=== PATIENT | male | born 2000 | race Caucasian/White ===

== ENCOUNTER 2019-08-30 08:24 | Emergency (ER) | payer MEDICAID ==
[~2019-08-30] VITALS: Ht 185.4 cm; Wt 83.9 kg
[2019-08-30] MEDS ORDERED: PERCOCET 5-3251 EACH PO (14:35)
== END 2019-08-30 14:44 | disposition home or self-care (01) ==
LOC: ED 08:24
DX: N13.4 Hydroureter (principal); F17.200 Nicotine dependence, unspecified, uncomplicated
CPT/HCPCS: 74177; 76705; 80053; 81001; 83690; 85025; 96361; 99284-25; J1170; J2405; J7030; Q9967

== ENCOUNTER 2019-09-01 09:55 | Emergency (ER) | payer MEDICAID ==
[~2019-09-01] VITALS: Ht 185.4 cm; Wt 83.9 kg
--- OUTSIDE RECORDS SUMMARY | ~2019-09-01 | XMS | Encounter Summary ---
Demographics + + + | Address | [address] | | | [place] [address] | + + + | Home Phone | | + + + | Preferred Language | Unknown | + + + | Marital Status | Legally | + + + | Gnosticism Affiliation | Unknown | + + + | Race | Unknown | + + + | Ethnic Group | Unknown | + + + Author + + + | Author | [facility] | | | and Anibal | + + + | Organization | [facility] | | | and Alexandruana | + + + | Address | Unknown | + + + | Phone | Unavailable | + + + Support + + + + + | Name | Relationship | Address | Phone | + + + + + | Neno Winters | ECON | [address] | | | | | [place] [address] | | + + + + + | Joelle Sharp | SHARYN | [place] | | | | | [place] | | + + + + + Care Team Providers + +------+ + | Care Clipper And Turner Name | Role | Phone | + +------+ + | Corey Yuan MD | PCP | | + +------+ + Encounter Details +--------+ + + + + | Date | Type | Department | Care Team | Description | +--------+ + + + + | 12/15/ | Abstract | [place] [facility] | Corey Yuan, | | | 2012 | | Conversion Location | [address] | | | | | [phone] | | | | | | [place] [address] | | | | | | [phone] | | | | | | | | +--------+ + + + + Social History + +-------+ +--------+------+ | Tobacco Use | Types | Packs/Day | Years | Date | | | | | Used | | + +-------+ +--------+------+ | Never Assessed | | | | | + +-------+ +--------+------+ + + + | Sex Assigned at | Date Recorded | | | | + + + | Not on file | | + + + + + + + | Job Start Date | Occupation | Industry | + + + + | Not on file | Not on file | Not on file | + + + + + + + + | Travel History | Travel Start | Travel End | + + + + + + | No recent travel history available. | + + documented as of this encounter Plan of Treatment Not on filedocumented as of this encounter Visit Diagnoses Not on filedocumented in this encounter"
--- OUTSIDE RECORDS SUMMARY | ~2019-09-01 | XMS | Encounter Summary ---
Demographics + + + | Address | [address] | | | [place] [address] | + + + | Home Phone | | + + + | Preferred Language | Unknown | + + + | Marital Status | Legally | + + + | Alevism Affiliation | Unknown | + + + | Race | Unknown | + + + | Ethnic Group | Unknown | + + + Author + + + | Author | [facility] | | | and Anibal | + + + | Organization | [facility] | | | and Alexandruana | + + + | Address | Unknown | + + + | Phone | Unavailable | + + + Support + + + + + | Name | Relationship | Address | Phone | + + + + + | Neno Winters | ECON | [address] | | | | | [place] [address] | | + + + + + | Joelle Sharp | SHARYN | [place] | | | | | [place] | | + + + + + Care Team Providers + +------+ + | Care Paper Coater Name | Role | Phone | + +------+ + | Corey Yuan MD | PCP | | + +------+ + Encounter Details +--------+ + + + + | Date | Type | Department | Care Team | Description | +--------+ + + + + | 01/20/ | Preadmit | [facility] | Anthony Ortega MD | | | 2017 | Visit | [facility] | [address] | | | | | [address] | | | | | [address] | [address] | | | | | [place] | | | | | | [address] | | | | | | [phone] | | | +--------+ + + + + Social History + + + +--------+------+ | Tobacco Use | Types | Packs/Day | Years | Date | | | | | Used | | + + + +--------+------+ | Current Some Day | E-Cigarettes | 0.1 | 4 | | | Smoker | | | | | + + + +--------+------+ + +---+---+---+ | Smokeless Tobacco: | | | | | Never Used | | | | + +---+---+---+ + + +---------+ + | Alcohol Use | Drinks/Week | oz/Week | Comments | + + +---------+ + | No | | | | + + +---------+ + + + + | Sex Assigned at [...] Not on filedocumented as of this encounter Procedures + +--------+ + + + | Procedure Name | Priori | Date/Time | Associated Diagnosis | Comments | | | ty | | | | + +--------+ + + + | PROTIME INR | Routin | 01/20/2018 | | Results for this | | | e | 10:11 AM | | procedure are in the | | | | PDT | | results section. | + +--------+ + + + | CBC NO DIFFERENTIAL | Routin | 01/20/2018 | | Results for this | | | e | 10:11 AM | | procedure are in the | | | | PDT | | results section. | + +--------+ + + + | BASIC METABOLIC | Routin | 01/20/2018 | | Results for this | | PANEL | e | 10:11 AM | | procedure are in the | | | | PDT | | results section. | + +--------+ + + + documented in this encounter Results Tonny INR (01/20/2018 10:11 AM PDT) + + + + + + | Component | Value | Ref Range | Performed | Pathologist | | | | | At | Signature | + + + + + + | Prothrombin | 14.0 | 12.0 - 14.2 sec | [facility] | | | Time | | | [facility] | | | | | | [facility] | | | | | | [facility] | | + + + + + + | INR | 1.1Comment: Usual oral | 0.9 - 1.2 | [facility] | | | | anticoagulant range: 2.0 | | [facility] | | | | to 3.0 High level | | LABORATORY | | | | oral anticoagulant | | [facility] | | | | range: 2.5 to | | | | | | 3.5Performed by [facility] [address] | | | | [address] | | | | | | [place] [address] | | | | + + + + + + + + | Specimen | + + | Blood specimen | | (specimen) | + + + + + + + | Performing | Address | City/State/Zipcode | Phone Number | | Organization | | | | + + + + + | [facility] | [address] | [place] [address] | | | [facility] | | | | | [facility] | | | | + + + + + Basic Metabolic Panel (01/20/2018 10:11 AM PDT) + + + + + + | Component | Value | Ref Range | Performed | Pathologist | | | | | At | Signature | + + + + + + | Na | 141 | 135 - 146 | [facility] | | | | | mmol/L | [facility] | | | | | | [facility] | | | | | | [facility] | | + + + + + + | K | 3.8 | 3.6 - 5.2 | [facility] | | | | | mmol/L | [facility] | | | | | | [facility] | | | | | | [facility] | | + + + + + + | Cl | 103 | 98 - 109 mmol/L | [facility] | | | | | | [facility] | | | | | | [facility] | | | | | | [facility] | | + + + + + + | CO2 | 29 | 21 - 32 mmol/L | [facility] | | | | | | [facility] | | | | | | [facility] | | | | | | [facility] | | + + + + + + | Anion Gap | 9 | 5 - 16 mmol/L | [facility] | | | | | | [facility] | | | | | | [facility] | | | | | | [facility] | | + + + + + + | Calcium | 9.4 | 8.7 - 10.3 | [facility] | | | | | mg/dL | [facility] | | | | | | [facility] | | | | | | [facility] | | + + + + + + | BUN | 14 | 7 - 23 mg/dL | [facility] | | | | | | [facility] | | | | | | [facility] | | | | | | [facility] | | + + + + + + | Creatinine | 0.92 | 0.50 - 1.30 | [facility] | | | | | mg/dL | [facility] | | | | | | [facility] | | | | | | [facility] | | + + + + + + | Glucose | 109 (H) | 65 - 99 mg/dL | [facility] | | | | | | [facility] | | | | | | LAB[facility] | | | | | | [facility] | | + + + + + + | Estimated | 121Comment: eGFR<60 | >=90 | [facility] | | | GFR | consistent with impaired | mL/min/1.73m2 | [facility] | | | | kidney | | LABORATORY | | | | function.Performed by | | [facility] | | | | [facility] [address] | | | | | | [place] [address] | | | | + + + + + + + + | Specimen | + + | Blood specimen | | (specimen) | + + + + + + + | Performing | Address | City/State/Zipcode | Phone Number | | Organization | | | | + + + + + | [facility] | [address] | [place] [address] | | | [facility] | | | | | [facility] | | | | + + + + + CBC no Differential (01/20/2018 10:11 AM PDT) + + + + + + | Component | Value | Ref Range | Performed | Pathologist | | | | | At | Signature | + + + + + + | WBC | 5.0 | 3.8 - 11.0 K/uL | [facility] | | | | | | [facility] | | | | | | [facility]AT[facility] | | | | | | [facility] | | + + + + + + | RBC | 5.22 | 4.20 - 5.70 | [facility] | | | | | M/uL | [facility] | | | | | | LAB[facility] | | | | | | [facility] | | + + + + + + | Hemoglobin | 16.4 | 13.2 - 17.0 | [facility] | | | | | g/dL | [facility] | | | | | | LAB[facility]ATORY | | | | | | [facility] | | + + + + + + | Hct | 46.2 | 39.0 - 50.0 % | [facility] | | | | | | [facility] | | | | | | LAB[facility]ORY | | | | | | [facility] | | + + + + + + | MCV | 88.6 | 80.0 - 100.0 fL | [facility] | | | | | | [facility] | | | | | | LAB[facility] | | | | | | [facility] | | + + + + + + | MCH | 31.4 | 27.0 - 34.0 pg | [facility] | | | | | | [facility] | | | | | | LAB[facility] | | | | | | [facility] | | + + + + + + | MCHC | 35.5 | 32.0 - 35.5 | [facility] | | | | | g/dL | [facility] | | | | | | LAB[facility]ORY | | | | | | [facility] | | + + + + + + | RDW-CV | 13.6 | 11.0 - 15.5 % | [facility] | | | | | | [facility] | | | | | | LAB[facility] | | | | | | [facility] | | + + + + + + | Platelet | 272 | 150 - 400 K/uL | [facility] | | | Count | | | [facility] | | | | | | LAB[facility] | | | | | | [facility] | | + + + + + + | MPV | 8.3Comment: Performed | 7.5 - 11.2 fL | [facility] | | | | by [facility] [address] | | [facility] | | | | [place] [facility] | LAB[facility]ATORY | | | | [place] [address] | | [facility] | | | | | | | | + + + + + + + + | Specimen | + + | Blood specimen | | (specimen) | + + + + + + + | Performing | Address | City/State/Zipcode | Phone Number | | Organization | | | | + + + + + | [facility] | [address] | [place] [address] | | | [facility] | | | | | [facility] | | | | + + + + + documented in this encounter Visit Diagnoses Not on filedocumented in this encounter"
--- OUTSIDE RECORDS SUMMARY | ~2019-09-01 | XMS | Encounter Summary ---
Demographics + + + | Address | [address] | | | [place] [address] | + + + | Home Phone | | + + + | Preferred Language | Unknown | + + + | Marital Status | Legally | + + + | Faith Affiliation | Unknown | + + + | Race | Unknown | + + + | Ethnic Group | Unknown | + + + Author + + + | Author | [facility] | | | and Anibal | + + + | Organization | [facility] | | | and [place] | + + + | Address | Unknown | + + + | Phone | Unavailable | + + + Support + + + + + | Name | Relationship | Address | Phone | + + + + + | Neno Winters | ECON | [address] | | | | | [place] [address] | | + + + + + | Joelle Sharp | ECON | [place] | | | | | [place] | | + + + + + Care Team Providers + +------+ + | Care Turning Machine 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 Name | Role | Phone | + +------+ + | Corey Yuan MD | PCP | | + +------+ + Reason for Visit Auth/Cert +--------+--------+ + + + + | Status | Reason | Specialty | Diagnoses / | Referred By | Referred To | | | | | Procedures | Contact | Contact | +--------+--------+ + + + + | | | | Diagnoses | | | | | | | 17 year old | | | | | | | male with | | | | | | | 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 | | | | | | | Procedures | | | | | | | Ir | | | | | | | Gastro/Bilia | | | | | | | ry/Genito | | | | | | | Urinary | | | | | | | Nephro | | | | | | | Tubes/Drains | | | +--------+--------+ + + + + Encounter Details +--------+---------+ + + + | Date | Type | Department | Care Team | Description | +--------+---------+ + + + | 12/17/ | Surgery | [facility] | Ray Marquez MD | right neph tube | | 2017 | | [facility] | | removed | | | | [address] | | | | | | [place], [place] | | | | | | [address] | | | | | | [phone] | | | +--------+---------+ + + + Social History + + [...] + + documented as of this encounter Last Filed Vital Signs + + + + + | Vital Sign | Reading | Time Taken | Comments | + + + + + | Blood Pressure | 114/68 | 12/17/2017 1:45 PM | | | | | PDT | | + + + + + | Pulse | 68 | 12/17/2017 1:45 PM | | | | | PDT | | + + + + + | Temperature | 36.5 C (97.7 F) | 12/17/2017 1:13 PM | | | | | PDT | | + + + + + | Respiratory Rate | 16 | 12/17/2017 1:45 PM | | | | | PDT | | + + + + + | Oxygen Saturation | 97% | 12/17/2017 1:45 PM | | | | | PDT | | + + + + + | Inhaled Oxygen | - | - | | | Concentration | | | | + + + + + | Weight | 82.6 kg (182 lb) | 12/17/2017 12:01 PM | | | | | PDT | | + + + + + | Height | 185.4 cm (6' 1") | 12/17/2017 12:01 PM | | | | | PDT | | + + + + + | Body Mass Index | 24.01 | 12/17/2017 12:01 PM | | | | | PDT | | + + + + + documented in this encounter Discharge Instructions Instructions Kathleen Hays RN - 12/17/2017Formatting of this note might be different f rom the original. Discharge Instructions for Percutaneous Nephrostomy You had a procedure called percutaneous nephrostomy.This means that urine was drained fro m your kidney to prevent pain, infection, and kidney damage.You had the procedure because your kidney or the tube leading from the kidney to the bladder (ureter) was blocked by a kid chetan stone or tumor, or perhaps due to another problem. The blockage caused a backup of urine in your kidney. A thin, flexible tube called a catheter will stay in place until the problem that caused th e buildup of urine has been treated. This may be as soon as a day or as long as weeks to mon ths. The catheter bag is taped to your leg so that you can walk around. Activity Don t lift anything heavier than10 pounds until your healthcare provider says it s OK. Avoid strenuous activities, such as mowing the lawn, vacuuming, playing sports, or engag ing in anything that will cause your tubing to be pulled or moved. Slowly increase your activity level with short, frequent walks3 to [address] times a day[address] Don t drive while you are still taking pain medicine. Wait until your healthcare tory marlon says it s OK to drive. Home care Eat your normal diet. Drink6 to 8 glasses of water a day, unless directed otherwise. Wear loose, comfortable clothes that won t pull or kink the catheter tube. Check your dressing often to make sure the tubing is secure. Don t let the drainage bag hang freely,or it will pull on the catheter. Keep it tape d to your leg or hold it temporarily. Empty the drainage bag often to keep the weight of the bag from pulling on the catheter. Empty the bag when it is one-half to two-thirds full. Always empty the bag before you go to bed. Wash your hands before and after emptying the bag. Measure and record the amount and color of the urine in the bag. Gently clean the skin around the catheter with mild soap and warm water. Pat dry with a clean towel. Change your dressing if it becomes loose or dirty. Throw away the dressing in a plastic bag. If you were asked to stop any medicines before the surgery, be sure to ask the healthcar e provider when you may restart taking them. This is especially important in the case of blo od thinners (anticoagulants or antiplatelet medicines). Follow-up care Make a follow-up appointment as directed by our staff. When to call your healthcare provider Call your healthcare provider right away if you have any of these: A catheter that is not draining The catheter comes out. Do not try to put it back in. Pain, redness, or discharge around catheter Fever of100.4F (38C) or higher, or as directed by your healthcare provider A noticeable increase or decrease in the amount of urine that drains Cloudy or smelly urine Urine that changes to a pink or red color Increased pain Severe pain in your side Nausea and vomiting Date Last Reviewed: 09/25/201619992640-5426 [employer]. [address] [place] [address], [place] [address]. All righ ts reserved. This information is not intended as a substitute for professional medical care. Always follow your healthcare professional's instructions. Discharge Instructions: After Your Surgery You ve just had surgery. During surgery, you were given medicine called anesthesia to memo p you relaxed and free of pain. After surgery, you may have some pain or nausea. This is com mon. Here are some tips for feeling better and getting well after surgery. Stay on schedule with your medicine. Going home Your healthcare provider will show you how to take care of yourself when you go home. He or she will also answer your questions. Have an adult family member or friend drive you home. For the first 24 hours after your surgery: Do not drive or use heavy equipment. Do not make important decisions or sign legal papers. Do not drink alcohol. Have someone stay with you, if needed. He or she can watch for problems and help keep yo u safe. Be sure to go to all follow-up visits with your healthcare provider. And rest after your nathan rgery for as long as your healthcare provider tells you to. Coping with pain If you have pain after surgery, pain medicine will help you feel better. Take it as shwetha cano efore pain becomes severe. Also, ask your healthcare provider or pharmacist about other ways to control pain. This might be with heat, ice, or relaxation. And follow any other instruct ions your surgeon or nurse gives you. Tips for taking pain medicine To get the best relief possible, remember these points: Pain medicines can upset your stomach. Taking them with a little food may help. Most pain relievers taken by mouth need at least 20 to 30 minutes to start to work. Taking medicine on a schedule can help you remember to take it. Try to time your medicin e so that you can take it before starting an activity. This might be before you get dressed, go for a walk, or sit down for dinner. Constipation is a common side effect of pain medicines. Call your healthcare provider be fore taking any medicines such as laxatives or stool softeners to help ease constipation. Al so ask if you should skip any foods. Drinkinglots of fluids andeating foodssuch as fru its and vegetables that are high in fiber can also help. Remember, do not take laxatives unl ess your surgeon has prescribed them. Drinking alcohol and taking pain medicine can cause dizziness and slow your breathing. I t can even be deadly. Do not drink alcohol while taking pain medicine. Pain medicine can make you react more slowly to things. Do not drive or run machinery wh ile taking pain medicine. Your healthcare providermay tell you to take acetaminophen to help ease your pain. Ask hi m or her how much you are supposed to take each day. Acetaminophen or other pain relievers m ay interact with your prescription medicines or other mity-ohc-mxjyluo (OTC) medicines. Some prescription medicines have acetaminophen and other ingredients.Using both prescription a nd OTC acetaminophenfor paincan cause you to overdose. Readthe labels on your OTC medi cineswith care. This will help youto clearly know the list of ingredients, how much to t clementine, and anywarnings. It may also help you not take too muchacetaminophen.If you have questions or do not understand the information, ask your pharmacist or healthcare provider t o explain it to you before you take the OTC medicine. Managing nausea Some people have an upset stomach after surgery. This is often because of anesthesia, pain, or pain medicine, or the stress of surgery. These tips will help you handle nausea and eat healthy foods as you get better. If you were on a special food plan before surgery, ask your healthcare provider if you should follow it while you get better. These tips may help: Do not push yourself to eat. Your body will tell you when to eat and how much. Start off with clear liquids and soup. They are easier to digest. Next try semi-solid foods, such as mashed potatoes, applesauce, and gelatin, as you feel ready. Slowly move to solid foods. Don t eat fatty, rich, or spicy foods at first. Do not force yourself to have 3 large meals a day. Instead eat smaller amounts more ofte n. Take pain medicines with a small amount of solid food, such as crackers or toast, to carl id nausea. Call your surgeon if You still have pain an hour after taking medicine. The medicine may not be strong enough . You feel too sleepy, dizzy, or groggy. The medicine may be too strong. You have side effects like nausea, vomiting, or skin changes, such as rash, itching, or hives. If you have obstructive sleep apnea You were given anesthesia medicine during surgery to keep you comfortable and free of pain. After surgery, you may have more apnea spells because of this medicine and other medicines you were given. The spells may last longer than usual. At home: Keep using the continuous positive airway pressure (CPAP) device when you sleep. Unless your healthcare provider tells you not to, use it when you sleep, day or night. CPAP is a co mmon device used to treat obstructive sleep apnea. Talk with your provider before taking any pain medicine, muscle relaxants, or sedatives. Your provider will tell you about the possible dangers of taking these medicines. Date Last Reviewed: 07/25/201619995261-0235 [employer]. [address] [place] [id number]. All righ ts reserved. This information is not intended as a substitute for professional medical care. Always follow your healthcare professional's instructions. 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 documented in this encounter Medications at Time of Discharge + + + +---------+ + + | Medication | Sig | Dispensed | Refills | Start | End Date | | | | | | Date | | + + + +---------+ + + | ascorbic acid | Take 500 mg by mouth | | 0 | | | | (VITAMIN C) 500 mg | Daily. | | | | | | tablet | | | | | | + + + +---------+ + + | citalopram | Take 1 tablet by | 30 | 3 | 11/19/19 | | | (CELEXA) 20 mg | mouth Daily. | tablet | | 18 | 8 | | tabletIndications: | | | | | | | Moderate episode of | | | | | | | recurrent major | | | | | | | depressive disorder | | | | | | | (HCC) | | | | | | + + + +---------+ + + | docusate sodium | Take 1-2 capsules by | 30 | 0 | 01/29/20 | | | (COLACE) 100 mg | mouth Daily. | capsule | | 18 | 9 | | capsule | | | | | | + + + +---------+ + + | | Take 1 tablet by | 20 | 0 | 11/16/19 | | | HYDROcodone-acetamin | mouth every 6 hours | tablet | | 18 | 8 | | ophen (NORCO) 5-325 | as needed for Pain. | | | | | | mg per tablet | | | | | | + + + +---------+ + + | | Take 1-2 tablets by | 30 | 0 | 01/29/20 | | | oxyCODONE-acetaminop | mouth every 6 hours | tablet | | 18 | 9 | | hen (PERCOCET) 5-325 | as needed for Pain. | | | | | | mg per tablet | | | | | | + + + +---------+ + + documented as of this encounter Plan of Treatment Not on filedocumented as of this encounter Procedures + +--------+ + + + | Procedure Name | Priori | Date/Time | Associated Diagnosis | Comments | | | ty | | | | + +--------+ + + + | IR PROCEDURE | Routin | 12/17/2017 | Acquired atrophy | Results for this | | | e | 1:24 PM | of kidney Accessory | procedure are in the | | | | PDT | kidney Stricture | results section. | | | | | or kinking of ureter | | + +--------+ + + + documented in this encounter Results IR Procedure (12/17/2017 1:24 PM PDT) + + | Specimen | + + | | + + + + + | Narrative | Performed At | + + + | IR PROCEDURE | [facility] | | RIGHT NEPHROSTOGRAM WITH REMOVAL OF RIGHT NEPHROSTOMY TUBE. CLINICAL | | | INFORMATION:Right. Prone. 8.5 Fr, nephrostomy tube removal. | | | COMPARISON:IR PROCEDURE dated 11/14/2017; US PELVIS LIMITED dated | | | 11/13/2017;ULTRASOUND APPENDIX dated 11/13/2017 PROCEDURE:The risks, | | | benefits and alternatives were discussed with the patient;consent was | | | obtained and placed in the patient's chart. The risksincluded but were | | | not limited to puncture site bleeding, stroke, kidneyfailure, | | | allergic reaction and . The right flank was prepped and draped in | | | standard fashion. Localanesthetic accomplished 1 present xylocaine. | | | Next using a sterile technique the nephrostomy tube was | | | injected.Sequential imaging from the right kidney to bladder was | | | utilized. Thepatient was also placed upright. Good prompt drainage | | | into the bladderis noted. At this point the retention suture was | | | removed. The nephrostomy tubewas removed over a guidewire under | | | fluoroscopic guidance. Patienttolerated the procedure well. Maximum | | | sterile barrier techniques taken. All staff present in the | | | roomperformed hand hygiene prior to the procedure. There were no | | | immediate complications following the procedure.Estimated blood loss: | | | Minimal Fluoro Time: 2 minutes The total number of images: 2 | | | Contrast: 10 ml Omnipaque 300 Medications:25mcg Fentanyl, and 0.5 mg | | | Versed were utilized for conscioussedation. The conscious sedation | | | nurse who monitored the bloodpressure, heart rate, and pulse oximeter | | | during the examinationadministered the medications. The patient was | | | monitored forapproximately 30.0 minutes. A permanent sonographic | | | recording wascreated for the patient's record. FINDINGS:The | | | nephrostogram demonstrates the duplicated right renal collectingsystem | | | with the ureteral stent in position. Persistent narrowing ofthe | | | distal right ureter is noted however there is patency of the | | | rightureteral stent with contrast in the bladder. Successful removal | | | of right nephrostomy tube.. IMPRESSION:Right nephrostogram | | | demonstrates patency of the right ureteral stentwith passage of | | | contrast into the bladder. Right nephrostomy tuberemoved. See above | | | comments Signed by: MD Marquez David | | |Estimated blood loss: Minimal | | | | | |Fluoro Time: 2 minutes The total number of images: 2 | | | | | |Contrast: 10 ml Omnipaque 300 | | | | | |Medications: | | |25mcg Fentanyl, and 0.5 mg Versed were utilized for conscious | | |sedation. The conscious sedation nurse who monitored the blood | | |pressure, heart rate, and pulse oximeter during the examination | | |administered the medications. The patient was monitored for | | |approximately 30.0 minutes. A permanent sonographic recording was | | |created for the patient's record. | | | | | |FINDINGS: | | |The nephrostogram demonstrates the duplicated right renal collecting | | |system with the ureteral stent in position. Persistent narrowing of | | |the distal right ureter is noted however there is patency of the right | | |ureteral stent with contrast in the bladder. | | | | | |Successful removal of right nephrostomy tube.. | | | | | |IMPRESSION: | | |Right nephrostogram demonstrates patency of the right ureteral stent | | |with passage of contrast into the bladder. Right nephrostomy tube | | |removed. | | | | | |See above comments | | | | | | | | | | | | | | |Signed by: MD Marquez David | | | | | | | | + + + + + | Procedure Note | + + | Lance, Rad Results In - 12/17/2017 1:34 PM PDT | | IR PROCEDURE | | | | RIGHT NEPHROSTOGRAM WITH REMOVAL OF RIGHT NEPHROSTOMY TUBE. | | | | CLINICAL INFORMATION: | | Right. Prone. 8.5 Fr, nephrostomy tube removal. | | | | COMPARISON: | | IR PROCEDURE dated 11/14/2017; US PELVIS LIMITED dated 11/13/2017; | | ULTRASOUND APPENDIX dated 11/13/2017 | | | | PROCEDURE: | | The risks, benefits and alternatives were discussed with the patient; | | consent was obtained and placed in the patient's chart. The risks | | included but were not limited to puncture site bleeding, stroke, kidney | | failure, allergic reaction and . | | | | The right flank was prepped and draped in standard fashion. Local | | anesthetic accomplished 1 present xylocaine. | | | | Next using a sterile technique the nephrostomy tube was injected. | | Sequential imaging from the right kidney to bladder was utilized. The | | patient was also placed upright. Good prompt drainage into the bladder | | is noted. | | | | At this point the retention suture was removed. The nephrostomy tube | | was removed over a guidewire under fluoroscopic guidance. Patient | | tolerated the procedure well. | | | | Maximum sterile barrier techniques taken. All staff present in the room | | performed hand hygiene prior to the procedure. | | | | There were no immediate complications following the procedure. | | Estimated blood loss: Minimal | | | | Fluoro Time: 2 minutes The total number of images: 2 | | | | Contrast: 10 ml Omnipaque 300 | | | | Medications: | | 25mcg Fentanyl, and 0.5 mg Versed were utilized for conscious | | sedation. The conscious sedation nurse who monitored the blood | | pressure, heart rate, and pulse oximeter during the examination | | administered the medications. The patient was monitored for | | approximately 30.0 minutes. A permanent sonographic recording was | | created for the patient's record. | | | | FINDINGS: | | The nephrostogram demonstrates the duplicated right renal collecting | | system with the ureteral stent in position. Persistent narrowing of | | the distal right ureter is noted however there is patency of the right | | ureteral stent with contrast in the bladder. | | | | Successful removal of right nephrostomy tube.. | | | | IMPRESSION: | | Right nephrostogram demonstrates patency of the right ureteral stent | | with passage of contrast into the bladder. Right nephrostomy tube | | removed. | | | | See above comments | | | | | | | | | | Signed by: MD Marquez David | + + + +---------+ + + | Performing | Address | City/State/Zipcode | Phone Number | | Organization | | | | + +---------+ + + | [facility] | | | | + +---------+ + + documented in this encounter Visit Diagnoses Not on filedocumented in this encounter Administered Medications + +--------+ +--------+------+------+ | Medication Order | MAR | Action | Dose | Rate | Site | | | Action | Date | | | | + +--------+ +--------+------+------+ | fentaNYL (PF) injection | Given | 12/18/19 | 25 mcg | | | | Intravenous, PRN, Starting Wed | | 18 12:54 | | | | | 12/17/17 at 1254, Intra-op | | PM PDT | | | | + +--------+ +--------+------+------+ +---+---+ | | | +---+---+ + +-------+ +--------+---+---+ | iohexol (OMNIPAQUE 300) 300 | Given | 12/18/19 | 10 mLs | | | | mg/mL injection PRN, Starting | | 18 12:56 | | | | | 12/17/17 at 1256 | | PM PDT | | | | + +-------+ +--------+---+---+ +---+---+ | | | +---+---+ + +-------+ +--------+---+---+ | midazolam (VERSED) 1 mg/mL | Given | 12/18/19 | 0.5 mg | | | | injection Intravenous, PRN, | | 18 12:54 | | | | | Starting 12/17/17 at 1254 | | PM PDT | | | | + +-------+ +--------+---+---+ +---+---+ | | | +---+---+ + +---------+ +---+ +---+ | sodium chloride 0.9% (NS) | New Bag | 12/18/19 | | 50 mL/hr | | | infusion at 50 mL/hr, | | 18 12:23 | | | | | Intravenous, CONTINUOUS, Starting | | PM PDT | | | | | 12/17/17 at 1230, OK to use | | | | | | | implantable port., Pre-op | | | | | | + +---------+ +---+ +---+ +---+---+ | | | +---+---+ documented in this encounter
--- OUTSIDE RECORDS SUMMARY | ~2019-09-01 | XMS | Encounter Summary ---
Demographics + + + | Address | [address] | | | [place] [address] | + + + | Home Phone | | + + + | Preferred Language | Unknown | + + + | Marital Status | Legally | + + + | Adventist Affiliation | Unknown | + + + | Race | Unknown | + + + | Ethnic Group | Unknown | + + + Author + + + | Author | [facility] | | | and Anibal | + + + | Organization | [facility] | | | and [place] | + + + | Address | Unknown | + + + | Phone | Unavailable | + + + Support + + + + + | Name | Relationship | Address | Phone | + + + + + | Neno Winters | ECON | [address] | | | | | [place] [address] | | + + + + + | Joelle Sharp | SHARYN | [place] | | | | | [place] | | + + + + + Care Team Providers + +------+ + | Care [employer] Dispatcher Name | Role | Phone | + +------+ + | Callie Powell MD | PCP | | + +------+ + Reason for Visit + + + | Reason | Comments | + + + | Psychiatric | | | Evaluation | | + + + Encounter Details +--------+ + + + + | Date | Type | Department | Care Team | Description | +--------+ + + + + | 09/22/ | Emergency | [facility] | Chaya Katz MD | Suicidal thoughts | | 2015 - | | [facility] | [address] | (Primary Dx) | | | | PEDIATRIC EMERGENCY | [place] [address] | | | 09/23/ | | [address] | [phone] | | | 2014 | | [place], [place] | | | | | | [address] | | | | | | [phone] | | | +--------+ + + + + Social History + +-------+ +--------+------+ | Tobacco Use | Types | Packs/Day | Years | Date | | | | | Used | | + +-------+ +--------+------+ | Current Every Day | | | | | | Smoker | | | | | + +-------+ +--------+------+ + + +---------+ + | Alcohol Use | Drinks/Week | oz/Week | Comments | + + +---------+ + | Yes | | | | + + +---------+ [...] + + + | Blood Pressure | 136/71 | 09/22/2014 9:37 PM | | | | | PST | | + + + + + | Pulse | 75 | 09/22/2014 9:37 PM | | | | | PST | | + + + + + | Temperature | 36.4 C (97.6 F) | 09/22/2014 9:37 PM | | | | | PST | | + + + + + | Respiratory Rate | 18 | 09/22/2014 9:37 PM | | | | | PST | | + + + + + | Oxygen Saturation | 96% | 09/22/2014 9:37 PM | | | | | PST | | + + + + + | Inhaled Oxygen | - | - | | | Concentration | | | | + + + + + | Weight | 77.6 kg (171 lb) | 09/22/2014 9:37 PM | | | | | PST | | + + + + + | Height | 182.9 cm (6') | 09/22/2014 9:37 PM | | | | | PST | | + + + + + | Body Mass Index | 23.19 | 09/22/2014 9:37 PM | | | | | PST | | + + + + + documented in this encounter Discharge Instructions Instructions Chaya Katz MD - 09/23/2014Brayson has been evaluated in the emergency depa rtment today for suicidal thoughts. Bratimon needs ongoing followup with Callie Powell and with outpatient mental health resources. Please seek medical attention for increased a gitation or anxiety, change behavior, concern for harm to self or others, or other concerns. AttachmentsThe following attachments cannot be sent through Care Everywhere.SUICIDE, RECOGN IZING WARNING SIGNS IN YOURSELF (BAHAMIAN)documented in this encounter Medications at Time of Discharge + + + +---------+ + + | Medication | Sig | Dispensed | Refills | Start | End Date | | | | | | Date | | + + + +---------+ + + | | apply to rash twice | | 0 | 09/08/19 | | | clotrimazole-betamet | daily | | | 13 | 5 | | hasone (LOTRISONE) | | | | | | | cream | | | | | | + + + +---------+ + + documented as of this encounter Plan of Treatment Not on filedocumented as of this encounter Procedures + +--------+ + + + | Procedure Name | Priori | Date/Time | Associated Diagnosis | Comments | | | ty | | | | + +--------+ + + + | POCT URINALYSIS | STAT | 09/22/2014 | | Results for this | | DIPSTICK | | 11:06 PM | | procedure are in the | | | | PST | | results section. | + +--------+ + + + | DRUGS OF ABUSE, | STAT | 09/22/2014 | | Results for this | | SCREEN, URINE | | 10:49 PM | | procedure are in the | | | | PST | | results section. | + +--------+ + + + documented in this encounter Results POCT Urinalysis Dipstick Non-Automated (09/22/2014 11:06 PM PST) + + + + + + | Component | Value | Ref Range | Performed | Pathologist | | | | | At | Signature | + + + + + + | Color, UA, | | Yellow, Light | | | | POC | | Yellow | | | + + + + + + | Clarity, | | | | | | UA, POC | | | | | + + + + + + | Glucose, | Negative | Negative | | | | UA, POC | | | | | + + + + + + | Bilirubin, | Negative | Negative | | | | UA, POC | | | | | + + + + + + | Ketones, | Negative | Negative, 100 | | | | UA, POC | | mg/dL | | | + + + + + + | Specific | 1.025 | 1.001 - 1.030 | | | | [place], | | | | | | UA, POC | | | | | + + + + + + | Blood, UA, | Negative | Negative | | | | POC | | | | | + + + + + + | pH, UA, POC | 7.0 | 5.0, 6.0, 7.0, | | | | | | 8.0, 5.5, 6.5, | | | | | | 7.5 | | | + + + + + + | Protein, | Negative | Negative | | | | UA, POC | | | | | + + + + + + | Urobilinoge | 0.2 | 0.2, Negative, | | | | n, UA, POC | | Normal, < 0.2 | | | | | | mg/dL, 1 mg/dL, | | | | | | < 0.2 E.U./dl, | | | | | | 1.0 E.U./dL, | | | | | | 0.2 mg/dL | | | + + + + + + | Nitrite, | Negative | | | | | UA, POC | | | | | + + + + + + | Leukocyte | Negative | Negative | | | | Esterase, | | | | | | UA, POC | | | | | + + + + + + + + | Specimen | + + | Urine specimen | | (specimen) | + + Drugs of Abuse, Screen, Urine (09/22/2014 10:49 PM PST) + + + + + + | Component | Value | Ref Range | Performed | Pathologist | | | | | At | Signature | + + + + + + | Amphetamine | Negative | Negative | [facility] | | | Screen, | | | [facility] | | | Urine | | | HEART | | | | | | MEDICAL | | | | | | CENTER | | | | | | LABORATORY | | + + + + + + | Methampheta | Negative | Negative | [facility] | | | mine | | | [facility] | | | Screen, | | | HEART | | | Urine | | | MEDICAL | | | | | | CENTER | | | | | | LABORATORY | | + + + + + + | Barbiturate | Negative | Negative | [facility] | | | s Screen, | | | [facility] | | | Urine | | | HEART | | | | | | MEDICAL | | | | | | CENTER | | | | | | LABORATORY | | + + + + + + | Benzodiazep | Negative | Negative | [facility] | | | abigail | | | [facility] | | | Screen, | | | HEART | | | Urine | | | MEDICAL | | | | | | CENTER | | | | | | LABORATORY | | + + + + + + | Cocaine | Negative | Negative | [facility] | | | Metabolites | | | [facility] | | | , Ur | | | HEART | | | | | | MEDICAL | | | | | | CENTER | | | | | | LABORATORY | | + + + + + + | Methadone | Negative | Negative | [facility] | | | Screen, | | | [facility] | | | Urine | | | HEART | | | | | | MEDICAL | | | | | | CENTER | | | | | | LABORATORY | | + + + + + + | Opiate | Negative | Negative | [facility] | | | Screen, | | | [facility] | | | Urine | | | HEART | | | | | | MEDICAL | | | | | | CENTER | | | | | | LABORATORY | | + + + + + + | Phencyclidi | Negative | Negative | [facility] | | | ne Screen, | | | [facility] | | | Urine | | | HEART | | | | | | MEDICAL | | | | | | CENTER | | | | | | LABORATORY | | + + + + + + | Tricyclics, | NegativeComment: This | Negative | [facility] | | | UR | entire battery is for | | [facility] | | | | screening purposes only. | | HEART | | | | Results are not | | MEDICAL | | | | confirmed.Please note: | | CENTER | | | | Some medications cause | | LABORATORY | | | | positive results with | | | | | | any or all tested drugs | | | | | | in this battery.Results | | | | | | from any unconfirmed | | | | | | drug in this screening | | | | | | battery should not be | | | | | | used for legal purposes. | | | | + + + + + + | Cannabinoid | Negative | Negative | [facility] | | | s Screen, | | | [facility] | | | Urine | | | HEART | | | | | | MEDICAL | | | | | | CENTER | | | | | | LABORATORY | | + + + + + + + + | Specimen | + + | Urine specimen | | (specimen) - Urine, | | Unspecified Source | + + + + + + + | Performing | Address | City/State/Zipcode | Phone Number | | Organization | | | | + + + + + | [facility] | [address] | [place] [address] | | | [facility] | | | | | LABORATORY | | | | + + + + + documented in this encounter Visit Diagnoses + + | Diagnosis | + + | Suicidal thoughts - Primary Suicidal ideation | + + documented in this encounter"
--- OUTSIDE RECORDS SUMMARY | ~2019-09-01 | XMS | Encounter Summary ---
Demographics + + + | Address | [address] | | | [place] [address] | + + + | Home Phone | | + + + | Preferred Language | Unknown | + + + | Marital Status | Legally | + + + | Methodist Affiliation | Unknown | + + + | Race | Unknown | + + + | Ethnic Group | Unknown | + + + Author + + + | Author | [facility] | | | and Anibal | + + + | Organization | [facility] | | | and [place] | + + + | Address | Unknown | + + + | Phone | Unavailable | + + + Support + + + + + | Name | Relationship | Address | Phone | + + + + + | Neno Winters | ECON | [address] | | | | | [place] [address] | | + + + + + | Joelle Sharp | SHARYN | [place] | | | | | [place] | | + + + + + Care Team Providers + +------+ + | Care Jammer Operator Name | Role | Phone | [...] | | | | PEDIATRIC EMERGENCY | [place] [address] | | | 09/23/ | | [address] | [phone] | | | 2014 | | [place], [place] | | | | | | [address] | | | | | | [phone] | | | +--------+ + + + [...] Everywhere.SUICIDE, RECOGN IZING WARNING SIGNS IN YOURSELF (CHINESE)documented in this encounter Medications at Time of [...] 1.001 - 1.030 | | | | [place], | | | | | | UA, [...] + + | [facility] | [address] | [place] [address] | | | [facility] | | | | | LABORATORY | | | | + + + + + documented in this encounter Visit Diagnoses + + | Diagnosis | + + | Suicidal thoughts - Primary Suicidal ideation | + + documented in this encounter"
--- OUTSIDE RECORDS SUMMARY | ~2019-09-01 | XMS | Encounter Summary ---
Demographics + + + | Address | [address] | | | [place] [address] | + + + | Home Phone | | + + + | Preferred Language | Unknown | + + + | Marital Status | Legally | + + + | Amish Affiliation | Unknown | + + + | Race | Unknown | + + + | Ethnic Group | Unknown | + + + Author + + + | Author | [facility] | | | and Anibal | + + + | Organization | [facility] | | | and [place] | + + + | Address | Unknown | + + + | Phone | Unavailable | + + + Support + + + + + | Name | Relationship | Address | Phone | + + + + + | Neno Winters | ECON | [address] | | | | | [place] [address] | | + + + + + | Joelle Sharp | SHARYN | [place] | | | | | [place] | | + + + + + Care Team Providers + +------+ + | Care Big Data Hadoop Developer Name | Role | Phone | + [...] | +--------+ + + + + | 12/29/ | Emergency | [facility] | Axel Cruz, | Suicidal ideations | | 2015 | | [facility] | [place] [address] | (Primary Dx) | | | | PEDIATRIC EMERGENCY | [place] [address] | | | | | [address] | [phone] | | | | | [place], [place] | | | | | | [address] | | | | | | [phone] | | | +--------+ + + + [...] + + + | Blood Pressure | 138/79 | 12/29/2014 2:19 PM | | | | | PDT | | + + + + + | Pulse | 80 | 12/29/2014 7:12 PM | | | | | PDT | | + + + + + | Temperature | 37 C (98.6 F) | 12/29/2014 7:12 PM | | | | | PDT | | + + + + + | Respiratory Rate | 16 | 12/29/2014 7:12 PM | | | | | PDT | | + + + + + | Oxygen Saturation | 98% | 12/29/2014 7:12 PM | | | | | PDT | | + + + + + | Inhaled Oxygen | - | - | | | Concentration | | | | + + + + + | Weight | - | - | | + + + + + | Height | - | - | | + + + + + | Body Mass Index | - | - | | + + + + + documented in this encounter Discharge Instructions AttachmentsThe following attachments cannot be sent through Care Everywhere.SUICIDE, RECOGN IZING WARNING SIGNS IN YOURSELF (ARABIC)documented in this encounter Plan of Treatment Not on filedocumented as of this encounter Visit Diagnoses + + | Diagnosis | + + | Suicidal ideations - Primary Suicidal ideation | + + documented in this encounter"
--- OUTSIDE RECORDS SUMMARY | ~2019-09-01 | XMS | Encounter Summary ---
Demographics + + + | Address | [address] | | | [place] [address] | + + + | Home Phone | | + + + | Preferred Language | Unknown | + + + | Marital Status | Legally | + + + | Samaritan Affiliation | Unknown | + + + | Race | Unknown | + + + | Ethnic Group | Unknown | + + + Author + + + | Author | [facility] | | | and Anibal | + + + | Organization | [facility] | | | and [...] | | | | | [place] [address] | | + + + + + | Joelle Sharp | SHARYN | Sigrid | | | | | [place] | | + + + + + Care Team Providers + +------+ + | Care Regulatory Analyst Name | Role | Phone | + +------+ + | Corey Yuan MD | PCP | | + +------+ + Reason for Visit + + + | Reason | Comments | + + + | New Patient | | + + + | Back Pain | R sided; where kidney pain has been | + + + Encounter Details +--------+---------+ + + + | Date | Type | Department | Care Team | Description | +--------+---------+ + + + | 11/18/ | Office | [place] | Corey Yuan, | Duplicated right | | 2018 | Visit | [facility] | [address] | renal collecting | | | | Medicine [address] | system (Primary Dx); | | | | [address] | [place] [address] | Renal failure, | | | | [place] | [phone] | unspecified | | | | [address] | | chronicity; Moderate | | | | [phone] | | episode of | | | | | | recurrent major | | | | | | depressive disorder | | | | | | ([facility]); Other | | | | | | hydronephrosis; | | | | | | Cigarette nicotine | | | | | | dependence without | | | | | | complication | +--------+---------+ + + + Social History + +-------+ +--------+------+ | Tobacco Use | Types | Packs/Day | Years | Date | | | | | Used | | + +-------+ +--------+------+ | Current Some Day | | 0.25 | 4 | | | Smoker | | | | | + +-------+ +--------+------+ + +---+---+---+ | Smokeless Tobacco: | | | | | Never Used | | | | + +---+---+---+ + + | Tobacco Cessation: Ready to Quit: Yes; Counseling Given: Yes | + + + + +---------+ + | Alcohol Use [...] + + + | Blood Pressure | 103/78 | 11/18/2017 1:03 PM | L arm | | | | PDT | | + + + + + | Pulse | 132 | 11/18/2017 1:03 PM | | | | | PDT | | + + + + + | Temperature | - | - | | + + + + + | Respiratory Rate | - | - | | + + + + + | Oxygen Saturation | 97% | 11/18/2017 1:03 PM | RA | | | | PDT | | + + + + + | Inhaled Oxygen | - | - | | | Concentration | | | | + + + + + | Weight | 80.3 kg (177 lb) | 11/18/2017 1:03 PM | | | | | PDT | | + + + + + | Height | 180.3 cm (5' 11") | 11/18/2017 1:03 PM | | | | | PDT | | + + + + + | Body Mass Index | 24.69 | 11/18/2017 1:03 PM | | | | | PDT | | + + + + + documented in this encounter Progress Notes Corey Yuan MD - 11/18/2017 1:00 PM PDTFormatting of this note might be different fr om the original. Subjective: August Winters is a 17 y.o. 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 He has graduated HS and is working @ [employer]. He is single and unattached. He has 2 sons, age 2, twins (lives with mother and hasn't seen them since they were 4 months ol d). Mom is alive. Dad is alive. He enjoys writing music and singing. 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 His father plays otoniel tar. He currently has a drain tube in place.--nephrostomy-- He kept leaving the ER prior to gett ing treatment for sepsis and severe hydronephrosis on right He has an appt w/ urology in ab out 2 weeks and they are wanting to remove part of his kidney. --duplicated collecting syste m..suggested he proceed as directed. He would like to start depression medication. We will prescribe Celexa 20 mg daily. We will draw routine labs today. F/U 1 month. I, Lidia Trevino CMA am scribing for and in the presence of Dr. Corey Yuan. I, Dr. Corey Yuan personally performed the services described in this documentation as scri bed by Lidia Trevino CMA. Visit Diagnoses: 1. Duplicated right renal collecting system 2. Renal failure, unspecified chronicity 3. Moderate episode of recurrent major depressive disorder (HCC) 4. Other hydronephrosis 5. Cigarette nicotine dependence without complication No Known Allergies Medications: He has a current medication list which includes the following prescription(s): cephalexin, citalopram, hydrocodone-acetaminophen, ibuprofen, nitrofurantoin, and ondansetron, and the f [facility] Facility-Administered Medications: famotidine and ondansetron. Past Medical History He has a past medical history of ADHD (attention deficit hyperactivity disorder); Anxiety; Chronic kidney disease; Depression; H/O toe surgery; MDRO (multiple drug resistant organisms ) resistance; ODD (oppositional defiant disorder); and Substance abuse. Past Surgical History He has a past surgical history that includes other surgical history (Right, 11/14/2017) and Small intestine surgery. Family History: His family history includes Diabetes in his maternal grandfather; Stroke in his paternal gr andfather. Social History: He reports that he has been smoking. He has a 1.00 pack-year smoking history. He has never used smokeless tobacco. He reports that he uses drugs, including Marijuana. He reports that he does not drink alcohol. Review of Systems Constitutional: DENIES Fever, chills, sweats, fatigue/weakness, malaise, sleep disorder, a nd unexpected weight change. Sleep: DENIES Trouble sleeping, excessive snoring, and daytime sleepiness. Eyes: DENIES Blurring, diplopia, halos, light sensitivity, eye irritation, eye discharge, eye pain, and vision loss. ENT: DENIES Earache, tinnitus, ear discharge, decreased hearing, nasal congestion, noseble eds, sore throat, difficulty swallowing, and hoarseness. Resp: DENIES Cough, dyspnea at rest, dyspnea on exertion, sleep problems related to breat stephanie, coughing up blood, snoring, and wheezing. CV: DENIES Neck/chest/jaw pain with exertion, palpitations, lightheadedness, syncope, dysp digna on exertion, orthopnea, PND, peripheral edema, and claudication. GI: DENIES Indigestion, loss of appetite, trouble swallowing, heartburn, nausea, vomiting, abdominal pain, bloating, gas, diarrhea, constipation,melena, and hematochezia. DENIES Dysuria, hematuria, urinary frequency, difficulty emptying bladder, nocturia, dec reased libido, and erectile dysfunction. Musculoskeletal: DENIES Joint pain/stiffness, joint swelling, back pain, neck pain, muscle cramps, muscle stiffness/ weakness, and gout. Derm: DENIES Rash, itching, dryness, excessive sweating, night sweats, change in nail beds, unusual hair distribution, skin cancer, changes in skin color, flushing, and suspicious les ions. Neurologic: DENIES Frequent headaches, transient focal weakness, transient vision loss in o ne eye, seizures, tremors, numbness or tingling in hands or feet, vertigo, balance problems, and fall or difficulty walking in past 6 months. Psych DENIES Depression, anxiety, trouble concentrating, nightmares, thoughts of suicide, t houghts of violence, and memory loss. Endo DENIES Polydipsia, polyuria, polyphagia, cold intolerance, heat intolerance, and unusu al weight change. Heme DENIES Abnormal bruising, bleeding, and enlarged lymph nodes. Allergy DENIES Urticaria, allergic rash, hay fever, seasonal allergies. ID DENIES Recurrent infections, HIV risks or exposure, and risk for other STDs. Objective BP 103/78 Comment: L arm | Pulse 132 | Ht 1.803 m (5' 11") | Wt 80.3 kg (177 lb) | SpO2 97% Comment: RA | BMI 24.69 kg/m General Appearance: Alert, cooperative, no distress, appears stated age Head: Normocephalic, without obvious abnormality, atraumatic Eyes: PERRL, conjunctiva/corneas clear, EOM's intact Ears: Normal TM's, external auditory canals, and acuity Nose: Nares normal, septum midline, mucosa normal, no drainage or sinus tenderness Throat: Lips, mucosa, and tongue normal; teeth and gums normal Neck: Supple, symmetrical, no adenopathy, thyroid: not enlarged, symmetric, no tenderness/m ass/nodules, no carotid bruit or JVD Back: Symmetric, ROM normal, non tender posterior iliac crests, SI Neg, SLR negative no CVA tenderness Lungs: Clear to auscultation bilaterally, respirations unlabored Chest Wall: No tenderness or deformity Heart: Regular rate and rhythm. Abdomen: Soft, non-tender, bowel sounds active all four quadrants, no masses, no organom egaly No guarding Rt nephrostomy tube Extremities: Extremities normal, atraumatic, no cyanosis, clubbing, or edema Pulses: 2+ and symmetric Skin: Skin color, texture, turgor normal, no rashes or lesions Lymph nodes: Cervical, supraclavicular, and axillary nodes normal Neurologic: . Motor exam 5/5 throughout. Gait normal. DTR's 2+ and symmetrical Assessment And Plans August was seen today for new patient and back pain. Diagnoses and all orders for this visit: Duplicated right renal collecting system Just out of hospital tube draing well --prceed as recommended by urology They know Best. Renal failure, unspecified chronicity - TSH; Future - Lipid Panel; Future - Renal Function Panel; Future Moderate episode of recurrent major depressive disorder (HCC) Long discussion of theories and treatments for depression PARB Conf. - citalopram (CELEXA) 20 mg tablet; Take 1 tablet by mouth Daily. Other hydronephrosis Rt needs fixed Cigarette nicotine dependence without complication 800-quit now Care instructions and warning signs were discussed. Medications per orders. Side effects discussed. Return in about 4 weeks (around 12/16/2017), or if symptoms worsen or fail to improve. Electronically Signed by: Corey Yuan MDElectronically signed by Corey Yuan MD at 10/24 10:48 AM PDTdocumented in this encounter Plan of Treatment Not on filedocumented as of this encounter Results Renal Function Panel (11/18/2017 1:40 PM PDT) + + + + + + | Component | Value | Ref Range | Performed | Pathologist | | | | | At | Signature | + + + + + + | Glucose | 106 (H) | 70 - 100 mg/dL | [facility] | | | | | | [facility] | | + + + + + + | Creatinine | 0.7 | 0.7 - 1.3 mg/dL | [facility] | | | | | | [facility] | | + + + + + + | BUN | 7 (L) | 8 - 20 mg/dl | [facility] | | | | | | [facility] | | + + + + + + | BUN/Creatin | 10.0 | 0.0 - 100.0 | [facility] | | | ine Ratio | | RATIO | [facility] | | + + + + + + | Phosphorus | 4.9 (H) | 2.4 - 4.7 mg/dL | [facility] | | | | | | [facility] | | + + + + + + | Calcium | 9.4 | 8.4 - 10.3 | [facility] | | | | | mg/dl | [facility] | | + + + + + + | Albumin | 3.8 | 3.5 - 4.8 g/dL | [facility] | | | | | | [facility] | | + + + + + + | Na | 138 | 136 - 144 mEq/l | [facility] | | | | | | [facility] | | + + + + + + | K | 4.8 | 3.5 - 5.3 mEq/l | [facility] | | | | | | [facility] | | + + + + + + | Cl | 100 (L) | 101 - 111 mEq/l | [facility] | | | | | | [facility] | | + + + + + + | CO2 | 28.0 | 22.0 - 31.0 | [facility] | | | | | mEq/L | [facility] | | + + + + + + | Estimated | 156.12Comment: For | >=60.00 mL/min | [facility] | | | GFR | -Americans | | [facility] | | | | multiply eGFR value by | | | | | | 1.21eGFR value is not | | | | | | valid if patient is less | | | | | | than 18 years | | | | | | old.Fasting?->YesFasting | | | | | | ?->Yes | | | | + + + + + + + + | Specimen | + + | Blood | + + + + + + + | Performing | Address | City/State/Zipcode | Phone Number | | Organization | | | | + + + + + | [facility] | [address], | [place] [address] | | | | #LL10 | | | + + + + + Lipid Panel (11/18/2017 1:40 PM PDT) + +---------+ + + + | Component | Value | Ref Range | Performed | Pathologist | | | | | At | Signature | + +---------+ + + + | Cholesterol | 102 (L) | 110 - 239 mg/dL | [facility] | | | | | | [facility] | | + +---------+ + + + | HDL | 28 (L) | 40 - 59 mg/dL | [facility] | | | | | | [facility] | | + +---------+ + + + | Triglycerid | 46 | 0 - 150 mg/dL | [facility] | | | es | | | [facility] | | + +---------+ + + + | Fasting? | UNKNOWN | HRS | [facility] | | | | | | [facility] | | + +---------+ + + + | LDL, | 65 | 0 - 130 mg/dL | [facility] | | | Calculated | | | [facility] | | + +---------+ + + + + + | Specimen | + + | Blood | + + + + + + + | Performing | Address | City/State/Zipcode | Phone Number | | Organization | | | | + + + + + | [facility] | [address], | [place] [address] | | | | #[place]10 | | | + + + + + TSH (11/18/2017 1:40 PM PDT) + +-------+ + + + | Component | Value | Ref Range | Performed | Pathologist | | | | | At | Signature | + +-------+ + + + | TSH | 1.267 | 0.370 - 6.000 | [facility] | | | | | MIU/L | [facility] | | + +-------+ + + + + + | Specimen | + + | Blood | + + + + + + + | Performing | Address | City/State/Zipcode | Phone Number | | Organization | | | | + + + + + | [facility] | [address], | [place] [address] | | | | #LL10 | | | + + + + + documented in this encounter Visit Diagnoses + + | Diagnosis | + + | Duplicated right renal collecting system - Primary 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
--- OUTSIDE RECORDS SUMMARY | ~2019-09-01 | XMS | Encounter Summary ---
Demographics + + + | Address | [address] | | | [place] [address] | + + + | Home Phone | | + + + | Preferred Language | Unknown | + + + | Marital Status | Legally | + + + | Anabaptist Affiliation | Unknown | + + + | Race | Unknown | + + + | Ethnic Group | Unknown | + + + Author + + + | Author | [facility] | | | and Anibal | + + + | Organization | [facility] | | | and [place] | + + + | Address | Unknown | + + + | Phone | Unavailable | + + + Support + + + + + | Name | Relationship | Address | Phone | + + + + + | Neno Winters | ECON | [address] | | | | | [place] [address] | | + + + + + | Joelle Sharp | ECON | [place] | | | | | [place] | | + + + + + Care Team Providers + +------+ + | Care Hand Slitter Name | Role | Phone | + +------+ + | Corey Yuan MD | PCP | | + +------+ + Reason for Visit +--------+ + | Reason | Comments | +--------+ + | Other | | +--------+ + Encounter Details +--------+ + + + + | Date | Type | Department | Care Team | Description | +--------+ + + + + | 01/21/ | Telephone | [facility] | Corey Yuan, | Other | | 2019 | | [facility] | [address] | | | | | [address] | [address] | | | | | [address] | [place] [address] | | | | | [place], [place] | [phone] | | | | | [address] | | | | | | [phone] | | | +--------+ + + + [...] + + documented as of this encounter Functional Status + + + + | Functional Status | Response | Date of Assessment | + + + + | Are you deaf or do you have serious | No | 01/28/2018 | | difficulty hearing? | | | + + + + | Are you blind or do you have serious | No | 01/28/2018 | | difficulty seeing, even when wearing | | | | glasses? | | | + + + + + + + + | Cognitive Status | Response | Date of Assessment | + + + + | Because of a physical, mental, or emotional | No | 01/28/2018 | | condition, do you have serious difficulty | | | | concentrating, remembering, or making | | | | decisions? (5 years old or older) | | | + + + + documented as of this encounter Plan of Treatment Not on filedocumented as of this encounter Visit Diagnoses Not on filedocumented in this encounter"
--- OUTSIDE RECORDS SUMMARY | ~2019-09-01 | XMS | Encounter Summary ---
Demographics + + + | Address | [address] | | | [place] [address] | + + + | Home Phone | | + + + | Preferred Language | Unknown | + + + | Marital Status | Legally | + + + | Scientologist Affiliation | Unknown | + + + | Race | Unknown | + + + | Ethnic Group | Unknown | + + + Author + + + | Author | [facility] | | | and Anibal | + + + | Organization | [facility] | | | and [place] | + + + | Address | Unknown | + + + | Phone | Unavailable | + + + Support + + + + + | Name | Relationship | Address | Phone | + + + + + | Neno Winters | ECON | [address] | | | | | [place] [address] | | + + + + + | Joelle Sharp | ECON | [place] | | | | | [place] | | + + + + + Care Team Providers + +------+ + | Care Blackjack Dealer Name | Role | Phone | + +------+ + | Corey Yuan MD | PCP | | + +------+ + Encounter Details +--------+ + + + + | Date | Type | Department | Care Team | Description | +--------+ + + + + | 12/11/ | Anesthesia | [facility] | Rodrigo Gonzales, | | | 2017 | Event | [facility] | [facility] Nurse | | | | | [address] | Picking Machine Operator Helper Office | | | | | Shivam MD | [place] [address] | | | | | [address] | [phone] | | | | | [phone] | | | +--------+ + + + + Anesthesia Record + + + + + | Procedure Name | Responsible | Anesthesia Start | Anesthesia Stop Time | | | Anesthesiologist | Time | | + + + + + | Ureteral stent | | | | | placement (Right ) | | | | + + + + + +----+---+ +---------+ | Da | T | Event | Comment | | te | i | | | | | m | | | | | e | | | +----+---+ +---------+ | 04 | 1 | First | | | /1 | 0 | Inc/Proc St | | | 9/ | 2 | | | | 20 | 2 | | | | 18 | | | | +----+---+ +---------+ +------+ | Meds | +------+ + + + No medications | on file. | + + + + + | No agents on file. | + + + + | No blood administrations on file. | + + +--------+ + + + | Type | Details | Placement | Removal | +--------+ + + + | Periph | 06/01/19; 0034; Left; | 06/01/19 0034 by | | | eral | Antecubital; pressure injectable; | Roberto Pearl RN | | | IV | 20 gauge | | | +--------+ + + + | Nephro | 11/14/17; 1351; right flank; | 11/14/17 1351 by | 12/11/17 1025 by | | stomy | drainage bag to dependent | Lucrecia Russell, | Roxane Lazaro, | | Tube | drainage; Rachid Drainage | RN | RN | | | Catheter 10.2 Fr, 25 cm, Ref # | | | | | [id number] Lot # [id number] | | | | | 2020-07-02; tip intact; 12/11/17; | | | | | 1025 | | | +--------+ + + + | Periph | 12/11/17; 0913; Left; Distal; | 12/11/17 0913 by | 12/11/17 1134 by | | eral | Wrist; murk-lsc-rxrrzc catheter | Livia Aguilar RN | Livia Aguilar RN | | IV | system; 20 gauge, 1 1/4 in | | | | | length; intradermal injection; | | | | | 12/11/17; 1134 | | | +--------+ + + + | Nephro | 12/11/17; 1112; right flank; | 12/11/17 1112 by | 12/11/17 1157 by | | saji | other (see comments) ( | Roxane Lazaro, | Mayra Freeman RN | | Tube | ended); dc'd home w/ neph tube | RN | | | | (Cooper Hunt 8.5F); 12/11/17; | | | | | 1157 | | | +--------+ + + + | Periph | 12/17/17; 1213; Left; Anterior | 12/17/17 1213 by | 12/17/17 1404 by | | eral | (palmar); Forearm; butterfly | Mayra Freeman RN | Mayra Freeman RN | | IV | needle; 22 gauge, 1 in length; 1; | | | | | lt wrist; intradermal injection, | | | | | tolerated well; no longer | | | | | indicated, catheter/device | | | | | intact; short term use; 12/17/17; | | | | | 1404 | | | +--------+ + + + | Periph | 01/15/18; 0323; Left; Forearm; | 01/15/18 0323 by | 01/15/18 0650 by | | eral | wbcf-nax-wlofni catheter system; | Mayra Rasmussen RN | Mayra Rasmussen RN | | IV | 20 gauge; Hematology, Chemistry; | | | | | 0; 01/15/18; 0650 | | | +--------+ + + + | Drain/ | 01/28/18; #1; Right; abdomen; | 01/28/18 0000 by | 01/29/18 1459 by | | Device | collapsible closed device; 19F | Sanjuanita Jackson, | Pankaj Clements, | | Site | WITH bulb; 01/29/18; 1459 | RN | RN | +--------+ + + + | Periph | 01/28/18; 0652; Left; Forearm; | 01/28/18 0652 by | 01/30/18 0014 by | | eral | nfbf-qkw-mqzsah catheter system; | Blanca Tucker, | Ree Martini RN | | IV | 18 gauge, 1 1/4 in length; | RN | | | | distraction; removed | | | | | inadvertently, removed per | | | | | patient; 01/30/18; 0014 | | | +--------+ + + + | Periph | 01/28/18; 0653; Right; Forearm; | 01/28/18 0653 by | 01/30/18 2130 by | | eral | rhqx-zfm-ofmarg catheter system; | Blanca Tucker, | Roxane Childers RN | | IV | 18 gauge, 1 1/4 in length; Blood | RN | | | | Bank; distraction, intradermal | | | | | injection; (leaking at insertion | | | | | site); 01/30/18; 2130 | | | +--------+ + + + | Urethr | 01/28/18; 0800; indicated due to | 01/28/18 0800 by | 01/29/18 0845 by | | al | specific surgical procedure; All | Sanjuanita Jackson, | Zohaib Dunham, | | Cathet | elements; All elements; | RN | Director Of Kids | | er | indwelling double lumen catheter; | | | | | latex; 16; None; 1; 10; 5; none; | | | | | drainage bag to dependent | | | | | drainage; urethral catheter | | | | | removed; urine output 275 mL; | | | | | 01/29/18; 0845 | | | +--------+ + + + | Airway | Placement Date: 01/28/18; | 01/28/18 08 by | 01/28/18 1005 by | | | Placement Time: 820 (created via | Chapis Jackson CRNA | Chapis Jackson CRNA | | | procedure documentation); Mask | | | | | Ventilation: EZ; Airway Grade: 1; | | | | | Successful Technique: video | | | | | scope; Laryngoscope Blade Size: | | | | | 3; Attempts: 1; Airway Type: | | | | | endotracheal; Size: 8; Airway | | | | | Tube Secured At: 21; Trauma: | | | | | none; Other Equipment: stylette; | | | | | Placement Check: exhaled CO2 | | | | | detection device, video | | | | | laryngoscope, bilateral chest | | | | | rise, breath sounds equal | | | | | bilaterally; Removal Date: | | | | | 01/28/18; Removal Time: 1005 | | | +--------+ + + + | Read | 01/28/18; 1016; abdomen; | 01/28/18 1016 by | 01/31/18 1154 by | | only - | 01/31/18; 1154 | Sanjuanita Jackson, | Wilber Celestin RN | | | | RN | | | Incisi | | | | | on | | | | +--------+ + + + | Periph | 01/30/18; 2230; Left; Forearm; | 01/30/18 2230 by | 01/31/18 1154 by | | eral | tlax-fov-rxeqop catheter system; | Harshal Farris RN | Wilber Celestin RN | | IV | 20 gauge, 1 1/4 in length; 0; | | | | | distraction, topical anesthetic | | | | | spray applied, tolerated well, | | | | | appears comfortable; 01/31/18; | | | | | 1154 | | | +--------+ + + + | Periph | 09/18/18; 0307; Left; Forearm; | 09/18/18 0307 by | 09/18/18 0512 by | | eral | olxq-jln-efpfkh catheter system; | Nicki Rubin RN | Nicki Rubin RN | | IV | 20 gauge; Hematology, Chemistry, | | | | | Coagulation; no longer indicated, | | | | | catheter/device intact; | | | | | 09/18/18; 0512 | | | +--------+ + + + | Periph | 01/04/19; 1526; Left; Proximal; | 01/04/19 1526 by | 01/04/19 183 by | | kaiden | Forearm; dyhq-ult-fopcmx catheter | Jenifer Recio | Jenifer Recio | | IV | system, butterfly needle; 18 | JEFF Cantu | JEFF Cantu | | | gauge; Hematology, Chemistry, | | | | | Coagulation; 0; tolerated well; | | | | | short term use; 01/04/19; 1831 | | | +--------+ + + + documented in this encounter Social History + +-------+ +--------+------+ | Tobacco [...] +---------+ + | Yes | | | 1 x month | + + +---------+ + + + [...]
--- OUTSIDE RECORDS SUMMARY | ~2019-09-01 | XMS | Encounter Summary ---
Demographics + + + | Address | [address] | | | [place] [address] | + + + | Home Phone | | + + + | Preferred Language | Unknown | + + + | Marital Status | Legally | + + + | Yarsani Affiliation | Unknown | + + + | Race | Unknown | + + + | Ethnic Group | Unknown | + + + Author + + + | Author | [facility] | | | and Anibal | + + + | Organization | [facility] | | | and [...] | | | | | [place] [address] | | + + + + + | Joelle Sharp | SHARYN | [place] | | | | | [place] | | + + + + + Care Team Providers + +------+ + | Care Trick Rodeo Rider Name | Role | Phone | + +------+ + | Corey Yuan MD | PCP | | + +------+ + Encounter Details +--------+ + + + + | Date | Type | Department | Care Team | Description | +--------+ + + + + | 12/04/ | Orders Only | [facility] | Conversion | | | 2018 | | [address] | Transaction, | | | | | [address] [place] | Provider Unknown | | | | | [address] | [phone] | | | | | [phone] | | | +--------+ + + + [...] | + +--------+ + + + | URINALYSIS | Routin | 12/04/2017 | | Results for this | | | e | 12:00 AM | | procedure are in the | | | | PDT | | results section. | + +--------+ + + + documented in this encounter Results Urinalysis (12/04/2017 12:00 AM PDT) + +-------+ + + + | Component | Value | Ref Range | Performed | Pathologist | | | | | At | Signature | + +-------+ + + + | Blood, | neg | | EXTERNAL | | | Urine | | | LAB | | + +-------+ + + + | Glucose, | neg | | EXTERNAL | | | Urine | | | LAB | | + +-------+ + + + | Leukocyte | neg | | EXTERNAL | | | Esterase, | | | LAB | | | Urine | | | | | + +-------+ + + + | Nitrite, | neg | | EXTERNAL | | | Urine | | | LAB | | + +-------+ + + + | pH, Urine | 5.0 | | EXTERNAL | | | | | | LAB | | + +-------+ + + + | Protein, | neg | | EXTERNAL | | | Urine | | | LAB | | + +-------+ + + + + + | Specimen | + + | | + + + +---------+ + + | Performing | Address | City/State/Zipcode | Phone Number | | Organization | | | | + +---------+ + + | EXTERNAL LAB | | | | + +---------+ + + documented in this encounter Visit Diagnoses Not on filedocumented in this encounter"
--- OUTSIDE RECORDS SUMMARY | ~2019-09-01 | XMS | Encounter Summary ---
Demographics + + + | Address | [address] | | | [place] [address] | + + + | Home Phone | | + + + | Preferred Language | Unknown | + + + | Marital Status | Legally | + + + | Religion Affiliation | Unknown | + + + | Race | Unknown | + + + | Ethnic Group | Unknown | + + + Author + + + | Author | [facility] | | | and Anibal | + + + | Organization | [facility] | | | and [...] | | | | | [place] [address] | | + + + + + | Joelle Sharp | ECON | [place] | | | | | [place] | | + + + + + Care Team Providers + +------+ + | Care Desktop Support Technician Name | Role | Phone | + +------+ + | Corey Yuan MD | PCP | | + +------+ + Reason for Visit + + + | Reason | Comments | + + + | Hospital Follow-up | | + + + Encounter Details +--------+ + + + + | Date | Type | Department | Care Team | Description | +--------+ + + + + | 02/03/ | Telephone | [place] [facility] | Yvonne Daniel, | Hospital Follow-up | | 2018 | | [facility] | RN | | | | | Medicine [address] | | | | | | [address] [facility] [address] | | | | | | [place] | | | | | | [address] | | | | | | [phone] | | | +--------+ + + + [...]
--- OUTSIDE RECORDS SUMMARY | ~2019-09-01 | XMS | Encounter Summary ---
Demographics + + + | Address | [address] | | | [place] [address] | + + + | Home Phone | | + + + | Preferred Language | Unknown | + + + | Marital Status | Legally | + + + | Advent Affiliation | Unknown | + + + | Race | Unknown | + + + | Ethnic Group | Unknown | + + + Author + + + | Author | [facility] | | | and Anibal | + + + | Organization | [facility] | | | and [place] | + + + | Address | Unknown | + + + | Phone | Unavailable | + + + Support + + + + + | Name | Relationship | Address | Phone | + + + + + | Neno Winters | ECON | [address] | | | | | [place] [address] | | + + + + + | Joelle Sharp | ECON | [place] | | | | | [place] | | + + + + + Care Team Providers + +------+ + | Care Inspector Plating Name | Role | Phone | + +------+ + | Corey Yuan MD | PCP | | + +------+ + Reason for Visit + + + | Reason | Comments | + + + | ED Follow-up | | + + + Encounter Details +--------+ + + + + | Date | Type | Department | Care Team | Description | +--------+ + + + + | 06/01/ | Telephone | [place] | Yvonne Daniel, | ED Follow-up | | 2019 | | [facility] | [facility] | | | | | Medicine [address] | | | [address] | | | | | | [place] | | | | | | [address] | | | | | | [phone] | | | +--------+ + + + [...]
--- OUTSIDE RECORDS SUMMARY | ~2019-09-01 | XMS | Encounter Summary ---
Demographics + + + | Address | [address] | | | [place] [address] | + + + | Home Phone | | + + + | Preferred Language | Unknown | + + + | Marital Status | Legally | + + + | Restoration Affiliation | Unknown | + + + | Race | Unknown | + + + | Ethnic Group | Unknown | + + + Author + + + | Author | [facility] | | | and Anibal | + + + | Organization | [facility] | | | and [...] | | | | | [place] [address] | | + + + + + | Joelle Sharp | SHARYN | [place] | | | | | [place] | | + + + + + Care Team Providers + +------+ + | Care Plate Setter Name | Role | Phone | + +------+ + | Corey Yuan MD | PCP | | + +------+ + Encounter Details +--------+ + + + + | Date | Type | Department | Care Team | Description | +--------+ + + + + | 11/18/ | Orders Only | [facility] | Conversion | | | 2018 | | [address] | Transaction, | | | | | [address] [place] [address] | Provider Unknown | | | | | [address] | [phone] | | | | | [phone] | | | +--------+ + + + [...] | + +--------+ + + + | CREATININE | Routin | 11/18/2017 | | Results for this | | | e | 12:00 AM | | procedure are in the | | | | PDT | | results section. | + +--------+ + + + documented in this encounter Results Creatinine (11/18/2017 12:00 AM PDT) + +-------+ + + + | Component | Value | Ref Range | Performed | Pathologist | | | | | At | Signature | + +-------+ + + + | Creatinine | 0.7 | mg/dL | EXTERNAL | | | | | [...]
--- OUTSIDE RECORDS SUMMARY | ~2019-09-01 | XMS | Encounter Summary ---
Demographics + + + | Address | [address] | | | [place] [address] | + + + | Home Phone | | + + + | Preferred Language | Unknown | + + + | Marital Status | Legally | + + + | Presybeterian Affiliation | Unknown | + + + | Race | Unknown | + + + | Ethnic Group | Unknown | + + + Author + + + | Author | [facility] | | | and Anibal | + + + | Organization | [facility] | | | and [...] | | | | | [place] [address] | | + + + + + | Joelle Sharp | SHARYN | [place] | | | | | [place] | | + + + + + Care Team Providers + +------+ + | Care Aircraft Line Assembler Name | Role | Phone | + +------+ + | Corey Yuan MD | PCP | | + +------+ + Encounter Details +--------+ + + + + | Date | Type | Department | Care Team | Description | +--------+ + + + + | 09/25/ | Abstract | [facility] | [facility] | | | 2012 | | Conversion Location | SR | | | | | [phone] | | | +--------+ + + + [...] + + + | Blood Pressure | 112/80 | 09/23/2012 12:00 AM | | | | | PST | | + + + + + | Pulse | - | - | | + + + + + | Temperature | - | - | | + + + + + | Respiratory Rate | - | - | | + + + + + | Oxygen Saturation | - | - | | + + + + + | Inhaled Oxygen | - | - | | | Concentration | | | | + + + + + | Weight | 74.1 kg (163 lb 6.1 | 09/23/2012 12:00 AM | | | | oz) | PST | | + + + + + | Height | 167.6 cm (5' 6") | 09/23/2012 12:00 AM | | | | | PST | | + + + + + | Body Mass Index | 26.37 | 09/23/2012 12:00 AM | | | | | PST | | + + + + + documented in this encounter Plan of Treatment Not on filedocumented as of this encounter Visit Diagnoses Not on filedocumented in this encounter
--- OUTSIDE RECORDS SUMMARY | ~2019-09-01 | XMS | Encounter Summary ---
Demographics + + + | Address | [address] | | | [place] [address] | + + + | Home Phone | | + + + | Preferred Language | Unknown | + + + | Marital Status | Legally | + + + | Sabianist Affiliation | Unknown | + + + | Race | Unknown | + + + | Ethnic Group | Unknown | + + + Author + + + | Author | [facility] | | | and Anibal | + + + | Organization | [facility] | | | and [place] | + + + | Address | Unknown | + + + | Phone | Unavailable | + + + Support + + + + + | Name | Relationship | Address | Phone | + + + + + | Neno Winters | ECON | [address] | | | | | [place] [address] | | + + + + + | Joelle Sharp | ECON | [place] | | | | | [place] | | + + + + + Care Team Providers + +------+ + | Care Toll Gate Tender Name | Role | Phone | + +------+ + PCP | Unavailable | + +------+ + Encounter Details +--------+ + + + + | Date | Type | Department | Care Team | Description | +--------+ + + + + | 09/29/ | Hospital | [facility] | Magaly Carmona MD | | | 2008 | Encounter | [facility] | | | | | [facility] | | | | | | [address] | | | | | | [place] | | | | | | [address] | | | | | | [phone] | | | +--------+ + + + [...]
--- OUTSIDE RECORDS SUMMARY | ~2019-09-01 | XMS | Encounter Summary ---
Demographics + + + | Address | [address] | | | [place] [address] | + + + | Home Phone | | + + + | Preferred Language | Unknown | + + + | Marital Status | Legally | + + + | Anabaptism Affiliation | Unknown | + + + | Race | Unknown | + + + | Ethnic Group | Unknown | + + + Author + + + | Author | [facility] | | | and Anibal | + + + | Organization | [facility] | | | and [place] | + + + | Address | Unknown | + + + | Phone | Unavailable | + + + Support + + + + + | Name | Relationship | Address | Phone | + + + + + | Neno Winters | ECON | [address] | | | | | [place] [address] | | + + + + + | Joelle Sharp | ECON | [place] | | | | | [place] | | + + + + + Care Team Providers + +------+ + | Care Drop Shipment Clerk Name | Role | Phone | + +------+ + | Corey Yuan MD | PCP | | + +------+ + Reason for Visit + + + | Reason | Comments | + + + | Medication | | | Management | | + + + Encounter Details +--------+---------+ + + + | Date | Type | Department | Care Team | Description | +--------+---------+ + + + | 01/19/ | Office | [facility] | Corey Yuan, | ADD OF CHILDHOOD | | 2012 | Visit | [facility] | MD [address] | WITH HYPERACTIVITY | | | | Medicine [address] | (Primary Dx) | | | | [address] | [place] [address] | | | | | [place], [place] | [phone] | | | | | [address] | | | | | | [phone] | | | +--------+---------+ + + + Social History + +-------+ +--------+------+ | Tobacco Use | Types | Packs/Day | Years | Date | | | | | Used | | + +-------+ +--------+------+ | Never Smoker | | | | | + [...] + + + | Blood Pressure | 118/82 | 01/19/2013 5:49 PM | | | | | PDT | | + + + + + | Pulse | 85 | 01/19/2013 5:49 PM | | | | | PDT | | + + + + + | Temperature | - | - | | + + + + + | Respiratory Rate | - | - | | + + + + + | Oxygen Saturation | 98% | 01/19/2013 5:49 PM | | | | | PDT | | + + + + + | Inhaled Oxygen | - | - | | | Concentration | | | | + + + + + | Weight | 80.7 kg (178 lb) | 01/19/2013 5:49 PM | | | | | PDT | | + + + + + | Height | 170.2 cm (5' 7") | 01/19/2013 5:49 PM | | | | | PDT | | + + + + + | Body Mass Index | 27.88 | 01/19/2013 5:49 PM | | | | | PDT | | + + + + + documented in this encounter Progress Notes Corey Yuan MD - 01/19/2013 5:51 PM PDTFormatting of this note might be different from herberth lewis. Subjective: August Winters is a 12 y.o. male patient of Corey Yuan. Chief Complaint: Medication Management Pt is here today to discuss ADHD medications. Actually August is totally against taking any medications is currently in [employer] seventh -grade hopefully will be in the next year. Dad is totally against medication and he still l arlet with his dad always with his mom on weekends and his mom brought him here today mom is in favor of medications--lengthy explanation to mom about doesn't matter what mom and dad th malou they can get together and figure out a plan in the child's the one that will suffer. And unfortunately he is now a teenager and knows all the answers. On order for us to prescribe any medication for him he has to be willing to take it. Vist Diagnoses: 1. ADD OF CHILDHOOD WITH HYPERACTIVITY No Known Allergies Medications: He has a current medication list which includes the following prescription(s): clotrimazole -betamethasone. Past Medical History He has a past medical history of ADHD (attention deficit hyperactivity disorder) and ODD (o ppositional defiant disorder). Past Surgical History He has no past surgical history on file. Family History: His family history includes Diabetes in his maternal grandfather and Stroke in his paternal grandfather. Social History: He reports that he has never smoked. He does not have any smokeless tobacco history on file . He reports that he uses illicit drugs (Marijuana). He reports that he does not drink alcoh ol. Review of Systems Pertinent items are noted in HPI. Objective: BP 118/82 | Pulse 85 | Ht 1.702 m (5' 7") | Wt 80.74 kg (178 lb) | BMI 27.88 kg/m2 | SpO2 9 8% General Appearance: Alert, cooperative, no distress, appears older than stated age Head: Normocephalic, without obvious abnormality, atraumatic Eyes: PERRL, conjunctiva/corneas clear, EOM's intact, Ears: Normal TM's and external ear canals, and acuity Nose: Nares normal, septum midline, mucosa normal, no drainage or sinus tenderness Throat: Lips, mucosa, and tongue. Neck: Supple, symmetrical, no adenopathy, thyroid: not enlarged, symmetric, no tenderness/m ass/nodules, no carotid bruit or JVD Lungs: Clear to auscultation bilaterally, respirations unlabored Heart: Regular rate and rhythm Abdomen: Soft, non-tender, normal bowel sounds, no masses, no organomegaly Extremities: Extremities normal, atraumatic, or edema Pulses: 2+ and symmetric Skin: Skin color, texture, turgor normal, no rashes or lesions Neurologic: Nonfocal. Alert and oriented. Motor 5/5 throughout. DTR's 2+ / symmetrical Assessment and Plans: August was seen today for medication management. Diagnoses and associated orders for this visit: Lengthy discussion greater than 30 minutes a spelled spent counseling mom and the patient r egarding the marvelous ADHD brain. They are referred to Dr. Dontrell Pantoja's book healing ADHD. Suggested that they both treated along with dad. Region appropriate treatment plan involving August that he will buy into and comply with, otherwise all the pills in the world won't fix him because he won't swallow them. Add of childhood with hyperactivity Extensive counseling Recheck once the plan is agreed upon Care instructions and warning signs were discussed. Medications per orders. Side effects discussed. Return if symptoms worsen or fail to improve. documented in this encoun ter Plan of Treatment Not on filedocumented as of this encounter Visit Diagnoses + + | Diagnosis | + + | ADD OF CHILDHOOD WITH HYPERACTIVITY - Primary Attention deficit disorder with | | hyperactivity | + + documented in this encounter
--- OUTSIDE RECORDS SUMMARY | ~2019-09-01 | XMS | Encounter Summary ---
Demographics + + + | Address | [address] | | | [place] [address] | + + + | Home Phone | | + + + | Preferred Language | Unknown | + + + | Marital Status | Legally | + + + | Sikh Affiliation | Unknown | + + + | Race | Unknown | + + + | Ethnic Group | Unknown | + + + Author + + + | Author | [facility] | | | and Anibal | + + + | Organization | [facility] | | | and [place] | + + + | Address | Unknown | + + + | Phone | Unavailable | + + + Support + + + + + | Name | Relationship | Address | Phone | + + + + + | Neno Winters | ECON | [address] | | | | | [place] [address] | | + + + + + | Joelle Sharp | ECON | [place] | | | | | [place] | | + + + + + Care Team Providers + +------+ + | Care Line Tender Flakeboard Name | Role | Phone | + +------+ + | Corey Yuan MD | PCP | | + +------+ + Reason for Visit + + + | Reason | Comments | + + + | Flank Pain | | + + + | Hematuria | | + + + Encounter Details +--------+ + + + + | Date | Type | Department | Care Team | Description | +--------+ + + + + | 01/15/ | Emergency | [facility] | Lucia Shepard MD | Gross hematuria | | 2018 | | [facility] | [address] | (Primary Dx); | | | | CENTER [address] [place], [place] | Inflammatory | | | | [address] | [address] | reaction due to | | | | [place], [place] | | indwelling ureteral | | | | [id number] | | stent, initial | | | | [phone] | | encounter (HCC) | +--------+ + + + + Social [...] + + + | Blood Pressure | 135/48 | 01/15/2018 6:46 AM | | | | | PDT | | + + + + + | Pulse | 58 | 01/15/2018 6:46 AM | | | | | PDT | | + + + + + | Temperature | 36.9 C (98.5 F) | 01/15/2018 3:04 AM | | | | | PDT | | + + + + + | Respiratory Rate | 16 | 01/15/2018 6:46 AM | | | | | PDT | | + + + + + | Oxygen Saturation | 96% | 01/15/2018 6:46 AM | | | | | PDT | | + + + + + | Inhaled Oxygen | - | - | | | Concentration | | | | + + + + + | Weight | 81.6 kg (180 lb) | 01/15/2018 3:04 AM | | | | | PDT | | + + + + + | Height | 185.4 cm (6' 1") | 01/15/2018 3:04 AM | | | | | PDT | | + + + + + | Body Mass Index | 23.75 | 01/15/2018 3:04 AM | | | | | PDT | | + + + + + documented in this encounter Discharge Instructions Instructions Lucia Shepard MD - 01/15/2018Follow up with urology today for further care. No obvious infection is seen. Your stent is in place and working. AttachmentsThe following attachments cannot be sent through Care Everywhere.Hematuria (Engl olga)documented in this encounter Medications at Time of [...] | | | | | | | ([facility]) | | | | | | + [...] | + +--------+ + + + | XR ABDOMEN AP | STAT | 01/15/2018 | | Results for this | | | | 5:51 AM | | procedure are in the | | | | PDT | | results section. | + +--------+ + + + | US RENAL COMPLETE | STAT | 01/15/2018 | | Results for this | | | | 5:33 AM | | procedure are in the | | | | PDT | | results section. | + +--------+ + + + | CBC WITH | STAT | 01/15/2018 | | Results for this | | DIFFERENTIAL | | 3:45 AM | | procedure are in the | | | | PDT | | results section. | + +--------+ + + + | BASIC METABOLIC | STAT | 01/15/2018 | | Results for this | | PANEL | | 3:45 AM | | procedure are in the | | | | PDT | | results section. | + +--------+ + + + | URINALYSIS WITH | STAT | 01/15/2018 | | Results for this | | MICROSCOPIC | | 3:25 AM | | procedure are in the | | | | PDT | | results section. | + +--------+ + + + | CULTURE, URINE | STAT | 01/15/2018 | | Results for this | | | | 3:24 AM | | procedure are in the | | | | PDT | | results section. | + +--------+ + + + | POCT URINALYSIS, | STAT | 01/15/2018 | | Results for this | | AUTO WITH CONF | | 3:23 AM | | procedure are in the | | | | PDT | | results section. | + +--------+ + + + documented in this encounter Results XR Abdomen AP (01/15/2018 5:51 AM PDT) + + | Specimen | + + | | + + + + + | Narrative | Performed At | + + + | ABDOMEN ONE VIEW (KUB) CLINICAL INFORMATION: Right side | [facility] | | abdomen and flank pain. Hematuria. Patient is three weeks post op | | | renal stent placement. COMPARISON: IR PROCEDURE dated 12/17/2017; | | | IR PROCEDURE dated 11/14/2017; US PELVIS LIMITED dated 11/13/2017 | | | FINDINGS: A right ureteral stent is in place. No abnormal | | | calcifications noted. Bowel gas pattern is normal. No acute osseous | | | finding. IMPRESSION: Negative abdomen. Right ureteral stent is | | | in place. Signed by: MD Willams Sadaf | | + + + + + | Procedure Note | + + | Lance, Rad Results In - 01/15/2018 6:12 AM PDT | | ABDOMEN ONE VIEW (KUB) | | | | CLINICAL INFORMATION: | | Right side abdomen and flank pain. Hematuria. Patient is three weeks | | post op renal stent placement. | | | | COMPARISON: | | IR PROCEDURE dated 12/17/2017; IR PROCEDURE dated 11/14/2017; US PELVIS | | LIMITED dated 11/13/2017 | | | | FINDINGS: | | A right ureteral stent is in place. No abnormal calcifications noted. | | Bowel gas pattern is normal. No acute osseous finding. | | | | IMPRESSION: | | Negative abdomen. Right ureteral stent is in place. | | | | | | | | Signed by: MD Willams Sadaf | + + + +---------+ + + | Performing | Address | City/State/Zipcode | Phone Number | | Organization | | | | + +---------+ + + | [facility] | | | | + +---------+ + + US Renal Complete (01/15/2018 5:33 AM PDT) + + | Specimen | + + | | + + + + + | Narrative | Performed At | + + + | ULTRASOUND KIDNEYS AND BLADDER CLINICAL INFORMATION: Right | [facility] | | flank pain with nausea. COMPARISON: IR GASTRO/BILIARY/GENITO | | | URINARY NEPHRO TUBES/DRAINS dated 12/11/2017; CT ABDOMEN PELVIS W | | | CONTRAST dated 11/13/2017 PROCEDURE: Evaluation of the kidneys and | | | urinary bladder. FINDINGS: Right kidney: There appears to be | | | somewhat decreased hydronephrosis and hydroureter involving the right | | | kidney. There is a right ureteral stent, distal aspect of which is | | | visualized within the urinary bladder. No solid renal mass. Stable | | | multi cystic appearance of the atrophic upper moiety. Left | | | kidney: 12.9 cm. No solid renal mass, hydronephrosis or definitive | | | calculi. Bladder: Bladder is partially distended. Bilateral | | | ureteral jets are visualized. IMPRESSION: 1. Somewhat decreased | | | right hydronephrosis and hydroureter compared to the CT from | | | 11/13/2017 with distal aspect of a right ureteral stent seen within | | | the urinary bladder. Bilateral ureteral jets are visualized. No | | | left hydronephrosis. Signed by: MD Imer, Tova | | + + + + + | Procedure Note | + + | Marshall Lucas Results In - 01/15/2018 5:53 AM PDT | | ULTRASOUND KIDNEYS AND BLADDER | | | | CLINICAL INFORMATION: | | Right flank pain with nausea. | | | | COMPARISON: | | IR GASTRO/BILIARY/GENITO URINARY NEPHRO TUBES/DRAINS dated 12/11/2017; | | CT ABDOMEN PELVIS W CONTRAST dated 11/13/2017 | | | | PROCEDURE: | | Evaluation of the kidneys and urinary bladder. | | | | FINDINGS: | | Right kidney: There appears to be somewhat decreased hydronephrosis and | | hydroureter involving the right kidney. There is a right ureteral | | stent, distal aspect of which is visualized within the urinary bladder. | | No solid renal mass. Stable multi cystic appearance of the atrophic | | upper moiety. | | | | Left kidney: 12.9 cm. No solid renal mass, hydronephrosis or | | definitive calculi. | | | | Bladder: Bladder is partially distended. Bilateral ureteral jets are | | visualized. | | | | IMPRESSION: | | 1. Somewhat decreased right hydronephrosis and hydroureter compared to | | the CT from 11/13/2017 with distal aspect of a right ureteral stent seen | | within the urinary bladder. Bilateral ureteral jets are visualized. | | No left hydronephrosis. | | | | | | | | Signed by: MD Imer, Tova | + + + +---------+ + + | Performing | Address | City/State/Zipcode | Phone Number | | Organization | | | | + +---------+ + + | [facility] | | | | + +---------+ + + Basic Metabolic Panel (01/15/2018 3:45 AM PDT) + + + + + + | Component | Value | Ref Range | Performed | Pathologist | | | | | At | Signature | + + + + + + | Na | 139 | 135 - 146 | [facility] | | | | | mmol/L | [facility] | | | | | | [facility] | | | | | | [facility] | | + + + + + + | K | 3.9 | 3.6 - 5.2 | [facility] | | | | | mmol/L | [facility] | | | | | [facility] | | | | | | [facility] | | + + + + + + | Cl | 105 | 98 - 109 mmol/L | [facility] | | | | | | [facility] | | | | | [facility] | | | | | | [facility] | | + + + + + + | CO2 | 26 | 21 - 32 mmol/L | [facility] | | | | | | [facility] | | | | | [facility] | | | | | | [facility] | | + + + + + + | Anion Gap | 8 | 5 - 16 mmol/L | [facility] | | | | | | [facility] | | | [facility] | | [facility] | | | | | | [facility] | | + + + + + + | Calcium | 8.7 | 8.7 - 10.3 | [facility] | | | | | mg/dL | [facility] | | | | | | [facility] | | | | | | [facility] | | + + + + + + | BUN | 12 | 7 - 23 mg/dL | [facility] | | | | | | [facility] | | | | | | [facility] | | | | | | [facility] | | + + + + + + | Creatinine | 0.81 | 0.50 - 1.30 | [facility] | | | | | mg/dL | [facility] | | | | | | [facility] | | | | | | [facility] | | + + + + + + | Glucose | 115 (H) | 65 - 99 mg/dL | [facility] | | | | | | [facility] | | | | | | [facility] | | | | | | [facility] | | + + + + + + | Estimated | 130Comment: eGFR<60 | >=90 | [facility] | | | GFR | consistent with impaired | mL/min/1.73m2 | [facility] | | | | kidney | | LABORATORY | | | | function.Performed by | | [facility] | | | | [facility] [address] | | | | | | [place] [address] | | | | + + + + + + + + | Specimen | + + | Blood specimen | | (specimen) | + + + + + + + | Performing | Address | City/State/Zipcode | Phone Number | | Organization | | | | + + + + + | [facility] | [address] [facility] [facility] | [place] [address] | | | [facility] | | | | | [facility] | | | | + + + + + CBC with Differential (01/15/2018 3:45 AM PDT) + + + + + + | Component | Value | Ref Range | Performed | Pathologist | | | | | At | Signature | + + + + + + | WBC | 6.8 | 3.8 - 11.0 K/uL | [facility] | | | | | | [facility] | | | | | | [facility] | | | | | | [facility] | | + + + + + + | RBC | 4.93 | 4.20 - 5.70 | [facility] | | | | | M/uL | [facility] | | | | | | [facility] | | | | | | [facility] | | + + + + + + | Hemoglobin | 15.5 | 13.2 - 17.0 | [facility] | | | | | g/dL | [facility] | | | | | | [facility] | | | | | | [facility] | | + + + + + + | Hct | 43.1 | 39.0 - 50.0 % | [facility] | | | | | | [facility] | | | | | | [facility] | | | | | | [facility] | | + + + + + + | MCV | 87.5 | 80.0 - 100.0 fL | [facility] [...] + + + + | MCHC | 35.9 (H) | 32.0 - 35.5 | [facility] | | | | | g/dL | [facility] | | | | [...] + + + + | Platelet | 266 | 150 - 400 K/uL | [facility] | | | Count | | | [facility] | | | | | | LAB[facility] | | | | | | [facility] | | + + + + + + | MPV | 8.3 | 7.5 - 11.2 fL | [facility] | | | | | | [facility] | | | | | | [facility] | | | | | | [facility] | | + + + + + + | % | 37.7 (L) | 40.0 - 74.0 % | [facility] | | | Neutrophils | | | [facility] | | | | | | LAB[facility] | | | | | | [facility] | | + + + + + + | % | 49.0 | 20.0 - 50.0 % | [facility] | | | Lymphocytes | | | [facility] | | | | | | LAB[facility] | | | | | | [facility] | | + + + + + + | % Monocytes | 6.7 | 1.0 - 9.0 % | [facility] | | | | | | [facility] | | | | | | [facility] | | | | | | [facility] | | + + + + + + | % | 5.3 | 0.0 - 7.0 % | [facility] | | | Eosinophils | | | [facility] | | | | | | LABORATORY | | | | | | [facility] | | + + + + + + | % Basophils | 1.3 | 0.0 - 2.0 % | [facility] | | | | | | [facility] | | | | | | [facility] | | | | | | [facility] | | + + + + + + | Absolute | 2.60 | 1.80 - 8.00 | [facility] | | | Neutrophils | | K/uL | [facility] | | | | | | LABORATORY | | | | | | [facility] | | + + + + + + | Absolute | 3.33 | 1.20 - 5.20 | [facility] | | | Lymphocytes | | K/uL | [facility] | | | | | | [facility] | | | | | | [facility] | | + + + + + + | Absolute | 0.46 | 0.20 - 0.60 | [facility] | | | Monocytes | | K/uL | [facility] | | | | | | [facility] | | | | | | [facility] | | + + + + + + | Absolute | 0.36 | 0.00 - 0.50 | [facility] | | | Eosinophils | | K/uL | [facility] | | | | | | LAB[facility] | | | | | | [facility] | | + + + + + + | Absolute | 0.09 | 0.00 - 0.10 | [facility] | | | Basophils | | K/uL | [facility] | | | | | | [facility] | | | | | | [facility] | | + + + + + + | % nRBC | 0Comment: Performed by | /100 WBC | [facility] | | | | [address] | | [facility] | | | | [place] [address] | | LABORATORY | | | |Performed by [place] [address] [place] [address] | | [facility] | | | | [...] + | [facility] | [address] [facility] [facility] | [place] [address] | | | [facility] | | | | | [facility] | | | | + + + + + Urinalysis With Microscopic (01/15/2018 3:25 AM PDT) + + + + + + | Component | Value | Ref Range | Performed | Pathologist | | | | | At | Signature | + + + + + + | Color, | Yellow | | [facility] | | | Urine | | | [facility] | | | | | | [facility] | | | | | | [facility] | | + + + + + + | Clarity | Cloudy (A) | | [facility] | | | | | | [facility] | | | | | | [facility] | | | | | | [facility] | | + + + + + + | Glucose, | Negative | Negative | [facility] | | | Urine | | | [facility] | | | | | | [facility] | | | | | | [facility] | | + + + + + + | Bilirubin, | Negative | Negative | [facility] | | | Urine | | | [facility] | | | | | | [facility] | | | | | | [facility] | | + + + + + + | Urobilinoge | <2.0 | <2.0 | [facility] | | | n, Urine | | | [facility] | | | | | | [facility] | | | | | | [facility] | | + + + + + + | Ketones, | Negative | Negative | [facility] | | | Urine | | | [facility] | | | | | | [facility] | | | | | | [facility] | | + + + + + + | Specific | 1.020 | 1.001 - 1.030 | [facility] | | | [place] | | | [facility] | | | | | | [facility] | | | | | | [facility] | | + + + + + + | pH, Urine | 6.0 | 5.0 - 7.5 | [facility] | | | | | | [facility] | | | | | | [facility] | | | | | | [facility] | | + + + + + + | Protein, | 100 (A) | Negative mg/dL | [facility] | | | Urine | | | [facility] | | | | | | [facility] | | | | | | [facility] | | + + + + + + | Nitrite, | Negative | Negative | [facility] | | | Urine | | | [facility] | | | | | | [facility] | | | | | | [facility] | | + + + + + + | Blood, | Large (A) | Negative | [facility] | | | Urine | | | [facility] | | | | | | [facility] | | | | | | [facility] | | + + + + + + | Leukocyte | Small (A) | Negative | [facility] | | | Esterase, | | | [facility] | | | Urine | | | LABORATORY | | | | | | [facility] | | + + + + + + | SQUAMOUS | Not Clinically | | [facility] | | | EPITHELIAL | Significant | | [facility] | | | UA | | | LABORATORY | | | | | | [facility] | | + + + + + + | WBC UA | 16 (H) | 0 - 5 /hpf | [facility] | | | | | | [facility] | | | | | | [facility] | | | | | | [facility] | | + + + + + + | RBC UA | >182 (H) | 0 - 5 /hpf | [facility] | | | | | | [facility] | | | | | | [facility] | | | | | | [facility] | | + + + + + + | BACTERIA UA | None Seen | | [facility] | | | | | | [facility] | | | | | | LAB[facility] | | | | | | [facility] | | + + + + + + | AMORPHOUS | None Present | | [facility] | | | [facility] | | | [facility] | | | | | | LABORATORY | | | | | | [facility] | | + + + + + + | MUCUS UA | Present (A) | | [facility] | | | | | | [facility] | | | | | | LAB[facility] | | | | | | [place] | | + + + + + + | URINE | Clean catchComment: | | [facility] | | | SOURCE | Performed by [facility] [address] | | [facility] | | | | [address], | | LABORATORY | | | | [place] [address] | | [facility] | | | | | | | | + + + + + + + + | Specimen | + + | Urine specimen | | (specimen) - Urine | | specimen obtained by | | clean catch | | procedure (specimen) | + + + + + + + | Performing | Address | City/State/Zipcode | Phone Number | | Organization | | | | + + + + + | [facility] | [address] | [place] [address] | | | [facility] | | | | | [place] | | | | + + + + + Culture, Urine (01/15/2018 3:24 AM PDT) + + + + + + | Component | Value | Ref Range | Performed | Pathologist | | | | | At | Signature | + + + + + + | FINAL | No growth or <1,000 | | [facility] | | | REPORT | CFU/mLComment: | | [facility] | | | | Performed by [facility] [address] | | HEART | | | | [address] | | MEDICAL | | | | [address] | | CENTER | | | | | | LABORATORY | | | | | | [facility] | | + + + + + + + + | Specimen | + + | Urine specimen | | (specimen) - Urine, | | Clean Catch | + + + + + + + | Performing | Address | City/State/Zipcode | Phone Number | | Organization | | | | + + + + + | [facility] | [address] | [place] [address] | | | [facility] | | | | | LABORATORY [facility] | | | | + + + + + POCT Urinalysis Dipstick Automated (01/15/2018 3:23 AM PDT) + + + + + + | Component | Value | Ref Range | Performed | Pathologist | | | | | At | Signature | + + + + + + | Color, UA, | [place] (A) | Yellow, Light | | | | POC | | Yellow | | | + + + + + + | Clarity, | Cloudy | | | | | UA, POC [...] + + + + | Specific | 1.030 | 1.001 - 1.030 | | | | [place], | | | | | | UA, POC | | | | | + + + + + + | Blood, UA, | Large (A) | Negative | | | | POC | | | | | + + + + + + | pH, UA, POC | 6.0 | 5.0, 6.0, 7.0, | | | | | | 8.0, 5.5, 6.5, | | | | | | 7.5 | | | + + + + + + | Protein, | >=300 mg/dL (A) | Negative | | | | UA, POC | | | | | + + + + + + | Urobilinoge | 1.0 E.U./dL | 0.2, Negative, | | | | n, UA, POC | | Normal, < 0.2 | | | | | | mg/dL, 1 mg/dL, | | | | | | < 0.2 E.U./dl, | | | | | | 1.0 E.U./dL, | | | | | | 0.2 mg/dL | | | + + + + + + | Nitrite, | Negative | Negative | | | | UA, POC | | | | | + + + + + + | Leukocyte | Trace (A) | Negative | | | | Esterase, | | | | | | UA, POC | | | | | + + + + + + | Reducing | | | | | | Substances, | | | | | | Urine | | | | | + + + + + + | Ictotest | | Negative | | | + + + + + + | Remark | | | | | + + + + + + + + | Specimen | + + | Urine | + + documented in this encounter Visit Diagnoses + + | Diagnosis | + + | Gross hematuria - Primary | + + | 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, initial encounter (HCC) | + + documented in this encounter Administered Medications + +--------+ +--------+------+------+ | Medication Order | MAR | Action | Dose | Rate | Site | | | Action | Date | | | | + +--------+ +--------+------+------+ | HYDROmorphone (DILAUDID) | Given | 01/16/20 | 0.5 mg | | | | injection 0.5 mg 0.5 mg, | | 18 4:20 | | | | | Intravenous, EVERY 15 MIN PRN, | | AM PDT | | | | | Pain, Starting [facility] 01/15/18 at | | | | | | | 0329, For 3 doses | | | | | | + +--------+ +--------+------+------+ +-------+ +--------+---+---+ | Given | 01/16/20 | 0.5 mg | | | | | 18 3:33 | | | | | | AM PDT | | | | +-------+ +--------+---+---+ +---+---+ | | | +---+---+ + +-------+ +------+---+---+ | ondansetron (ZOFRAN) injection | Given | 01/16/20 | 8 mg | | | | 8 mg 8 mg, Intravenous, ONCE, | | 18 3:33 | | | | | Inna 01/15/18 at 0335, For 1 dose | | AM PDT | | | | + +-------+ +------+---+---+ +---+---+ | | | +---+---+ + +-------+ +---------+---+---+ | promethazine (PHENERGAN) (IV | Given | 01/16/20 | 12.5 mg | | | | ONLY) injection 12.5 mg 12.5 mg, | | 18 6:32 | | | | | Intravenous, ONCE, Inna 01/15/18 | | AM PDT | | | | | at 0635, For 1 dose, Vesicant. | | | | | | | When ordered IV push: Dilute to | | | | | | | 10-20mL with NS. Give over 2-3 | | | | | | | minutes into large vein. Do not | | | | | | | give in hand/wrist or foot/ankle | | | | | | | vein. Max dose 12.5mg if giving | | | | | | | peripherally., | | | | | | + +-------+ +---------+---+---+ +---+---+ | | | +---+---+ documented in this encounter
--- OUTSIDE RECORDS SUMMARY | ~2019-09-01 | XMS | Encounter Summary ---
Demographics + + + | Address | [address] | | | [place] [address] | + + + | Home Phone | | + + + | Preferred Language | Unknown | + + + | Marital Status | Legally | + + + | Hindu Affiliation | Unknown | + + + | Race | Unknown | + + + | Ethnic Group | Unknown | + + + Author + + + | Author | [facility] | | | and [facility] | + + + | Organization | [facility] | | | and [facility] | + + + | Address | Unknown | + + + | Phone | Unavailable | + + + Support + + + + + | Name | Relationship | Address | Phone | + + + + + | Neno Winters | ECON | [address] | | | | | [place] [address] | | + + + + + | Joelle Sharp | SHARYN | [place] | | | | | [place] | | + + + + + Care Team Providers + +------+ + | Care Mechanical Test Technician Name | Role | Phone | [...] Provider Unknown | | | | | [address] | [phone] | | | | | [phone] | | | +--------+ + + + [...]
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
--- OUTSIDE RECORDS SUMMARY | ~2019-09-01 | XMS | Encounter Summary ---
Demographics + + + | Address | [address] | | | [place] [address] | + + + | Home Phone | | + + + | Preferred Language | Unknown | + + + | Marital Status | Legally | + + + | Hinduism Affiliation | Unknown | + + + | Race | Unknown | + + + | Ethnic Group | Unknown | + + + Author + + + | Author | [facility] | | | and Anibal | + + + | Organization | [facility] | | | and [...] | | | | | [place] [address] | | + + + + + | Joelle Sharp | SHARYN | Sigrid | | | | | [place] | | + + + + + Care Team Providers + +------+ + | Care Brewery Representative Name | Role | Phone | + [...] 2015 | | [facility] | [place] [address] | (Primary Dx) | | | | PEDIATRIC EMERGENCY | [place] [address] | | | | | [address] | [phone] | | | | | [place], [place] | | | | | | [address] | | | | | | [phone] | | | +--------+ + + + [...] Everywhere.SUICIDE, RECOGN IZING WARNING SIGNS IN YOURSELF (TURKMEN)documented in this encounter Plan of Treatment Not on filedocumented as of this encounter Visit Diagnoses + + | Diagnosis | + + | Suicidal ideations - Primary Suicidal ideation | + + documented in this encounter"
--- OUTSIDE RECORDS SUMMARY | ~2019-09-01 | XMS | Encounter Summary ---
Demographics + + + | Address | [address] | | | [place] [address] | + + + | Home Phone | | + + + | Preferred Language | Unknown | + + + | Marital Status | Legally | + + + | Latter-Day Affiliation | Unknown | + + + | Race | Unknown | + + + | Ethnic Group | Unknown | + + + Author + + + | Author | [facility] | | | and Anibal | + + + | Organization | [facility] | | | and Alexandruana | + + + | Address | Unknown | + + + | Phone | Unavailable | + + + Support + + + + + | Name | Relationship | Address | Phone | + + + + + | Neno Winters | ECON | [address] | | | | | [place] [address] | | + + + + + | Joelle Sharp | ECON | [place] | | | | | [place] | | + + + + + Care Team Providers + +------+ + | Care Conversion Developer Name | Role | Phone | [...] | +--------+ + + + + | // | Telephone | [place] [facility] | Corey Yuan, | Other | | 2012 | | [facility] | [address] | | | | | Medicine [address] | | | | | [address] | [place] [address] | | | | | [place], [place] | [phone] | | | | | [address] | | | | | | [phone] | | | +--------+ + + + [...]
--- OUTSIDE RECORDS SUMMARY | ~2019-09-01 | XMS | Encounter Summary ---
Demographics + + + | Address | [address] | | | [place] [address] | + + + | Home Phone | | + + + | Preferred Language | Unknown | + + + | Marital Status | Legally | + + + | Pentecostalism Affiliation | Unknown | + + + | Race | Unknown | + + + | Ethnic Group | Unknown | + + + Author + + + | Author | [facility] | | | and Anibal | + + + | Organization | [facility] | | | and [...] | | | | | [place] [address] | | + + + + + | Joelle Sharp | ECON | Sigrid | | | | | [place] | | + + + + + Care Team Providers + +------+ + | Care Superintendent Commissary Name | Role | Phone | + [...] removed | | | | [address] | | | | | | [place], [place] | | | | | | [address] | | | | | | [phone] | | | +--------+---------+ + + + [...] side Nausea and vomiting Date Last Reviewed: 09/25/[id number] [employer]. [address] [place] [address], [place] [address]. All righ ts reserved. This information is [...] interact with your prescription medicines or other cxrt-zcq-xvlwsue (OTC) medicines. Some prescription medicines have acetaminophen [...] of taking these medicines. Date Last Reviewed: 07/25/[id number] [employer]. [address] [place] [id number]. All righ ts reserved. This information is not intended as a substitute for professional medical care. Always follow your healthcare professional's instructions. 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 documented in this encounter Medications at [...] | | | comments Signed by: MD Maruqez David | | |Estimated blood loss: Minimal [...]
--- OUTSIDE RECORDS SUMMARY | ~2019-09-01 | XMS | Encounter Summary ---
Demographics + + + | Address | [address] | | | [place] [address] | + + + | Home Phone | | + + + | Preferred Language | Unknown | + + + | Marital Status | Legally | + + + | Anglican Affiliation | Unknown | + + + | Race | Unknown | + + + | Ethnic Group | Unknown | + + + Author + + + | Author | [facility] | | | and Anibal | + + + | Organization | [facility] | [...] | | | | | [place] [address] | | + + + + + | Joelle Sharp | ECON | Sigrid | | | | | [place] | | + + + + + Care Team Providers + +------+ + | Care Chest Painting Leader Name | Role | Phone | + +------+ + | No, Physician | PCP | Unavailable | + +------+ + Reason for Visit + + + | Reason | Comments | + + + | Flank Pain | | + + + Auth/Cert +--------+--------+ + + + + | Status | Reason | Specialty | Diagnoses / | Referred By | Referred To | | | | | Procedures | Contact | Contact | +--------+--------+ + + + + | | | | Diagnoses | | | | | | | Pyoureter | | | | | | | Pyelonephrit | | | | | | | is Acute | | | | | | | unilateral | | | | | | | obstructive | | | | | | | uropathy | | | | | | | Acute | | | | | | | pyonephrosis | | | | | | | Sepsis, | | | | | | | due to | | | | | | | unspecified | | | | | | | organism | | | | | | | | | | | | | | hydronephros | | | | | | | is | | | | | | | Procedures | | | | | | | CYSTOSCOPY | | | | | | | WITH RIGHT | | | | | | | URETERAL | | | | | | | STENT | | | | | | | PLACEMENT | | | +--------+--------+ + + + + Encounter Details +--------+---------+ + + + | Date | Type | Department | Care Team | Description | +--------+---------+ + + + | 11/14/ | Surgery | [facility] | Uriel Yan, | Right Percutaneous | | 2018 | | [facility] | MD [address] | Nephrostomy Tube | | | | [address] | [address] [facility] | Placement | | | | [place], [place] | [place] [address] | | | | | [address] | [phone] | | | | | [phone] | | | +--------+---------+ + + + [...] + + + | Blood Pressure | 112/61 | 11/15/2017 9:33 AM | | | | | PDT | | + + + + + | Pulse | 68 | 11/15/2017 9:33 AM | | | | | PDT | | + + + + + | Temperature | 36.7 C (98 F) | 11/15/2017 7:00 AM | | | | | PDT | | + + + + + | Respiratory Rate | 16 | 11/15/2017 7:00 AM | | | | | PDT | | + + + + + | Oxygen Saturation | 99% | 11/15/2017 7:00 AM | | | | | PDT | | + + + + + | Inhaled Oxygen | - | - | | | Concentration | | | | + + + + + | Weight | 84.3 kg (185 lb 12.8 | 11/14/2017 2:03 AM | | | | oz) | PDT | | + + + + + | Height | 185.4 cm (6' 1") | 11/13/2017 7:29 PM | | | | | PDT | | + + + + + | Body Mass Index | 24.51 | 11/13/2017 7:29 PM | | | | | PDT | | + + + + + documented in this encounter Discharge Summaries Marcell Graves MD - 11/15/2017 8:17 AM PDTFormatting of this note might be different fro m the original. [facility] DISCHARGE SUMMARY Patient Name: August Winters Patient : [id number] PCP: No Physician on file Date of Admission: 11/13/2017 Date of Discharge: 11/15/2017 Primary Discharge Dx: Right duplicated system, Pylonephritis Hospital Course: Patient did well S/P Rt nephrostomy tube placement, recovered uneventfully, is ambulating w ell, tolerating diet, on PO pain meds. NT draining well, clear. Phisical exam: abdomen soft, non tender, non distended Condition on Discharge: Stable Discharge Medications: Discharge Medications New Medications Details cephalexin 500 mg capsule Take 1 capsule by mouth 3 times daily for 7 days. aka: KEFLEX HYDROcodone-acetaminophen 5-325 mg per tablet Take 1 tablet by mouth every 6 hours as needed for Pain. aka: NORCO Unchanged Medications Details ibuprofen 400 mg tablet Take 400 mg by mouth every 6 hours as needed for Pain. aka: ADVIL, MOTRIN nitrofurantoin 100 mg capsule Take 100 mg by mouth 2 times daily. Indications: Simple Infection of the Urinary Tract aka: MACROBID ondansetron 4 mg disintegrating tablet Take 1 tablet by mouth every 8 hours as needed for up to 10 doses. aka: JOSEPH WILSON Follow-Up: 1. [facility] in 2 weeks. Please call [phone] during business hours to set up your urology follow up appointm ent. Electronically Signed by: Marcell Graves MD, 11/15/2017 8:17 [facility] docume nted in this encounter Discharge Instructions Instructions Georgette Romero RN - 11/15/2017Nephrostomy tube AttachmentsThe following attachments cannot be sent through Care Everywhere.Pyelonephritis, Discharge Instructions for (Wallisian)Nephrostomy, Percutaneous (Wallisian)Nephrostomy, Percuta neous, Discharge Instructions (Wallisian)documented in this encounter Medications at Time of Discharge + + + +---------+ + + | Medication | Sig | Dispensed | Refills | Start | End Date | | | | | | Date | | + + + +---------+ + + | cephalexin | Take 1 capsule by | 21 | 0 | 11/16/19 | | | (KEFLEX) 500 mg | mouth 3 times daily | capsule | | 18 | 8 | | capsule | for 7 days. | | | | | + + [...] + + + +---------+ + + | ibuprofen (ADVIL, | Take 400 mg by mouth | | 0 | | | | MOTRIN) 400 mg | every 6 hours as | | | | 8 | | tablet | needed for Pain. | | | | | + + + +---------+ + + | nitrofurantoin | Take 100 mg by mouth | | 0 | | | | (MACROBID) 100 mg | 2 times daily. | | | | 8 | | capsuleIndications: | Indications: Simple | | | | | | Uncomplicated | Infection of the | | | | | | Urinary Tract | Urinary Tract | | | | | | Infection | | | | | | + + + +---------+ + + | ondansetron | Take 1 tablet by | 10 | 0 | 11/12/19 | | | (ZOFRAN ODT) 4 mg | mouth every 8 hours | tablet | | 17 | 8 | | disintegrating | as needed for up to | | | | | | tablet | 10 doses. | | | | | + + + +---------+ + + documented as of this encounter Plan of Treatment Not on filedocumented as of this encounter Procedures + +--------+ + + + | Procedure Name | Priori | Date/Time | Associated Diagnosis | Comments | | | ty | | | | + +--------+ + + + | CULTURE, URINE | Routin | 11/14/2017 | | Results for this | | | e | 2:28 PM | | procedure are in the | | | | PDT | | results section. | + +--------+ + + + | IR PROCEDURE | Routin | 11/14/2017 | | Results for this | | | e | 2:03 PM | | procedure are in the | | | | PDT | | results section. | + +--------+ + + + | CBC NO DIFFERENTIAL | Routin | 11/14/2017 | | Results for this | | | e | 4:05 AM | | procedure are in the | | | | PDT | | results section. | + +--------+ + + + | BASIC METABOLIC | Routin | 11/14/2017 | | Results for this | | PANEL | e | 4:05 AM | | procedure are in the | | | | PDT | | results section. | + +--------+ + + + | US PELVIS LIMITED | STAT | 11/13/2017 | | Results for this | | | | 11:22 PM | | procedure are in the | | | | PDT | | results section. | + +--------+ + + + | URINALYSIS WITH | STAT | 11/13/2017 | | Results for this | | MICROSCOPIC | | 9:47 PM | | procedure are in the | | | | PDT | | results section. | + +--------+ + + + | CULTURE, URINE | STAT | 11/13/2017 | | Results for this | | | | 9:47 PM | | procedure are in the | | | | PDT | | results section. | + +--------+ + + + | CULTURE, BLOOD | STAT | 11/13/2017 | | Results for this | | | | 9:25 PM | | procedure are in the | | | | PDT | | results section. | + +--------+ + + + | CT ABDOMEN PELVIS W | STAT | 11/13/2017 | | Results for this | | CONTRAST | | 9:23 PM | | procedure are in the | | | | PDT | | results section. | + +--------+ + + + | CULTURE, BLOOD | STAT | 11/13/2017 | | Results for this | | | | 8:39 PM | | procedure are in the | | | | PDT | | results section. | + +--------+ + + + | LACTIC ACID | STAT | 11/13/2017 | | Results for this | | | | 8:35 PM | | procedure are in the | | | | PDT | | results section. | + +--------+ + + + | EXTRA HOLD TUBE(S) | STAT | 11/13/2017 | | Results for this | | | | 8:12 PM | | procedure are in the | | | | PDT | | results section. | + +--------+ + + + | CBC WITH | STAT | 11/13/2017 | | Results for this | | DIFFERENTIAL | | 8:12 PM | | procedure are in the | | | | PDT | | results section. | + +--------+ + + + | COMPREHENSIVE | STAT | 11/13/2017 | | Results for this | | METABOLIC PANEL | | 8:12 PM | | procedure are in the | | | | PDT | | results section. | + +--------+ + + + documented in this encounter Results Culture, Urine (11/14/2017 2:28 PM PDT) + + + + + + | Component | Value | Ref Range | Performed | Pathologist | | | | | At | Signature | + + + + + + | Specimen | Urine, Nephrostomy | | [facility] | | | Source | | | [facility] | | | | | | [facility] | | + + + + + + | RESULT | No growth or <1,000 | | [facility] | | | | CFU/mL | | [facility] | | | | | | [facility]ORY | | + + + + + + | RESULT | Performed at [facility] | | [facility] | | | | [facility], | | [facility] | | | | [address] [place], [place] | | HOSPITAL | | | | [address] | | LABORATORY | | + + + + + + | Status | 11/16/2017 Final | | [facility] | | | | | | [facility] | | | | | | [facility] | | + + + + + + + + | Specimen | + + | Urine - Urine | | specimen from | | nephrostomy tube | | (specimen) | + + + + + + + | Performing | Address | City/State/Zipcode | Phone Number | | Organization | | | | + + + + + | [facility] | [address] | [place] [address] | | | [facility] | | | | | LABORATORY | | | | + + + + + IR Procedure (11/14/2017 2:03 PM PDT) + + | Specimen | + + | | + + + + + | Narrative | Performed At | + + + | RIGHT | [facility] | | NEPHROSTOMY TUBE PLACEMENT CLINICAL INFORMATION: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 The upper pole moietyis (chronically) | | | obstructed with probable superimposed infection. COMPARISON:CT of the | | | abdomen and pelvis from 11/13/2017 PROCEDURE:After explaining the | | | procedure, including the benefits and risks, bothverbal and written | | | consent were obtained. The patient was placed proneon the | | | angiography table. Ultrasound of the kidney was performed. | | | Themassively dilated upper collecting system/renal pelvis was | | | localized.Due to the probable chronic nature of the upper pole | | | moietyobstruction, it was decided to directly access the dilated renal | | | pelvisas discussed with Dr. Graves. A site was marked. The area | | | wasprepped and draped in a sterile fashion. The subcutaneous soft | | | tissueswere anesthetized with 1% lidocaine. A small skin marianne was | | | made.Under ultrasound guidance, an 18 gauge needle was advanced into | | | thecollection. With aspiration, cloudy reddish yellow fluid was | | | obtained.A sample was sent for culture and sensitivity. An Amplatz | | | wire wasadvanced into the collection. The tract was dilated. A | | | 10.2 Frenchnephrostomy catheter was advanced into the dilated renal | | | pelvis. Thecatheter was secured externally with a silk suture and | | | externalfixation device. A small amount of contrast was injected and | | | a spotfilm was obtained confirm good position of the catheter within | | | themassively dilated renal pelvis. The catheter was placed to | | | gravitydrainage. No immediate complications. Maximum sterile barrier | | | techniques taken. All staff present in the roomperformed hand hygiene | | | prior to the procedure. There were no immediate complications | | | following the procedure.Estimated blood loss: Minimal. Fluoro Time: .1 | | | minute The total number of images: 2 Contrast: 5 ml omnipaque 300 | | | Medications:100 mcg fentanyl, and 2 mg versed were utilized for | | | conscioussedation. The conscious sedation nurse who monitored the | | | bloodpressure, heart rate, and pulse oximeter during the | | | examinationadministered the medications. The patient was monitored | | | forapproximately 20 minutes. A permanent sonographic recording | | | wascreated for the patient's record. FINDINGS:Ultrasound of the kidney | | | demonstrates a massively dilated uppercollecting system/renal pelvis. | | | Following catheter placement, the catheter is in good position | | | withinthe massively dilated upper collecting system/renal pelvis. | | | IMPRESSION:Successful placement of 10.2 Japanese nephrostomy catheter | | | into massivelydilated upper collecting system/renal pelvis of the | | | upper pole moiety.Cloudy, reddish fluid was obtained. A sample of | | | the fluid was sent forculture and sensitivity. The catheter was left | | | to gravity drainage. Signed by: MD Yan Cameron | | |100 mcg fentanyl, and 2 mg versed were utilized for conscious | | |sedation. The conscious sedation nurse who monitored the blood | | |pressure, heart rate, and pulse oximeter during the examination | | |administered the medications. The patient was monitored for | | |approximately 20 minutes. A permanent sonographic recording was | | |created for the patient's record. | | | | | |FINDINGS: | | |Ultrasound of the kidney demonstrates a massively dilated upper | | |collecting system/renal pelvis. | | | | | |Following catheter placement, the catheter is in good position within | | |the massively dilated upper collecting system/renal pelvis. | | | | | |IMPRESSION: | | |Successful placement of 10.2 Japanese nephrostomy catheter into massively | | |dilated upper collecting system/renal pelvis of the upper pole moiety. | | |Cloudy, reddish fluid was obtained. A sample of the fluid was sent for | | |culture and sensitivity. The catheter was left to gravity drainage. | | | | | | | | | | | |Signed by: MD Yan Cameron | | | | | | | | + + + + + | Procedure Note | + + | Lance, Rad Results In - 11/14/2017 2:28 PM PDT | | RIGHT NEPHROSTOMY TUBE PLACEMENT | | | | CLINICAL INFORMATION: | | The patient has a duplicated collecting system. The upper pole moiety | | is (chronically) obstructed with probable superimposed infection. | | | | COMPARISON: | | CT of the abdomen and pelvis from 11/13/2017 | | | | PROCEDURE: | | After explaining the procedure, including the benefits and risks, both | | verbal and written consent were obtained. The patient was placed prone | | on the angiography table. Ultrasound of the kidney was performed. The | | massively dilated upper collecting system/renal pelvis was localized. | | Due to the probable chronic nature of the upper pole moiety | | obstruction, it was decided to directly access the dilated renal pelvis | | as discussed with Dr. Graves. A site was marked. The area was | | prepped and draped in a sterile fashion. The subcutaneous soft tissues | | were anesthetized with 1% lidocaine. A small skin marianne was made. | | Under ultrasound guidance, an 18 gauge needle was advanced into the | | collection. With aspiration, cloudy reddish yellow fluid was obtained. | | A sample was sent for culture and sensitivity. An Amplatz wire was | | advanced into the collection. The tract was dilated. A 10.2 Japanese | | nephrostomy catheter was advanced into the dilated renal pelvis. The | | catheter was secured externally with a silk suture and external | | fixation device. A small amount of contrast was injected and a spot | | film was obtained confirm good position of the catheter within the | | massively dilated renal pelvis. The catheter was placed to gravity | | drainage. No immediate complications. | | | | Maximum sterile barrier techniques taken. All staff present in the room | | performed hand hygiene prior to the procedure. | | | | There were no immediate complications following the procedure. | | Estimated blood loss: Minimal. | | | | Fluoro Time: .1 minute The total number of images: 2 | | | | Contrast: 5 ml omnipaque 300 | | | | Medications: | | 100 mcg fentanyl, and 2 mg versed were utilized for conscious | | sedation. The conscious sedation nurse who monitored the blood | | pressure, heart rate, and pulse oximeter during the examination | | administered the medications. The patient was monitored for | | approximately 20 minutes. A permanent sonographic recording was | | created for the patient's record. | | | | FINDINGS: | | Ultrasound of the kidney demonstrates a massively dilated upper | | collecting system/renal pelvis. | | | | Following catheter placement, the catheter is in good position within | | the massively dilated upper collecting system/renal pelvis. | | | | IMPRESSION: | | Successful placement of 10.2 Japanese nephrostomy catheter into massively | | dilated upper collecting system/renal pelvis of the upper pole moiety. | | Cloudy, reddish fluid was obtained. A sample of the fluid was sent for | | culture and sensitivity. The catheter was left to gravity drainage. | | | | | | | | Signed by: MD Yan Cameron | + + + +---------+ + + | Performing | Address | City/State/Zipcode | Phone Number | | Organization | | | | + +---------+ + + | [facility] | | | | + +---------+ + + CBC no Differential (11/14/2017 4:05 AM PDT) + + + + + + | Component | Value | Ref Range | Performed | Pathologist | | | | | At | Signature | + + + + + + | WBC | 10.7 | 4.5 - 13.5 K/uL | [facility] | | | | | | [facility] | | | | | | [facility] | | + + + + + + | RBC | 4.37 (L) | 4.50 - 5.40 | [facility] | | | | | M/uL | [facility] | | | | | | [facility]ORY | | + + + + + + | Hemoglobin | 13.2 | 13.0 - 15.5 | [facility] | | | | | g/dL | [facility] | | | | | | [facility] | | + + + + + + | Hematocrit | 38.6 | 37.0 - 49.0 % | [facility] | | | | | | [facility] | | | | | | [facility]ORY | | + + + + + + | MCV | 88.3 | 78.0 - 98.0 fL | [facility] | | | | | | [facility] | | | | | | [facility] | | + + + + + + | MCH | 30.2 | 25.0 - 35.0 pg | [facility] | | | | | | [facility] | | | | | | [facility]ORY | | + + + + + + | MCHC | 34.2 | 31.0 - 36.0 | [facility] | | | | | g/dL | [facility] | | | | | | [facility] | | + + + + + + | RDW-CV | 13.4 | 11.0 - 15.0 % | [facility] | | | | | | [facility] | | | [facility] | | | | | | [facility] | | + + + + + + | Platelet | 284 | 150 - 400 K/uL | [facility] | | | Count | | | [facility] | | | [facility] | | | | | | LAB[facility] | | + + + + + + + + | Specimen | + + | Blood | + + + + + + + | Performing | Address | City/State/Zipcode | Phone Number | | Organization | | | | + + + + + | [facility] | [address] | [place] [address] | | | [facility] | | | | | [facility] | | | | + + + + + Basic Metabolic Panel (11/14/2017 4:05 AM PDT) + + + + + + | Component | Value | Ref Range | Performed | Pathologist | | | | | At | Signature | + + + + + + | Na | 136 | 135 - 146 | [facility] | | | | | mmol/L | [facility] | | | | | | [facility] | | + + + + + + | K | 4.3 | 3.6 - 5.2 | [facility] | | | | | mmol/L | [facility] | | | | | | [facility] | | + + + + + + | Cl | 102 | 98 - 109 mmol/L | [facility] | | | | | | [facility] | | | | | | [facility] | | + + + + + + | CO2 | 27 | 21 - 32 mmol/L | [facility] | | | | | | [facility] | | | | | | [facility] | | + + + + + + | Glucose | 119 (H)Comment: Impaired | 65 - 99 mg/dL | [facility] | | | | fasting glucose: 100 to | | [facility] | | | | 125 mg/dL. | | [facility] | | | | | | LAB[facility]ORY | | + + + + + + | BUN | 8 | 7 - 23 mg/dL | [facility] | | | | | | [facility] | [facility] | | | | | | [facility] | | + + + + + + | Creatinine | 0.88 | 0.50 - 1.30 | [facility] | | | | | mg/dL | [facility] | [facility] | | | | | | [facility] | | + + + + + + | Calcium | 8.3 (L) | 8.7 - 10.3 | [facility] | | | | | mg/dL | [facility] | | | | | [facility] | | | | | | LAB[facility]ORY | | + + + + + + | Anion Gap | 7 | 5 - 16 mmol/L | [facility] | | | | | | [facility] | | | | | | [facility] | | + + + + + + | Estimated | Cannot calculate. | >60 | [facility] | | | GFR | | ml/min/1.73m2 | [facility] | | | | | | [facility] | | | | | | LAB[facility]ATORY | | + + + + + + + + | Specimen | + + | Blood | + + + + + + + | Performing | Address | City/State/Zipcode | Phone Number | | Organization | | | | + + + + + | [facility] | [address] | [place] [address] | | | [facility] | | | | | LABORATORY | | | | + + + + + US Pelvis Limited (11/13/2017 11:22 PM PDT) + + | Specimen | + + | | + + + + + | Narrative | Performed At | + + + | ULTRASOUND PELVIS-LIMITED CLINICAL INFORMATION: Right | [facility] | | hydronephrosis. COMPARISON: ULTRASOUND APPENDIX dated 11/13/2017; | | | CT ABDOMEN PELVIS W CONTRAST dated 11/13/2017 PROCEDURE: | | | Transabdominal and transvaginal ultrasound evaluation of the uterus, | | | endometrium, adnexa and ovaries. FINDINGS: Images of the urinary | | | bladder show bilateral ureteral jets. Mobile particulate echoes are | | | noted within the urinary bladder. Review of the earlier CT scan | | | shows a duplicated right collecting system, with obstructed upper | | | pole moiety. The obstructed upper pole moiety ureter appears to | | | insert low, into the region of the prostatic urethra. The right | | | kidney lower pole moiety and appears to insert into the urinary | | | bladder. IMPRESSION: 1. Duplicated right renal collecting system | | | and ureters. The obstructed right kidney upper pole moiety appears | | | to insert ectopically into the region of the prostatic urethra (based | | | on CT findings). Recommend Urology consultation for | | | obstructed/infected right kidney upper pole moiety. 2. The right | | | kidney lower pole moiety appears to insert normally into the urinary | | | bladder. Bilateral ureteral jets are seen at ultrasound, | | | representing the right kidney lower pole moiety ureter and left kidney | | | ureter. Signed by: MD Gabino, Dr. Jenkins | | + + + + + | Procedure Note | + + | Lance, Rad Results In - 11/14/2017 12:16 AM PDT | | ULTRASOUND PELVIS-LIMITED | | | | CLINICAL INFORMATION: | | Right hydronephrosis. | | | | COMPARISON: | | ULTRASOUND APPENDIX dated 11/13/2017; CT ABDOMEN PELVIS W CONTRAST dated | | 11/13/2017 | | | | PROCEDURE: | | Transabdominal and transvaginal ultrasound evaluation of the uterus, | | endometrium, adnexa and ovaries. | | | | FINDINGS: | | Images of the urinary bladder show bilateral ureteral jets. Mobile | | particulate echoes are noted within the urinary bladder. | | | | Review of the earlier CT scan shows a duplicated right collecting | | system, with obstructed upper pole moiety. The obstructed upper pole | | moiety ureter appears to insert low, into the region of the prostatic | | urethra. The right kidney lower pole moiety and appears to insert into | | the urinary bladder. | | | | IMPRESSION: | | 1. Duplicated right renal collecting system and ureters. The | | obstructed right kidney upper pole moiety appears to insert ectopically | | into the region of the prostatic urethra (based on CT findings). | | Recommend Urology consultation for obstructed/infected right kidney | | upper pole moiety. | | 2. The right kidney lower pole moiety appears to insert normally into | | the urinary bladder. Bilateral ureteral jets are seen at ultrasound, | | representing the right kidney lower pole moiety ureter and left kidney | | ureter. | | | | | | | | Signed by: MD Gabino, Dr. Jenkins | + + + +---------+ + + | Performing | Address | City/State/Zipcode | Phone Number | | Organization | | | | + +---------+ + + | [facility] | | | | + +---------+ + + Culture, Urine (11/13/2017 9:47 PM PDT) + + + + + + | Component | Value | Ref Range | Performed | Pathologist | | | | | At | Signature | + + + + + + | Specimen | Urine, Clean Catch | | [facility] | | | Source | | | [facility] | | | | | | [facility] | | + + + + + + | RESULT | Mixed gayle | | [facility] | | | | | | [facility] | | | | | | [facility] | | + + + + + + | RESULT | Performed at [facility] | | [facility] | | | | [facility], | | [facility] | | | | [address] | | HOSPITAL | | | | [address] | | LABORATORY | | + + + + + + | Status | 11/15/2017 Final | | [facility] | | | | | | [facility] | | + + + + + + + + | Specimen | + + | Urine - Urine | | specimen obtained by | | clean catch | | procedure (specimen) | + + + + + + + | Performing | Address | City/State/Zipcode | Phone Number | | Organization | | | | + + + + + | [facility] | [address] | [place] [address] | | | [facility] | | | | | LABORATORY | | | | + + + + + Urinalysis With Microscopic (11/13/2017 9:47 PM PDT) + + + + + + | Component | Value | Ref Range | Performed | Pathologist | | | | | At | Signature | + + + + + + | Color, | Yellow | | [facility] | | | Urine | | [facility] | | | | | | LAB[facility]ATORY | | + + + + + + | Clarity | Turbid | | [facility] | | | | [facility] | | | | | | LAB[facility]ATORY | | + + + + + + | Glucose, | Negative | Negative mg/dL | [facility] | | | Urine | | | [facility] | | | | | | LAB[facility]ATORY | | + + + + + + | Bilirubin, | Negative | Negative | [facility] | | | Urine | | | [facility] | | | | | | LAB[facility]ATORY | | + + + + + + | Ketones, | 20 (A) | Negative mg/dL | [facility] | | | Urine | | | [facility] | | | | | | LAB[facility]ATORY | | + + + + + + | Specific | 1.032 (H) | 1.001 - 1.030 | [facility] | | | [place] | | | [facility] | | | | | | [facility]ORY | | + + + + + + | pH, Urine | 7.0 | 5.0 - 7.5 | [facility] | | | | | [facility] | | | | | | LABORATORY | | + + + + + + | Protein, | 100 (A) | Negative mg/dL | [facility] | | | Urine | | | [facility] | | | | | | LAB[facility]ATORY | | + + + + + + | Urobilinoge | 2.0 (H) | <2.0 mg/dL | [facility] | | | n, Urine | | | [facility] | | | | | | LAB[facility]ORY | | + + + + + + | Nitrite, | Negative | Negative | [facility] | | | Urine | | | [facility] | | | | | | LAB[facility]ATORY | | + + + + + + | Blood, | Small (A) | Negative | [facility] | | | Urine | | | [facility] | | | | | | LAB[facility]ATORY | | + + + + + + | Leukocyte | Moderate (A) | Negative | [facility] | | | Esterase, | | | [facility] | | | | | | LABORATORY | | + + + + + + | WBC UA | >182 (H) | <6 /hpf | [facility] | | | | | [facility] | | | | | | LAB[facility]ATORY | | + + + + + + | RBC UA | 72 (H) | <6 /hpf | [facility] | | | | | [facility] | [facility] | | | | | | LAB[facility]ATORY | | + + + + + + | WBC CLUMPS | Many (A) | None seen /hpf | [facility] | | | UA | | | [facility] | | | | | | LAB[facility]ATORY | | + + + + + + | BACTERIA UA | Present (A) | None seen /hpf | [facility] | | | | | | [facility] | | | | | | [facility]ORY | | + + + + + + + + | Specimen | + + | Urine - Urine | | specimen obtained by | | clean catch | | procedure (specimen) | + + + + + + + | Performing | Address | City/State/Zipcode | Phone Number | | Organization | | | | + + + + + | [facility] | [address] | [place] [address] | | | [facility] | | | | | LABORATORY | | | | + + + + + Culture, Blood (11/13/2017 9:25 PM PDT) + + + + + + | Component | Value | Ref Range | Performed | Pathologist | | | | | At | Signature | + + + + + + | Specimen | Blood | | [facility] | | | Source | | | [facility] | | | | | | LAB[facility]ATORY | | + + + + + + | RESULT | No Growth | | [facility] | | | | | | [facility] | | | | | | [facility]ATORY | | + + + + + + | RESULT | Performed at [facility] | | [facility] | | | | [facility], | | [facility] | | | | [address] [place], [place] | | HOSPITAL | | | | [address] | | LABORATORY | | + + + + + + | Status | 11/19/2017 Final | | [facility] | | | | [facility] | | | | | | [facility]ORY | | + + + + + + + + | Specimen | + + | Blood - Peripheral | | blood specimen | | (specimen) | + + + + + + + | Performing | Address | City/State/Zipcode | Phone Number | | Organization | | | | + + + + + | [facility] | [address] | [place] [address] | | | [facility] | | | | | LABORATORY | | | | + + + + + CT Abdomen Pelvis w Contrast (11/13/2017 9:23 PM PDT) + + | Specimen | + + | | + + + + + | Narrative | Performed At | + + + | CT ABDOMEN AND PELVIS WITH CONTRAST CLINICAL INFORMATION: | [facility] | | 17-year-old male with fever and marked right flank pain. | | | COMPARISON: ULTRASOUND APPENDIX dated 11/13/2017 PROCEDURE: Axial | | | images through the abdomen and pelvis after the administration of | | | 100 mL Isovue 370 intravenous contrast. Multiplanar reconstructions. | | | At least one of the following CT dose optimization techniques were | | | used: Automated exposure control; Adjustment of mA and/or kV | | | according to patient size; Use of iterative reconstruction technique. | | | FINDINGS: LUNG BASES: No significant pulmonary abnormality. No | | | pleural effusion or pneumothorax. ABDOMEN Liver and Biliary: No | | | gallbladder or biliary abnormality. No significant liver abnormality. | | | Pancreas, Spleen and Adrenals: No pancreatitis or pancreatic mass. | | | No splenomegaly, splenic mass or splenic hemorrhage. No significant | | | adrenal abnormality. Kidneys: Right kidney: Suspect a duplicated | | | right renal collecting system with atrophy and numerous cysts in the | | | upper pole moiety. There diminished and heterogeneous enhancement | | | of the upper pole moiety. This could be due to diminished | | | enhancement or pyelonephritis. There is severe right hydronephrosis | | | including the renal pelvis with severe hydroureter extending down to | | | the ureteral vesicular junction with marked urothelial enhancement | | | and thickening with surrounding moderate inflammatory changes | | | extending throughout the entire right collecting system. Multiple | | | small cystic lesions in the superior pole right kidney. The right | | | renal pelvis and proximal ureter measures 9.6 x 10.1 x 13.5 cm. Left | | | kidney: No hydronephrosis, calculus or mass. ABDOMEN AND PELVIS | | | Bowel: No small bowel or colonic dilation or adjacent inflammation. No | | | appendiceal dilation or inflammation. Vessels: No significant | | | abnormality in the aorta, its proximal branches or the iliac | | | arteries. No significant abnormality in the portal veins, mesenteric | | | veins or systemic veins. Lymph Nodes: Mildly prominent nodes along | | | the course of the medial or anteriorly are likely reactive. | | | Peritoneum and Retroperitoneum: Moderate right perinephric and right | | | periureteral inflammatory changes extending down into the pelvis. | | | PELVIS Genitourinary: Inferior and medial insertion of the dilated | | | distal right ureter, which arose from the upper pole moiety, and | | | appears to insert in the inferior aspect of the bladder or possibly | | | into the urethra. There appears to be a distal ureteral seal. | | | Slightly dense layering debris within the dependent portion of the | | | urinary bladder, concerning for puss or hemorrhage. BODY WALL | | | Soft Tissues: No bowel or inflamed fat containing hernia, mass or | | | hemorrhage. Bones: No acute fracture or vertebral end plate | | | destruction. No lytic or blastic lesion. IMPRESSION: 1. | | | Duplicated right renal collecting system. Right upper pole moiety | | | severe right hydronephrosis and hydroureter with marked urothelial | | | enhancement and thickening. Moderate perinephric and periureteral | | | inflammatory changes. Ectopic insertion of the distal ureter with a | | | ureterocele. Correlation with ultrasound reveals debris within the | | | dilated collecting system and ureter raising concern for | | | pyonephrosis. 2. Clustered small cystic lesions in the atrophic upper | | | pole moiety right kidney and heterogeneous enhancement either due to | | | poor perfusion or pyelonephritis. The atrophy of the kidney is | | | likely due to chronic obstruction. 3. Layering debris in the urinary | | | bladder, also seen on the same day ultrasound. Findings are highly | | | concerning for an acute obstructive process with pyonephrosis and | | | pyoureter. 4. No renal, ureteral or bladder calculi. 5. Normal left | | | kidney and ureter. 6. Normal appendix. Findings were discussed | | | with Dr. Guillory upon the conclusion of the exam on 11/13/2017 at | | | approximately 10:06 p.m. Dictated by: Gregory Cloud Signed by: | | | MD Kwon Julie The radiologist has reviewed the images and | | | edited/approved the report. For interventional procedures, the | | | signing radiologist was present for the crawford portions of the exam. | | | | | + + + + + | Procedure Note | + + | Lance, Rad Results In - 11/13/2017 10:31 PM PDT | | CT ABDOMEN AND PELVIS WITH CONTRAST | | | | CLINICAL INFORMATION: | | 17-year-old male with fever and marked right flank pain. | | | | COMPARISON: | | ULTRASOUND APPENDIX dated 11/13/2017 | | | | PROCEDURE: | | Axial images through the abdomen and pelvis after the administration of | | 100 mL Isovue 370 intravenous contrast. Multiplanar reconstructions. | | | | At least one of the following CT dose optimization techniques were | | used: Automated exposure control; Adjustment of mA and/or kV according | | to patient size; Use of iterative reconstruction technique. | | | | FINDINGS: | | LUNG BASES: No significant pulmonary abnormality. No pleural effusion | | or pneumothorax. | | | | ABDOMEN | | Liver and Biliary: No gallbladder or biliary abnormality. No | | significant liver abnormality. | | Pancreas, Spleen and Adrenals: No pancreatitis or pancreatic mass. No | | splenomegaly, splenic mass or splenic hemorrhage. No significant | | adrenal abnormality. | | Kidneys: | | Right kidney: Suspect a duplicated right renal collecting system with | | atrophy and numerous cysts in the upper pole moiety. There diminished | | and heterogeneous enhancement of the upper pole moiety. This could be | | due to diminished enhancement or pyelonephritis. There is severe right | | hydronephrosis including the renal pelvis with severe hydroureter | | extending down to the ureteral vesicular junction with marked | | urothelial enhancement and thickening with surrounding moderate | | inflammatory changes extending throughout the entire right collecting | | system. Multiple small cystic lesions in the superior pole right | | kidney. The right renal pelvis and proximal ureter measures 9.6 x 10.1 | | x 13.5 cm. | | Left kidney: No hydronephrosis, calculus or mass. | | | | ABDOMEN AND PELVIS | | Bowel: No small bowel or colonic dilation or adjacent inflammation. No | | appendiceal dilation or inflammation. | | Vessels: No significant abnormality in the aorta, its proximal branches | | or the iliac arteries. No significant abnormality in the portal veins, | | mesenteric veins or systemic veins. | | Lymph Nodes: Mildly prominent nodes along the course of the medial or | | anteriorly are likely reactive. | | Peritoneum and Retroperitoneum: Moderate right perinephric and right | | periureteral inflammatory changes extending down into the pelvis. | | | | PELVIS | | Genitourinary: Inferior and medial insertion of the dilated distal | | right ureter, which arose from the upper pole moiety, and appears to | | insert in the inferior aspect of the bladder or possibly into the | | urethra. There appears to be a distal ureteral seal. Slightly dense | | layering debris within the dependent portion of the urinary bladder, | | concerning for puss or hemorrhage. | | | | BODY WALL | | Soft Tissues: No bowel or inflamed fat containing hernia, mass or | | hemorrhage. | | Bones: No acute fracture or vertebral end plate destruction. No lytic | | or blastic lesion. | | | | IMPRESSION: | | 1. Duplicated right renal collecting system. Right upper pole moiety | | severe right hydronephrosis and hydroureter with marked urothelial | | enhancement and thickening. Moderate perinephric and periureteral | | inflammatory changes. Ectopic insertion of the distal ureter with a | | ureterocele. Correlation with ultrasound reveals debris within the | | dilated collecting system and ureter raising concern for pyonephrosis. | | 2. Clustered small cystic lesions in the atrophic upper pole moiety | | right kidney and heterogeneous enhancement either due to poor perfusion | | or pyelonephritis. The atrophy of the kidney is likely due to chronic | | obstruction. | | 3. Layering debris in the urinary bladder, also seen on the same day | | ultrasound. Findings are highly concerning for an acute obstructive | | process with pyonephrosis and pyoureter. | | 4. No renal, ureteral or bladder calculi. | | 5. Normal left kidney and ureter. | | 6. Normal appendix. | | | | Findings were discussed with Dr. Guillory upon the conclusion of the exam | | on 11/13/2017 at approximately 10:06 p.m. | | | | Dictated by: Gregory Cloud | | | | Signed by: MD Kwon Julie | | | | | | The radiologist has reviewed the images and edited/approved | | the report. For interventional procedures, the signing | | radiologist was present for the crawford portions of the exam. | + + + +---------+ + + | Performing | Address | City/State/Zipcode | Phone Number | | Organization | | | | + +---------+ + + | [facility] | | | | + +---------+ + + Culture, Blood (11/13/2017 8:39 PM PDT) + + + + + + | Component | Value | Ref Range | Performed | Pathologist | | | | | At | Signature | + + + + + + | Specimen | Blood | | [facility] | | | Source | | | [facility] | | | | | | LAB[facility]ATORY | | + + + + + + | RESULT | No Growth | | [facility] | | | | | [facility] | | | | | | [facility]ATORY | | + + + + + + | RESULT | Performed at [facility] | | [facility] | | | | [facility], | | [facility] | | | | [address], [place], [place] | | HOSPITAL | | | | [address] | | LABORATORY | | + + + + + + | Status | 11/19/2017 Final | | [facility] | | | | | [facility] | | | | | | [facility]ORY | | + + + + + + + + | Specimen | + + | Blood - Peripheral | | blood specimen | | (specimen) | + + + + + + + | Performing | Address | City/State/Zipcode | Phone Number | | Organization | | | | + + + + + | [facility] | [address] | [place] [address] | | | [facility] | | | | | LABORATORY | | | | + + + + + Lactic Acid (11/13/2017 8:35 PM PDT) + +-------+ + + + | Component | Value | Ref Range | Performed | Pathologist | | | | | At | Signature | + +-------+ + + + | Lactate, | 1.2 | 0.4 - 2.0 | [facility] | | | Venous | | mmol/L | [facility] | | | | [facility] | | | | | | LABORATORY | | + +-------+ + + + + + | Specimen | + + | Blood | + + + + + + + | Performing | Address | City/State/Zipcode | Phone Number | | Organization | | | | + + + + + | [facility] | [address] | [place] [address] | | | [facility] | | | | | LAB[facility]ATORY | | | | + + + + + Extra Hold Tube(s) (11/13/2017 8:12 PM PDT) + +-------+ + + + | Component | Value | Ref Range | Performed | Pathologist | | | | | At | Signature | + +-------+ + + + | Extra Tube | B Y | | [facility] | | | | | | [facility] | | [facility] | [facility] | | | | | | LABORATORY | | + +-------+ + + + + + | Specimen | + + | | + + + + + + + | Performing | Address | City/State/Zipcode | Phone Number | | Organization | | | | + + + + + | [facility] | [address] | [place] [address] | | | [facility] | | | | | LAB[facility]ATORY | | | | + + + + + Comprehensive Metabolic Panel (11/13/2017 8:12 PM PDT) + + + + + + | Component | Value | Ref Range | Performed | Pathologist | | | | | At | Signature | + + + + + + | Na | 131 (L) | 135 - 146 | [facility] | | | | | mmol/L | [facility] | | | | | | LAB[facility]ATORY | | + + + + + + | K | 3.7 | 3.6 - 5.2 | [facility] | | | | | mmol/L | [facility] | | | | | | LABORATORY | | + + + + + + | Cl | 95 (L) | 98 - 109 mmol/L | [facility] | | | | | | [facility] | | | | | | LAB[facility]ATORY | | + + + + + + | CO2 | 24 | 21 - 32 mmol/L | [facility] | | | | | | [facility] | [facility] | | | | | | LAB[facility]ATORY | | + + + + + + | Glucose | 129 (H)Comment: Impaired | 65 - 99 mg/dL | [facility] | | | | fasting glucose: 100 to | | [facility] | | | | 125 mg/dL. | | [facility] | | | | | | LABORATORY | | + + + + + + | BUN | 9 | 7 - 23 mg/dL | [facility] | | | | | | [facility] | | [facility] | | | | | | LAB[facility]ATORY | | + + + + + + | Creatinine | 0.92 | 0.50 - 1.30 | [facility] | | | | | mg/dL | [facility] | | | | | | LAB[facility]ATORY | | + + + + + + | Calcium | 8.9 | 8.7 - 10.3 | [facility] | | | | | mg/dL | [facility] | | | | | | LAB[facility]ATORY | | + + + + + + | Total | 8.1 (H) | 6.3 - 8.0 g/dL | [facility] | | | Protein | | | [facility] | | | | | | LAB[facility]ATORY | | + + + + + + | Albumin | 3.4 (L) | 3.5 - 5.0 g/dL | [facility] | | | | | | [facility] | | | | | | LAB[facility]ATORY | | + + + + + + | Bilirubin | 0.8 | 0.1 - 1.5 mg/dL | [facility] | | | Total | | | [facility] | | | | | | LAB[facility]ATORY | | + + + + + + | Alkaline | 63 | 35 - 115 U/L | [facility] | | | Phosphatase | | | [facility] | | | | | | LAB[facility]ATORY | | + + + + + + | AST | 14 | 5 - 40 U/L | [facility] | | | | | | [facility] | | | | | | LAB[facility]ATORY | | + + + + + + | ALT | 22 | 10 - 65 U/L | [facility] | | | | | | [facility] | | | | | | [facility] | | + + + + + + | Anion Gap | 12 | 5 - 16 mmol/L | [facility] | | | | | | [facility] | | | | [facility] | | | | | | LAB[facility]ATORY | | + + + + + + | Estimated | Cannot calculate. | >60 | [facility] | | | GFR | | ml/min/1.73m2 | [facility] | | | | [facility] | | | | | | LAB[facility]ATORY | | + + + + + + + + | Specimen | + + | Blood | + + + + + + + | Performing | Address | City/State/Zipcode | Phone Number | | Organization | | | | + + + + + | [facility] | [address] | [place] [address] | | | [facility] | | | | | LAB[facility]ATORY | | | | + + + + + CBC with Differential (11/13/2017 8:12 PM PDT) + + + + + + | Component | Value | Ref Range | Performed | Pathologist | | | | | At | Signature | + + + + + + | WBC | 14.6 (H) | 4.5 - 13.5 K/uL | [facility] | | | | | | [facility] | | | | | | LAB[facility]ATORY | | + + + + + + | RBC | 4.85 | 4.50 - 5.40 | [facility] | | | | | M/uL | [facility] | | | | | | [facility]ORY | | + + + + + + | Hemoglobin | 14.9 | 13.0 - 15.5 | [facility] | | | | | g/dL | [facility] | | | | | | LAB[facility]ORY | | + + + + + + | Hematocrit | 41.5 | 37.0 - 49.0 % | [facility] | | | | | | [facility] | | | | | | [facility] | | + + + + + + | MCV | 85.6 | 78.0 - 98.0 fL | [facility] | | | | | | [facility] | | | | | | [facility] | | + + + + + + | MCH | 30.6 | 25.0 - 35.0 pg | [facility] | | | | | | [facility] | | | | | | [facility] | | + + + + + + | MCHC | 35.8 | 31.0 - 36.0 | [facility] | | | | | g/dL | [facility] | | | | | | [facility] | | + + + + + + | RDW-CV | 13.6 | 11.0 - 15.0 % | [facility] | | | | | | [facility] | | | | | | [facility]ORY | | + + + + + + | Platelet | 347 | 150 - 400 K/uL | [facility] | | | Count | | | [facility] | | | | | | LAB[facility] | | + + + + + + | % Segmented | 67.0 | 38 - 70 % | [facility] | | | | | | [facility] | | | Neutrophils | | | [facility] | | | | | | LABORATORY | | + + + + + + | % Bands | 10.0 (H) | 0 - 8 % | [facility] | | | | | | [facility] | [facility] | | | | | | LAB[facility]ATORY | | + + + + + + | % | 1.0 (H) | <1 % | [facility] | | | Metamyelocy | | | [facility] | | | gallo | | | [facility] | | | | | | LABORATORY | | + + + + + + | % | 9.0 (L) | 20.0 - 50.0 % | [facility] | | | Lymphocytes | | | [facility] | | | | [facility] | | | | | | LAB[facility]ATORY | | + + + + + + | % Monocytes | 13.0 (H) | 1.0 - 9.0 % | [facility] | | | | | | [facility] | [facility] | | | | | | LAB[facility]ATORY | | + + + + + + | Absolute | 9.78 (H) | 1.8 - 8.0 K/uL | [facility] | | | Segmented | | | [facility] | | | Neutrophils | | | [facility] | | | | | | LABORATORY | | + + + + + + | Absolute | 1.46 (H) | 0.00 - 0.24 | [facility] | | | Bands | | K/uL | [facility] | | | | | | LAB[facility]ORY | | + + + + + + | Absolute | 1.31 | 1.0 - 5.0 K/uL | [facility] | | | Lymphocytes | | | [facility] | | | | [facility] | | | | | | LAB[facility]ORY | | + + + + + + | Absolute | 1.90 (H) | 0.0 - 0.8 K/uL | [facility] | | | Monocytes | | | [facility] | | | | | | LAB[facility]ATORY | | + + + + + + | Differentia | Manual | | [facility] | | | l Type | | | [facility] | | | [facility] | | | | | | LAB[facility] | | + + + + + + | Total | 100 | | [facility] | | | Counted | | | [facility] | | | | | | [facility] | | + + + + + + | Platelet | Estimate normalMany | | [facility] | | | Morphology | platelet clumps present | | [facility] | | | | | | [facility] | | + + + + + + | RBC | Normal | | [facility] | | | Morphology | | | [facility] | | | | | | [facility] | | + + + + + + + + | Specimen | + + | Blood | + + + + + + + | Performing | Address | City/State/Zipcode | Phone Number | | Organization | | | | + + + + + | [facility] | [address] | [place] [address] | | | [facility] | | | | | LABORATORY | | | | + + + + + documented in this encounter Visit Diagnoses Not on filedocumented in this encounter Administered Medications + +---------+ +--------+-------+------+ | Medication Order | MAR | Action | Dose | Rate | Site | | | Action | Date | | | | + +---------+ +--------+-------+------+ | ciprofloxacin in dextrose | New Bag | 11/16/19 | 400 mg | 200 | | | (CIPRO) IVPB 400 mg 400 mg, | | 18 9:04 | | mL/hr | | | Intravenous, Administer over 1 | | AM PDT | | | | | Hours, EVERY 12 HOURS (2 times | | | | | | | per day), First dose on Fri | | | | | | | 11/13/17 at 2235, Indications: UTI | | | | | | | - LOWER | | | | | | + +---------+ +--------+-------+------+ +---------+ +--------+-------+---+ | New Bag | 11/15/19 | 400 mg | 200 | | | | 18 8:14 | | mL/hr | | | | PM PDT | | | | +---------+ +--------+-------+---+ | New Bag | 11/15/19 | 400 mg | 200 | | | | 18 9:19 | | mL/hr | | | | AM PDT | | | | +---------+ +--------+-------+---+ +---+---+ | | | +---+---+ + +-------+ +--------+---+---+ | docusate sodium (COLACE) | Given | 11/16/19 | 100 mg | | | | capsule 100 mg 100 mg, Oral, 2 | | 18 1:00 | | | | | TIMES DAILY PRN, Constipation, | | AM PDT | | | | | Starting [facility] 11/13/17 at 2228, 1st | | | | | | | line agent for constipation | | | | | | | relief., | | | | | | + +-------+ +--------+---+---+ +---+---+ | | | +---+---+ + +---------+ +---+ +---+ | lactated ringers (LR) infusion | New Bag | 11/15/19 | | 20 mL/hr | | | at 10-100 mL/hr, Intravenous, | | 18 2:22 | | | | | CONTINUOUS, Starting 11/14/17 | | PM PDT | | | | | at 1145, TKO., Pre-op | | | | | | + +---------+ +---+ +---+ +---+---+ | | | +---+---+ + +-------+ +-------+---+---+ | metoclopramide (REGLAN) 5 mg/mL | Given | 11/16/19 | 10 mg | | | | injection 10 mg 10 mg, | | 18 9:51 | | | | | Intravenous, EVERY 4 HOURS PRN, | | AM PDT | | | | | Nausea, Vomiting, Starting Inna | | | | | | | 11/13/17 at 2228, Use if | | | | | | | ondansetron and prochlorperazine | | | | | | | ineffective after 30 minutes or | | | | | | | not ordered Protect from light., | | | | | | + +-------+ +-------+---+---+ +-------+ +-------+---+---+ | Given | 11/15/19 | 10 mg | | | | | 18 10:00 | | | | | | PM PDT | | | | +-------+ +-------+---+---+ +---+---+ | | | +---+---+ + +-------+ +------+---+---+ | morphine injection 2-6 mg 2-6 | Given | 11/16/19 | 4 mg | | | | mg, Intravenous, EVERY 2 HOURS | | 18 12:49 | | | | | PRN, Pain, Starting Inna 11/13/17 | | AM PDT | | | | | at 2228, Slow IV push, not faster | | | | | | | than 2 mg/minute. If ineffective | | | | | | | or not tolerated, use | | | | | | | hydromorphone IV if ordered., | | | | | | + +-------+ +------+---+---+ +-------+ +------+---+---+ | Given | 11/15/19 | 2 mg | | | | | 18 3:34 | | | | | | PM PDT | | | | +-------+ +------+---+---+ | Given | 11/15/19 | 4 mg | | | | | 18 2:22 | | | | | | PM PDT | | | | +-------+ +------+---+---+ +---+---+ | | | +---+---+ + +-------+ +------+---+---+ | ondansetron (ZOFRAN ODT) | Given | 11/16/19 | 4 mg | | | | disintegrating tablet 4 mg 4 mg, | | 18 12:48 | | | | | Oral, EVERY 6 HOURS PRN, Nausea, | | AM PDT | | | | | Vomiting, Starting Inna 11/13/17 | | | | | | | at 2228, First line agent, | | | | | | + +-------+ +------+---+---+ +---+---+ | | | +---+---+ + +-------+ +------+---+---+ | ondansetron (ZOFRAN) injection | Given | 11/16/19 | 4 mg | | | | 4 mg 4 mg, Intravenous, EVERY 6 | | 18 9:30 | | | | | HOURS PRN, Nausea, Vomiting, | | AM PDT | | | | | Starting [facility] 11/13/17 at 2228, | | | | | | | First line agent, | | | | | | + +-------+ +------+---+---+ +-------+ +------+---+---+ | Given | 11/15/19 | 4 mg | | | | | 18 8:13 | | | | | | PM PDT | | | | +-------+ +------+---+---+ | Given | 11/15/19 | 4 mg | | | | | 18 10:32 | | | | | | AM PDT | | | | +-------+ +------+---+---+ +---+---+ | | | +---+---+ + +-------+ + +---+---+ | oxyCODONE-acetaminophen | Given | 11/16/19 | 1 tablet | | | | (PERCOCET) 5-325 mg per tablet | | 18 7:59 | | | | | 1-2 tablet 1-2 tablet, Oral, | | AM PDT | | | | | EVERY 4 HOURS PRN, Pain, Starting | | | | | | | [facility] 3/22/18 at 2228, If | | | | | | | ineffective use Oxycodone if | | | | | | | ordered. If not tolerated use | | | | | | | [place] 10/ if ordered., | | | | | | + +-------+ + +---+---+ +-------+ + +---+---+ | Given | 11/16/19 | 1 tablet | | | | | 18 3:04 | | | | | | AM PDT | | | | +-------+ + +---+---+ | Given | 11/15/19 | 1 tablet | | | | | 18 6:03 | | | | | | PM PDT | | | | +-------+ + +---+---+ +---+---+ | | | +---+---+ + +-------+ +---------+---+---+ | probiotic formula capsule 1 | Given | 11/16/19 | 1 | | | | capsule 1 capsule, Oral, 2 TIMES | | 18 9:04 | capsule | | | | DAILY WITH BREAKFAST & DINNER, | | AM PDT | | | | | First dose on Fri11/14/17 at | | | | | | | 0800, VSL#3 capsule. DO NOT OPEN | | | | | | | OR CRUSH. Opening capsules | | | | | | | increases the risk of | | | | | | | aerosolization of the probiotics | | | | | | | bacteria and contamination of the | | | | | | | surrounding environment. | | | | | | | Probiotics added by pharmacy per | | | | | | | P&T protocol. Do not open or | | | | | | | crush., | | | | | | + +-------+ +---------+---+---+ +-------+ +---------+---+---+ | Given | 11/15/19 | 1 | | | | | 18 6:03 | capsule | | | | | PM PDT | | | | +-------+ +---------+---+---+ +---+---+ | | | +---+---+ + +-------+ +--------+---+---+ | senna (SENOKOT) tablet 8.6 mg | Given | 11/15/19 | 8.6 mg | | | | 8.6 mg, Oral, 2 TIMES DAILY PRN, | | 18 6:03 | | | | | Constipation, Starting Inna | | PM PDT | | | | | 11/13/17 at 2228, If docusate | | | | | | | ineffective or not ordered., | | | | | | + +-------+ +--------+---+---+ +---+---+ | | | +---+---+ + +---------+ +---------+-------+---+ | sodium chloride 0.9% (NS) | New Bag | 11/14/19 | 999 mLs | 100 | | | infusion at 100 mL/hr, | | 18 11:18 | | mL/hr | | | Intravenous, CONTINUOUS, Starting | | PM PDT | | | | | Inna 11/13/17 at 2235 | | | | | | + +---------+ +---------+-------+---+ +---+---+ | | | +---+---+ documented in this encounter
--- OUTSIDE RECORDS SUMMARY | ~2019-09-01 | XMS | Encounter Summary ---
Demographics + + + | Address | [address] | | | [place] [address] | + + + | Home Phone | | + + + | Preferred Language | Unknown | + + + | Marital Status | Legally | + + + | Voodoo Affiliation | Unknown | + + + | Race | Unknown | + + + | Ethnic Group | Unknown | + + + Author + + + | Author | [facility] | | | and Anibal | + + + | Organization | [facility] | | | and Alexandruana | + + + | Address | Unknown | + + + | Phone | Unavailable | + + + Support + + + + + | Name | Relationship | Address | Phone | + + + + + | Neno Booth | ECON | [address] | | | | | [place] [address] | | + + + + + | Joelle Sharp | ECON | [address] | | | | | [place] | | + + + + + Care Team Providers + +------+ + | Care Police Officer Crime Prevention Name | Role | Phone | + [...] | | | | Diagnoses | | Shannon, | | | | | Atrophy of | | MD Anthony | | | | | kidney | | [address] | | | | | (terminal) | | [address] | | | | | Accessory | | [place] | | | | | kidney | | [address] Phone: | | | | | Crossing | | [phone] | | | | | vessel and | | Fax: | | | | | stricture of | | [phone] | | | | | ureter | | | | | | | without | | | | | | | hydronephros | | | | | | | is Atrophy | | | | | | | of kidney | | | | | | | (terminal) | | | | | | | [N26.1] | | | | | | | Accessory | | | | | | | kidney | | | | | | | [Q63.0] | | | | | | | Crossing | | | | | | | vessel and | | | | | | | stricture of | | | | | | | ureter | | | | | | | without | | | | | | | hydronephros | | | | | | | is [N13.5] | | | | | | | Procedures | | | | | | | SD PARTIAL | | | | | | | REMOVAL OF | | | | | | | KIDNEY SD | | | | | | | LAP,PARTIAL | | | | | | | NEPHRECTOMY | | | | | | | SD | | | | | | | CYSTOURETHRO | | | | | | | SCOPY SD | | | | | | | CYSTOSCOPY,I | | | | | | | NSERT | | | | | | | URETERAL | | | | | | | STENT | | | +--------+--------+ + + + + Encounter Details +--------+---------+ + + + | Date | Type | Department | Care Team | Description | +--------+---------+ + + + | 01/28/ | Surgery | [facility] | Anthony Ortega MD | ROBOTIC ASSISTED | | 2018 | | FAMILY INTRA OP | [address] | PARTIAL NEPHRECTOMY | | | | [address] [facility] | [address] [place], [place] | REMOVAL URTERAL | | | | [place], [place] | [phone] | STENT REMOVAL | | | | [phone] | | INTRAOPERATIVE | | | | [phone] | | ULSTRASOUND WITH | | | | | | IMMUNOSSAY IMAGING | +--------+---------+ + + + Social History [...] + + + | Blood Pressure | 139/62 | 01/31/2018 7:48 AM | | | | | PDT | | + + + + + | Pulse | 97 | 01/31/2018 7:48 AM | | | | | PDT | | + + + + + | Temperature | 36.4 C (97.5 F) | 01/31/2018 7:48 AM | | | | | PDT | | + + + + + | Respiratory Rate | 18 | 01/31/2018 7:48 AM | | | | | PDT | | + + + + + | Oxygen Saturation | 97% | 01/31/2018 7:48 AM | | | | | PDT | | + + + + + | Inhaled Oxygen | - | - | | | Concentration | | | | + + + + + | Weight | 81.6 kg (180 lb) | 01/28/2018 1:57 PM | | | | | PDT | | + + + + + | Height | 182.9 cm (6') | 01/28/2018 1:52 PM | | | | | PDT | | + + + + + | Body Mass Index | 24.41 | 01/28/2018 1:52 PM | | | | | PDT | | + + + + + documented in this encounter Functional Status + + + [...] + + documented as of this encounter Discharge Summaries Anthony Ortega MD - 01/31/2018 1:03 PM PDTFormatting of this note might be different from t he original. 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 Procedures Right robotic partial nephrectomy with removal of ureteral stent and intraoperative ultraso und Hospital Course: Manuel was admitted to the hospital [facility] following his procedure. Unfortunately his posto perative course was complicated by anxiety and panic attacks also he is having intractable n ausea and vomiting. Throughout this course he then developed gross hematuria and increased drain output from his BHARATH likely representing some degree of bleed that may have started afte r these events. Intraoperatively hemostasis was verified. His hemoglobin did drift down, a nd we did transfuse him 2 units of packed red blood cells. He was otherwise hemodynamically stable. His renal function was intact. He did require some Ativan to help with the anxiet y management. He was then discharged home after removing his catheter and his BHARATH drain. Condition on Discharge: Stable Discharge Medications: Discharge Medications New Medications Details docusate sodium 100 mg capsule Take 1-2 capsules by mouth Daily. aka: COLACE oxyCODONE-acetaminophen 5-325 mg per tablet Take 1-2 tablets by mouth every 6 hours as needed for Pain. aka: PERCOCET Unchanged Medications Details ascorbic acid 500 mg tablet Take 500 mg by mouth Daily. aka: VITAMIN C Discontinued Medications citalopram 20 mg tablet aka: celeXA HYDROcodone-acetaminophen 5-325 mg per tablet aka: NORCO Follow-Up: 1. [facility] in 1 week. Please call [phone] during business hours to set up your urology follow up appointm ent. Electronically Signed by: Anthony Ortega MD, 02/02/2018 13:03 [facility] Wilber Munoz RN - 0 01/31/2018 12:22 PM PDTBrayson cleared for discharge. Discharge instructions and prescriptio ns reviewed with pt and father. Pt voiding well. Myesha clear myesha in color. Pt rates veronica n low on discharge. Abdomen lap sites intact with no drainage. Pt stable on discharge.Elec tronically signed by Wilber Celestin RN at 01/31/2018 12:26 PM PDTdocumented in this encoun ter Discharge Instructions Instructions Anthony Ortega MD - 01/28/2018 [facility] DISCHARGE INSTRUCTIONS AFTER YOUR PROCEDURE: - You may shower, no soaking in the tub - Pat your wound dry after showering, you do not need to cover your incision - You may notice some spotting from where your drain was removed, simply replace gauze over this site as needed and it will resolve over the coming days. - No heavy lifting X 6 weeks - The pain medications will make your constipated, take the stool softeners Provided - It is important to remain active and walk once you get home CALL YOUR DOCTOR IF: - you have a fever greater than 101.5F - you notice increased abdominal distension/bloating, and stop passing gas or bowel movements. - if you develop nausea, vomiting, and fear you are getting dehydrated - if your pain is not controlled with the prescribed pain medications - if you have increasing redness from your incision or purulent drainage PAIN CONTROL INSTRUCTIONS: - you may take the narcotic pain med prescribed for you as instructed - you can take this medication with scheduled ibuprofen, as per the instructions on the ibuprofen bottle, provided you do not have any issues with gastric ulcers CONTACT INFORMATION: - [facility] Office Number: [facility] Office [phone] [place] Office FOLLOWUP INFORMATION: - will see you back postoperatively in 1-2 weeks to discuss your pathology documented in this encounter Medications at Time [...] + + documented as of this encounter Progress Notes Gm Mejias MD - 01/31/2018 11:04 AM PDTFormatting of this note might be different fr om the original. Manuel Booth is a 17 y.o. male patient. No diagnosis found. Past Medical History: Diagnosis Date ADHD (attention deficit hyperactivity disorder) Anxiety Depression Failed moderate sedation during procedure "I COULD FEEL EVERYTHING" H/O toe surgery TOENAIL INGROWN MDRO (multiple drug resistant organisms) resistance negative Migraines ODD (oppositional defiant disorder) Renal insufficiency nephrostomy tube Substance abuse Current Facility-Administered Medications Medication Dose Route Frequency Provider Last Rate Last Dose acetaminophen (TYLENOL) tablet 1,000 mg 1,000 mg Oral 3 times per day Anthony Ortega MD 1,000 mg at 01/31/18 06 citalopram (celeXA) tablet 20 mg 20 mg Oral Daily Anthony Ortega MD 20 mg at 01/31/18 0842 diphenhydrAMINE (BENADRYL) injection 12.5 mg 12.5 mg Intravenous Q4H PRN Anthony Ortega MD Or diphenhydrAMINE (BENADRYL) tablet 25 mg 25 mg Oral Q4H PRN Anthony Ortega MD Or diphenhydrAMINE (BENADRYL) 12.5 mg/5 mL liquid 25 mg 25 mg Oral Q4H PRN Neftaly Benavidez docusate sodium (COLACE) capsule 100 mg 100 mg Oral BID ROSANNA Ortega MD 100 mg a t 01/31/18 0842 gabapentin (NEURONTIN) capsule 200 mg 200 mg Oral TID Anthony Ortega MD 200 mg at 05/12 0842 LORazepam (ATIVAN) injection 0.5-1 mg 0.5-1 mg Intravenous Q1H PRN Anthony Ortega MD 1 mg at 01/30/18 0640 menthol (HALLS) lozenge 1 lozenge 1 lozenge Buccal Q2H PRN Anthony Ortega MD methocarbamol (ROBAXIN) tablet 1,500 mg 1,500 mg Oral Q6H PRN Anthony Ortega MD 1,500 mg at 01/30/18 0514 metoclopramide (REGLAN) 5 mg/mL injection 10 mg 10 mg Intravenous Q4H PRN Anthony Ortega MD 10 mg at 01/29/18 0931 morphine 5 mg/mL MORTARMAN syringe Intravenous Continuous Anthony Ortega MD 150 mg at 01/28 1855 naloxone (NARCAN) 0.4 mg/mL injection 0.04 mg 0.04 mg Intravenous PRN Anthony Ortega MD ondansetron (ZOFRAN) injection 4 mg 4 mg Intravenous Q6H PRJuany Ortega MD 4 mg at 01/30/18 2232 oxyCODONE (ROXICODONE) tablet 2.5-10 mg 2.5-10 mg Oral Q3H PRN Anthony Ortega MD 10 mg at 01/31/18 0634 senna (SENOKOT) tablet 8.6 mg 8.6 mg Oral BID PRJuany Ortega MD 8.6 mg at 01/30/18 1607 traMADol (ULTRAM) tablet 50 mg 50 mg Oral Q8H PRN Anthony Ortega MD Facility-Administered Medications Ordered in Other Encounters Medication Dose Route Frequency Provider Last Rate Last Dose famotidine (PEPCID) injection Intravenous PRN Roxie Damon CRNA 20 mg at 03/23/ 18 1209 ondansetron (ZOFRAN) injection Intravenous PRN Roxie Abrahamyuriytulio, ACIDIZER HELPER 4 mg at 0936 No Known Allergies Active Problems: * No active hospital problems. * Blood pressure 139/62, pulse 97, temperature 36.4 C (97.5 F), temperature source Tempor al, resp. rate 18, height 1.829 m (6'), weight 81.6 kg (180 lb), SpO2 97 %. Subjective Pt doing much better. No nausea or vomiting. Tolerating PO. Flatus. Pain under g ood control. HCT up and stable. Urinating well Objective AFVSS, good UOP Abdomen soft, NT Incision c/d/i Assessment & Plan DC home Gm Mejias 01/31/2018 Anthony Edmond MD - 0 01/30/2018 8:53 AM PDT [facility] UROLOGY DAILY PROGRESS NOTE ID: Manuel Booth is a 17 y.o. male currently admitted POD#2 s/p laparoscopic robotic as sisted partial nephrectomy of defunctionalized right upper pole moeity and removal of stent, intraoperative ultrasound. INTERIM EVENTS: + Hb drifting, BHARATH had high output in the PACU after N/V likely related to intraop/postop bl ood loss + tolerating regular diet + OOB + improved pain control + less panic attacks with ativan PHYSICAL EXAM Temp: 36.4 C (97.5 F) BP: 114/50 Pulse: 120 Resp: 16 SpO2: 94 % on Constitutional : NAD, nontoxic, well appearing, well nourished Respiratory : no increased WOB, no crackles, cough, or audible wheeze Cardiovascular : RRR Abdomen: Abdomen with minimal distension, incision are CDI, BHARATH out : blood tinged urine in urinal Diagnostic Studies: Laboratory studies and imaging were personally reviewed by me. Chemistry: Lab Results Component Value Date NA 136 01/30/2018 K 3.8 01/30/2018 CO2 29 01/30/2018 BUN 8 01/30/2018 CREA 0.86 01/30/2018 GLU 123 01/30/2018 Hematology: Lab Results Component Value Date HGB 6.7 01/30/2018 HCT 18.6 01/30/2018 WBC 7.9 01/30/2018 IMPRESSION: recovering well s/p laparoscopic robotic assisted partial nephrectomy Pain control, anxiety issues Intraop/post op blood loss, Hb 6, otherwise stable Present on Admission: None PLAN: 1. Regular diet 2. 2 U PRBC, recheck Hb in the am, related to blood loss in PACU with N/V and intense valsa va is my suspicion, no continued blood loss as his BHARATH had minimal output and abdomen is soft 3. OOB 4. Oral pain meds 5. Ativan PRN 6. Dc planning for tomorrow I expect this patient will be hospitalized for post-operative care of an IP-only procedure and expect the post-hospital plan to be discharge to home or to an adult foster home. 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 He mentioned that he was on admission because of problems he is having to that effect. Mdm Sr supported him and patient shared no need. Zohaib Bond, Nursing Studen t - 01/29/2018 10:35 AM PDTWalked patient with stand by assist [address]. With no w alker or cane Zohaib Bond, Semi Conductor Assembler - 01/29/2018 8:50 AM PDTAmbulated patient with stand by assist, no walkers or canes needed. Had IV pole to walk with. Walked 100 feet. Anthony Edmond MD - 01/29/2018 7:50 AM PD T [facility] UROLOGY DAILY PROGRESS NOTE ID: Manuel Booth is a 17 y.o. male currently admitted POD#1 s/p laparoscopic robotic as sisted partial nephrectomy of defunctionalized right upper pole moeity and removal of stent, intraoperative ultrasound. INTERIM EVENTS: + panic attack last PM, anxiety + N/V + pain control issues -fevers +catheter draining well + BHARATH serosang PHYSICAL EXAM Temp: 37.4 C (99.4 F) BP: 113/62 Pulse: 117 Resp: 18 SpO2: 95 % on Constitutional : NAD, nontoxic, well appearing, well nourished Respiratory : no increased WOB, no crackles, cough, or audible wheeze Cardiovascular : RRR Abdomen: Abdomen with minimal distension, incision are CDI, BHARATH with serosanguinous drainag e : ceballos is draining clear urine Diagnostic Studies: Laboratory studies and imaging were personally reviewed by me. Chemistry: Lab Results Component Value Date NA 135 01/29/2018 K 4.3 01/29/2018 CO2 25 01/29/2018 BUN 12 01/29/2018 CREA 0.93 01/29/2018 GLU 142 01/29/2018 Hematology: Lab Results Component Value Date HGB 9.2 01/29/2018 HCT 25.5 01/29/2018 WBC 15.8 01/29/2018 IMPRESSION: recovering well s/p laparoscopic robotic assisted partial nephrectomy Pain control, anxiety issues Present on Admission: None PLAN: 1. Advance diet 2. Dc ceballos 3. Hep lock IVF 4. OOB 5. Oral pain meds 6. Ativan PRN 7. Dc planning for tomorrow I expect this patient will be hospitalized for post-operative care of an IP-only procedure and expect the post-hospital plan to be discharge to home or to an adult foster home. Electronically Signed by: Anthony Ortega MD, 01/29/2018 7:50 [facility] documented in this encou nter Plan of Treatment + + +--------+ + + | Name | Type | Priori | Associated Diagnoses | Date/Time | | | | ty | | | + + +--------+ + + | Extra Blood Bank | Blood Bank | Routin | | 01/28/2018 6:20 AM | | Tube | | e | | PDT | + + +--------+ + + documented as of this encounter Procedures + +--------+ + + + | Procedure Name | Priori | Date/Time | Associated Diagnosis | Comments | | | ty | | | | + +--------+ + + + | CBC NO DIFFERENTIAL | Routin | 01/31/2018 | | Results for this | | | e | 4:00 AM | | procedure are in the | | | | PDT | | results section. | + +--------+ + + + | HEMOGLOBIN AND | Routin | 01/30/2018 | | Results for this | | HEMATOCRIT | e | 3:03 PM | | procedure are in the | | | | PDT | | results section. | + +--------+ + + + | TRANSFUSE 2 UNITS | Routin | 01/30/2018 | | | | RED BLOOD CELLS | e | 1:27 PM | | | | | | PDT | | | + +--------+ + + + | TRANSFUSE 2 UNITS | Routin | 01/30/2018 | | | | RED BLOOD CELLS | e | 10:16 AM | | | | | | PDT | | | + +--------+ + + + | PRODUCT: RBC | Routin | 01/30/2018 | | Results for this | | | e | 10:08 AM | | procedure are in the | | | | PDT | | results section. | + +--------+ + + + | CBC NO DIFFERENTIAL | Routin | 01/30/2018 | | Results for this | | | e | 5:14 AM | | procedure are in the | | | | PDT | | results section. | + +--------+ + + + | BASIC METABOLIC | Routin | 01/30/2018 | | Results for this | | PANEL | e | 5:14 AM | | procedure are in the | | | | PDT | | results section. | + +--------+ + + + | CREATININE, BODY | Routin | 01/29/2018 | | Results for this | | FLUID | e | 5:29 AM | | procedure are in the | | | | PDT | | results section. | + +--------+ + + + | XR CHEST AP PORTABLE | STAT | 01/29/2018 | | Results for this | | | | 4:50 AM | | procedure are in the | | | | PDT | | results section. | + +--------+ + + + | CBC NO DIFFERENTIAL | Routin | 01/29/2018 | | Results for this | | | e | 4:45 AM | | procedure are in the | | | | PDT | | results section. | + +--------+ + + + | BASIC METABOLIC | Routin | 01/29/2018 | | Results for this | | PANEL | e | 4:45 AM | | procedure are in the | | | | PDT | | results section. | + +--------+ + + + | ECG 12 LEAD | STAT | 01/29/2018 | | Results for this | | | | 4:39 AM | | procedure are in the | | | | PDT | | results section. | + +--------+ + + + | CBC NO DIFFERENTIAL | Timed | 01/28/2018 | | Results for this | | | | 8:12 PM | | procedure are in the | | | | PDT | | results section. | + +--------+ + + + | HEMOGLOBIN AND | Routin | 01/28/2018 | | Results for this | | HEMATOCRIT | e | 5:18 PM | | procedure are in the | | | | PDT | | results section. | + +--------+ + + + | CBC NO DIFFERENTIAL | STAT | 01/28/2018 | | Results for this | | | | 12:41 PM | | procedure are in the | | | | PDT | | results section. | + +--------+ + + + | BASIC METABOLIC | STAT | 01/28/2018 | | Results for this | | PANEL | | 12:41 PM | | procedure are in the | | | | PDT | | results section. | + +--------+ + + + | TISSUE REQUEST FOR | Routin | 01/28/2018 | | Results for this | | PATHOLOGY (NON-ORD) | e | 9:11 AM | | procedure are in the | | | | PDT | | results section. 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 | + +--------+ +---+ + | ABO RH | STAT | 01/28/2018 | | Results for this | | | | 6:15 AM | | procedure are in the | | | | PDT | | results section. | + +--------+ +---+ + | TYPE AND SCREEN | STAT | 01/28/2018 | | Results for this | | | | 6:15 AM | | procedure are in the | | | | PDT | | results section. | + +--------+ +---+ + documented in this encounter Results CBC no Differential (01/31/2018 4:00 AM PDT) + + + + + + | Component | Value | Ref Range | Performed | Pathologist | | | | | At | Signature | + + + + + + | WBC | 7.9 | 3.8 - 11.0 K/uL | [facility] | | | | | | [facility] | | | | | | [facility] | | | | | | [facility] | | + + + + + + | RBC | 2.95 (L) | 4.20 - 5.70 | [facility] | | | | | M/uL | [facility] | | | | | | LAB[facility] | | | | | | [place] | | + + + + + + | Hemoglobin | 9.0 (L) | 13.2 - 17.0 | [facility] | | | | | g/dL | [facility] | | | | | | LAB[facility] | | | | | | [place] | | + + + + + + | Hct | 25.8 (L) | 39.0 - 50.0 % | [facility] [...] + + | MCH | 30.6 | 27.0 - 34.0 pg | [facility] | | | | | | [facility] | | | | | | [facility] | | | | | | [place] | | + + + + + + | MCHC | 35.0 | 32.0 - 35.5 | [facility] | | | | | g/dL | [facility] | | | | | | [facility] | | | | | | [facility] | | + + + + + + | RDW-CV | 13.9 | 11.0 - 15.5 % | [facility] | | | | | | [facility] | | | | | | LABORATORY | | | | | | [facility] | | + + + + + + | Platelet | 206 | 150 - 400 K/uL | [facility] | | | Count | | | [facility] | | | | | | LABORATORY | | | | | | [facility] | | + + + + + + | MPV | 8.2Comment: Performed | 7.5 - 11.2 fL | [facility] | | | | by [facility] [address] | | [facility] | | | | [facility], | | LABORATORY | | | | [place] [address] | | [place] | | | | | | | | + + + + + + + + | Specimen | + + | Blood specimen | | (specimen) | + + + + + + + | Performing | Address | City/State/Zipcode | Phone Number | | Organization | | | | + + + + + | [facility] | [address] [facility] | [place] [address] | | | [facility] | | | | | [place] | | | | + + + + + Hemoglobin and Hematocrit (01/30/2018 3:03 PM PDT) + + + + + + | Component | Value | Ref Range | Performed | Pathologist | | | | | At | Signature | + + + + + + | Hemoglobin | 8.9 (L) | 13.2 - 17.0 | [facility] | | | | | g/dL | [facility] | | | | | | LABORATORY | | | | | | [place] | | + + + + + + | Hct | 24.9 (L)Comment: | 39.0 - 50.0 % | [facility] | | | | Performed by [facility] [address] | | [place] [address] | | | | [facility], | | LABORATORY | | | | [place] [address] | | [facility] | | | | [...] + | [facility] | [address] | [place] [address] | | | FAMILY LAB[facility]ATORY | | | | | [facility] | | | | + + + + + Red Blood Cells (PRBC) - Crossmatch (01/30/2018 10:08 AM PDT) + + + + + + | Component | Value | Ref Range | Performed | Pathologist | | | | | At | Signature | + + + + + + | Product | [id number] | | REFERENCE | | | Code | | | [facility] | | | | | | [facility] | | | | | | [facility] | | | | | | [facility] | | | | | | [facility] | | + + + + + + | UNIT # | [id number] | | REFERENCE | | | | | | [facility] | | | | | | [facility] | | | | | | [facility] | | | | | | [facility] | | | | | | [facility] | | + + + + + + | UNIT ABO | A | | REFERENCE | | | | | | [facility] | | | | | | [facility] | | | | | | [facility] | | | | | | [facility] | | | | | | CENTER | | + + + + + + | UNIT RH | POS | | REFERENCE | | | | | | [facility] | | | | | | [facility] | | | | | | [facility] | | | | | | [facility] | | | | | | C[facility] | | + + + + + + | Unit Status | IS | | REFERENCE | | | | | | [facility] | | | | | | [facility] | | | | | | [facility] | | | | | | [facility] | | | | | | [facility] | | + + + + + + | Blood | [id number] | | REFERENCE | | | Product | | | [facility] | | | Expiration | | | [facility] | | | Date and | | | [facility] | | | Time | | | B[facility] | | | | | | CENTER | | + + + + + + | Product | [id number] | | REFERENCE | | | Blood Type | | | [facility] | | | Barcode | | | [facility] | | | | | | [facility] | | | | | | BLO[facility] | | | | | | CENTER | | + + + + + + | Product | [id number] | | REFERENCE | | | Code | | | LAB [facility] | | | | | | [facility] | | | | | | [facility] | | | | | | [facility] | | | | | | CENTER | | + + + + + + | UNIT # | [id number] | | REFERENCE | | | | | | [facility] | | | | | | [facility] | | | | | | [facility] | | | | | | [facility] | | | | | | CENTER | | + + + + + + | UNIT ABO | A | | REFERENCE | | | | | | [facility] | | | | | | [facility] | | | | | | [facility] | | | | | | [facility] | | | | | | CENTER | | + + + + + + | UNIT RH | POS | | REFERENCE | | | | | | [facility] | | | | | | [facility] | | | | | | [facility] | | | | | | [facility] | | | | | | CENTER | | + + + + + + | Unit Status | IS | | REFERENCE | | | | | | [facility] | | | | | | [facility] | | | | | | [facility] | | | | | | [facility] | | | | | | [facility] | | + + + + + + | Blood | [id number] | | REFERENCE | | | Product | | | [facility] | | | Expiration | | | [facility] | | | Date and | | | [facility] | | | Time | | | BLOOD | | | | | | CENTER | | + + + + + + | Product | [id number] | | REFERENCE | | | Blood Type | | | [facility] | | | Barcode | | | [facility] | | | | | | [facility] | | | | | | [facility] | | | | | | CENTER | | + + + + + + + + | Specimen | + + | | + + + + + | Narrative | Performed At | + + + | Specimen Expiration Date: [id number] | REFERENCE LAB | | | [facility] | | | [facility] | | | [facility] | + + + + + + + + | Performing | Address | City/State/Zipcode | Phone Number | | Organization | | | | + + + + + | RE[facility] | [address] | [place] [address] | [phone] | | [facility] | | | | | [facility] | | | | [facility] | | | | + + + + + CBC no Differential (01/30/2018 5:14 AM PDT) + + + + + + | Component | Value | Ref Range | Performed | Pathologist | | | | | At | Signature | + + + + + + | WBC | 7.9 | 3.8 - 11.0 K/uL | [facility] | | | | | | [facility] | | | | | | [facility] | | | | | | [facility] | | + + + + + + | RBC | 2.12 (L) | 4.20 - 5.70 | [facility] | | | | | M/uL | [facility] | | | | | | LAB[facility]AT[facility] | | | | | | [facility] | | + + + + + + | Hemoglobin | 6.7 (L) | 13.2 - 17.0 | [facility] | | | | Comment: | g/dL | [facility] | | | | | | LAB[facility]ATORY | | | | Reviewed. | | [facility] | | | | | | | | + + + + + + | Hct | 18.6 (L) | 39.0 - 50.0 % | [facility] | | | | | | [facility] | | | | | | [facility] | | | | | | [facility] | | + + + + + + | MCV | 87.6 | 80.0 - 100.0 fL | [facility] | | | | | | [facility] | | | | | | LABORATORY | | | | | | [facility] | | + + + + + + | MCH | 31.5 | 27.0 - 34.0 pg | [facility] | | | | | | [facility] | | | | | | LAB[facility]ATORY | | | | | | [facility] | | + + + + + + | MCHC | 36.0 (H) | 32.0 - 35.5 | [facility] | | | | | g/dL | [facility] | | | | | | LAB[facility]ATORY | | | | | | [facility] | | + + + + + + | RDW-CV | 13.3 | 11.0 - 15.5 % | [facility] | | | | | | [facility] | | | | | | LABORATORY | | | | | | [facility] | | + + + + + + | Platelet | 195 | 150 - 400 K/uL | [facility] | | | Count | | | [facility] | | | | | | LAB[facility]ATORY | | | | | | [facility] | | + + + + + + | MPV | 7.8Comment: Performed | 7.5 - 11.2 fL | [facility] | | | | by [facility] [address] | | [facility] | | | | [facility], | | LABORATORY | | | | [place] [address] | | [facility] | | | | [...] + | [facility] | [address] [facility] | [place] [address] | | | FAMILY LAB[facility]ATORY | | | | | [facility] | | | | + + + + + Basic Metabolic Panel (01/30/2018 5:14 AM PDT) + + + + + [...] + + + | Anion Gap | 5 | 5 - 16 mmol/L | [facility] | | | | | | [facility] | | | | | [facility] | | | | | | [facility] | | + + + + + + | Calcium | 7.8 (L) | 8.7 - 10.3 | [facility] [...] + + + + | Creatinine | 0.86 | 0.50 - 1.30 | [facility] | | | | | mg/dL | [facility] | | | | | | LAB[facility] | | | | | | [facility] | | + + + + + + | Glucose | 123 (H) | 65 - 99 mg/dL | [facility] | | | | | | [facility] | | | | | | LABORATORY | | | | | | [place] | | + + + + + + | Estimated | 127Comment: eGFR<60 | >=90 | [facility] | | | GFR | consistent with impaired | mL/min/1.73m2 | [facility] | | | | kidney | | LABORATORY | | | | function.Performed by | | [facility] | | | | [facility] [address] | | | | | | [place] [address] | | | | + + + + + + + + | Specimen | + + | Blood specimen | | (specimen) | + + + + + + + | Performing | Address | City/State/Zipcode | Phone Number | | Organization | | | | + + + + + | [facility] | [address] [facility] | [place] [address] | | | FAMILY LAB[facility]ATORY | | | | | [place] | | | | + + + + + Creatinine, Body Fluid (01/29/2018 5:29 AM PDT) + + + + + + | Component | Value | Ref Range | Performed | Pathologist | | | | | At | Signature | + + + + + + | CREATININE, | 0.8Comment: This test | mg/dL | [facility] | | | BODY FLUID | has not been evaluated | | [facility] | | | | for fluids other than | | LABORATORY | | | | plasma or serum. Test | | [facility] | | | | results on body fluids | | | | | | should be interpreted | | | | | | with caution and in | | | | | | light of the clinical | | | | | | situation.Performed by | | | | | | [facility] [address] | | | | | | [place] [address] | | | | + + + + + + + + | Specimen | + + | Body fluid sample | | (specimen) | + + + + + + + | Performing | Address | City/State/Zipcode | Phone Number | | Organization | | | | + + + + + | [facility] | [address] [facility] | [place] [address] | | | FAMILY LABORATORY | | | | | [place] | | | | + + + + + XR Chest AP Portable (01/29/2018 4:50 AM PDT) + + | Specimen | + + | | + + + + + | Narrative | Performed At | + + + | CHEST PORTABLE ONE VIEW CLINICAL INFORMATION: Shortness of | [facility] | | breath and tachycardia. COMPARISON: IR PROCEDURE dated 12/17/2017; | | | IR PROCEDURE dated 11/14/2017; CT ABDOMEN PELVIS W CONTRAST dated | | | 11/13/2017; XR ABDOMEN 1 VW dated 01/15/2018 FINDINGS/IMPRESSION: | | | 1. No indwelling lines and tubes. 2. Visualized lungs are clear. No | | | large pleural effusions. 3. Cardiomediastinal contours are normal. | | | 4. No pneumothorax. Minimal air noted under the right hemidiaphragm | | | from recent surgery. Right upper quadrant drainage catheter is | | | noted. Signed by: MD Willams Sadaf | | + + + + + | Procedure Note | + + | Lance, Rad Results In - 01/29/2018 5:05 AM PDT | | CHEST PORTABLE ONE VIEW | | | | CLINICAL INFORMATION: | | Shortness of breath and tachycardia. | | | | COMPARISON: | | IR PROCEDURE dated 12/17/2017; IR PROCEDURE dated 11/14/2017; CT ABDOMEN | | PELVIS W CONTRAST dated 11/13/2017; XR ABDOMEN 1 VW dated 01/15/2018 | | | | FINDINGS/IMPRESSION: | | 1. No indwelling lines and tubes. | | 2. Visualized lungs are clear. No large pleural effusions. | | 3. Cardiomediastinal contours are normal. | | 4. No pneumothorax. Minimal air noted under the right hemidiaphragm | | from recent surgery. Right upper quadrant drainage catheter is noted. | | | | | | | | Signed by: MD Willams Sadaf | + + + +---------+ + + | Performing | Address | City/State/Zipcode | Phone Number | | Organization | | | | + +---------+ + + | [facility] | | | | + +---------+ + + CBC no Differential (01/29/2018 4:45 AM PDT) + + + + + + | Component | Value | Ref Range | Performed | Pathologist | | | | | At | Signature | + + + + + + | WBC | 15.8 (H) | 3.8 - 11.0 K/uL | [facility] | | | | | | [facility] | | | | | | LAB[facility] | | | | | | [facility] | | + + + + + + | RBC | 2.94 (L) | 4.20 - 5.70 | [facility] | | | | | M/uL | [facility] | | | | | | LABORATORY | | | | | | [place] | | + + + + + + | Hemoglobin | 9.2 (L) | 13.2 - 17.0 | [facility] | | | | | g/dL | [facility] | | | | | | LABORATORY | | | | | | [place] | | + + + + + + | Hct | 25.5 (L) | 39.0 - 50.0 % | [facility] | | | | | | [facility] | | | | | | LABORATORY | | | | | | [place] | | + + + + + + | MCV | 86.8 | 80.0 - 100.0 fL | [facility] [...] + + + + | MCHC | 36.2 (H) | 32.0 - 35.5 | [facility] | | | | | g/dL | [facility] | | | | | | LABORATORY | | | | | | [place] | | + + + + + + | RDW-CV | 13.3 | 11.0 - 15.5 % | [facility] | | | | | | [facility] | | | | | | LABORATORY | | | | | | [place] | | + + + + + + | Platelet | 312 | 150 - 400 K/uL | [facility] | | | Count | | | [facility] | | | | | | LABORATORY | | | | | | [place] | | + + + + + + | MPV | 8.1Comment: Performed | 7.5 - 11.2 fL | [facility] | | | | by [facility] [address] | | [facility] | | | | [facility], | | LABORATORY | | | | [place] [address] | | [facility] | | | | [...] + | [facility] | [address] | [place] [address] | | | FAMILY LABORATORY | | | | | [facility] | | | | + + + + + Basic Metabolic Panel (01/29/2018 4:45 AM PDT) + + + + + + | Component | Value | Ref Range | Performed | Pathologist | | | | | At | Signature | + + + + + + | Na | 135 | 135 - 146 | [facility] | | | | | mmol/L | [facility] | | | | | | [...] + + + + | Cl | 101 | 98 - 109 mmol/L | [facility] | | | | | | [facility] | | | | | | LAB[facility]ATORY | | | | | | [facility] | | + + + + + + | CO2 | 25 | 21 - 32 mmol/L | [facility] [...] + + + + | Calcium | 8.2 (L) | 8.7 - 10.3 | [facility] [...] + + + + | Creatinine | 0.93 | 0.50 - 1.30 | [facility] | | | | | mg/dL | [facility] | | | | | | LABORATORY | | | | | | [place] | | + + + + + + | Glucose | 142 (H) | 65 - 99 mg/dL | [facility] | | | | | | [facility] | | | | | | LAB[facility]ATORY | | | | | | [place] | | + + + + + + | Estimated | 119Comment: eGFR<60 | >=90 | [facility] | | | GFR | consistent with impaired | mL/min/1.73m2 | [facility] | | | | kidney | | LABORATORY | | | | function.Performed by | | [facility] | | | | [facility] [address] | | | | | | [place] [address] | | | | + + + + + + + + | Specimen | + + | Blood specimen | | (specimen) | + + + + + + + | Performing | Address | City/State/Zipcode | Phone Number | | Organization | | | | + + + + + | [facility] | [address] [facility] | [place] [address] | | | [facility] | | | | | [place] | | | | + + + + + ECG 12 lead (01/29/2018 4:39 AM PDT) + + | Specimen | + + | | + + + + + | Narrative | Performed At | + + + | HEART RATE:145 | [facility] | | bpmRR Interval:414 msAtrial Rate:150 msP-R Interval:144 msP | [facility] | | Duration:500 msP Horizontal Monroe: degP Front Monroe:51 degQ Onset:504 | | | msQRSD Interval:100 msQT Interval:280 msQTcB:435 msQTcF:376 msQRS | | | Horizontal Monroe: degQRS Monroe:-1 degI-40 Horizontal Monroe:68 degI-40 | | | Front Monroe:29 degT-40 Horizontal Monroe: degT-40 Front Monroe:-56 degT | | | Horizontal Monroe:22 degT Wave Monroe:45 degS-T Horizontal Monroe:139 degS-T | | | Front [place]:150 degSeverity:- ABNORMAL ECG -INTERP:SINUS | | | TACHYCARDIAINTERP:MULTIFORM VENTRICULAR PREMATURE | | | COMPLEXESINTERP:PROBABLE LEFT VENTRICULAR HYPERTROPHYElectronically | | | signed by: Renny GARCIA 01-29-2018 05:45:39 | | |QTcF:376 ms | | |QRS Horizontal Monroe: deg | | |QRS Monroe:-1 deg | | |I-40 Horizontal Monroe:68 deg | | |I-40 Front Monroe:29 deg | | |T-40 Horizontal Monroe: deg | | |T-40 Front Monroe:-56 deg | | |T Horizontal Monroe:22 deg | | |T Wave Monroe:45 deg | | |S-T Horizontal Monroe:139 deg | | |S-T Front Monroe:150 deg | | |Severity:- ABNORMAL ECG - | | |INTERP:SINUS TACHYCARDIA | | |INTERP:MULTIFORM VENTRICULAR PREMATURE COMPLEXES | | |INTERP:PROBABLE LEFT VENTRICULAR HYPERTROPHY | | |Electronically signed by: Renny GARCIA 01-29-2018 05:45:39 | | + + + + + + + + | Performing | Address | City/State/[facility] | Phone Number | | Organization | | | | + + + + + | [facility] | [address] | [place] [address] | [phone] | + + + + + CBC no Differential (01/28/2018 8:12 PM PDT) + + + + + + | Component | Value | Ref Range | Performed | Pathologist | | | | | At | Signature | + + + + + + | WBC | 22.0 (H) | 3.8 - 11.0 K/uL | [facility] | | | | | | [facility] | | | | | | LABORATORY | | | | | | [place] | | + + + + + + | RBC | 3.52 (L) | 4.20 - 5.70 | [facility] | | | | | M/uL | [facility] | | | | | | LABORATORY | | | | | | [place] | | + + + + + + | Hemoglobin | 10.9 (L) | 13.2 - 17.0 | [facility] | | | | | g/dL | [facility] | | | | | | LABORATORY | | | | | | [place] | | + + + + + + | Hct | 31.4 (L) | 39.0 - 50.0 % | [facility] | | | | | | [facility] | | | | | | LABORATORY | | | | | | [place] | | + + + + + + | MCV | 89.2 | 80.0 - 100.0 fL | [facility] | | | | | | [facility] | | | | | | LABORATORY | | | | | | [place] | | + + + + + + | MCH | 30.8 | 27.0 - 34.0 pg | [facility] | | | | | | [facility] | | | | | | LABORATORY | | | | | | [place] | | + + + + + + | MCHC | 34.6 | 32.0 - 35.5 | [facility] | | | | | g/dL | [facility] | | | | | | LABORATORY | | | | | | [place] | | + + + + + + | RDW-CV | 13.4 | 11.0 - 15.5 % | [facility] | | | | | | [facility] | | | | | | LABORATORY | | | | | | [place] | | + + + + + + | Platelet | 338 | 150 - 400 K/uL | [facility] | | | Count | | | [facility] | | | | | | LABORATORY | | | | | | [place] | | + + + + + + | MPV | 8.3Comment: Performed | 7.5 - 11.2 fL | [facility] | | | | by [facility] [address] | | [facility] | | | | [facility] | | LAB[facility]ATORY | | | | [place] [address] | | [facility] | | | | [...] + + | [facility] | [address] | [place] [address] | | | FAMILY LAB[facility]ATORY | | | | | [facility] | | | | + + + + + Hemoglobin and Hematocrit (01/28/2018 5:18 PM PDT) + + + + + + | Component | Value | Ref Range | Performed | Pathologist | | | | | At | Signature | + + + + + + | Hemoglobin | 11.5 (L)Comment: | 13.2 - 17.0 | [facility] | | | | Patient's previous | g/dL | [facility] | | | | results reviewed prior | | LABORATORY | | | | to release. | | [facility] | | | | | | | | + + + + + + | Hct | 33.4 (L)Comment: | 39.0 - 50.0 % | [facility] | | | | Performed by [facility] [address] | | [facility] | | | | [facility], | | LABORATORY | | | | [place] [address] | | [facility] | | | | [...] + + | [facility] | [address] [facility] | [place] [address] | | | FAMILY LABORATORY | | | | | [place] | | | | + + + + + CBC no Differential (01/28/2018 12:41 PM PDT) + + + + + + | Component | Value | Ref Range | Performed | Pathologist | | | | | At | Signature | + + + + + + | WBC | 29.4 (H) | 3.8 - 11.0 K/uL | [facility] | | | | | | [facility] | | | | | | LABORATORY | | | | | | [place] | | + + + + + + | RBC | 4.43 | 4.20 - 5.70 | [facility] | | | | | M/uL | [facility] | | | | | | LABORATORY | | | | | | [place] | | + + + + + + | Hemoglobin | 13.4 | 13.2 - 17.0 | [facility] | | | | | g/dL | [facility] | | | | | | LABORATORY | | | | | | [place] | | + + + + + + | Hct | 39.3 | 39.0 - 50.0 % | [facility] | | | | | | [facility] | | | | | | LABORATORY | | | | | | [place] | | + + + + + + | MCV | 88.5 | 80.0 - 100.0 fL | [facility] | | | | | | [facility] | | | | | | LABORATORY | | | | | | [place] | | + + + + + + | MCH | 30.2 | 27.0 - 34.0 pg | [facility] | | | | | | [facility] | | | | | | LABORATORY | | | | | | [place] | | + + + + + + | MCHC | 34.1 | 32.0 - 35.5 | [facility] | | | | | g/dL | [facility] | | | | | | LABORATORY | | | | | | [place] | | + + + + + + | RDW-CV | 13.7 | 11.0 - 15.5 % | [facility] | | | | | | [facility] | | | | | | LABORATORY | | | | | | [place] | | + + + + + + | Platelet | 391 | 150 - 400 K/uL | [facility] | | | Count | | | [facility] | | | | | | LABORATORY | | | | | | [place] | | + + + + + + | MPV | 8.3Comment: Performed | 7.5 - 11.2 fL | [facility] | | | | by [facility] [address] | | [facility] | | | | [facility] [place], | | LABORATORY | | | | [place] [address] | | [facility] | | | | [...] + + | [facility] | [address] [facility]. | [place] [address] | | | FAMILY LABORATORY | | | | | [place] | | | | + + + + + Basic Metabolic Panel (01/28/2018 12:41 PM PDT) + + + + + + | Component | Value | Ref Range | Performed | Pathologist | | | | | At | Signature | + + + + + + | Na | 138 | 135 - 146 | [facility] | | | | | mmol/L | [facility] | | | | | | LABORATORY | | | | | | [place] | | + + + + + + | K | 4.1 | 3.6 - 5.2 | [facility] | | | | | mmol/L | [facility] | | | | | | [...] + + + + | Creatinine | 0.79 | 0.50 - 1.30 | [facility] | | | | | mg/dL | [facility] | | | | | | LABORATORY | | | | | | [place] | | + + + + + + | Glucose | 190 (H) | 65 - 99 mg/dL | [facility] | | | | | | [facility] | | | | | | LABORATORY | | | | | | [place] | | + + + + + + | Estimated | 131Comment: eGFR<60 | >=90 | [facility] | | | GFR | consistent with impaired | mL/min/1.73m2 | [facility] | | | | kidney | | LABORATORY | | | | function.Performed by | | [facility] | | | | [facility] [address] | | | | | | [place] [address] | | | | + + + + + + + + | Specimen | + + | Blood specimen | | (specimen) | + + + + + + + | Performing | Address | City/State/Zipcode | Phone Number | | Organization | | | | + + + + + | [facility] | [address] | [place] [address] | | | FAMILY LAB[facility]ATORY | | | | | [place] | | | | + + + + + Tissue Request For Pathology (01/28/2018 9:11 AM PDT) + + | Specimen | + + | | + + + + + | Narrative | Performed At | + + + | | [facility] | | MANUEL BOOTH HAN | [facility] | | : 2000 AGE: 17 years SEX: Male | LABORATORY | | | [place] | | Acct: [id number] Location: | | | [facility]; 408; [id number] Case #: | | | [id number] Ordering: ANTHONY ORTEGA MD | | | Client: [facility] | | | Copy To: Printed: 01/30/2018 17:57 | | | PDT SURGICAL | | | PATHOLOGY FINAL REPORTCollected: | | | Received: Responsible | | | Pathologist:01/28/2018 09:11 PDT 01/28/2018 13:22 | | | SUHAIL RUDOLPH MD, ALLISONFINAL DIAGNOSIS: Kidney, | | | right pole,partial nephrectomy: | | | Benign kidney with calyceal dilation, tubulointerstitial | | | inflammation, global glomerulosclerosis and atrophy, | | | consistent with obstruction.Verified By: HARESH Cai Date: | | | 01/30/18 17:57 PDTPerforming Location: [facility] | | | [place] [place], [place] [address]GCQXS DESCRIPTION:The specimen | | | labeled and designated "Booth - right kidney pole " is received | | | in formalin and consists of a 36 gram, 6.0 x 5.6 x 2.8 cm portion of | | | kidney. On the cut surface, approximately 80% of the specimen is | | | replaced by a multiloculated cyst filled with clear thin fluid. The | | | cyst hunt range in thickness from less than 0.1 to 0.2 cm and have a | | | pink, smooth and glistening lining. No distinct mass is grossly | | | identified. The uninvolved parenchyma is brown, soft, with ill defined | | | cortical medullary junctions. Heel Cementer sections are submitted | | | in ([id number]).[id number] DESCRIPTION:Histologic sections | | | of all submitted blocks are examined by light microscopy. | | | Themicroscopic findings, together with the gross findings, support the | | | pathologic diagnosis. | | |microscopic findings, together with the gross findings, support the pathologic diagnosis. | | + + + + + + + + | Performing | Address | City/State/Zipcode | Phone Number | | Organization | | | | + + + + + | [facility] | [address] [facility] | [place] [address] | | | FAMILY LAB[facility]ATORY | | | | | [place] | | | | + + + + + POC Glucose (01/28/2018 6:46 AM PDT) + + + + + + | Component | Value | Ref Range | Performed | Pathologist | | | | | At | Signature | + + + + + + | Glucose, | 107 (H)Comment: | 65 - 99 mg/dL | [facility] | | | POC | Performed by [facility] [address] | | [facility] | | | | [address] | | LABORATORY | | | | [place] [address] | | [facility] | | | | [...] + | [facility] | [address] [facility] [facility] | [place] [address] | | | FAMILY LAB[facility]ATORY | | | | | [facility] | | | | + + + + + ABO Rh (01/28/2018 6:15 AM PDT) + + + + + + | Component | Value | Ref Range | Performed | Pathologist | | | | | At | Signature | + + + + + + | ABO | A | | REFERENCE | | | | | | LAB [place] | | | | | | [facility] | | | | | | [facility] | | | | | | [facility] | | | | | | [facility] | | + + + + + + | Rh Type | Positive | | REFERENCE | | | | | | LAB [place] | | | | | | [facility] | | | | | | [facility] | | | | | | [facility] | | | | | | [facility] | | + + + + + + + + | Specimen | + + | | + + + + + | Narrative | Performed At | + + + | Specimen Expiration Date: [id number] | REFERENCE LAB | | | [place] [facility] | | | [facility] | | [facility] | + + + + + + + + | Performing | Address | City/State/Zipcode | Phone Number | | Organization | | | | + + + + + | REFERENCE LAB | [address] | [place] [address] | [phone] | | [place] [facility] | | | | | [facility] | | | | | [facility] | | | | + + + + + Type and Screen (01/28/2018 6:15 AM PDT) + + + + + + | Component | Value | Ref Range | Performed | Pathologist | | | | | At | Signature | + + + + + + | ABO | A | | REFERENCE | | | | | | LAB [place] | | | | | | [facility] | | | | | | [facility] | | | | | | [facility] | | | | | | [facility] | | + + + + + + | Rh Type | Positive | | REFERENCE | | | | | | LAB [place] | | | | | | [facility] | | | | | | [facility] | | | | | | [facility] | | | | | | [facility] | | + + + + + + | Antibody | NegativeComment: Patient | | REFERENCE | | | Screen | is remote crossmatch | | LAB [place] | | | | eligible | | [facility] | | | | | | [facility] | | | | | | [facility] | | | | | | [facility] | | + + + + + + + + | Specimen | + + | Blood specimen | | (specimen) | + + + + + | Narrative | Performed At | + + + | Specimen Expiration Date: [id number] | REFERENCE LAB | | | [place] [facility] | | | [facility] | [facility] | + + + + + + + + | Performing | Address | City/State/Zipcode | Phone Number | | Organization | | | | + + + + + | REFERENCE LAB | [address] 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 | + + documented in this encounter Administered Medications + +--------+ +--------+------+ + | Medication Order | MAR | Action | Dose | Rate | Site | | | Action | Date | | | | + +--------+ +--------+------+ + | bupivacaine 0.5%-EPINEPHrine | Given | 01/29/20 | 30 mLs | | Surgical | | 1:200,000 (PF) injection PRN, | | 18 9:28 | | | Site | | Starting 01/28/18 at 0928, | | AM PDT | | | | | Intra-op | | | | | | + +--------+ +--------+------+ + +---+---+ | | | +---+---+ + +-------+ +-------+---+---+ | citalopram (celeXA) tablet 20 | Given | 02/01/20 | 20 mg | | | | mg 20 mg, Oral, DAILY, First | | 18 8:42 | | | | | dose on Fri01/28/18 at 1230, | | AM PDT | | | | | Post-op/Phase II | | | | | | + +-------+ +-------+---+---+ +-------+ +-------+---+---+ | Given | 01/31/20 | 20 mg | | | | | 18 8:37 | | | | | | AM PDT | | | | +-------+ +-------+---+---+ | Given | 01/30/20 | 20 mg | | | | | 18 9:44 | | | | | | AM PDT | | | | +-------+ +-------+---+---+ + +---+ | | | + +---+ | diphenhydrAMINE (BENADRYL) 12.5 | | | mg/5 mL liquid 25 mg 25 mg, | | | Oral, EVERY 4 HOURS PRN, Itching, | | | Starting Fri01/28/18 at 1209, | | | Oral route is preferred., | | | Post-op/Phase II | | + +---+ | | | + +---+ | diphenhydrAMINE (BENADRYL) | | | injection 12.5 mg 12.5 mg, | | | Intravenous, EVERY 4 HOURS PRN, | | | Itching, Starting Fri01/28/18 at | | | 1209, Oral route is preferred., | | | Post-op/Phase II | | + +---+ | | | + +---+ | diphenhydrAMINE (BENADRYL) | | | tablet 25 mg 25 mg, Oral, EVERY | | | 4 HOURS PRN, Itching, Starting | | | Fri01/28/18 at 1209, Oral route is | | | preferred., Post-op/Phase II | | + +---+ | | | + +---+ + +-------+ +--------+---+---+ | docusate sodium (COLACE) | Given | 02/01/20 | 100 mg | | | | capsule 100 mg 100 mg, Oral, 2 | | 18 8:42 | | | | | TIMES DAILY PRN, Constipation, | | AM PDT | | | | | Starting 01/28/18 at 1209, | | | | | | | First line agent for | | | | | | | constipation, Post-op/Phase II | | | | | | + +-------+ +--------+---+---+ +-------+ +--------+---+---+ | Given | 01/31/20 | 100 mg | | | | | 18 4:07 | | | | | | PM PDT | | | | +-------+ +--------+---+---+ +---+---+ | | | +---+---+ + +-------+ +------+---+---+ | LORazepam (ATIVAN) injection | Given | 01/31/20 | 1 mg | | | | 0.5-1 mg 0.5-1 mg, Intravenous, | | 18 6:40 | | | | | EVERY 1 HOUR PRN, Anxiety, | | AM PDT | | | | | Starting [facility] 01/29/18 at 0602, | | | | | | | Dilute 1:1 with Sterile Water or | | | | | | | Saline for Injection, | | | | | | + +-------+ +------+---+---+ +-------+ +--------+---+---+ | Given | 01/30/20 | 0.5 mg | | | | | 18 11:33 | | | | | | PM PDT | | | | +-------+ +--------+---+---+ | Given | 01/30/20 | 0.5 mg | | | | | 18 10:25 | | | | | | AM PDT | | | | +-------+ +--------+---+---+ +---+---+ | | | +---+---+ + +-------+ + +---+---+ | methocarbamol (ROBAXIN) tablet | Given | 01/31/20 | 1,500 mg | | | | 1,500 mg 1,500 mg, Oral, EVERY 6 | | 18 5:14 | | | | | HOURS PRN, Muscle spasms, | | AM PDT | | | | | Starting [facility] 01/28/18 at 1058, | | | | | | | Post-op/Phase II | | | | | | + +-------+ + +---+---+ +-------+ + +---+---+ | Given | 01/30/20 | 1,500 mg | | | | | 18 10:17 | | | | | | PM PDT | | | | +-------+ + +---+---+ | Given | 01/30/20 | 1,500 mg | | | | | 18 2:36 | | | | | | PM PDT | | | | +-------+ + +---+---+ +---+---+ | | | +---+---+ + +-------+ +-------+---+---+ | metoclopramide (REGLAN) 5 mg/mL | Given | 01/30/20 | 10 mg | | | | injection 10 mg 10 mg, | | 18 9:31 | | | | | Intravenous, EVERY 4 HOURS PRN, | | AM PDT | | | | | Nausea, Vomiting, Starting Wed | | | | | | | 01/28/18 at 1209, Use if | | | | | | | ondansetron and prochlorperazine | | | | | | | ineffective after 30 minutes or | | | | | | | not ordered Use PO option unless | | | | | | | NPO status or unable to tolerate | | | | | | | Protect from light., | | | | | | | Post-op/Phase II | | | | | | + +-------+ +-------+---+---+ +-------+ +-------+---+---+ | Given | 01/29/20 | 10 mg | | | | | 18 11:47 | | | | | | PM PDT | | | | +-------+ +-------+---+---+ | Given | 01/29/20 | 10 mg | | | | | 18 5:30 | | | | | | PM PDT | | | | +-------+ +-------+---+---+ +---+---+ | | | +---+---+ + +---------+ +--------+---+---+ | morphine 5 mg/mL MORTARMAN syringe | New Bag | 01/29/20 | 150 mg | | | | Intravenous, CONTINUOUS, Starting | | 18 6:55 | | | | | 01/28/18 at 1800, for adult | | PM PDT | | | | | patients LESS than 65 years old | | | | | | | and NO risk of sleep apnea, | | | | | | | Loading Dose(mg): 0, Starting MORTARMAN | | | | | | | Dose(mg): 1, Incremental | | | | | | | Increase MORTARMAN Dose(mg): 0.5, | | | | | | | Maximum MORTARMAN Dose(mg): 2, Lockout | | | | | | | Interval(min): 10, One Hour | | | | | | | Limit(mg): 15 | | | | | | + +---------+ +--------+---+---+ + +---+ | | | + +---+ | naloxone (NARCAN) 0.4 mg/mL | | | injection 0.04 mg 0.04 mg, | | | Intravenous, PRN, Apnea, | | | Decreased Responsiveness, | | | Starting 01/28/18 at 1739, mix | | | 0.4mg naloxone with 9 ml normal | | | saline in syringe and give 0.04 | | | mg = 1 ml initial dose. Give | | | every 2 minutes as needed | | | Initiate emergency response per | | | facility policy and contact | | | provider personal lines advisor, | | + +---+ | | | + +---+ + +-------+ +------+---+---+ | ondansetron (ZOFRAN) injection | Given | 01/31/20 | 4 mg | | | | 4 mg 4 mg, Intravenous, EVERY 6 | | 18 10:32 | | | | | HOURS PRN, Nausea, Vomiting, | | PM PDT | | | | | Starting 01/28/18 at 1209, | | | | | | | First line agent Use PO option | | | | | | | unless NPO status or unable to | | | | | | | tolerate., Post-op/Phase II | | | | | | + +-------+ +------+---+---+ +-------+ +------+---+---+ | Given | 01/31/20 | 4 mg | | | | | 18 1:34 | | | | | | PM PDT | | | | +-------+ +------+---+---+ | Given | 01/31/20 | 4 mg | | | | | 18 5:19 | | | | | | AM PDT | | | | +-------+ +------+---+---+ +---+---+ | | | +---+---+ + +-------+ +-------+---+---+ | oxyCODONE (ROXICODONE) tablet | Given | 02/01/20 | 10 mg | | | | 2.5-10 mg 2.5-10 mg, Oral, EVERY | | 18 6:34 | | | | | 3 HOURS PRN, Pain, Starting Wed | | AM PDT | | | | | 01/28/18 at 1209, First dose must | | | | | | | be the lowest dose, can titrate | | | | | | | to effective dose by repeat of | | | | | | | lowest dose every 60 minutes prn | | | | | | | pain, may not exceed maximum dose | | | | | | | ordered per interval. Use Pasero | | | | | | | Sedation Scale., Post-op/Phase | | | | | | | II | | | | | | + +-------+ +-------+---+---+ +-------+ +-------+---+---+ | Given | 02/01/20 | 10 mg | | | | | 18 1:03 | | | | | | AM PDT | | | | +-------+ +-------+---+---+ | Given | 01/31/20 | 10 mg | | | | | 18 9:27 | | | | | | PM PDT | | | | +-------+ +-------+---+---+ +---+---+ | | | +---+---+ + +-------+ +--------+---+---+ | senna (SENOKOT) tablet 8.6 mg | Given | 01/31/20 | 8.6 mg | | | | 8.6 mg, Oral, 2 TIMES DAILY PRN, | | 18 4:07 | | | | | Constipation, Starting Fri01/28/18 | | PM PDT | | | | | at 1209, If docusate ineffective | | | | | | | or not ordered, Post-op/Phase II | | | | | | + +-------+ +--------+---+---+ +---+---+ | | | +---+---+ documented in this encounter
--- OUTSIDE RECORDS SUMMARY | ~2019-09-01 | XMS | Encounter Summary ---
Demographics + + + | Address | [address] | | | [place] [address] | + + + | Home Phone | | + + + | Preferred Language | Unknown | + + + | Marital Status | Legally | + + + | Hoahaoism Affiliation | Unknown | + + + | Race | Unknown | + + + | Ethnic Group | Unknown | + + + Author + + + | Author | [facility] | | | and Anibal | + + + | Organization | [facility] | | | and Alexandruana | + + + | Address | Unknown | + + + | Phone | Unavailable | + + + Support + + + + + | Name | Relationship | Address | Phone | + + + + + | Neno Winters | ECON | [address] | | | | | [place] [address] | | + + + + + | Joelle Sharp | ECON | [place] | | | | | [place] | | + + + + + Care Team Providers + +------+ + | Care Patient Access Coordinator Name | Role | Phone | + [...] | | | | Accessory | | [place] | | | | | kidney | | [address] Phone: | | | | | Crossing | | [phone] | | | | | vessel and | | Fax: | | | | | stricture of | | [phone] | | | | | ureter | [...] | | | | | | | IN PARTIAL | | | | | | | REMOVAL OF | | | | | | | KIDNEY IN | | | | | | | LAP,PARTIAL | | | | | | | NEPHRECTOMY | | | | | | | IN | | | | | | | CYSTOURETHRO | | | | | | | SCOPY IN | | | | | | | CYSTOSCOPY,I | | | | | | | NSERT | | | | | | | URETERAL | | | | | | | STENT | | | +--------+--------+ + + + + Encounter Details +--------+ + + + + | Date | Type | Department | Care Team | Description | +--------+ + + + + | 01/28/ | Anesthesia | [facility] | Luís Carver MD | | | 2018 | Event | [facility] | [address] | | | | | [address] | [place] [address] | | | | | [place], [place] | [phone] | | | | | [address] | | | | | | [phone] | Chapis Jackson, | | | | | | AWS CONSULTANT [address] | | | | | | [address]. | | | | | | [place] [address] | | | | | | [phone] | | | | | | | | +--------+ + + + + Anesthesia Record + + + + + | Procedure Name | Responsible | Anesthesia Start | Anesthesia Stop Time | | | Anesthesiologist | Time | | + + + + + | ROBOTIC ASSISTED | Luís Carver MD | 01/28/18 0747 | 01/28/18 1014 | | PARTIAL NEPHRECTOMY | | | | | REMOVAL URTERAL | | | | | STENT REMOVAL | | | | | INTRAOPERATIVE | | | | | ULSTRASOUND WITH | | | | | IMMUNOSSAY IMAGING | | | | | (Right Chest Wall) | | | | + + + + + +----+---+ + + | Da | T | Event | Comment | | te | i | | | | | m | | | | | e | | | +----+---+ + + | 06 | 0 | | | | /0 | 7 | | | | 6/ | 0 | | | | 20 | 1 | | | | 18 | | | | +----+---+ + + | | 0 | An Checkout | Pre-use anesthesia machine/equipment checkout. | | | 7 | | | | | 1 | | | | | 7 | | | +----+---+ + + | | 0 | An Start | Reassessment prior to anesthesia induction/procedure. | | | 7 | | | | | 4 | | | | | 7 | | | +----+---+ + + | | 0 | Preoxygenat | | | | 7 | ed | | | | 5 | | | | | 2 | | | +----+---+ + + | | 0 | An | | | | 7 | Induction | | | | 5 | | | | | 5 | | | +----+---+ + + | | 0 | An | | | | 7 | Intubation | | | | 5 | | | | | 5 | | | +----+---+ + + | | 0 | Pre-Procedu | | | | 8 | ral Timeout | | | | 1 | Completed | | | | 0 | | | +----+---+ + + | | 0 | First | | | | 8 | Inc/Proc St | | | | 1 | | | | | 5 | | | +----+---+ + + | | 0 | [place] | | | | 8 | 43-degrees | | | | 1 | | | | | 7 | | | +----+---+ + + | | 0 | [place] off | | | | 9 | | | | | 4 | | | | | 6 | | | +----+---+ + + | | 1 | Oropharynx | | | | 0 | Suctioned | | | | 0 | | | | | 5 | | | +----+---+ + + | | 1 | Extubated | | | | 0 | Awake | | | | 0 | | | | | 5 | | | +----+---+ + + | | 1 | An Stop | Patient handed off to recovery nurse. | | | 1 | | | | | 4 | | | +----+---+ + + +------+ | Meds | +------+ + + + | Name | Total | + + + | midazolam | 2 mg | + + + | fentaNYL | 250 mcg | + + + | HYDROmorphone | 2 mg | + + + | lidocaine 2% | 100 mg | + + + | propofol | 200 mg | + + + | rocuronium | 90 mg | + + + | ePHEDrine | 10 mg | + + + | phenylephrine | 100 mcg | + + + | sugammadex | 200 mg | + + + | indocyanine green (IC-GREEN) | 1 mg | | injection 25 mg | | + + + | mannitol 25% injection 12.5 g | 12.5 g | + + + | furosemide (LASIX) injection | 20 mg | + + + | ondansetron (ZOFRAN) injection (2 | 4 mg | | mL vial) | | + + + | LR (Infusion) | 2,200 mL | + + + + + | Name | + + | O2 Flow Rate (L/Min) | + + | Insp O2 | + + | Exp N2O | + + | Exp SEV | + + | Air Flow Rate (L/Min) | + + + + | No blood administrations on file. | + + +--------+ + + + | Type | Details | Placement | Removal | +--------+ + + + | Drain/ [...] 01/30/18 0014 by | | eral | [id number]-[id number] catheter system; | Blanca Tucker, | Ree [...] 01/30/18 2130 by | | eral | yium-[id number]-vzkiiz catheter system; | Blanca Tucker, | Roxane Childers RN | | IV | 18 gauge, 1 1/4 in length; Blood | RN | | | | Bank; distraction, intradermal | | | | | injection; (leaking at insertion | | | | | site); 01/30/18; 0 | | | +--------+ + + + | Urethr | 01/28/18; 0800; indicated due to | 01/28/18 0800 by | 01/29/18 0845 by | | al | specific surgical procedure; All | Sanjuanita Jackson, | Zohaib Dunham, | | Cathet | elements; All elements; | RN | Compliance Investigator | | er | indwelling double lumen [...] | Airway | Placement Date: 01/28/18; | 01/28/18820 by | 01/28/18 1005 by | | [...] documented in this encounter Social History + + + +--------+------+ | [...] | + +--------+ + + + | ANE AIRWAY NOTE | Routin | 01/28/2018 | | Results for this | | | e | 8:21 AM | | procedure are in the | | | | PDT | | results section. | + +--------+ + + + documented in this encounter Results Anesthesia Airway Note (01/28/2018 8:21 AM PDT) + + + | Narrative | Performed At | + + + | Chapis Jackson CRNA 01/28/2018 8:21 Anesthesia Airway | | | Placement 01/28/2018 8:21 Preprocedure check: patient identified, | | | suction, oxygen, airway equipment checked, airway assessed and | | | patient reassessment prior to induction Mask ventilation: easy | | | Successful technique: videoscope Laryngoscope blade size: 3 | | | Airway grade: 1 (Full view of glottis) Other equipment: stylette | | | Attempts: 1 Airway type: endotracheal Size: 8 Cuffed: cuffed Tube | | | depth: 21 cm Tube secured with: adhesive tape Trauma: none Tube | | | placement verification: bilateral chest rise, equal bilateral breath | | | sounds, carbon dioxide detection and video laryngoscope Performing | | | provider: CHAPIS JACKSON Electronically Signed by: Chapis Rdaer | | CRHISTINA Jackson ESig date/time: | | | 01/28/2018 8:21 | | + + + + + | Procedure Note | + + | Chapis Jackson CRNA - 01/28/2018 8:21 AM PDT Anesthesia Airway Placement01/28/2018 | | 8:21Preprocedure check: patient identified, suction, oxygen, airway equipment checked, | | airway assessed and patient reassessment prior to inductionMask ventilation: | | easySuccessful technique: videoscopeLaryngoscope blade size: 3 Airway grade: 1 (Full | | view of glottis)Other equipment: styletteAttempts: 1Airway type: endotrachealSize: | | 8Cuffed: cuffedTube depth: 21 cmTube secured with: adhesive tapeTrauma: noneTube | | placement verification: bilateral chest rise, equal bilateral breath sounds, carbon | | dioxide detection and video laryngoscopePerforming provider: KIYA | | CHAPISElectronically Signed by: CHRISTINA Montoyag | | date/time: 01/28/2018 8:21 | |Airway type: endotracheal | |Size: 8 | |Cuffed: cuffed | |Tube depth: 21 cm | |Tube secured with: adhesive tape | |Trauma: none | |Tube placement verification: bilateral chest rise, equal bilateral breath sounds, carbon di oxide detection and video laryngoscope | |Performing provider: CHAPIS JACKSON | | | | | |Electronically Signed by: CHRISTINA Montoyag date/time: 8:21 | | | + + documented in this encounter Visit Diagnoses Not on filedocumented in this encounter Administered Medications + +--------+ +------+------+------+ | Medication Order | MAR | Action | Dose | Rate | Site | | | Action | Date | | | | + +--------+ +------+------+------+ | ondansetron (ZOFRAN) injection | Given | 01/29/20 | 4 mg | | | | Intravenous, PRN, Nausea, | | 18 9:36 | | | | | Vomiting, Starting 11/14/17 at | | AM PDT | | | | | 1218, Anesthesia Intra-op | | | | | | + +--------+ +------+------+------+ +-------+ +------+---+---+ | Given | 11/15/19 | 4 mg | | | | | 18 12:18 | | | | | | PM PDT | | | | +-------+ +------+---+---+ +---+---+ | | | +---+---+ +---+ | | +---+ + +--------+ +------+------+------+ | Medication Order | MAR | Action | Dose | Rate | Site | | | Action | Date | | | | + +--------+ +------+------+------+ | ePHEDrine 50 mg/mL injection | Given | 01/29/20 | 5 mg | | | | Intravenous, PRN, Starting Wed | | 18 8:11 | | | | | 01/28/18 at 0802, Anesthesia | | AM PDT | | | | | Intra-op | | | | | | + +--------+ +------+------+------+ +-------+ +------+---+---+ | Given | 01/29/20 | 5 mg | | | | | 18 8:02 | | | | | | AM PDT | | | | +-------+ +------+---+---+ +---+---+ | | | +---+---+ + +-------+ +--------+---+---+ | fentaNYL (PF) injection | Given | 01/29/20 | 25 mcg | | | | Intravenous, PRN, Pain, Starting | | 18 10:13 | | | | | 01/28/18 at 0755, Anesthesia | | AM PDT | | | | | Intra-op | | | | | | + +-------+ +--------+---+---+ +-------+ +--------+---+---+ | Given | 01/29/20 | 25 mcg | | | | | 18 10:12 | | | | | | AM PDT | | | | +-------+ +--------+---+---+ | Given | 01/29/20 | 50 mcg | | | | | 18 8:15 | | | | | | AM PDT | | | | +-------+ +--------+---+---+ +---+---+ | | | +---+---+ + +-------+ +-------+---+---+ | furosemide (LASIX) injection | Given | 01/29/20 | 20 mg | | | | PRN, Edema, Starting 01/28/18 | | 18 8:53 | | | | | at 0853, Anesthesia Intra-op | | AM PDT | | | | + +-------+ +-------+---+---+ +---+---+ | | | +---+---+ + +-------+ +--------+---+---+ | HYDROmorphone (DILAUDID) 2 | Given | 01/29/20 | 0.5 mg | | | | mg/mL injection Intravenous, | | 18 9:27 | | | | | PRN, Pain, Starting 01/28/18 at | | AM PDT | | | | | 0838, Anesthesia Intra-op | | | | | | + +-------+ +--------+---+---+ +-------+ +--------+---+---+ | Given | 01/29/20 | 0.5 mg | | | | | 18 9:11 | | | | | | AM PDT | | | | +-------+ +--------+---+---+ | Given | 01/29/20 | 0.5 mg | | | | | 18 9:00 | | | | | | AM PDT | | | | +-------+ +--------+---+---+ +---+---+ | | | +---+---+ + +-------+ +------+---+---+ | indocyanine green (IC-GREEN) | Given | 01/29/20 | 1 mg | | | | injection 25 mg 25 mg, | | 18 9:05 | | | | | Intravenous, ONCE, Fri01/28/18 at | | AM PDT | | | | | 0730, For 1 dose, Intra-op | | | | | | + +-------+ +------+---+---+ +---+---+ | | | +---+---+ + +---------+ +---+---+---+ | lactated ringers (LR) infusion | New Bag | 01/29/20 | | | | | Intravenous, CONTINUOUS PRN, | | 18 9:27 | | | | | Starting Fri01/28/18 at 0730, | | AM PDT | | | | | Anesthesia Intra-op | | | | | | + +---------+ +---+---+---+ +---------+ +---+---+---+ | New Bag | 01/29/20 | | | | | | 18 8:15 | | | | | | AM PDT | | | | +---------+ +---+---+---+ | New Bag | 01/29/20 | | | | | | 18 7:30 | | | | | | AM PDT | | | | +---------+ +---+---+---+ +---+---+ | | | +---+---+ + +-------+ +--------+---+---+ | lidocaine (PF) 2% injection | Given | 01/29/20 | 100 mg | | | | Intravenous, PRN, Starting Wed | | 18 7:55 | | | | | 01/28/18 at 0755, Anesthesia | | AM PDT | | | | | Intra-op | | | | | | + +-------+ +--------+---+---+ +---+---+ | | | +---+---+ + +-------+ +--------+---+---+ | mannitol 25% injection 12.5 g | Given | 01/29/20 | 12.5 g | | | | 12.5 g, Intravenous, Administer | | 18 8:47 | | | | | over 30 Minutes, ONCE, 01/28/18 | | AM PDT | | | | | at 0845, For 1 dose, Do not | | | | | | | refrigerate Mannitol products. | | | | | | | Watch for precipitation. Use | | | | | | | 0.22, 1.2, or 5 micron in-line | | | | | | | filter for administration. Do not | | | | | | | refrigerate. Watch for | | | | | | | precipitation. Use 0.22, 1.2, or | | | | | | | 5 micron in-line filter for | | | | | | | administration., Intra-op | | | | | | + +-------+ +--------+---+---+ +---+---+ | | | +---+---+ + +-------+ +------+---+---+ | midazolam (VERSED) 1 mg/mL | Given | 01/29/20 | 2 mg | | | | injection Intravenous, PRN, | | 18 7:45 | | | | | Anxiety, Starting 01/28/18 at | | AM PDT | | | | | 0745, Anesthesia Intra-op | | | | | | + +-------+ +------+---+---+ +---+---+ | | | +---+---+ + +-------+ +--------+---+---+ | phenylephrine (GABRIEL-SYNEPHRINE) | Given | 01/29/20 | 50 mcg | | | | 10 mg/mL injection Intravenous, | | 18 8:11 | | | | | PRN, Starting Fri01/28/18 at 0803, | | AM PDT | | | | | Anesthesia Intra-op | | | | | | + +-------+ +--------+---+---+ +-------+ +--------+---+---+ | Given | 01/29/20 | 50 mcg | | | | | 18 8:03 | | | | | | AM PDT | | | | +-------+ +--------+---+---+ +---+---+ | | | +---+---+ + +-------+ +--------+---+---+ | propofol (DIPRIVAN) injection | Given | 01/29/20 | 200 mg | | | | Intravenous, PRN, Starting Fri | | 18 7:55 | | | | | 01/28/18 at 0755, Anesthesia | | AM PDT | | | | | Intra-op | | | | | | + +-------+ +--------+---+---+ +---+---+ | | | +---+---+ + +-------+ +-------+---+---+ | rocuronium (ZEMURON) injection | Given | 01/29/20 | 10 mg | | | | Intravenous, PRN, Ventilator | | 18 9:27 | | | | | Dyssynchrony, Starting 01/28/18 | | AM PDT | | | | | at 0755, Anesthesia Intra-op | | | | | | + +-------+ +-------+---+---+ +-------+ +-------+---+---+ | Given | 01/29/20 | 10 mg | | | | | 18 9:09 | | | | | | AM PDT | | | | +-------+ +-------+---+---+ | Given | 01/29/20 | 20 mg | | | | | 18 8:31 | | | | | | AM PDT | | | | +-------+ +-------+---+---+ +---+---+ | | | +---+---+ + +-------+ +--------+---+---+ | sugammadex (BRIDION) injection | Given | 01/29/20 | 200 mg | | | | Intravenous, PRN, Starting Wed | | 18 10:04 | | | | | 01/28/18 at 1004, Anesthesia | | AM PDT | | | | | Intra-op | | | | | | + +-------+ +--------+---+---+ +---+---+ | | | +---+---+ documented in this encounter"
--- OUTSIDE RECORDS SUMMARY | ~2019-09-01 | XMS | Encounter Summary ---
Demographics + + + | Address | [address] | | | [place] [address] | + + + | Home Phone | | + + + | Preferred Language | Unknown | + + + | Marital Status | Legally | + + + | Orthodoxy Affiliation | Unknown | + + + | Race | Unknown | + + + | Ethnic Group | Unknown | + + + Author + + + | Author | [facility] | | | and Anibal | + + + | Organization | [facility] | | | and [...] | | | | | [place] [address] | | + + + + + | Joelle Sharp | ECON | [place]rid | | | | | [place] | | + + + + + Care Team Providers + +------+ + | Care Civil Engineering Specialist Name | Role | Phone | + [...] | +--------+ + + + + | 03/22/ | Telephone | [facility] | Yvonne Daniel, | ED Follow-up | | 2019 | | Cheryl Monterroso | JEFF | | | | | Medicine [address] | | | | [address] | | | | | | [place] | | | | | | [address] | | | | | | [phone] | | | +--------+ + + + [...]
--- OUTSIDE RECORDS SUMMARY | ~2019-09-01 | XMS | Encounter Summary ---
Demographics + + + | Address | [address] | | | [place] [address] | + + + | Home Phone | | + + + | Preferred Language | Unknown | + + + | Marital Status | Legally | + + + | Sabianism Affiliation | Unknown | + + + | Race | Unknown | + + + | Ethnic Group | Unknown | + + + Author + + + | Author | [facility] | | | and Anibal | + + + | Organization | [facility] | | | and Alexandruana | + + + | Address | Unknown | + + + | Phone | Unavailable | + + + Support + + + + + | Name | Relationship | Address | Phone | + + + + + | Neno Winters | ECON | [address] | | | | | [place] [address] | | + + + + + | Joelle Sharp | SHARYN | [place] | | | | | [place] | | + + + + + Care Team Providers + +------+ + | Care Turkish Rubber Name | Role | Phone | + +------+ + | Callie Powell MD | PCP | | + +------+ + Reason for Visit + + + | Reason | Comments | + + + | Well Child | | + + + Encounter Details +--------+ + + + + | Date | Type | Department | Care Team | Description | +--------+ + + + + | 11/15/ | Telephone | [facility] | Corey Yuan, | Well Child | | 2013 | | [facility] | [address] | | | | | Medicine [address] | | | | | [place] [address] | [place] [address] | | | | | [place], [place] | [phone] | | | | | [address] | | | | | | [phone] | | | +--------+ + + + [...]
--- OUTSIDE RECORDS SUMMARY | ~2019-09-01 | XMS | Encounter Summary ---
Demographics + + + | Address | [address] | | | [place] [address] | + + + | Home Phone | | + + + | Preferred Language | Unknown | + + + | Marital Status | Legally | + + + | Orthodox Affiliation | Unknown | + + + | Race | Unknown | + + + | Ethnic Group | Unknown | + + + Author + + + | Author | [facility] | | | and Anibal | + + + | Organization | [facility] | | | and [...] | | | | | [place] [address] | | + + + + + | Joelle Sharp | ECON | [place] | | | | | [place] | | + + + + + Care Team Providers + +------+ + | Care Metal Box Maker Name | Role | Phone | + +------+ + | Corey Yuan MD | PCP | | + +------+ + Encounter Details +--------+ + + + + | Date | Type | Department | Care Team | Description | +--------+ + + + + | 07/06/ | Orders Only | [facility] | Anthony Ortega MD | Hydronephrosis, | | 2017 | | [address] | [address] | unspecified | | | | [address] | [address] [place] | hydronephrosis type | | | | [place], [place] | [address] | | | | | [address] | | | | | | [phone] | | | +--------+ + + + [...] +--------+ + + + | US RENAL LIMITED | Routin | 07/30/2018 | Hydronephrosis, | Results for this | | | e | 12:25 PM | unspecified | procedure are in the | | | | PST | hydronephrosis type | results section. | + +--------+ + + + documented in this encounter Results US Renal Limited (07/30/2018 12:25 PM PST) + + | Specimen | + + | | + + + + + | Narrative | Performed At | + + + | [facility] RENAL ULTRASOUND NOTE DATE OF EXAM: | 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 | [facility] | | He is here today for a limited RENAL ULTRASOUND Today the | | | patient reports: Dull right flank pain new sympotoms . RENAL | | | ULTRASOUND PROCEDURE: Patient was positioned in the supine position | | | and continuous real time imaging of the kidneys were performed using a | | | 3 mHz probe. Findings: RIGHT RENAL SIZE: 4.1 x 5.4 x | | | 8.6 cm Findings: No solid renal masses, or definitive calculi. | | | There is no pelvicaliectasis. There is hydroureter noted with the | | | Proximal ureter measuring 1.8 cm,mid ureter 2.6 and distal ureter | | | 0.5 cm LEFT RENAL SIZE: 5.2 x 5.8 x 12.7 cm Findings: | | | No solid renal masses, hydronephrosis, or definitive calculi. | | | Bladder 6.4 x 8.3 x 8.3 cm No masses or calculi seen. The | | | patient tolerated this well ASSESSMENT: Hydroureter still seen | | | posterior to right kidney with no hydronephrosis in the right kidney | | | and normal left kidney. Could do CT urogram or retrograde pyelograms | | | down the road if clinically indicated Read and Interpreted | | | by: Lakshmi Pascual MD | | + + + + + + + + | Performing | Address | City/State/Zipcode | Phone Number | | Organization | | | | + + + + + | [facility] | [address], [address] | [place] [address] | [phone] | | - [facility] - [facility] | [place] | | | + + + + + documented in this encounter Visit Diagnoses + + | Diagnosis | + + | Hydronephrosis, unspecified hydronephrosis type | + + documented in this encounter"
--- OUTSIDE RECORDS SUMMARY | ~2019-09-01 | XMS | Encounter Summary ---
Demographics + + + | Address | [address] | | | [place] [address] | + + + | Home Phone [...] [facility] | | | and [place]ibal | + + + | Organization | [facility] | | | and [place] | + + + | Address | Unknown | + + + | Phone | Unavailable | + + + Support + + + + + | Name | Relationship | Address | Phone | + + + + + | Neno Winters | ECON | [address] | | | | | [place] [address] | | + + + + + | Joelle Sharp | SHARYN | [place] | | | | | [place] | | + + + + + Care Team Providers + +------+ + | Care Coin Collector Name | Role | Phone | + [...] Provider Unknown | | | | | [address] | [phone] | | | | | [phone] | | | +--------+ + + + [...]
--- OUTSIDE RECORDS SUMMARY | ~2019-09-01 | XMS | Encounter Summary ---
Demographics + + + | Address | [address] | | | [place] [address] | + + + | Home Phone | | + + + | Preferred Language | Unknown | + + + | Marital Status | Legally | + + + | Voodoo Affiliation | Unknown | + + + | Race | Unknown | + + + | Ethnic Group | Unknown | + + + Author + + + | Author | [facility] | | | and [place] | + + + | Organization | [facility] | | | and [place] | + + + | Address | Unknown | + + + | Phone | Unavailable | + + + Support + + + + + | Name | Relationship | Address | Phone | + + + + + | Neno Winters | ECON | [address] | | | | | [place] [address] | | + + + + + | Joelle Sharp | ECON | [place] | | | | | [place] | | + + + + + Care Team Providers + +------+ + | Care Accounts Collector Name | Role | Phone | + +------+ + | Callie Powell MD | PCP | | + +------+ + Reason for Visit + + + | Reason | Comments | + + + | Emesis | | + + + | Abdominal Pain | | + + + Encounter Details +--------+ + + + + | Date | Type | Department | Care Team | Description | +--------+ + + + + | 11/10/ | Emergency | [facility] | Mar Walker | [facility] | | 2017 - | | [facility] | MD [address] | (Primary Dx) | | | | PEDIATRIC EMERGENCY | [address] [place] | | | 11/11/ | | [address] | [address] | | | 2016 | | [place] | | | | | | [address] | | | | | | [phone] | | | +--------+ + + + [...] + + + | Blood Pressure | 145/80 | 11/10/2016 10:14 PM | | | | | PDT | | + + + + + | Pulse | 85 | 11/10/2016 10:14 PM | | | | | PDT | | + + + + + | Temperature | 36 C (96.8 F) | 11/10/2016 10:14 PM | | | | | PDT | | + + + + + | Respiratory Rate | 18 | 11/10/2016 10:14 PM | | | | | PDT | | + + + + + | Oxygen Saturation | 98% | 11/10/2016 10:14 PM | | | | | PDT | | + + + + + | Inhaled Oxygen | - | - | | | Concentration | | | | + + + + + | Weight | 81.5 kg (179 lb 10.8 | 11/10/2016 10:14 PM | | | | oz) | PDT | | + + + + + | Height | - | - | | + + + + + | Body Mass Index | - | - | | + + + + + documented in this encounter Discharge Instructions Instructions Mar Walker MD - 11/11/2016Please return to the emergency departmen t if Nikos develops a fever that will not go down with Tylenol or Motrin, any difficulty br eathing, if he is not eating or drinking enough to urinate 4 times in 24 hours, if he become s lethargic or increasingly irritable, if he has worsening pain, if he is vomiting and unabl e to tolerate his oral antibiotic or if you have any further emergent concerns. Otherwise, please follow-up with your regular physician in 3-4 days. AttachmentsThe following attachments cannot be sent through Care Everywhere.URINARY TRACT I NFECTIONS (UTIS), UNDERSTANDING (SWEDISH)documented in this encounter Medications at Time of [...] | | Take 1 tablet by | 5 | 0 | 11/12/19 | | | sulfamethoxazole-tri | mouth 2 times daily | tablet | | 17 | 7 | | methoprim (BACTRIM | for 5 doses. | | | | | | DS) 800-160 mg per | | | | | | | tablet [...] + | URINALYSIS WITH | STAT | 11/10/2016 | | Results for this | | MICROSCOPIC | | 10:44 PM | | procedure are in the | | | | PDT | | results section. | + +--------+ + + + | CULTURE, URINE | STAT | 11/10/2016 | | Results for this | | | | 10:36 PM | | procedure are in the | | | | PDT | | results section. | + +--------+ + + + documented in this encounter Results Urinalysis With Microscopic (11/10/2016 10:44 PM PDT) + + + + + + | Component | Value | Ref Range | Performed | Pathologist | | | | | At | Signature | + + + + + + | Color, | Yellow | | [facility] | | | Urine | | | [facility] | | | | | | HEART | | | | | | MEDICAL | | | | | | CENTER | | | | | | LABORATORY | | + + + + + + | Clarity | Hazy | | [facility] | | | | | | [facility] | | | | | | HEART | | | | | | MEDICAL | | | | | | CENTER | | | | | | LABORATORY | | + + + + + + | Glucose, | Negative | Negative mg/dL | [facility] | | | Urine | | | [facility] | | | | | | HEART | | | | | | MEDICAL | | | | | | CENTER | | | | | | LABORATORY | | + + + + + + | Bilirubin, | Negative | Negative | [facility] | | | Urine | | | [facility]CR[facility] | | | | | | HEART | | | | | | MEDICAL | | | | | | CENTER | | | | | | LABORATORY | | + + + + + + | Ketones, | Negative | Negative mg/dL | [facility] | | | Urine | | | [facility]CR[facility] | | | | | | HEART | | | | | | MEDICAL | | | | | | CENTER | | | | | | LABORATORY | | + + + + + + | Specific | 1.016 | 1.001 - 1.030 | [facility] | | | [place] | | | [facility]CR[facility] | | | | | | HEART | | | | | | MEDICAL | | | | | | CENTER | | | | | | LABORATORY | | + + + + + + | pH, Urine | 6.0 | 5.0 - 7.5 | [facility] | | | | | | [facility]CR[facility] | | | | | | HEART | | | | | | MEDICAL | | | | | | CENTER | | | | | | LABORATORY | | + + + + + + | Protein, | 100 (A) | Negative mg/dL | [facility] | | | Urine | | | SACR[facility] | | | | | | HEART | | | | | | MEDICAL | | | | | | CENTER | | | | | | LABORATORY | | + + + + + + | Urobilinoge | <2.0 | <2.0 mg/dL | [facility] | | | n, Urine | | | SACR[facility] | | | | | | HEART | | | | | | MEDICAL | | | | | | CENTER | | | | | | LABORATORY | | + + + + + + | Nitrite, | Negative | Negative | [facility] | | | Urine | | | SACR[facility] | | | | | | HEART | | | | | | MEDICAL | | | | | | CENTER | | | | | | LABORATORY | | + + + + + + | Blood, | Small (A) | Negative | [facility] | | | Urine | | | [facility]CR[facility] | | | | | | HEART | | | | | | MEDICAL | | | | | | CENTER | | | | | | LABORATORY | | + + + + + + | Leukocyte | Large (A) | Negative | [facility] | | | Esterase, | | | [facility]CR[facility] | | | Urine | | | HEART | | | | | | MEDICAL | | | | | | CENTER | | | | | | LABORATORY | | + + + + + + | WBC UA | >182 (H) | <6 /hpf | [facility] | | | | | | [facility] | | | | | | HEART | | | | | | MEDICAL | | | | | | CENTER | | | | | | LABORATORY | | + + + + + + | RBC UA | 1 | <3 /hpf | [facility] | | | | | | [facility] | | | | | | HEART | | | | | | MEDICAL | | | | | | CENTER | | | | | | LABORATORY | | + + + + + + | WBC CLUMPS | Occasional (A) | None seen /hpf | [facility] | | | UA | | | SACRED | | | | | | HEART | | | | | | MEDICAL | | | | | | CENTER | | | | | | LABORATORY | | + + + + + + | BACTERIA UA | Present | /hpf | [facility] | | | | | | [facility] | | | | | | HEART | | | | | | MEDICAL | | | | | | CENTER | | | | | | LABORATORY | | + + + + + + | SQUAMOUS | Not clinically | /lpf | [facility] | | | EPITHELIAL | significant.Comment: | | [facility]CRED | | | UA | Healthy individuals show | | HEART | | | | up to FEW squamous | | MEDICAL | | | | epithelial cells in the | | CENTER | | | | urine, depending on | | LABORATORY | | | | collection method. | | | | + + + + + + + + | Specimen | + + | Urine specimen | | (specimen) - Urine, | | Clean Catch | + + + + + + + | Performing | Address | City/State/Zipcode | Phone Number | | Organization | | | | + + + + + | [facility] | [address] | [place] [address] | | | [facility] | | | | | LABORATORY | | | | + + + + + Culture, Urine (11/10/2016 10:36 PM PDT) + + + + + + | Component | Value | Ref Range | Performed | Pathologist | | | | | At | Signature | + + + + + + | Specimen | Urine, Clean Catch | | [facility] | | | Source | | | [facility] | | | | | | HEART | | | | | | MEDICAL | | | | | | CENTER | | | | | | LABORATORY | | + + + + + + | RESULT | >100,000 Organisms/mL | | [facility] | | | | Escherichia coli (A) | | [facility]CR[facility] | | | | | | HEART | | | | | | MEDICAL | | | | | | CENTER | | | | | | LABORATORY | | + + + + + + | Status | 11/12/2016 Final | | [facility] | | | | | | [facility] | | | | | | HEART | | | | | | MEDICAL | | | | | | CENTER | | | | | | LABORATORY | | + + + + + + | ORGANISM | Escherichia coli | | [facility] | | | | | [facility] | | | | | | HEART | | | | | | MEDICAL | | | | | | CENTER | | | | | | LABORATORY | | + + + + + + + + | Specimen | + + | Urine specimen | | (specimen) - Urine, | | Clean Catch | + + + + + + + | Organism | Antibiotic | Method | Susceptibility | + + + + + | Escherichia coli | Ampicillin | SUSCEPTIBILITY | Resistant | + + + + + | Escherichia coli | Amoxicillin + | SUSCEPTIBILITY | Sensitive | | | Clavulanate | | | + + + + + | Escherichia coli | Cefazolin | SUSCEPTIBILITY | Sensitive | + + + + + | Escherichia coli | Ciprofloxacin | SUSCEPTIBILITY | Sensitive | + + + + + | Escherichia coli | Gentamicin | SUSCEPTIBILITY | Sensitive | + + + + + | Escherichia coli | Levofloxacin | SUSCEPTIBILITY | Sensitive | + + + + + | Escherichia coli | Nitrofurantoin | SUSCEPTIBILITY | Sensitive | + + + + + | Escherichia coli | Tetracycline | SUSCEPTIBILITY | Sensitive | + + + + + | Escherichia coli | Piperacillin + | SUSCEPTIBILITY | Sensitive | | | Tazobactam | | | + + + + + | Escherichia coli | Tobramycin | SUSCEPTIBILITY | Sensitive | + + + + + | Escherichia coli | Trimethoprim + | SUSCEPTIBILITY | Sensitive | | | Sulfamethoxazole | | | + + + + + + + | Comment: >100,000 | | Organisms/mL | | Escherichia coli | + + + + + + + | Performing | Address | City/State/Zipcode | Phone Number | | Organization | | | | + + + + + | [facility] | [address] | [place] [address] | | | [facility] | | | | | LABORATORY | | | | + + + + + documented in this encounter Visit Diagnoses + + | Diagnosis | + + | Pyelonephritis - Primary Pyelonephritis, unspecified | + + documented in this encounter Administered Medications + +--------+ +------+------+------+ | Medication Order | MAR | Action | Dose | Rate | Site | | | Action | Date | | | | + +--------+ +------+------+------+ | ondansetron (ZOFRAN ODT) | Given | 11/11/19 | 4 mg | | | | disintegrating tablet 4 mg 4 mg, | | 17 10:22 | | | | | Oral, ONCE PRN, Nausea, Starting | | PM PDT | | | | | 11/10/16 at 2217, For 1 dose, | | | | | | | Max Dose: 8-15 kg = 2 mg max | | | | | | | dose >15 kg = 4 mg max dose, | | | | | | + +--------+ +------+------+------+ +---+---+ | | | +---+---+ + +-------+ + +---+---+ | sulfamethoxazole-trimethoprim | Given | 11/11/19 | 1 tablet | | | | (BACTRIM DS) 800-160 mg per | | 17 11:39 | | | | | tablet 1 tablet 1 tablet (160 | | PM PDT | | | | | mg), Oral, ONCE, [place] 11/10/16 at | | | | | | | 2335, For 1 dose, Indications: | | | | | | | UTI - UPPER | | | | | | + +-------+ + +---+---+ +---+---+ | | | +---+---+ documented in this encounter"
--- OUTSIDE RECORDS SUMMARY | ~2019-09-01 | XMS | Encounter Summary ---
Demographics + + + | Address | [address] | | | [place] [address] | + + + | Home Phone | | + + + | Preferred Language | Unknown | + + + | Marital Status | Legally | + + + | Taoist Affiliation | Unknown | + + + | Race | Unknown | + + + | Ethnic Group | Unknown | + + + Author + + + | Author | [facility] | | | and [place] | + + + | Organization | [facility] | | | and [place] | + + + | Address | Unknown | + + + | Phone | Unavailable | + + + Support + + + + + | Name | Relationship | Address | Phone | + + + + + | Neno Winters | ECON | [address] | | | | | [place] [address] | | + + + + + | Joelle Sharp | SHARYN | [place] | | | | | [place] | | + + + + + Care Team Providers + +------+ + | Care Rod Puller And Coiler Name | Role | Phone | + [...] Provider Unknown | | | | | [address] | [phone] | | | | | [phone] | | | +--------+ + + + [...]
--- OUTSIDE RECORDS SUMMARY | ~2019-09-01 | XMS | Encounter Summary ---
Demographics + + + | Address | [address] [facility] [facility] | | | [place] [address] | + + + | Home Phone | | + + + | Preferred Language | Unknown | + + + | Marital Status | Legally | + + + | Cheondoism Affiliation | Unknown | + + + | Race | Unknown | + + + | Ethnic Group | Unknown | + + + Author + + + | Author | [facility] | | | and [place] | + + + | Organization | [facility] | | | and [place] | + + + | Address | Unknown | + + + | Phone | Unavailable | + + + Support + + + + + | Name | Relationship | Address | Phone | + + + + + | Neno Winters | ECON | [address] | | | | | [place] [address] | | + + + + + | Joelle Sharp | SHARYN | [place] | | | | | [place] | | + + + + + Care Team Providers + +------+ + | Care Sales Support Advisor Name | Role | Phone | + +------+ + | Corey Yuan MD | PCP | | + +------+ + Reason for Visit +--------+ + | Reason | Comments | +--------+ + | Other | due in August for VANGIE then appt to see Dr. Ortega | +--------+ + Encounter Details +--------+ + + + + | Date | Type | Department | Care Team | Description | +--------+ + + + + | 07/28/ | Telephone | [facility] | Anthony Ortega MD | Other (due in | | 2019 | | [address] | [address] | August for VANGIE then | | | | [address] [place] | [address] [place] | appt to see | | | | [address] | [address] | [place]) | | | | [phone] | | | +--------+ + + + [...]
--- OUTSIDE RECORDS SUMMARY | ~2019-09-01 | XMS | Encounter Summary ---
Demographics + + + | Address | [address] [facility] [facility] | | | [place] [address] | + + + | Home Phone [...] Author | [facility] | | | and [place]ibal | + + + | Organization | [facility] | | | and [place] | + + + | Address | Unknown | + + + | Phone | Unavailable | + + + Support + + + + + | Name | Relationship | Address | Phone | + + + + + | Neno Winters | ECON | [address] | | | | | [place] [address] | | + + + + + | Joelle Sharp | ECON | [place] | | | | | [place] | | + + + + + Care Team Providers + +------+ + | Care Echo Vasc Tech Name | Role | Phone | + +------+ + | Corey Yuan MD | PCP | | + +------+ + Encounter Details +--------+ + + + + | Date | Type | Department | Care Team | Description | +--------+ + + + + | 08/21/ | Orders Only | [facility] | Anthony Ortega MD | Atrophy, kidney | | 2018 | | [address] | [address] | (Primary Dx) | | | | [address] [place], [place] | [address] [place] | | | | | [address] | [address] | | | | | [phone] | | | +--------+ + + + [...] as of this encounter Plan of Treatment + +------+--------+ + + | Name | Type | Priori | Associated Diagnoses | Order Schedule | | | | ty | | | + +------+--------+ + + | Creatinine | Lab | Routin | Atrophy, kidney | 1 Occurrences | | | | e | | starting 08/21/2018 | | | | | | until 08/21/2019 | + +------+--------+ + + documented as of this encounter Visit Diagnoses + + | Diagnosis | + + | Atrophy, kidney - Primary Renal sclerosis, unspecified | + + documented in this encounter"
--- OUTSIDE RECORDS SUMMARY | ~2019-09-01 | XMS | Encounter Summary ---
Demographics + + + | Address | [address] [facility] | | | [place] [address] | + + + | Home Phone | | + + + | Preferred Language | Unknown | + + + | Marital Status | Legally | + + + | Alevism Affiliation | Unknown | + + + | Race | Unknown | + + + | Ethnic Group | Unknown | + + + Author + + + | Author | [facility] | | | and [place]ibal | + + + | Organization | [facility] | | | and [place] | + + + | Address | Unknown | + + + | Phone | Unavailable | + + + Support + + + + + | Name | Relationship | Address | Phone | + + + + + | Neno Winters | ECON | [address] | | | | | [place] [address] | | + + + + + | Joelle Sharp | ECON | [place] | | | | | [place] | | + + + + + Care Team Providers + +------+ + | Care Instructional Services Librarian Name | Role | Phone | + [...] | | [facility] | [address] | (Primary Dx); | | | | CENTER [address] [place], [place] | Inflammatory | | | | [address] | [address] | reaction due to | | | | [place], [place] | | indwelling ureteral | | | | [address] | | stent, initial | | | | [phone] | | encounter (HCC) | +--------+ + [...] | | | | | | | ([facility]) | | | | | [...] | | [facility] | | | | [facility] [address] | | | | | | [place] [address] | | | | + + + + + + + + | Specimen | + + | Blood specimen | | (specimen) | + + + + + + + | Performing | Address | City/State/Zipcode | Phone Number | | Organization | | | | + + + + + | [facility] | [address] [facility] | [place] [address] | | | [facility] | | [...] WBC | [facility] | | | | [address] | | [place] | | | | [place] [address] | | LABORATORY | | | |Performed by [place] [address] [place] [address] | | CERNER | | | | [...] + | [facility] | [address] | [place] [address] | | | FAMILY LAB[facility]ATORY | | [...] - 1.030 | [facility] | | | [place] | | | [facility] | | [...] | | | SOURCE | Performed by [facility] [address] | | [place] | | | | [address], | | LABORATORY | | | | [place] [address] | | [facility] | | | | [...] + + + | [facility] | [address] [facility] | [place] [address] | | | FAMILY LABORATORY | | [...] SACRED | | | | Performed by [facility] [address] | | HEART | | | | [address] | | MEDICAL | | | | [address] | | CENTER | | | | [...] + + | [facility] | [address] | [place] [address] | | | [facility] | | | | | LABORATORY CERNER | | | | + + + + + POCT Urinalysis Dipstick Automated (01/15/2018 3:23 AM PDT) + + + + + + | Component | Value | Ref Range | Performed | Pathologist | | | | | At | Signature | + + + + + + | Color, UA, | Gackle (A) | Yellow, Light | | | [...] 1.001 - 1.030 | | | | [place], | | | | | | UA, [...] | | | | | Pain, Starting [facility] 01/15/18 at | | | | [...]
--- OUTSIDE RECORDS SUMMARY | ~2019-09-01 | XMS | Encounter Summary ---
Demographics + + + | Address | [address] [facility] | | | [place] [address] | + + + | Home Phone | | + + + | Preferred Language | Unknown | + + + | Marital Status | Legally | + + + | Mormon Affiliation | Unknown | + + + | Race | Unknown | + + + | Ethnic Group | Unknown | + + + Author + + + | Author | [facility] | | | and [place] | + + + | Organization | [facility] | | | and [place] | + + + | Address | Unknown | + + + | Phone | Unavailable | + + + Support + + + + + | Name | Relationship | Address | Phone | + + + + + | eNno Winters | ECON | [address] | | | | | [place] [address] | | + + + + + | Joelle Sharp | SHARYN | [place] | | | | | [place] | | + + + + + Care Team Providers + +------+ + | Care Brickmason Apprentice Name | Role | Phone | + [...] [address] | | | | | [phone] | [address] | | | | | | [place] [address] | | | | | | [phone] | | | | | | | [...]
--- OUTSIDE RECORDS SUMMARY | ~2019-09-01 | XMS | Encounter Summary ---
Demographics + + + | Address | [address] [facility] | | | [place] [address] | + + + | Home Phone | | + + + | Preferred Language | Unknown | + + + | Marital Status | Legally | + + + | Church Affiliation | Unknown | + + + | Race | Unknown | + + + | Ethnic Group | Unknown | + + + Author + + + | Author | [facility] | | | and [place] | + + + | Organization | [facility] | | | and [place] | + + + | Address | Unknown | + + + | Phone | Unavailable | + + + Support + + + + + | Name | Relationship | Address | Phone | + + + + + | Neno Winters | ECON | [address] | | | | | [place] [address] | | + + + + + | Joelle Sharp | SHARYN | [place] | | | | | [place] | | + + + + + Care Team Providers + +------+ + | Care Extractor Operator Helper Name | Role | Phone | + [...] + + | 11/18/ | Office | [place] [facility] | Corey Yuan, | 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 He has graduated HS and is working @ [employer]. He is single and unattached. He has [...] ibuprofen, nitrofurantoin, and ondansetron, and the f [facility] Facility-Administered Medications: famotidine and ondansetron. Past Medical [...] LAB | | | | | | [place] | | + + + + + + | Creatinine | 0.7 | 0.7 - 1.3 mg/dL | [facility] | | | | | | [place] | | + + + + + + | BUN | 7 (L) | 8 - 20 mg/dl | [facility] | | | | | | [place] | | + + + + + + | BUN/Creatin | 10.0 | 0.0 - 100.0 | [facility] | | | ine Ratio | | RATIO | [place] | | + + + + + + | Phosphorus | 4.9 (H) | 2.4 - 4.7 mg/dL | [facility] | | | | | | [place] | | + + + + + + | Calcium | 9.4 | 8.4 - 10.3 | [facility] | | | | | mg/dl | [place] | | + + + + + + | Albumin | 3.8 | 3.5 - 4.8 g/dL | [facility] | | | | | | [place] | | + + + + + + | Na | 138 | 136 - 144 mEq/l | [facility] | | | | | | [place] | | + + + + + + | K | 4.8 | 3.5 - 5.3 mEq/l | [facility] | | | | | | [place] | | + + + + + + | Cl | 100 (L) | 101 - 111 mEq/l | [facility] | | | | | | [place] | | + + + + + + | CO2 | 28.0 | 22.0 - 31.0 | [facility] | | | | | mEq/L | [place] | | + + + + + + | Estimated | 156.12Comment: For | >=60.00 mL/min | [facility] | | | GFR | -Americans | | [place] | | | | multiply eGFR value [...] | [address], | [place] [address] | | | | #LL10 | | [...] LAB | | | | | | [place] | | + +---------+ + + + | HDL | 28 (L) | 40 - 59 mg/dL | [facility] | | | | | | [place] | | + +---------+ + + + | Triglycerid | 46 | 0 - 150 mg/dL | [facility] | | | es | | | [place] | | + +---------+ + + + | Fasting? | UNKNOWN | HRS | [facility] | | | | | | [place] | | + +---------+ + + + | LDL, | 65 | 0 - 130 mg/dL | [facility] | | | Calculated | | | [place] | | + +---------+ + + + + + | Specimen | + + | Blood | + + + + + + + | Performing | Address | City/State/Zipcode | Phone Number | | Organization | | | | + + + + + | [facility] [place] | [address], | [place] [id number] | | | | #[id number] | | [...] | | | | | [facility] | [place] | | + +-------+ + + + + + | Specimen | + + | Blood | + + + + + + + | Performing | Address | City/State/Zipcode | Phone Number | | Organization | | | | + + + + + | [facility] [place] | [address], | [place] [id number] | | | | #LL10 | | [...]
--- OUTSIDE RECORDS SUMMARY | ~2019-09-01 | XMS | Encounter Summary ---
Demographics + + + | Address | [address] | | | [place] [address] | + + + | Home Phone [...] | [facility] | | | and [place]ibal | + + + | Organization | [facility] | | | and [...] | | | | | [place] [address] | | + + + + + | Joelle Sharp | ECON | Sig[place] | | | | | [place] | | + + + + + Care Team Providers + +------+ + | Care Plater Hot Dip Name | Role | Phone | + +------+ + PCP | Unavailable | + +------+ + Encounter Details +--------+ + + + + | Date | Type | Department | Care Team | Description | +--------+ + + + + | 11/13/ | Hospital | [facility] | [facility] | | | 2007 | Encounter | [facility] | MD [address]iqu[address] | | | | | EMERGENCY CENTER | Ave - Pediatric ER | | | | | [address] | [place] [address] | | | | | [place] | [phone] | | | | | [address] | | | | | | [phone] | | | +--------+ + + + [...]
--- OUTSIDE RECORDS SUMMARY | ~2019-09-01 | XMS | Encounter Summary ---
Demographics + + + | Address | [address] | | | [place] [address] | + + + | Home Phone | | + + + | Preferred Language | Unknown | + + + | Marital Status | Legally | + + + | Advent Affiliation | Unknown | + + + | Race | Unknown | + + + | Ethnic Group | Unknown | + + + Author + + + | Author | [facility] | | | and [place] | + + + | Organization | [facility] [...] | | | | | [place] [address] | | + + + + + | Joelle Sharp | ECON | Sigrid | | | | | [place] | | + + + + + Care Team Providers + +------+ + | Care Method Consultant Name | Role | Phone | + +------+ + | Corey Yuan MD | PCP | | + +------+ + Reason for Visit + + + | Reason | Comments | + + + | Follow-up | | + + + Evaluate & Treat (Routine) +--------+--------+ + + + + | Status | Reason | Specialty | Diagnoses / | Referred By | Referred To | | | | | Procedures | Contact | Contact | +--------+--------+ + + + + | Closed | | Urology | Diagnoses | Kwabena, | Shannon, | | | | | 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 Bazan, | MD Anthony | | | | | kidney | [address] | [address] | | | | | (terminal) | [address] | [address] | | | | | Encounter | [address] | [place] | | | | | for surgical | [place] | [address] Phone: | | | | | aftercare | [address] | [phone] | | | | | following | Phone: | Fax: | | | | | surgery on | [phone] | [phone] | | | | | the | Fax: | | | | | | genitourinar | [phone] | | | | | | y system | | | | | | | neph, BMP | | | | | | | prior | | | | | | | Procedures | | | | | | | [place] POST-OP | | | | | | | FOLLOW-UP | | | | | | | VISIT CC | | | | | | | POST-OP | | | +--------+--------+ + + + + Encounter Details +--------+---------+ + + + | Date | Type | Department | Care Team | Description | +--------+---------+ + + + | 02/19/ | Office | [facility] | Anthony Ortega MD | Hydronephrosis, | | 2018 | Visit | [address] | [address] | unspecified | | | | [address] | [address] [place] | hydronephrosis type | | | | [place] | [address] | (Primary Dx) | | | | [address] | | | | | | [phone] | | | +--------+---------+ + + + [...] + + + | Blood Pressure | 110/60 | 02/19/2018 12:53 PM | | | | | PDT [...] + + + + | Weight | 82.1 kg (181 lb) | 02/19/2018 12:53 PM | | | | | PDT | | + + + + + | Height | 185.4 cm (6' 1") | 02/19/2018 12:53 PM | | | | | PDT | | + + + + + | Body Mass Index | 23.88 | 02/19/2018 12:53 PM | | | | | PDT [...] documented as of this encounter Progress Notes Anthony Ortega MD - 02/19/2018 12:50 PM PDTFormatting of this note might be different from t he original. [facility] OFFICE NOTE Primary Care Physician: Corey Yuan PATIENT NAME: August Winters : 2000 TODAY'S DATE: 02/19/2018 CC: History OF PRESENT ILLNESS: August Winters is a 17 y.o. male status post right partial nephrectomy on 01/28/18, her e today for follow-up. 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 Postoperatively he did wel l, he had some gross hematuria that is slowly improving. His pathology is listed below: FINAL DIAGNOSIS: Kidney, right pole,partial nephrectomy: Benign kidney with calyceal dilation, tubulointerstitial inflammation, werner bal glomerulosclerosis and atrophy, consistent with obstruction. Verified By: HARESH RUDOLPH PAST MEDICAL HISTORY Past Medical History: Diagnosis Date ADHD (attention deficit hyperactivity disorder) Anxiety Depression Failed moderate sedation during procedure "I COULD FEEL EVERYTHING" H/O toe surgery TOENAIL INGROWN MDRO (multiple drug resistant organisms) resistance negative Migraines ODD (oppositional defiant disorder) Renal insufficiency nephrostomy tube Substance abuse PAST SURGICAL HISTORY Past Surgical History: Procedure Laterality Date IR PROCEDURE Right 12/11/2017 Procedure: I/R Procedure; Surgeon: Uriel Yan MD; Location: [facility] CV LAB OTHER SURGICAL HISTORY Right 11/14/2017 Procedure: Right Percutaneous Nephrostomy Tube Placement; Surgeon: Uriel Yan MD; Location: [facility] CV LAB OTHER SURGICAL HISTORY Right 12/11/2017 Procedure: Ureteral stent placement; Surgeon: Uriel Yan MD; Location: [facility] CV LAB OTHER SURGICAL HISTORY Right 12/17/2017 Procedure: right neph tube removed; Surgeon: Ray Marquez MD; Location: [facility] CV LAB PARTIAL NEPHRECTOMY Right 01/28/2018 Procedure: ROBOTIC ASSISTED PARTIAL NEPHRECTOMY REMOVAL URTERAL STENT REMOVAL INTRAOPERAT CLEM ULSTRASOUND WITH IMMUNOSSAY IMAGING; Surgeon: Anthony Ortega MD; Location: [facility] MAIN OR MEDICATIONS Current Outpatient Prescriptions Medication Sig Dispense Refill ascorbic acid (VITAMIN C) 500 mg tablet Take 500 mg by mouth Daily. docusate sodium (COLACE) 100 mg capsule Take 1-2 capsules by mouth Daily. 30 capsule 0 oxyCODONE-acetaminophen (PERCOCET) 5-325 mg per tablet Take 1-2 tablets by mouth every 6 hours as needed for Pain. 30 tablet 0 No current facility-administered medications for this visit. Facility-Administered Medications Ordered in Other Visits Medication Dose Route Frequency Provider Last Rate Last Dose famotidine (PEPCID) injection Intravenous PRN Roxie Damon, INSECTICIDE MAKER 20 mg at 1209 ondansetron (ZOFRAN) injection Intravenous PRN Roxie Trytko, INSECTICIDE MAKER 4 mg at 0936 ALLERGIES No Known Allergies PHYSICAL EXAM There were no vitals taken for this visit. Physical Exam Constitutional: He appears well-developed and well-nourished. No distress. Pulmonary/Chest: No respiratory distress. Abdominal: Soft. He exhibits no distension. Incisions are clean, dry, intact with expected post operative change, no evidence of fascia l defect or hernia, no erythema or calor Diagnostic Studies: Bladder Ultrasound U/A Lab Results Component Value Date RBCUR Large (A) 01/15/2018 LEUKOCYTESUR Trace (A) 01/15/2018 NITRITEPOC Negative 01/15/2018 PROTEINPOC >=300 mg/dL (A) 01/15/2018 Laboratory studies and imaging were personally reviewed by me. IMPRESSION: 1. Status post partial nephrectomy with benign pathology for duplicated system PLAN / RECOMMENDATIONS: His gross hematuria should continue to clear the coming weeks, I gave him some Motrin for p ain control as his renal function is normal, and I would recommend a renal ultrasound in 6 [facility] Electronically Signed by: Anthony Ortega MD 02/19/2018 at 12:53 CC: Corey Yuan MD [address] [address] documented in this encou nter Plan of Treatment + + +--------+ + + | Name | Type | Priori | Associated Diagnoses | Order Schedule | | | | ty | | | + + +--------+ + + | POCT Urinalysis | Point of | Routin | Hydronephrosis, | Every 6 months for | | Dipstick | Care | e | unspecified | 99 Occurrences | | Non-Automated | Testing | | hydronephrosis type | starting 02/19/2018 | | | | | | until 08/21/2018 | + + +--------+ + + documented as of this encounter Results Renal Limited (07/30/2018 12:25 PM PST) + + | Specimen | + + | | + + + + + | Narrative | Performed At | + + + | [facility] RENAL ULTRASOUND NOTE DATE OF EXAM: | [facility] | | 07/30/2018 Indication: August Winters With history of a | [facility] - | | right partial nephrectomy of [...] + + + | [place] | [facility] [address] | [place] [address] | [phone] | | - IMAGING - [facility] | [place] | | | + + + + + documented in this encounter Visit Diagnoses + + | Diagnosis | + + | Hydronephrosis, unspecified hydronephrosis type - Primary | + + documented in this encounter
--- OUTSIDE RECORDS SUMMARY | ~2019-09-01 | XMS | Encounter Summary ---
Demographics + + + | Address | [address] | | | [place] [address] | + + + | Home Phone | | + + + | Preferred Language | Unknown | + + + | Marital Status | Legally | + + + | Christianity Affiliation | Unknown | + + + | Race | Unknown | + + + | Ethnic Group | Unknown | + + + Author + + + | Author | [facility] | | | and [place] | + + + | Organization | [facility] | | | and [place] | + + + | Address | Unknown | + + + | Phone | Unavailable | + + + Support + + + + + | Name | Relationship | Address | Phone | + + + + + | Neno Winters | ECON | [address] | | | | | [place] [address] | | + + + + + | Joelle Sharp | SHARYN | [place] | | | | | [place] | | + + + + + Care Team Providers + +------+ + | Care Big Data Analytics Lead Name | Role | Phone | + +------+ + PCP | Unavailable | + +------+ + Encounter Details +--------+ + + + + | Date | Type | Department | Care Team | Description | +--------+ + + + + | 08/14/ | Hospital | [facility] | Rodrigo Choudhury | | | 2003 - | Encounter | [facility] | | | | | | PROGRAM [address] | | | | 09/20/ | | [place] | | | | 2004 | | [address] | | | | | | [phone] | | | +--------+ + + + [...]
--- OUTSIDE RECORDS SUMMARY | ~2019-09-01 | XMS | Encounter Summary ---
Demographics + + + | Address | [address] | | | [place] [address] | + + + | Home Phone [...] + + + | Author | [facility] | | | and [place] | + + + | Organization | [facility] | | | and [...] | | | | | [place] [address] | | + + + + + | Joelle Sharp | ECON | [place] | | | | | [place] | | + + + + + Care Team Providers + +------+ + | Care Staff Electronic Warfare Officer Name | Role | Phone | + +------+ + PCP | Unavailable | + +------+ + Encounter Details +--------+ + + + + | Date | Type | Department | Care Team | Description | +--------+ + + + + | 05/25/ | Hospital | [facility] | Devi Rangel W, | | | 2005 | Encounter | [facility] | [address] | | | | | EMERGENCY CENTER | [place] [address] | | | | | [address] | [phone] | | | | | [place] | | | | | | [address] | | | | | | [phone] | | | +--------+ + + + [...]
--- OUTSIDE RECORDS SUMMARY | ~2019-09-01 | XMS | Encounter Summary ---
Demographics + + + | Address | [address] | | | [place] [address] | + + + | Home Phone | | + + + | Preferred Language | Unknown | + + + | Marital Status | Legally | + + + | Roman Catholic Affiliation | Unknown | + + + | Race | Unknown | + + + | Ethnic Group | Unknown | + + + Author + + + | Author | [facility] | | | and Anibal | + + + | Organization | [facility] | | | and Alexandurana | + + + | Address | Unknown | + + + | Phone | Unavailable | + + + Support + + + + + | Name | Relationship | Address | Phone | + + + + + | Neno Booth | ECON | [address] | | | | | [place] [address] | | + + + + + | Joelle Sharp | ECON | Sigrid | | | | | [place] | | + + + + + Care Team Providers + +------+ + | Care Viscose Cellar Worker Name | Role | Phone | + [...] | | | | Accessory | | [place] | | | | | kidney | | [address] Phone: | | | | | Crossing | | [phone] | | | | | vessel and | | Fax: | | | | | stricture of | | [phone] | | | | | ureter | [...] | | | | | | | [place] PARTIAL | | | | | | | REMOVAL OF | | | | | | | KIDNEY [place] | | | | | | | LAP,PARTIAL | | | | | | | NEPHRECTOMY | | | | | | | [place] | | | | | | | CYSTOURETHRO | | | | | | | SCOPY [place] | | | | | | | [...] + + + + | 01/28/ | [facility] | Anthony Ortega MD | Other hydronephrosis | | 2018 - | Encounter | SURGICAL ORTHO 56[address] | [address] [facility] | (Primary Dx) | | | | [address] [facility] | [address] [place], [place] | | | 01/31/ | | [place], [place] | [address] | | | 2017 | | [address] | | | | | | [phone] | | | +--------+ + + + [...] might be different from t he original. 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 [facility] in 1 week. Please call during business hours to set up your urology follow up appointm ent. Electronically Signed by: Anthony Ortega MD, 02/02/2018 13:03 [facility] Wilber Munoz RN - 0 [...] Instructions Instructions Anthony Ortega MD - 01/28/2018 [facility] DISCHARGE INSTRUCTIONS AFTER YOUR PROCEDURE: - [...] issues with gastric ulcers CONTACT INFORMATION: - [facility] Office Number: [facility] Office [phone] [place] Office FOLLOWUP INFORMATION: - will see you [...] capsule 100 mg 100 mg Oral BID PRN Anthony Ortega MD 100 mg a t 01/31/18 [...] mg at 01/29/18 0931 morphine 5 mg/mL ANIMAL SCIENTIST syringe Intravenous Continuous Anthony Ortega MD 150 [...] PRN Roxie Damon CRNA 20 mg at 1209 ondansetron (ZOFRAN) injection Intravenous PRN Roxie Damon CRNA 4 mg at 0936 No Known Allergies [...] MD - 0 01/30/2018 8:53 AM PDT [facility] UROLOGY DAILY PROGRESS NOTE ID: Manuel Booth [...] Signed by: Anthony Ortega MD, 01/30/2018 8:53 [facility] Lubna Jeronimo [facility] Resident - 01/29/2018 2:14 PM PDTPatient shared that 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 He mentioned that he was on admission because of problems he is having to that effect. Lithographic Press Operator Apprentice supported him and patient shared no need. Zohaib Bond, Nursing Studen t - 01/29/2018 10:35 AM PDTWalked patient with stand by assist [address]. With no w alker or cane Zohaib Bond, Director Of Student Services - 01/29/2018 8:50 AM PDTAmbulated patient with stand by assist, no walkers or canes needed. Had IV pole to walk with. Walked 100 feet. Anthony Edmond MD - 01/29/2018 7:50 AM PD T [facility] UROLOGY DAILY PROGRESS NOTE ID: Manuel Booth [...] Signed by: Anthony Ortega MD, 01/29/2018 7:50 [facility] documented in this encou nter Plan [...] | [facility] | | | | by [facility] [address] | | [place] | | | | [facility], | | LABORATORY | | | | [place] [address] | | CERNER | | | | [...] + + | [facility] | [address] | [place] [address] | | | FAMILY LABORATORY | | [...] [facility] | | | | Performed by [facility] [address] | | [place] | | | | [facility], | | LABORATORY | | | | [place] [address] | | CERNER | | | | [...] + | [facility] | [address] | [place] [address] | | | FAMILY LABORATORY | | [...] + + + + | Product | [id number] | | REFERENCE | | | Code | | | [facility] [place] | | | | | | [facility] | | | | | | [facility] | | | | | | [facility] | | | | | | [facility] | | + + + + + + | UNIT # | [id number] | | REFERENCE | | | | | | [facility] [place] | | | | | | [facility] | | | | | | [facility] | | | | | | [facility] | | | | | | CENTER | | + + + + + + | UNIT ABO | A | | REFERENCE | | | | | | [facility] [place] | | | | | | [facility] | | | | | | [facility] | | | | | | [facility] | | | | | | CENTER | | + + + + + + | UNIT RH | POS | | REFERENCE | | | | | | [facility] [place] | | | | | | [facility] | | | | | | [facility] | | | | | | [facility] | | | | | | CENTER | | + + + + + + | Unit Status | IS | | REFERENCE | | | | | | [facility] [place] | | | | | | [facility] | | | | | | [facility] | | | | | | [facility] | | | | | | CENTER | | + + + + + + | Blood | [id number] | | REFERENCE | | | Product | | | [facility] [place] | | | Expiration | | | [facility] | | | Date and | | | [facility] | | | Time | | | BLOOD | | | | | | CENTER | | + + + + + + | Product | [id number] | | REFERENCE | | | Blood Type | | | LAB [place] | | | Barcode | | | [facility] | | | | | | [facility] | | | | | | [facility] | | | | | | CENTER | | + + + + + + | Product | [id number] | | REFERENCE | | | Code | | | [facility] [place] | | | | | | [facility] | | | | | | [facility] | | | | | | [facility] | | | | | | CENTER | | + + + + + + | UNIT # | [id number] | | REFERENCE | | | | | | [facility] [place] | | | | | | [facility] | | | | | | [facility] | | | | | | [facility] | | | | | | CENTER | | + + + + + + | UNIT ABO | A | | REFERENCE | | | | | | [facility] [place] | | | | | | [facility] | | | | | | [facility] | | | | | | [facility] | | | | | | CENTER | | + + + + + + | UNIT RH | POS | | REFERENCE | | | | | | [facility] [place] | | | | | | [facility] | | | | | | [facility] | | | | | | [facility] | | | | | | CENTER | | + + + + + + | Unit Status | IS | | REFERENCE | | | | | | [facility] [place] | | | | | | [facility] | | | | | | [facility] | | | | | | [facility] | | | | | | CENTER | | + + + + + + | Blood | [id number] | | REFERENCE | | | Product | | | [facility] [place] | | | Expiration | | | [facility] | | | Date and | | | [facility] | | | Time | | | BLOOD | | | | | | CENTER | | + + + + + + | Product | [id number] | | REFERENCE | | | Blood Type | | | [facility] [place] | | | Barcode | | | [...] + + + | Specimen Expiration Date: [id number] | RE[facility]ENCE LAB | | | [facility] [facility] | | | [facility] | | | [facility] | + + + + + + + + | Performing | Address | City/State/Zipcode | Phone Number | | Organization | | | | + + + + + | REFERENCE LAB | [address] | [place] [address] | [phone] | | [place] [facility] | | | | | [facility] [...] | | | Comment: | g/dL | [facility] | | [...] | [facility] | | | | by [facility] [address] | | CONSUELOF[facility] FAMILY | | | | [facility], | | LABORATORY | | | | [place] [address] | | CERNER | | | | [...] + | [facility] | [address] [facility]. | [place] [address] | | | FAMILY LABORATORY | | [...] (H) | 65 - 99 mg/dL | [facility] | | | | | | CONSU[facility]OY [...] | | [facility] | | | | [facility] [address] | | | | | | [place] [address] | | | | + + + + + + + + | Specimen | + + | Blood specimen | | (specimen) | + + + + + + + | Performing | Address | City/State/Zipcode | Phone Number | | Organization | | | | + + + + + | [facility] | [address] | [place] [address] | | | FAMILY LABORATORY | | [...] | 0.8Comment: This test | mg/dL | [facility] | | | BODY FLUID | has not been evaluated | | [place] | | | | for fluids other [...] by | | | | | | [facility] [address] | | | | | | [place] [address] | | | | + + + + + + + + | Specimen | + + | Body fluid sample | | (specimen) | + + + + + + + | Performing | Address | City/State/Zipcode | Phone Number | | Organization | | | | + + + + + | [facility] | [address] | [place] [address] | | | FAMILY LABORATORY | | [...] is | | | noted. Signed by: ImerMD soliz Sadaf | | + + + + [...] | [facility] | | | | by [facility] [address] | | [facility] | | | | [facility], | | LABORATORY | | | | [place] [address] | | CERNER | | | | [...] + | [facility] | [address] [facility] | [place] [address] | | | FAMILY LABORATORY | | [...] Estimated | 119Comment: eGFR<60 | >=90 | [facility] | | | GFR | consistent with impaired | mL/min/1.73m2 | [facility] | | | | kidney | | LABORATORY | | | | function.Performed by | | [facility] | | | | [facility] [address] | | | | | | [place] [address] | | | | + + + + + + + + | Specimen | + + | Blood specimen | | (specimen) | + + + + + + + | Performing | Address | City/State/Zipcode | Phone Number | | Organization | | | | + + + + + | [facility] | [address] [facility] | [place] [address] | | | [facility] | | | | | [facility] | [...] | TRACEMASTER | | Duration:500 msP Horizontal Woodman: degP Front Woodman:51 degQ Onset:504 | | | msQRSD Interval:100 msQT Interval:280 msQTcB:435 msQTcF:376 msQRS | | | Horizontal Woodman: degQRS Woodman:-1 degI-40 Horizontal Woodman:68 degI-40 | | | Front Woodman:29 degT-40 Horizontal Woodman: degT-40 Front Woodman:-56 degT | | | Horizontal Woodman:22 degT Wave Woodman:45 degS-T Horizontal Woodman:139 degS-T | | | Front Woodman:150 degSeverity:- ABNORMAL ECG -INTERP:SINUS | | | TACHYCARDIAINTERP:MULTIFORM VENTRICULAR PREMATURE | | | COMPLEXESINTERP:PROBABLE LEFT VENTRICULAR HYPERTROPHYElectronically | | | signed by: Renny GARCIA 01-29-2018 05:45:39 | | |QTcF:376 ms | | |QRS Horizontal Woodman: deg | | |QRS Woodman:-1 deg | | |I-40 Horizontal Woodman:68 deg | | |I-40 Front Woodman:29 deg | | |T-40 Horizontal Woodman: deg | | |T-40 Front Woodman:-56 deg | | |T Horizontal Woodman:22 deg | | |T Wave Woodman:45 deg | | |S-T Horizontal Woodman:139 deg | | |S-T Front Woodman:150 deg | | |Severity:- ABNORMAL ECG - [...] | + + + + + | [facility] | [address] | [place] [address] | [phone] | + + + + + CBC no Differential (01/28/2018 8:12 PM PDT) + + + + + + | Component | Value | Ref Range | Performed | Pathologist | | | | | At | Signature | + + + + + + | WBC | 22.0 (H) | 3.8 - 11.0 K/uL | [facility] | | | | | | [facility] [...] | [facility] | | | | by [facility] [address] | | [facility] | | | | [facility] | | LABORATORY | | | | [place] [address] | | CERNER | | | | [...] + | [facility] | [address] | [place] [address] | | | FAMILY LABORATORY | | [...] 11.5 (L)Comment: | 13.2 - 17.0 | [facility] | | | | Patient's previous | g/dL | [facility] | | | | results reviewed prior | | LABORATORY | | | | to release. | | [facility] | | | | | | | | + + + + + + | Hct | 33.4 (L)Comment: | 39.0 - 50.0 % | [facility] | | | | Performed by [facility] [address] | | [place] | | | | [facility], | | LABORATORY | | | | [place] [address] | | ALEXSANDRANER | | | | [...] + | [facility] | [address] [facility]. | [place] [address] | | | LABORATORY | | | | | CERNER [...] | [facility] | | | | by [facility] [address] | | [place] | | | | [facility] [place], | | LABORATORY | | | | [place] [address] | | CERNER | | | | [...] + | [facility] | [address] [facility] | [place] [address] | | | FAMILY LABORATORY | | [...] | | | | mmol/L | [facility] | | | | | | LABORATORY | | | | | | [facility] | | + + + + + + | K | 4.1 | 3.6 - 5.2 | [facility] | | | | | mmol/L | [facility] | | | | [...] | | [facility] | | | | [facility] [address] | | | | | | [place] [address] | | | | + + + + + + + + | Specimen | + + | Blood specimen | | (specimen) | + + + + + + + | Performing | Address | City/State/Zipcode | Phone Number | | Organization | | | | + + + + + | [facility] | [address] | [place] [address] | | | FAMILY LABORATORY | | | | | [facility] | | | | + + + + + Tissue Request For Pathology (01/28/2018 9:11 AM PDT) + + | Specimen | + + | | + + + + + | Narrative | Performed At | + + + | | [facility] | | MANUEL BOOTH | [place] | | : 2000 AGE: 17 years SEX: Male | LABORATORY | | | [facility] | | Acct: [id number] Location: | | | [facility] SRGORT; 408; 408-01 Case #: | | | [id number] Ordering: ANTHONY ORTEGA MD | | | Client: [facility] Timothy Black | | | Copy To: Printed: 01/30/2018 17:57 | | | PDT SURGICAL | | | PATHOLOGY FINAL REPORTCollected: | | | Received: Responsible | | | Pathologist:01/28/2018 09:11 PDT 01/28/2018 13:22 | | | SUHAIL RUDOLPH MD, [facility] DIAGNOSIS: Kidney, | | | right pole,partial nephrectomy: | | | Benign kidney with calyceal dilation, tubulointerstitial | | | inflammation, global glomerulosclerosis and atrophy, | | | consistent with obstruction.Verified By: HARESH Cai Date: | | | 01/30/18 17:57 PDTPerforming Location: [facility] | | | [address] [place], [place] [address]DRRJA DESCRIPTION:The specimen | | | labeled and [...] defined | | | cortical medullary junctions. Residential Insurance Inspector sections are submitted | | | in (A1-A3).[id number] DESCRIPTION:Histologic sections | | | of all [...] + | [facility] | [address] [facility]. | [place] [address] | | | FAMILY LABORATORY | | [...] | | | POC | Performed by [facility] [address] | | [place] | | | | [facility], | | LABORATORY | | | | [place] [address] | | CERNER | | | | [...] + | [facility] | [address] [facility] | [place] [address] | | | FAMILY LABORATORY | | [...] | | | | | | [facility] [place] | | | | | | [facility] | | | | | | [facility] | | | | | | [facility] | | | | | | CENTER | | + + + + + + | Rh Type | Positive | | REFERENCE | | | | | | LAB [place] | | | | | | [facility] | | | | | | [facility] | | | | | | [facility]LO[facility] | | | | | | CENTER | | + + + + + + + + | Specimen | + + | | + + + + + | Narrative | Performed At | + + + | Specimen Expiration Date: [id number] | REFERENCE LAB | | | [place] | | | [facility] | | | [facility] | + + + + + + + + | Performing | Address | City/State/Zipcode | Phone Number | | Organization | | | | + + + + + | REFERENCE LAB | [address] | [place] [address] | [phone] | | [place] | | | | | [facility] [...] | | | | | | [facility] [place] | | | | | | [facility] | | | | | | [facility] | | | | | | BLOOD | | | | | | CENTER | | + + + + + + | Rh Type | Positive | | REFERENCE | | | | | | [facility] [place] | | | | | | [facility] | | | | | | [facility] | | | | | | BLOOD | | | | | | CENTER | | + + + + + + | Antibody | NegativeComment: Patient | | REFERENCE | | | Screen | is remote crossmatch | | LAB [place] | | | | eligible | | [...] + + + | Specimen Expiration Date: [id number] | REFERENCE LAB | | | [place] [facility] | | | [facility] | | | [facility] | + + + + + + + + | Performing | Address | City/State/Zipcode | Phone Number | | Organization | | | | + + + + + | REFERENCE LAB | [address] | [place] [address] | [phone] | | [facility] [facility] | | | | | [facility] | | | | | [facility]ENTER | | | | + + + + + documented in this encounter Visit Diagnoses + + | Diagnosis | + + | Other hydronephrosis - Primary | + + documented in this encounter Administered Medications + +--------+ + +------+------+ | Medication Order | MAR | Action | Dose | Rate | Site | | | Action | Date | | | | + +--------+ + +------+------+ | acetaminophen (TYLENOL) tablet | Given | 02/01/20 | 1,000 mg | | | | 1,000 mg 1,000 mg, Oral, EVERY 8 | | 18 6:33 | | | | | HOURS (3 times per day), First | | AM PDT | | | | | dose on Fri01/28/18 at 1400, For 3 | | | | | | | days, Start 8 hours after pre-op | | | | | | | dose., Post-op/Phase II | | | | | | + +--------+ + +------+------+ +-------+ + +---+---+ | Given | 01/31/20 | 1,000 mg | | | | | 18 9:26 | | | | | | PM PDT | | | | +-------+ + +---+---+ | Given | 01/31/20 | 1,000 mg | | | | | 18 4:07 | | | | | | PM PDT | | | | +-------+ + +---+---+ +---+---+ | | | +---+---+ + +---------+ +-----+-------+---+ | ceFAZolin in saline (ANCEF) | New Bag | 01/29/20 | 2 g | 100 | | | IVPB 2 g 2 g, Intravenous, | | 18 7:48 | | mL/hr | | | Administer over 30 Minutes, Prior | | AM PDT | | | | | to Incision, Starting 01/28/18 | | | | | | | at 0621, For 1 dose, Administer | | | | | | | in OR, within 1 hour of surgical | | | | | | | incision. Adjust administration | | | | | | | schedule to match OR schedule. | | | | | | | Keep in refrigerator., Pre-op, | | | | | | | Indications: Surgical Prophylaxis | | | | | | + +---------+ +-----+-------+---+ +---+---+ | | | +---+---+ + +---------+ +--------+-------+---+ | ciprofloxacin in dextrose | New Bag | 01/30/20 | 400 mg | 200 | | | (CIPRO) IVPB 400 mg 400 mg, | | 18 10:02 | | mL/hr | | | Intravenous, Administer over 1 | | AM PDT | | | | | Hours, EVERY 12 HOURS (2 times | | | | | | | per day), First dose on Inna | | | | | | | 01/29/18 at 0900, For 1 dose, | | | | | | | Indications: Surgical Prophylaxis | | | | | | + +---------+ +--------+-------+---+ +---+---+ | | | +---+---+ [...] HOURS PRN, Itching, | | | Starting 01/28/18 at 1209, | | | Oral route is preferred., | | | Post-op/Phase II | | + +---+ | | | + +---+ | diphenhydrAMINE (BENADRYL) | | | injection 12.5 mg 12.5 mg, | | | Intravenous, EVERY 4 HOURS PRN, | | | Itching, Starting 01/28/18 at | | | 1209, Oral route is preferred., | | | Post-op/Phase II | | + +---+ | | | + +---+ | diphenhydrAMINE (BENADRYL) | | | tablet 25 mg 25 mg, Oral, EVERY | | | 4 HOURS PRN, Itching, Starting | | | 01/28/18 at 1209, Oral route is | | [...] + +-------+ +--------+---+---+ | fentaNYL (PF) injection 25-50 | Given | 01/29/20 | 25 mcg | | | | mcg 25-50 mcg, Intravenous, | | 18 10:33 | | | | | EVERY 5 MIN PRN, Pain, Starting | | AM PDT | | | | | Fri01/28/18 at 1023, Maximum total | | | | | | | dose 250 mcg. PACU IV Narcotic | | | | | | | Priority: Only use fentanyl for | | | | | | | immediate post-op pain (one dose) | | | | | | | or breakthrough pain when any | | | | | | | other IV narcotics ordered have | | | | | | | been ineffective (if ordered). | | | | | | | If both morphine and | | | | | | | hydromorphone are ordered, use | | | | | | | morphine first, and use | | | | | | | hydromorphone if morphine | | | | | | | ineffective., Recovery/Phase I | | | | | | + +-------+ +--------+---+---+ +---+---+ | | | +---+---+ + +-------+ +--------+---+---+ | gabapentin (NEURONTIN) capsule | Given | 02/01/20 | 200 mg | | | | 200 mg 200 mg, Oral, 3 TIMES | | 18 8:42 | | | | | DAILY, First dose on Fri01/28/18 | | AM PDT | | | | | at 1400, For 3 days, Hold for | | | | | | | over-sedation, dizziness or | | | | | | | visual disturbance and contact | | | | | | | MD., Post-op/Phase II | | | | | | + +-------+ +--------+---+---+ +-------+ +--------+---+---+ | Given | 01/31/20 | 200 mg | | | | | 18 9:26 | | | | | | PM PDT | | | | +-------+ +--------+---+---+ | Given | 01/31/20 | 200 mg | | | | | 18 4:07 | | | | | | PM PDT | | | | +-------+ +--------+---+---+ +---+---+ | | | +---+---+ + +-------+ +--------+---+---+ | HYDROmorphone (DILAUDID) | Given | 01/29/20 | 0.5 mg | | | | injection 0.2-0.5 mg 0.2-0.5 mg, | | 18 10:58 | | | | | Intravenous, EVERY 5 MIN PRN, | | AM PDT | | | | | Pain, Starting 01/28/18 at | | | | | | | 1023, Maximum total dose 4 mg. | | | | | | | PACU IV Narcotic Priority: Only | | | | | | | use fentanyl for immediate | | | | | | | post-op pain (one dose) or | | | | | | | breakthrough pain when any other | | | | | | | IV narcotics ordered have been | | | | | | | ineffective (if ordered). If | | | | | | | both morphine and hydromorphone | | | | | | | are ordered, use morphine first, | | | | | | | and use hydromorphone if morphine | | | | | | | ineffective., Recovery/Phase I | | | | | | + +-------+ +--------+---+---+ +-------+ +--------+---+---+ | Given | 01/29/20 | 0.5 mg | | | | | 18 10:53 | | | | | | AM PDT | | | | +-------+ +--------+---+---+ | Given | 01/29/20 | 0.4 mg | | | | | 18 10:48 | | | | | | AM [...] PDT | | | | | Starting [facility] 01/29/18 at 0602, | | | | [...] | 1,500 mg 1,500 mg, Oral, EVERY | | 18 5:14 | | | | | HOURS PRN, Muscle spasms, | | AM PDT | | | | | Starting 01/28/18 at 1058, | | | | [...] + +---------+ +--------+---+---+ | morphine 5 mg/mL ANIMAL SCIENTIST syringe | New Bag | 01/29/20 | [...] | | | Loading Dose(mg): 0, Starting ANIMAL SCIENTIST | | | | | | | Dose(mg): 1, Incremental | | | | | | | Increase ANIMAL SCIENTIST Dose(mg): 0.5, | | | | | | | Maximum ANIMAL SCIENTIST Dose(mg): 2, Lockout | | | | | | | Interval(min): 10, One Hour | | | | | | | Limit(mg): 15 | | | | | | + +---------+ +--------+---+---+ +---+---+ | | | +---+---+ + +-------+ +------+---+---+ | morphine injection 2-8 mg 2-8 | Given | 01/29/20 | 2 mg | | | | mg, Intravenous, EVERY 2 HOURS | | 18 5:30 | | | | | PRN, Pain, Starting Fri01/28/18 at | | PM PDT | | | | | 1209, If oral route not an | | | | | | | option. Slow IV push, not faster | | | | | | | than 2mg/minute. First dose must | | | | | | | be lowest dose, titrate to | | | | | | | effective dose by repeat of | | | | | | | lowest dose every 30 minutes prn | | | | | | | pain, may not exceed maximum dose | | | | | | | ordered per interval. Use Pasero | | | | | | | Sedation Scale., Post-op/Phase | | | | | | | II | | | | | | + +-------+ +------+---+---+ +-------+ +------+---+---+ | Given | 01/29/20 | 2 mg | | | | | 18 2:50 | | | | | | PM PDT | | | | +-------+ +------+---+---+ | Given | 01/29/20 | 2 mg | | | | | 18 12:41 | | | | | | PM PDT | | | | +-------+ +------+---+---+ + +---+ | | | + +---+ [...] policy and contact | | | provider supervisor inspection and testing, | | + +---+ | | | [...] | | 3 HOURS PRN, Pain, Starting Fri | | AM PDT | | | [...] | promethazine (PHENERGAN) (IV | Given | 01/29/20 | 6.25 mg | | | | ONLY) injection 6.25 mg 6.25 mg, | | 18 11:11 | | | | | Intravenous, EVERY 15 MIN PRN, | | AM PDT | | | | | Nausea, Vomiting, Starting Fri | | | | | | | 01/28/18 at 1023, For 4 doses, | | | | | | | TAKE PRECAUTIONS WHEN | | | | | | | ADMINISTERING Dilute to 10-20mL | | | | | | | with NS. Give over 2-3 minutes | | | | | | | into large vein. Use ondansetron | | | | | | | first if both are ordered., | | | | | | | Recovery/Phase I | | | | | | + [...] +---+---+ | | | +---+---+ + +---------+ +--------+-------+---+ | sodium chloride 0.9% (NS) bolus | New Bag | 01/29/20 | 1,000 | 500 | | | 1,000 mL 1,000 mL, Intravenous, | | 18 2:43 | mLs | mL/hr | | | Administer over 2 Hours, ONCE, | | PM PDT | | | | | 01/28/18 at 1500, For 1 dose | | | | | | + +---------+ +--------+-------+---+ +---+---+ | | | +---+---+ + + + +--------+-------+---+ | sodium chloride 0.9% (NS) | Rate/Dos | 01/30/20 | 10 mLs | 100 | | | infusion at 100 mL/hr, | e Change | 18 6:57 | | mL/hr | | | Intravenous, CONTINUOUS, Starting | | AM PDT | | | | | 01/28/18 at 1230, | | | | | | | Post-op/Phase II | | | | | | + + + +--------+-------+---+ +---------+ +---+-------+---+ | New Bag | 01/29/20 | | 100 | | | | 18 4:12 | | mL/hr | | | | PM PDT | | | | +---------+ +---+-------+---+ | New Bag | 01/29/20 | | 100 | | | | 18 12:40 | | mL/hr | | | | PM PDT | | | | +---------+ +---+-------+---+ +---+---+ | | | +---+---+ documented in this encounter
--- OUTSIDE RECORDS SUMMARY | ~2019-09-01 | XMS | Encounter Summary ---
Demographics + + + | Address | [address] | | | [place] [address] | + + + | Home Phone | | + + + | Preferred Language | Unknown | + + + | Marital Status | Legally | + + + | Yazidism Affiliation | Unknown | + + + | Race | Unknown | + + + | Ethnic Group | Unknown | + + + Author + + + | Author | [facility] | | | and Anibal | + + + | Organization | [facility] | | | and [place] | + + + | Address | Unknown | + + + | Phone | Unavailable | + + + Support + + + + + | Name | Relationship | Address | Phone | + + + + + | Neno Winters | ECON | [address] | | | | | [place] [address] | | + + + + + | Joelle Sharp | ECON | [place] | | | | | [place] | | + + + + + Care Team Providers + +------+ + | Care Customer Service Analyst Name | Role | Phone | + +------+ + | Corey Yuan MD | PCP | | + +------+ + Reason for Visit + + + | Reason | Comments | + + + | Imaging Only | | + + + Evaluate & Treat (Routine) +--------+--------+ + + + + | Status | Reason | Specialty | Diagnoses / | Referred By | Referred To | | | | | Procedures | Contact | Contact | +--------+--------+ + + + + | Closed | | Urology | Diagnoses | Kwabena, | Do Not Use | | | | | Renal mass | Corey Bazan, | - [facility] | | | | | History of | [address] | [place] | | | | | nephrectomy | [address] | [facility] | | | | | hx renal | [address] | [address] | | | | | mass, & | [place] | [address] | | | | | Nephrectomy | [address] | [address] | | | | | lad pt | Phone: | [place] | | | | | Procedures | [phone] | [address] | | | | | ME OFFICE | Fax: | Phone: | | | | | OUTPATIENT | [phone] | [phone] | | | | | VISIT 15 | | Fax: | | | | | MINUTES CC | | [phone] | | | | | PROCEDURE | | | +--------+--------+ + + + + Encounter Details +--------+ + + + + | Date | Type | Department | Care Team | Description | +--------+ + + + + | 07/30/ | Procedure | [facility] | Lakshmi Pascual MD | Other hydronephrosis | | 2018 | visit | [address] | [address] | (Primary Dx) | | | | [address] | [address] [place] | | | | | [place] | [id number] | | | | | [address] | | | | | | [phone] | | | +--------+ + + + [...] documented as of this encounter Progress Notes Lakshmi Pascual MD - 07/30/2018 2:00 PM PST Office ultrasound Patient Name: August Winters : 2000 Indication: Post op Symptoms: right flank pain, dull Prior Treatment: Right partial nephrectomy Patient of DR: Shannon Right Kidney 4.1 x 5.4 x 8.6 cm (86cc) [place] neg Pelvis WNL Ureter prox 1.8 mid 2.6 dist 0.5 cm Left Kidney 5.2 x 5.8 x 12.7 cm (203cc) [place] neg Bladder 6.4 x 8.3 x 8.3 cm Carpenter Assistant Installer Comments: Hydroureter still seen posterior to right kidney, unable to see where the ureter leaves the pelvis. Right kidney and bladder WNL. Tracie Andre RDDC P M Tracie Marc Assembling Motor Builder - 07/30/2018 2:00 PM PST Office ultrasound Patient Name: August Winters : 2000 Indication: Post op Symptoms: right flank pain, dull Prior Treatment: Right partial nephrectomy Patient of DR: Shannon Right Kidney 4.1 x 5.4 x 8.6 cm (86cc) [place] neg Pelvis WNL Ureter prox 1.8 mid 2.6 dist 0.5 cm Left Kidney 5.2 x 5.8 x 12.7 cm (203cc) [place] neg Bladder 6.4 x 8.3 x 8.3 cm Carpenter Assistant Installer Comments: Hydroureter still seen posterior to right kidney, unable to see where the ureter leaves the pelvis. Right kidney and bladder WNL. Tracie Andre RDMS Electronically signed by Tracie Andre Assembling Motor Builder at 2017 12:35 PM PSTdocumented in this encounter Plan of Treatment Not on filedocumented as of this encounter Visit Diagnoses + + | Diagnosis | + + | Other hydronephrosis - Primary | + + documented in this encounter"
--- OUTSIDE RECORDS SUMMARY | ~2019-09-01 | XMS | Encounter Summary ---
Demographics + + + | Address | [address] | | | [place] [address] | + + + | Home Phone [...] + + + | Author | [facility] | | | and Anibal | + + + | Organization | [facility] | | | and [place] | + + + | Address | Unknown | + + + | Phone | Unavailable | + + + Support + + + + + | Name | Relationship | Address | Phone | + + + + + | Neno Winters | ECON | [address] | | | | | [place] [address] | | + + + + + | Joelle Sharp | ECON | [place] | | | | | [place] | | + + + + + Care Team Providers + +------+ + | Care Gastrointestinal Technician Name | Role | Phone | + +------+ + | Corey Yuan MD | PCP | | + +------+ + Reason for Referral Diagnostic/Screening (Routine) +--------+--------+ + + + + | Status | Reason | Specialty | Diagnoses / | Referred By | Referred To | | | | | Procedures | Contact | Contact | +--------+--------+ + + + + | Closed | | Radiology | Diagnoses | Shannon, | | | | | | Acquired | MD Anthony | | | | | | atrophy of | [address] | | | | | | kidney | [address] | | | | | | Accessory | [place] | | | | | | kidney | [address] | | | | | | Stricture or | Phone: | | | | | | kinking of | [phone] | | | | | | ureter | Fax: | | | | | | Procedures | [phone] | | | | | | IR Procedure | | | +--------+--------+ + + + + Reason for Visit Auth/Cert +--------+--------+ + [...] | +--------+ + + + + | 12/17/ | Hospital | [facility] | Ray Marquez MD | 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 | Encounter | [facility] | | kidney; Accessory | | | | [address] | | kidney; Stricture or | | | | [place] | | kinking of ureter | | | | [address] | | | | | | [phone] | | | +--------+ + + + [...] taking pain medicine. Wait until your healthcare provi marlon says it s OK to drive. [...] side Nausea and vomiting Date Last Reviewed: 09/25/201619993070-5130 [employer]. [address] [place] [address], [place] [address]. All righ ts reserved. This information is [...] help you feel better. Take it as told, shwetha efore pain becomes severe. Also, ask your [...] interact with your prescription medicines or other jbpk-drz-clfyxgg (OTC) medicines. Some prescription medicines have acetaminophen and other ingredients.Using both prescription a nd OTC acetaminophenfor paincan cause you to overdose. Readthe labels on your OTC medi [facility]. This will help youto clearly know [...] of taking these medicines. Date Last Reviewed: 07/25/201619996387-6556 [employer]. [address] [place] [address], [place] [address]. All righ ts reserved. This information is not intended as a substitute for professional medical care. Always follow your healthcare professional's instructions. Patient discharged with escort / route driver coin machines. 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
--- OUTSIDE RECORDS SUMMARY | ~2019-09-01 | XMS | Encounter Summary ---
Demographics + + + | Address | [address] | | | [place] [address] | + + + | Home Phone | | + + + | Preferred Language | Unknown | + + + | Marital Status | Legally | + + + | Sikhism Affiliation | Unknown | + + + | Race | Unknown | + + + | Ethnic Group | Unknown | + + + Author + + + | Author | [facility] | | | and Anibal | + + + | Organization | [facility] | | | and [place] | + + + | Address | Unknown | + + + | Phone | Unavailable | + + + Support + + + + + | Name | Relationship | Address | Phone | + + + + + | Neno Winters | ECON | [address] | | | | | [place] [address] | | + + + + + | Joelle Sharp | ECON | [place] | | | | | [place] | | + + + + + Care Team Providers + +------+ + | Care Preschool Education Director Name | Role | Phone | + [...] | +--------+ + + + + | 01/05/ | Telephone | [facility] | Yvonne Daniel, | ED Follow-up | | 2019 | | Cheryl Monterroso | JEFF | | | | | Medicine [address] | | | | | | [address] | | | | | | [place] | | | | | | [address] | | | | | | [phone] | | | +--------+ + + + [...]
--- OUTSIDE RECORDS SUMMARY | ~2019-09-01 | XMS | Encounter Summary ---
Demographics + + + | Address | [address] | | | [place] [address] | + + + | Home Phone | | + + + | Preferred Language | Unknown | + + + | Marital Status | Legally | + + + | Mosque Affiliation | Unknown | + + + | Race | Unknown | + + + | Ethnic Group | Unknown | + + + Author + + + | Author | [facility] | | | and Anibal | + + + | Organization | [facility] | | | and [place] | + + + | Address | Unknown | + + + | Phone | Unavailable | + + + Support + + + + + | Name | Relationship | Address | Phone | + + + + + | Neno Winters | ECON | [address] | | | | | [place] [address] | | + + + + + | Joelle Sharp | ECON | [place] | | | | | [place] | | + + + + + Care Team Providers + +------+ + | Care Horse Trainer Name | Role | Phone | + +------+ + | Corey Yuan MD | PCP | | + +------+ + Reason for Visit + + + | Reason | Comments | + + + | Overdose | | | (Intentional) | | + + + Encounter Details +--------+ + + + + | Date | Type | Department | Care Team | Description | +--------+ + + + + | 01/04/ | Emergency | [facility] | Greg Strauss MD | Intentional overdose | | 2019 | | [facility] | [address] | of drug in tablet | | | | CENTER [address] | [place], [place] | form ([facility]) (Primary | | | | [address] | [id number] | Dx); Other | | | | [place], [place] | | depression | | | | [address] | | | | | | [phone] | | | +--------+ + + + [...] + + + | Blood Pressure | 116/67 | 01/04/2019 4:40 PM | | | | | PDT | | + + + + + | Pulse | 68 | 01/04/2019 4:40 PM | | | | | PDT | | + + + + + | Temperature | 36.4 C (97.5 F) | 01/04/2019 2:54 PM | | | | | PDT | | + + + + + | Respiratory Rate | 16 | 01/04/2019 2:54 PM | | | | | PDT | | + + + + + | Oxygen Saturation | 99% | 01/04/2019 4:40 PM | | | | | PDT | | + + + + + | Inhaled Oxygen | - | - | | | Concentration | | | | + + + + + | Weight | 81.6 kg (180 lb) | 01/04/2019 2:54 PM | | | | | PDT | | + + + + + | Height | 182.9 cm (6') | 01/04/2019 2:54 PM | | | | | PDT | | + + + + + | Body Mass Index | 24.41 | 01/04/2019 2:54 PM | | | | | PDT [...] + documented as of this encounter Discharge Instructions Instructions Greg Strauss MD - 01/04/2019[facility] will follow up with you. Return to the ER for thoughts of hurting or killing yourself. Follow-up with Terry Garcia for Help [phone] documented in this encounter Medications at Time [...] + + +---------+ + + | ibuprofen | Take 1 tablet by | 30 | 2 | 02/20/20 | | | (ADVIL,MOTRIN) 600 | mouth every 6 hours | tablet | | 18 | 9 | | MG tablet | as needed for Pain. | | [...] documented as of this encounter Progress Notes Sandro Tsang LMFT - 01/04/2019 6:07 PM PDTSW pt denies any SI. Has no hx of same. He stated it was impulsive which he regrets. It r/t custody disputes with mother of his childre n . Pt is open to counseling and [facility] referral. Pt will be staying with current vee Lynch . documented in thi s encounter Plan of Treatment + +------+--------+ + + | Name | Type | Priori | Associated Diagnoses | Date/Time | | | | ty | | | + +------+--------+ + + | ECG 12 lead | ECG | Routin | | 01/04/2019 4:00 PM | | | | e | | PDT | + +------+--------+ + + documented as of this encounter Procedures + +--------+ + + + | Procedure Name | Priori | Date/Time | Associated Diagnosis | Comments | | | ty | | | | + +--------+ + + + | ECG 12 LEAD | Routin | 01/04/2019 | | | | | e | 4:00 PM | | | | | | PDT | | | + +--------+ + + + | DRUGS OF ABUSE, | STAT | 01/04/2019 | | Results for this | | SCREEN, URINE | | 3:52 PM | | procedure are in the | | | | PDT | | results section. | + +--------+ + + + | CBC WITH | STAT | 01/04/2019 | | Results for this | | DIFFERENTIAL | | 3:29 PM | | procedure are in the | | | | PDT | | results section. | + +--------+ + + + | ALCOHOL | STAT | 01/04/2019 | | Results for this | | | | 3:29 PM | | procedure are in the | | | | PDT | | results section. | + +--------+ + + + | COMPREHENSIVE | STAT | 01/04/2019 | | Results for this | | METABOLIC PANEL | | 3:29 PM | | procedure are in the | | | | PDT | | results section. | + +--------+ + + + documented in this encounter Results Drugs of Abuse, Screen, Urine (01/04/2019 3:52 PM PDT) + + + + + + | Component | Value | Ref Range | Performed | Pathologist | | | | | At | Signature | + + + + + + | Tricyclics, | Negative | Negative | [facility] | | | UR | | | [facility] | | | | | | [facility] | | | | | | [facility] | | + + + + + + | Amphetamine | NegativeComment: | Negative | [facility] | | | Screen, | Samples from patients | | [facility] | | | Urine | taking ploz-azo-jqhdkbx | | LABORATORY | | | | medications may yield | | [facility] | | | | false positive results | | | | | | for amphetamines. | | | | | | Confirmation testing | | | | | | of positive results is | | | | | | suggested and available | | | | | | upon request at an | | | | | | additional charge. | | | | + + + + + + | Barbiturate | Negative | Negative | [facility] | | | Screen | | | [facility] | | | Urine | | | LABORATORY | | | | | | [facility] | | + + + + + + | Benzodiazep | NegativeComment: | Negative | [facility] | | | abigail | Benzodiazepines are | | [facility] | | | Screen, | extensively metabolized | | LABORATORY | | | Urine | and excretion rates | | [facility] | | | | differ significantly | | | | | | among individuals. | | | | | | Results may be below | | | | | | the detection level | | | | | | because of shortened | | | | | | half-lives. Exercise | | | | | | caution when monitoring | | | | | | compliance to specific | | | | | | drug programs. | | | | + + + + + + | Cocaine | Negative | Negative | [facility] | | | Screen, | | | [facility] | | | Urine | | | LABORATORY | | | | | | [facility] | | + + + + + + | Opiate | Negative | Negative | [facility] | | | Screen, | | | [facility] | | | Urine | | | LABORATORY | | | | | | [facility] | | + + + + + + | Oxycodone, | Negative | Negative | [facility] | | | UR | | | [facility] | | | | | | LABORATORY | | | | | | [facility] | | + + + + + + | Cannabinoid | Positive (A) | Negative | [facility] | | | s Screen, | | | [facility] | | | Urine | | | LABORATORY | | | | | | [facility] | | + + + + + + | Buprenorphi | Negative | Negative | [facility] | | | ne Screen, | | | [facility] | | | Urine | | | LABORATORY | | | | | | [facility] | | + + + + + + | Phencyclidi | Negative | Negative | [facility] | | | ne, Screen, | | | [facility] | | | Urine | | | LABORATORY | | | | | | [facility] | | + + + + + + | Porpoxyphen | Negative | Negative | [facility] | | | e Screen, | | | [facility] | | | Urine | | | LABORATORY | | | | | | [facility] | | + + + + + + | Methampheta | Negative | Negative | [facility] | | | mine Quant, | | | [facility] | | | Ur | | | LABORATORY | | | | | | [place] | | + + + + + + | Methadone | Negative | Negative | [facility] | | | Screen, | | | [facility] | | | Urine | | | LABORATORY | | | | | | [facility] | | + + + + + + | U Tox | See CommentComment: | | [facility] | | | Comment | This entire battery is | | [facility] | | | | for screening purposes | | LABORATORY | | | | only. Results are not | | [facility] | | | | confirmed.Results from | | | | | | any unconfirmed drug in | | | | | | this screening battery | | | | | | should not be used for | | | | | | legal purposes. Please | | | | | | note: Some medications | | | | | | cause positive results | | | | | | with any or all tested | | | | | | drugs in this | | | | | | battery.Performed by [facility] | | | | | | [address], | | | | | | [place] [address] | | | | + + + + + + + + | Specimen | + + | Urine specimen | | (specimen) | + + + + + + + | Performing | Address | City/State/Zipcode | Phone Number | | Organization | | | | + + + + + | [facility] | [address] | [place] [address] | | | [facility] | | | | | [place] | | | | + + + + + Ethanol (01/04/2019 3:29 PM PDT) + + + + + + | Component | Value | Ref Range | Performed | Pathologist | | | | | At | Signature | + + + + + + | ALCOHOL, | <0.005Comment: | <=0.005 g/dL | [facility] | | | SERUM/PLASM | Performed by [facility] [address] | | [place] | | | A | [facility] | | LABORATORY | | | | [place] [address] | | [facility] | | | | [...] [facility] | [address] | [place] [address] | | | LABORATORY | | | | | [place] | | | | + + + + + CBC with Differential (01/04/2019 3:29 PM PDT) + + + + + + | Component | Value | Ref Range | Performed | Pathologist | | | | | At | Signature | + + + + + + | WBC | 7.14 | 3.80 - 11.00 | [facility] | | | | | Bill/Jose | [facility] | | | | | | LABORATORY | | | | | | [place] | | + + + + + + | RBC | 5.27 | 4.20 - 5.70 | [facility] | | | | | M/uL | [facility] | | | | | | LABORATORY | | | | | | [place] | | + + + + + + | Hemoglobin | 16.2 | 13.2 - 17.0 | [facility] | | | | | g/dL | [facility] | | | | | | LABORATORY | | | | | | [place] | | + + + + + + | Hct | 46.5 | 39.0 - 50.0 % | [facility] | | | | | | [facility] | | | | | | LAB[facility]ATORY | | | | | | [place] | | + + + + + + | MCV | 88.2 | 80.0 - 100.0 fL | [facility] | | | | | | [facility] | | | | | | LAB[facility] | | | | | | [place] | | + + + + + + | MCH | 30.7 | 27.0 - 34.0 pg | [facility] | | | | | | [facility] | | | | | | LAB[facility] | | | | | | [place] | | + + + + + + | MCHC | 34.8 | 32.0 - 35.5 | [facility] | | | | | g/dL | [facility] | | | | | | LAB[facility] | | | | | | [place] | | + + + + + + | RDW-CV | 12.5 | 11.0 - 15.5 % | [facility] | | | | | | [facility] | | | | | | LAB[facility] | | | | | | [place] | | + + + + + + | Platelet | 302 | 150 - 400 K/uL | [facility] | | | Count | | | [facility] | | | | | | LAB[facility] | | | | | | [place] | | + + + + + + | MPV | 10.1 | 7.5 - 11.2 fL | [facility] | | | | | | [facility] | | | | | | LAB[facility]ATORY | | | | | | [place] | | + + + + + + | % | 74.5 | 40.0 - 75.0 % | [facility] | | | Neutrophils | | | [facility] | | | | | | LABORATORY | | | | | | [place] | | + + + + + + | % | 16.9 | 15.0 - 48.0 % | [facility] | | | Lymphocytes | | | [facility] | | | | | | LABORATORY | | | | | | [place] | | + + + + + + | % Monocytes | 6.7 | 0.0 - 12.0 % | [facility] | | | | | | [facility] | | | | | | LAB[facility]ATORY | | | | | | [place] | | + + + + + + | % | 0.6 | 0.0 - 7.0 % | [facility] | | | Eosinophils | | | [facility] | | | | | | LABORATORY | | | | | | [place] | | + + + + + + | % Basophils | 1.0 | 0.0 - 2.0 % | [facility] | | | | | | [facility] | | | | | | LABORATORY | | | | | | [place] | | + + + + + + | % Immature | 0.3 | 0.0 - 1.0 % | [facility] | | | Granulocyte | | | [facility] | | | s | | | LABORATORY | | | | | | [place] | | + + + + + + | Absolute | 5.32 | 1.90 - 7.40 | [facility] | | | Neutrophils | | K/uL | [facility] | | | | | | LAB[facility]ATORY | | | | | | [place] | | + + + + + + | Absolute | 1.21 | 1.00 - 3.90 | [facility] | | | Lymphocytes | | K/uL | [facility] | | | | | | LAB[facility]ATORY | | | | | | [place] | | + + + + + + | Absolute | 0.48 | 0.00 - 0.80 | [facility] | | | Monocytes | | K/uL | [facility] | | | | | | LAB[facility]ATORY | | | | | | [place] | | + + + + + + | Absolute | 0.04 | 0.00 - 0.50 | [facility] | | | Eosinophils | | K/uL | [facility] | | | | | | LAB[facility]ATORY | | | | | | [place] | | + + + + + + | Absolute | 0.07 | 0.00 - 0.10 | [facility] | | | Basophils | | K/uL | [facility] | | | | | | LABORATORY | | | | | | [place] | | + + + + + + | Absolute | 0.02Comment: Performed | 0.00 - 0.03 | [facility] | | | Immature | by [facility] [address] | K/uL | [facility] | | | Granulocyte | [facility], | | LABORATORY | | | s | [place] [address] | | [place] | | | | | | | | + + + + + + + + | Specimen | + + | Blood specimen | | (specimen) | + + + + + + + | Performing | Address | City/State/Zipcode | Phone Number | | Organization | | | | + + + + + | [facility] | [address] [facility] | [place] [address] | | | [facility] | | | | | [place] | | | | + + + + + Comprehensive Metabolic Panel (01/04/2019 3:29 PM PDT) + + + + + + | Component | Value | Ref Range | Performed | Pathologist | | | | | At | Signature | + + + + + + | Na | 140 | 135 - 146 | [facility] | [...] + + + + | Cl | 106 | 98 - 109 mmol/L | [facility] | | | | | | [facility] | | | | | | LABORATORY | | | | | | [place] | | + + + + + + | CO2 | 23 | 21 - 32 mmol/L | [facility] | | | | | | [facility] | | | | | | LABORATORY | | | | | | [place] | | + + + + + + | Calcium | 9.1 | 8.5 - 10.2 | [facility] | | | | | mg/dL | [facility] | | | | | | LABORATORY | | | | | | [place] | | + + + + + + | Anion Gap | 11 | 5 - 16 mmol/L | [facility] | | | | | | [facility] | | | | | | LAB[facility]ORY | | | | | | [place] | | + + + + + + | Albumin | 4.2 | 3.5 - 5.0 g/dL | [facility] [...] + + + + | Creatinine | 0.77 | 0.50 - 1.30 | [facility] | | | | | mg/dL | [facility] | | | | | | LAB[facility]ATORY | | | | | | [place] | | + + + + + + | Glucose | 125 (H) | 65 - 99 mg/dL | [facility] | | | | | | [facility] | | | | | | LAB[facility]ATORY | | | | | | [place] | | + + + + + + | Total | 8.0 | 6.3 - 8.0 g/dL | [facility] | | | Protein | | | [facility] | | | | | | LABORATORY | | | | | | [place] | | + + + + + + | Alkaline | 86 | 35 - 115 U/L | [facility] | | | Phosphatase | | | [facility] | | | | | | LABORATORY | | | | | | [place] | | + + + + + + | ALT | 31 | 10 - 65 U/L | [facility] | | | | | | [facility] | | | | | | LAB[facility]ORY | | | | | | [place] | | + + + + + + | AST | 21 | 5 - 40 U/L | [facility] | | | | | | [facility] | | | | | | LAB[facility]ORY | | | | | | [place] | | + + + + + + | Bilirubin | 0.4 | 0.1 - 1.5 mg/dL | [facility] | | | Total | | | [facility] | | | | | | LABORATORY | | | | | | [place] | | + + + + + + | Estimated | 132Comment: eGFR<60 | >=90 | [facility] | | | GFR | consistent with impaired | mL/min/1.73m2 | [facility] | | | | kidney | | LABORATORY | | | | function.Performed by | | [facility] | | | | [facility] [address] | | | | | | , [place] [address] | | | | + + + + + + + + | Specimen | + + | Blood specimen | | (specimen) | + + + + + + + | Performing | Address | City/State/Zipcode | Phone Number | | Organization | | | | + + + + + | [facility] | [address] | [place] [address] | | | [facility] | | | | | [facility] | | | | + + + + + documented in this encounter Visit Diagnoses + + | Diagnosis | + + | Intentional overdose of drug in tablet form (HCC) - Primary | + + | Other depression | + + documented in this encounter"
--- OUTSIDE RECORDS SUMMARY | ~2019-09-01 | XMS | Encounter Summary ---
Demographics + + + | Address | [address] | | | [place] [address] | + + + | Home Phone [...] + + + | Author | [facility] | | | and Anibal | + + + | Organization | [facility] | | | and Alexandruana | + + + | Address | Unknown | + + + | Phone | Unavailable | + + + Support + + + + + | Name | Relationship | Address | Phone | + + + + + | Neno Booth | ECON | [address] | | | | | [place] [address] | | + + + + + | Joelle Sharp | ECON | [place] | | | | | [place] | | + + + + + Care Team Providers + +------+ + | Care International Trade Specialist Name | Role | Phone | [...] | | | | Accessory | | [place] | | | | | kidney | | [address] Phone: | | | | | Crossing | | [phone] | | | | | vessel and | | Fax: | | | | | stricture of | | [phone] | | | | | ureter | [...] | | | | | | | ND PARTIAL | | | | | | | REMOVAL OF | | | | | | | KIDNEY [place] | | | | | | | LAP,PARTIAL | | | | | | | NEPHRECTOMY | | | | | | | ND | | | | | | | CYSTOURETHRO | | | | | | | SCOPY [place] | | | | | | | [...] + + | 01/28/ | [facility] | Anthony Ortega MD | Other hydronephrosis | | 2018 - | Encounter | SURGICAL ORTHO 5633 | [address] [facility] | (Primary Dx) | | | | [address] [facility] | [address] [place], [place] | | | 01/31/ | | [place], [place] | [address] | | | 2017 | | [address] | | | | | | [phone] | | | +--------+ + + + [...] might be different from t he original. 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 [facility] in 1 week. Please call during business hours to set up your urology follow up appointm ent. Electronically Signed by: Anthony Ortega MD, 02/02/2018 13:03 [facility] Wilber Munoz RN - 0 [...] Instructions Instructions Anthony Ortega MD - 01/28/2018 [place] [facility] DISCHARGE INSTRUCTIONS AFTER YOUR PROCEDURE: - [...] CONTACT INFORMATION: - [facility] Office Number: [facility] Office [phone] [place] Office [phone] FOLLOWUP INFORMATION: - will see you back [...] mg at 01/29/18 0931 morphine 5 mg/mL TOBACCO SCRAP SIFTER syringe Intravenous Continuous Anthony Ortega MD 150 [...] MD - 0 01/30/2018 8:53 AM PDT [facility] UROLOGY DAILY PROGRESS NOTE ID: Manuel [...] by: Anthony Ortega MD, 01/30/2018 8:53 [facility] Lubna Jeronimo [facility] Resident - 01/29/2018 2:14 PM PDTPatient shared that 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 He mentioned that he was on admission because of problems he is having to that effect. Trimming Assembler supported him and patient shared no need. Zohaib Bond, Nursing Studen t - 01/29/2018 10:35 AM PDTWalked patient with stand by assist [address]. With no w alker or cane Zohaib Bond, Pediatric Immunologist - 01/29/2018 8:50 AM PDTAmbulated patient with stand by assist, no walkers or canes needed. Had IV pole to walk with. Walked 100 feet. Anthony Edmond MD - 01/29/2018 7:50 AM PD T [facility] UROLOGY DAILY PROGRESS NOTE ID: Manuel [...] Signed by: Anthony Ortega MD, 01/29/2018 7:50 [facility] documented in this encou nter [...] | [facility] | | | | by [facility] [address] | | [place] | | | | [facility], | | LABORATORY | | | | [place] [address] | | CERNER | | | | [...] + + | [facility] | [address] | [place] [address] | | | FAMILY LABORATORY | | [...] PROVID[facility] | | | | Performed by [facility] [address] | | [place] | | | | [facility], | | LABORATORY | | | | [place] [address] | | CERNER | | | | [...] | [address] | [place] [address] | | | FAMILY LABORATORY | | [...] + + + + | Product | [id number] | | REFERENCE | | | Code | | | LAB [place] | | | | | | [facility] | | | | | | [facility] | | | | | | B[facility]OD | | | | | | CENTER | | + + + + + + | UNIT # | [id number] | | REFERENCE | | | | | | LAB [place] | | | | | | [facility] | | | | | | [facility] | | | | | | BLOOD | | | | | | CENTER | | + + + + + + | UNIT ABO | A | | REFERENCE | | | | | | LAB [place] | | | | | | [facility] | | | | | | [facility] | | | | | | BLOOD | | | | | | CENTER | | + + + + + + | UNIT RH | POS | | REFERENCE | | | | | | LAB [place] | | | | | | [facility] | | | | | | [facility] | | | | | | BLOOD | | | | | | CENTER | | + + + + + + | Unit Status | IS | | REFERENCE | | | | | | LAB [place] | | | | | | [facility] | | | | | | [facility] | | | | | | BLOOD | | | | | | CENTER | | + + + + + + | Blood | [id number] | | REFERENCE | | | Product | | | LAB [place] | | | Expiration | | | [facility] | | | Date and | | | [facility] | | | Time | | | BLOOD | | | | | | CENTER | | + + + + + + | Product | [id number] | | REFERENCE | | | Blood Type | | | LAB [place] | | | Barcode | | | [facility] | | | | | | [facility] | | | | | | BLOOD | | | | | | CENTER | | + + + + + + | Product | [id number] | | REFERENCE | | | Code | | | LAB [place] | | | | | | [facility] | | | | | | [facility] | | | | | | BLOOD | | | | | | CENTER | | + + + + + + | UNIT # | [id number] | | REFERENCE | | | | | | LAB [place] | | | | | | [facility] | | | | | | [facility] | | | | | | BLOOD | | | | | | CENTER | | + + + + + + | UNIT ABO | A | | REFERENCE | | | | | | LAB [place] | | | | | | [facility] | | | | | | [facility] | | | | | | BLOOD | | | | | | CENTER | | + + + + + + | UNIT RH | POS | | REFERENCE | | | | | | LAB [place] | | | | | | [facility] | | | | | | [facility] | | | | | | BLOOD | | | | | | CENTER | | + + + + + + | Unit Status | IS | | REFERENCE | | | | | | LAB [place] | | | | | | [facility] | | | | | | [facility] | | | | | | BLOOD | | | | | | CENTER | | + + + + + + | Blood | [id number] | | REFERENCE | | | Product | | | LAB [place] | | | Expiration | | | [facility] | | | Date and | | | [facility] | | | Time | | | BLOOD | | | | | | CENTER | | + + + + + + | Product | [id number] | | REFERENCE | | | Blood Type | | | LAB [place] | | | Barcode | | | [...] + + + | Specimen Expiration Date: [id number] | REFERENCE LAB | | | [place] [facility] | | | [facility] | | | [facility] | + + + + + + + + | Performing | Address | City/State/Zipcode | Phone Number | | Organization | | | | + + + + + | REFERENCE LAB | [address] | [place] [address] | [phone] | | [place] | | | | | [facility] [...] [facility] [address] | | CONSUELOFina FAMILY | | | | [facility], | | LABORATORY | | | | [place] [address] | | CERNER | | | | [...] + | [facility] | [address] [facility] | [place] [address] | | | FAMILY LABORATORY | | [...] | | | | [facility] [address] | | | | | | [place] [address] | | | | + + + + + + + + | Specimen | + + | Blood specimen | | (specimen) | + + + + + + + | Performing | Address | City/State/Zipcode | Phone Number | | Organization | | | | + + + + + | [facility] | [address] | [place] [address] | | | FAMILY LABORATORY | | [...] by | | | | | | [facility] [address] | | | | | | [place] [address] | | | | + + + + + + + + | Specimen | + + | Body fluid sample | | (specimen) | + + + + + + + | Performing | Address | City/State/Zipcode | Phone Number | | Organization | | | | + + + + + | [facility] | [address] | [place] [address] | | | FAMILY LABORATORY | | [...] [facility] [address] | | TIMOT[facility] FAMILY | | | | [facility], | | LABORATORY | | | | [place] [address] | | CERNER | | | | [...] + | [facility] | [address] [facility] | [place] [address] | | | FAMILY LABORATORY | | [...] [address] | | | | | | [place] [address] | | | | + + + + + + + + | Specimen | + + | Blood specimen | | (specimen) | + + + + + + + | Performing | Address | City/State/Zipcode | Phone Number | | Organization | | | | + + + + + | [facility] | [address] [facility] | [place] [address] | | | [facility] | | | | | ANABEL [...] | TRACEMASTER | | Duration:500 msP Horizontal Lima: degP Front Lima:51 degQ Onset:504 | | | msQRSD Interval:100 msQT Interval:280 msQTcB:435 msQTcF:376 msQRS | | | Horizontal Lima: degQRS Lima:-1 degI-40 Horizontal Lima:68 degI-40 | | | Front Lima:29 degT-40 Horizontal Lima: degT-40 Front Lima:-56 degT | | | Horizontal Lima:22 degT Wave Lima:45 degS-T Horizontal Lima:139 degS-T | | | Front Lima:150 degSeverity:- ABNORMAL ECG -INTERP:SINUS | | | TACHYCARDIAINTERP:MULTIFORM VENTRICULAR PREMATURE | | | COMPLEXESINTERP:PROBABLE LEFT VENTRICULAR HYPERTROPHYElectronically | | | signed by: Renny GARCIA 01-29-2018 05:45:39 | | |QTcF:376 ms | | |QRS Horizontal Lima: deg | | |QRS Lima:-1 deg | | |I-40 Horizontal Lima:68 deg | | |I-40 Front Lima:29 deg | | |T-40 Horizontal Lima: deg | | |T-40 Front Lima:-56 deg | | |T Horizontal Lima:22 deg | | |T Wave Lima:45 deg | | |S-T Horizontal Lima:139 deg | | |S-T Front Lima:150 deg | | |Severity:- ABNORMAL ECG - [...] + + | [facility] | [address] | [place] [address] | [phone] | + + + + + CBC [...] [facility] [address] | | [facility] FAMILY | | | | [facility], | | LABORATORY | | | | [place] [address] | | CERNER | | | | [...] + | [facility] | [address] | [place] [address] | | | FAMILY LABORATORY | | [...] [facility] | | | | Performed by [facility] [address] | | [place] | | | | [facility], | | LABORATORY | | | | [place] [address] | | ALEXSANDRANER | | | | [...] + | [facility] | [address] [facility] | [place] [address] | | | LABORATORY | | | [...] | [facility] | | | | by [facility] [address] | | [place] | | | | [facility] [place], | | LABORATORY | | | | [place] [address] | | CERNER | | | | [...] + | [facility] | [address] [facility] | [place] [address] | | | FAMILY LABORATORY | | [...] [address] | | | | | | [place] [address] | | | | + + + + + + + + | Specimen | + + | Blood specimen | | (specimen) | + + + + + + + | Performing | Address | City/State/Zipcode | Phone Number | | Organization | | | | + + + + + | [facility] | [address] | [place] [address] | | | FAMILY LABORATORY | | [...] | | | ALEXSANDRANER | | Acct: [id number] Location: | | | [facility] SRGORT; 408; 408-01 Case #: | | | [id number] Ordering: ANTHONY ORTEGA MD | | | Client: [facility] Tmiothy Black | | | Copy To: Printed: 01/30/2018 17:57 | | | PDT SURGICAL | | | PATHOLOGY FINAL REPORTCollected: | | | Received: Responsible | | | Pathologist:01/28/2018 09:11 PDT 01/28/2018 13:22 | | | SUHAIL RUDOLPH MD, [facility]: Kidney, | | | right pole,partial nephrectomy: | | | Benign kidney with calyceal dilation, tubulointerstitial | | | inflammation, global glomerulosclerosis and atrophy, | | | consistent with obstruction.Verified By: HARESH Cai Date: | | | 01/30/18 17:57 PDTPerforming Location: [facility] | | | [address] [place], [place] [address]SVFQL DESCRIPTION:The specimen | | | labeled and [...] defined | | | cortical medullary junctions. Dry Kiln Worker sections are submitted | | | in [...] + | [facility] | [address] [facility]. | [place] [address] | | | FAMILY LABORATORY | | [...] | | | POC | Performed by [facility] [address] | | TIM[place] BLACK | | | | [facility], | | LABORATORY | | | | [place] [address] | | CERNER | | | | [...] + | [facility] | [address] [facility] | [place] [address] | | | FAMILY LABORATORY | | [...] | | | | | | LAB [place] | | | | | | [facility] | | | | | | [facility] | | | | | | BLOOD | | | | | | CENTER | | + + + + + + | Rh Type | Positive | | REFERENCE | | | | | | LAB [place] | | | | | | [facility] | | | | | | [facility] | | | | | | BLOOD | | | | | | CENTER | | + + + + + + + + | Specimen | + + | | + + + + + | Narrative | Performed At | + + + | Specimen Expiration Date: [id number] | REFERENCE LAB | | | [place] | | | [facility] | | | [facility] | + + + + + + + + | Performing | Address | City/State/Zipcode | Phone Number | | Organization | | | | + + + + + | REFERENCE LAB | [address] | [place] [address] | [phone] | | [place] | | | | | [facility] [...] | | | | | | LAB [place] | | | | | | [facility] | | | | | | [facility] | | | | | | BLOOD | | | | | | CENTER | | + + + + + + | Rh Type | Positive | | REFERENCE | | | | | | LAB [place] | | | | | | [facility] | | | | | | [facility] | | | | | | BLOOD | | | | | | CENTER | | + + + + + + | Antibody | NegativeComment: Patient | | REFERENCE | | | Screen | is remote crossmatch | | LAB [place] | | | | eligible | | [...] + + + | Specimen Expiration Date: [id number] | REFERENCE LAB | | | [place] | | | [facility] | | | [facility] CENTER | + + + + + + + + | Performing | Address | City/State/Zipcode | Phone Number | | Organization | | | | + + + + + | REFERENCE LAB | [address] | [place] [address] | [phone] | | [place] | | | | | [facility] [...] PDT | | | | | Starting [facility] 01/29/18 at 0602, | | | | [...] + +---------+ +--------+---+---+ | morphine 5 mg/mL TOBACCO SCRAP SIFTER syringe | New Bag | 01/29/20 | [...] | | | Loading Dose(mg): 0, Starting TOBACCO SCRAP SIFTER | | | | | | | Dose(mg): 1, Incremental | | | | | | | Increase TOBACCO SCRAP SIFTER Dose(mg): 0.5, | | | | | | | Maximum TOBACCO SCRAP SIFTER Dose(mg): 2, Lockout | | | | [...] policy and contact | | | provider production sorter, | | + +---+ | | | [...]
--- OUTSIDE RECORDS SUMMARY | ~2019-09-01 | XMS | Encounter Summary ---
Demographics + + + | Address | [address] | | | [place] [address] | + + + | Home Phone | | + + + | Preferred Language | Unknown | + + + | Marital Status | Legally | + + + | Buddhism Affiliation | Unknown | + + + | Race | Unknown | + + + | Ethnic Group | Unknown | + + + Author + + + | Author | [facility] | | | and Anibal | + + + | Organization | [facility] | | | and Alexandruana | + + + | Address | Unknown | + + + | Phone | Unavailable | + + + Support + + + + + | Name | Relationship | Address | Phone | + + + + + | Neno Winters | ECON | [address] | | | | | [place] [address] | | + + + + + | Joelle Sharp | ECON | [place] | | | | | [place] | | + + + + + Care Team Providers + +------+ + | Care Wire Coating Machine Operator Name | Role | Phone [...] Event | FAMILY CV INTRA OP | SITE ADMINISTRATOR [facility] Nurse | | | | | [address] [facility] | Soap Worker Office | | | | | [place] | [place] [address] | | | | | [address] | [phone] | | | | | [phone] | | | +--------+ + + + [...] Ref # | | | | | [id number] Lot # [id number] Exp | | | | | 2020-07-02; tip intact; 12/11/17; | | | | | 1025 | | | +--------+ + + + | Periph | 12/11/17; 0913; Left; Distal; | 12/11/17 0913 by | 12/11/17 1134 by | | eral | Wrist; uqxx-thr-mgtdjo catheter | Livia Aguilar RN | Livia [...] 01/15/18 0650 by | | eral | kvcq-bfs-rlsdqy catheter system; | Mayra Rasmussen RN | [...] 01/30/18 0014 by | | eral | zzwt-bgg-aabekr catheter system; | Blanca Tucker, | Ree [...] 01/30/18 2130 by | | eral | pgbo-una-pvpczj catheter system; | Blanca Tucker, | Roxane [...] | elements; All elements; | RN | Product Safety Head | | er | indwelling double lumen [...] 01/31/18 1154 by | | eral | mthd-mie-vkakjq catheter system; | Harshal Farris RN | [...] 09/18/18 0512 by | | eral | cris-rka-qdqmio catheter system; | Nicki Rubin RN | [...] 183 by | | kaiden | Forearm; zovp-xfx-crnwoh catheter | Jenifer Recio | Jenifer Recio [...]
--- OUTSIDE RECORDS SUMMARY | ~2019-09-01 | XMS | Encounter Summary ---
Demographics + + + | Address | [address] | | | [place] [address] | + + + | Home Phone [...] Author | [facility] | | | and Anibal | + + + | Organization | [facility] | | | and Alexandruana | + + + | Address | Unknown | + + + | Phone | Unavailable | + + + Support + + + + + | Name | Relationship | Address | Phone | + + + + + | Neno Winters | ECON | [address] | | | | | [place] [address] | | + + + + + | Joelle Sharp | SHARYN | [place] | | | | | [place] | | + + + + + Care Team Providers + +------+ + | Care Advisor Advocate Angel Co Founder Name | Role | Phone | + +------+ + PCP | Unavailable | + +------+ + Encounter Details +--------+ + + + + | Date | Type | Department | Care Team | Description | +--------+ + + + + | 08/14/ | Hospital | [facility] | Rodrigo Choudhury | | | 2003 - | Encounter | [facility] | | | | | | PROGRAM [address] | | | | 09/20/ | | [place] | | | | 2004 | | [address] | | | | | | [phone] | | | +--------+ + + + [...]
--- OUTSIDE RECORDS SUMMARY | ~2019-09-01 | XMS | Encounter Summary ---
Demographics + + + | Address | [address] | | | [place] [address] | + + + | Home Phone [...] | [facility] | | | and Anibal | + + + | Organization | [facility] | | | and Alexandruana | + + + | Address | Unknown | + + + | Phone | Unavailable | + + + Support + + + + + | Name | Relationship | Address | Phone | + + + + + | Neno Winters | ECON | [address] | | | | | [place] [address] | | + + + + + | Joelle Sharp | SHARYN | [place] | | | | | [place] | | + + + + + Care Team Providers + +------+ + | Care Tray Packer Name | Role | Phone | + +------+ + PCP | Unavailable | + +------+ + Encounter Details +--------+ + + + + | Date | Type | Department | Care Team | Description | +--------+ + + + + | 08/22/ | Hospital | [facility] | Kei, Rodrigo Ochoa | | | 2003 - | Encounter | [facility] | | | | | | PHYSICAL THERAPY | | | | 09/06/ | | [address] | | | | 2004 | | [place] | | | | | | [address] | | | | | | [phone] | | | +--------+ + + + [...]
--- OUTSIDE RECORDS SUMMARY | ~2019-09-01 | XMS | Encounter Summary ---
Demographics + + + | Address | [address] | | | [place] [address] | + + + | Home Phone [...] | Author | [facility] | | | and Anibal | + + + | Organization | [facility] | | | and Alexandruana | + + + | Address | Unknown | + + + | Phone | Unavailable | + + + Support + + + + + | Name | Relationship | Address | Phone | + + + + + | Neno Winters | ECON | [address] | | | | | [place] [address] | | + + + + + | Joelle Sharp | SHARYN | [place] | | | | | [place] | | + + + + + Care Team Providers + +------+ + | Care Esthetician/Spa Coordinator Name | Role | Phone | [...] + + | 11/15/ | Telephone | [facility] | Corey Yuan, | Well Child | | 2013 | | [facility] | [address] | | | | | Medicine [address] | | | | | [address] | [place] [address] | | | | | [place], [place] | [phone] | | | | | [address] | | | | | | [phone] | | | +--------+ + + + [...]
--- OUTSIDE RECORDS SUMMARY | ~2019-09-01 | XMS | Encounter Summary ---
Demographics + + + | Address | [address] | | | [place] [address] | + + + | Home Phone [...] | Author | [facility] | | | and Anibal | + + + | Organization | [facility] [...] [address] | | | | | [place] [address] | | + + + + + | Joelle Sharp | ECON | Sigrid | | | | | [place] | | + + + + + Care Team Providers + +------+ + | Care Warehouse Order Filler Name | Role | Phone | + +------+ + | Corey Yuan MD | PCP | | + +------+ + Reason for Visit Evaluate & Treat (Routine) +--------+--------+ + + + + | Status | Reason | Specialty | Diagnoses / | Referred By | Referred To | | | | | Procedures | Contact | Contact | +--------+--------+ + + + + | Closed | | Urology | Diagnoses | Kwabena, | Do Not Use | | | | | 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 Bazan, | - Cc Wsu | | | | | kidney | MD [address] | [address] | | | | | (terminal) | [address] | [facility] | | | | | LAD - BMP | [address] | [address] | | | | | Procedures | [place] | [address] | | | | | [place] OFFICE | [address] | [address] | | | | | OUTPATIENT | Phone: | [place] | | | | | VISIT 15 | [phone] | [address] | | | | | MINUTES CC | Fax: | Phone: | | | | | CLINICAL | [phone] | [phone] | | | | | SUPPORT | | Fax: | | | | | | | [phone] | +--------+--------+ + + + + Encounter Details +--------+ + + + + | Date | Type | Department | Care Team | Description | +--------+ + + + + | 02/18/ | Clinical | [place] [facility] | | Renal function | | 2018 | Support | [address] | | impairment (Primary | | | | [address] | | Dx); Duplicated | | | | [place] | | right renal | | | | [address] | | collecting system; | | | | [phone] | | Other hydronephrosis | +--------+ + + + + Social [...] documented as of this encounter Progress Notes Sarah Wells CMA - 02/18/2018 9:50 AM PDT August Winters Per Dr. Anthony Ortega , August presents today for BMP blood draw. Having no outstanding symp toms, the patient's blood was drawn without complication. August agrees to follow up with Dr. Anthony Ortega as indicated. Sarah ARAUJO documented in this enc ounter Plan of Treatment Not on filedocumented as of this encounter Procedures + +--------+ + + + | Procedure Name | Priori | Date/Time | Associated Diagnosis | Comments | | | ty | | | | + +--------+ + + + | BASIC METABOLIC | Routin | 02/18/2018 | Renal function | Results for this | | PANEL | e | 12:00 AM | impairment | procedure are in the | | | | PDT | | results section. | + +--------+ + + + documented in this encounter Results Basic Metabolic Panel (02/18/2018 12:00 AM PDT) + + + + + + | Component | Value | Ref Range | Performed | Pathologist | | | | | At | Signature | + + + + + + | Glucose | 92 | 65 - 99 mg/dL | [facility] | | + + + + + + | BUN | 12 | 6 - 20 mg/dL | [facility] | | + + + + + + | Creatinine | 0.96 | 0.76 - 1.27 | [facility] | | | | | mg/dL | | | + + + + + + | eGFR if not | 115 | >59 mL/min/1.73 | [facility] | | | | | | | | | TANZANIAN | | | | | + + + + + + | eGFR if | 133 | >59 mL/min/1.73 | [facility] | | | | | | | | | Jordanian | | | | | + + + + + + | BUN/Creatin | 13 | 9 - 20 | [facility] | | | ine Ratio | | | | | + + + + + + | Sodium | 143 | 134 - 144 | [facility] | | | | | mmol/L | | | + + + + + + | Potassium | 4.5 | 3.5 - 5.2 | [facility] | | | | | mmol/L | | | + + + + + + | Chloride | 101 | 96 - 106 mmol/L | [facility] | | + + + + + + | Carbon | 23Comment: | 20 - 29 mmol/L | [facility] | | | dioxide | Please note reference | | | | | | interval change | | | | + + + + + + | Calcium | 9.1 | 8.7 - 10.2 | [facility] | | | | | mg/dL | | | + + + + + + + + | Specimen | + + | Blood | + + + + + | Narrative | Performed At | + + + | Performed at: 01 - [facility] [address] [address], | REFERENCE LAB | | [place], [place] [id number] Employment Security Officer: Dontrell Mayo MD, Phone: | [facility] | | [phone] | | + + + + + + + + | Performing | Address | City/State/Zipcode | Phone Number | | Organization | | | | + + + + + | REFERENCE LAB | [address] | [place] [address] | [phone] | | [facility] | Ever[address] Rushing | | | + + + + + | [facility] | | | | + + + + + documented in this encounter Visit Diagnoses + + | Diagnosis | + + | Renal function impairment - Primary Unspecified disorder of kidney and ureter | + + | 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
--- OUTSIDE RECORDS SUMMARY | ~2019-09-01 | XMS | Encounter Summary ---
Demographics + + + | Address | [address] | | | [place] [address] | + + + | Home Phone | | + + + | Preferred Language | Unknown | + + + | Marital Status | Legally | + + + | Holiness Affiliation | Unknown | + + + | Race | Unknown | + + + | Ethnic Group | Unknown | + + + Author + + + | Author | [facility] | | | and Anibal | + + + | Organization | [facility] | | | and [...] | | | | | [place] [address] | | + + + + + | Joelle Sharp | ECON | Sigrid | | | | | [place] | | + + + + + Care Team Providers + +------+ + | Care Dater Assembler Name | Role | Phone | [...] + | 01/21/ | Telephone | [facility] | Corey Yuan, | Other | | 2019 | | [employer] | [address] | | | | | [address] | [address] | | | | | [address] | [place] [address] | | | | | [place], [place] | [phone] | | | | | [address] | | | | | | [phone] | | | +--------+ + + + [...]
--- OUTSIDE RECORDS SUMMARY | ~2019-09-01 | XMS | Encounter Summary ---
Demographics + + + | Address | [address] | | | [place] [address] | + + + | Home Phone | | + + + | Preferred Language | Unknown | + + + | Marital Status | Legally | + + + | Denominational Affiliation | Unknown | + + + | Race | Unknown | + + + | Ethnic Group | Unknown | + + + Author + + + | Author | [facility] | | | and Anibal | + + + | Organization | [facility] | | | and [...] | | | | | [place] [address] | | + + + + + | Joelle Sharp | ECON | Sigrid | | | | | [place] | | + + + + + Care Team Providers + +------+ + | Care Cold Roll Packer Sheet Iron Name | Role | Phone | + [...] | +--------+ + + + + | 02/17/ | Telephone | [place] | Yvonne Daniel, | ED Follow-up | | 2019 | | Cheryl Monterroso | JEFF | | | | | Medicine [address] | | | | | | [address] | | | | | | [place] | | | | | | [address] | | | | | | [phone] | | | +--------+ + + + [...]
--- OUTSIDE RECORDS SUMMARY | ~2019-09-01 | XMS | Encounter Summary ---
Demographics + + + | Address | [address] | | | [place] [address] | + + + | Home Phone | | + + + | Preferred Language | Unknown | + + + | Marital Status | Legally | + + + | Sabianism Affiliation | Unknown | + + + | Race | Unknown | + + + | Ethnic Group | Unknown | + + + Author + + + | Author | [facility] | | | and Anibal | + + + | Organization | [facility] | | | and Alexandruana | + + + | Address | Unknown | + + + | Phone | Unavailable | + + + Support + + + + + | Name | Relationship | Address | Phone | + + + + + | Neno Winters | ECON | [address] | | | | | [place] [address] | | + + + + + | Joelle Sharp | ECON | Sigrid | | | | | [place] | | + + + + + Care Team Providers + +------+ + | Care Honing Machine Operator Name | Role | Phone | + +------+ + PCP | Unavailable | + +------+ + Encounter Details +--------+ + + + + | Date | Type | Department | Care Team | Description | +--------+ + + + + | 10/28/ | Hospital | [facility] | Paras-Maria Eugenia, | | | 2008 | Encounter | [facility] | [address] | | | | | EMERG[facility]Y CENTER | [address], | | | | | [address] | [place] [address] | | | | | [place] | [phone] | | | | | [address] | | | | | | [phone] | | | +--------+ + + + [...]
--- OUTSIDE RECORDS SUMMARY | ~2019-09-01 | XMS | Encounter Summary ---
Demographics + + + | Address | [address] | | | [place] [address] | + + + | Home Phone | | + + + | Preferred Language | Unknown | + + + | Marital Status | Legally | + + + | Mormon Affiliation | Unknown | + + + | Race | Unknown | + + + | Ethnic Group | Unknown | + + + Author + + + | Author | [facility] | | | and Anibal | + + + | Organization | [facility] | | | and Alexandruana | + + + | Address | Unknown | + + + | Phone | Unavailable | + + + Support + + + + + | Name | Relationship | Address | Phone | + + + + + | Neno Winters | ECON | [address] | | | | | [place] [address] | | + + + + + | Joelle Sharp | ECON | Sigrid | | | | | [place] | | + + + + + Care Team Providers + +------+ + | Care Agricultural Produce Packer Name | Role | Phone | + +------+ + | Ho Yuan MD | PCP | | + +------+ + Reason for Visit + + + | Reason | Comments | + + + | Foot Pain | | + + + Encounter Details +--------+ + + + + | Date | Type | Department | Care Team | Description | +--------+ + + + + | 05/31/ | Emergency | [facility] | Sophie Guillory, | Right foot pain | | 2019 - | | [facility] | [address] | (Primary Dx) | | | | CENTER [address] | [facility] | | | 06/01/ | | [facility] | [place] [address] | | | 2018 | | [place], [place] | [phone] | | | | | [address] | | | | | | [phone] | | | +--------+ + + + [...] as of this encounter Discharge Instructions Instructions Sophie Guillory PA-C - 06/01/2019There is no evidence for fracture dislocation or malalignment. Suspect the splint you are wearing was increasing your discomfort since t he strap goes right across the top of your foot which is where your discomfort is located. You are being referred to orthopedics for follow-up, please call them tomorrow to schedule appointment given worsening discomfort in your foot documented in this encounter Medications at Time of Discharge + + + +---------+ + + | Medication | Sig | Dispensed | Refills | Start | End Date | | | | | | Date | | + + + +---------+ + + | acetaminophen | Take 500 mg by mouth | | 0 | | | | (TYLENOL) 500 mg | every 6 hours as | | | | | | tablet | needed for Pain. | | | | | + + + +---------+ + + | ascorbic acid | Take 500 mg by mouth | | 0 | | | | (VITAMIN C) 500 mg | Daily. | | | | | | tablet | | | | | | + + + +---------+ + + | methocarbamol | Take 1-2 tablets by | 30 | 0 | 06/01/20 | | | (ROBAXIN) 750 mg | mouth 3 times daily. | tablet | | 19 | | | tablet | | | | | | + + + +---------+ + + documented as of this encounter Plan of Treatment + +------+--------+ + + | Name | Type | Priori | Associated Diagnoses | Date/Time | | | | ty | | | + +------+--------+ + + | ED INFORMATION | SCARLET | Routin | | 05/31/2019 11:20 PM | | EXCHANGE | | e | | PDT | [...] | + +--------+ + + + | ED INFORMATION | Routin | 05/31/2019 | | | | EXCHANGE | e | 11:20 PM | | | | | | PDT | | | + +--------+ + + + +---+--------+ | | | | | Proced | | | ure | | | Note - | | | Lance, | | | Lab In | | | | | | Hlseve | | | n - | | | 05/31/ | | | 2019 | | | 11:21 | | | PM PDT | | | | | | Format | | | ting | | | of | | | this | | | note | | | might | | | be | | | differ | | | ent | | | from | | | the | | | origin | | | al.COL | | | LECTIV | | | E?NOTI | | | FICATI | | | ON?/ | | | | | | 9 | | | 23:19? | | | ROSALE | | | S, | | | BRAYSO | | | N | | | D?MRN: | | | | | | [id number] | | | [id number] | | | riteri | | | a Met | | | | | | Medica | | | id 5 | | | in | | | 12Secu | | | rity | | | and | | | Safety | | | No | | | recent | | | | | | Securi | | | ty | | | Events | | | | | | curren | | | tly on | | | | | | fileED | | | Care | | | Guidel | | | inesTh | | | ere | | | are | | | curren | | | tly no | | | ED | | | Care | | | Guidel | | | abigail | | | for | | | this | | | patien | | | t. | | | Please | | | check | | | your | | | facili | | | ty's | | | medica | | | l | | | record | | | s | | | system | | | .Presc | | | riptio | | | n Drug | | | | | | Report | | | (12 | | | Mo.)Rx | | | | | | Detail | | | sFill | | | Date | | | Drug | | | Descri | | | ption | | | Qty. | | | Prescr | | | iber | | | CS MED | | | | | | 2019-0 | | | 6-25 | | | OXYCOD | | | ONE-AC | | | ETAMIN | | | OPHEN | | | 5-325 | | | 12 | | | HERMILO | | | | | | THATCH | | | ER 2 | | | 45 Rx | | | [place] | | | yMetri | | | c | | | Count | | | CS | | | II-V | | | Rx 1 | | | CS-II | | | Rx 1 | | | Quanti | | | ty | | | Dispen | | | sed 12 | | | | | | Unique | | | | | | Prescr | | | ibers | | | 1 | | | Unique | | | | | | Pharma | | | cies 1 | | | | | | Benzos | | | 0 | | | Opioid | | | s 1 | | | Long | | | Acting | | | | | | Opioid | | | s 0 | | | E.D. | | | Visit | | | Count | | | (12 | | | mo.)Fa | | | cility | | | | | | Visits | | | Low | | | Acuity | | | | | | Deacon | | | ess | | | Medica | | | l | | | Center | | | 2 0 | | | Provid | | | ence | | | [facility] | [facility] | [facility] | | | | | | Hospit | | | al 3 0 | | | | | | [facility] | | | | | | Hospit | | | al and | | | | | | Medica | | | l | | | Center | | | 1 0 | | | Total | | | 6 0 | | | Note: | | | Visits | | | | | | indica | | | te | | | total | | | known | | | visits | | | . | | | Medica | | | id Low | | | | | | Acuity | | | Dx | | | are | | | the | | | number | | | of | | | primar | | | y | | | diagno | | | ses on | | | the | | | Medica | | | id's | | | Low | | | Acuity | | | dx | | | list. | | | | | | Recent | | | | | | Emerge | | | ncy | | | Depart | | | ment | | | Visit | | | [place] | | | yDate | | | Facili | | | ty | | | City | | | State | | | Type | | | Diagno | | | ses or | | | Chief | | | | | | Compla | | | int | | | Oct 7, | | | 2019 | | | Provid | | | ence | | | [facility] | | | [facility] | | | [place] | | | [place] | | | [place] | | | Emerge | | | ncy | | | x4 | | | ORTIZ | | | foot | | | pain | | | Aug | | | 31, | | | 2019 | | | [facility] | | | ess | | | [facility] | | | [place] | | | [place] | | | Emerge | | | ncy | | | | | | Encoun | | | ter | | | for | | | other | | | genera | | | l | | | examin | | | ation | | | Oni | | | 27, | | | 2019 | | | [facility] | | | ess | | | [facility] | | | [place] | | | [place] | | | Emerge | | | ncy | | | | | | Suicid | | | al | | | ideati | | | ons | | | Major | | | | | | depres | | | sive | | | disord | | | er, | | | single | | | | | | episod | | | e, | | | unspec | | | ified | | | Joseph | | | 25, | | | 2019 | | | [facility] | | | H. | | | and | | | [facility] | | | [place] | | | [place] | | | Emerge | | | ncy | | | | | | Unspec | | | ified | | | abdomi | | | nal | | | pain | | | | | | Hematu | | | wojciech, | | | unspec | | | ified | | | | | | Locali | | | zed | | | enlarg | | | ed | | | lymph | | | nodes | | | May | | | 13, | | | 2019 | | | Provid | | | ence | | | [facility] | | | Family | | | H. | | | [place] | | | [place] | | | Emerge | | | ncy | | | x3 OD | | | | | | Overdo | | | se | | | (Inten | | | tional | | | ) | | | Other | | | specif | | | ied | | | depres | | | sive | | | episod | | | es | | | Poison | | | ing by | | | | | | unspec | | | ified | | | drugs, | | | | | | medica | | | ments | | | and | | | biolog | | | ical | | | substa | | | nces, | | | intent | | | ional | | | self-h | | | arm, | | | initia | | | l | | | encoun | | | ter | | | José Miguel | | | 25, | | | 2019 | | | Provid | | | ence | | | [facility] | | | Family | | | H. | | | [place] | | | [place] | | | Emerge | | | ncy | | | x3 | | | flank | | | pain | | | | | | Flank | | | Pain | | | | | | Blood | | | In | | | Stool | | | | | | Hemorr | | | jen | | | of | | | anus | | | and | | | rectum | | | | | | Unspec | | | ified | | | hydron | | | ephros | | | is | | | Unspec | | | ified | | | abdomi | | | nal | | | pain | | | Recent | | | | | | Inpati | | | ent | | | Visit | | | [facility] | | | yNo | | | record | | | ed | | | inpati | | | ent | | | visits | | | . Care | | | | | | TeamPr | | | ovider | | | | | | Specia | | | lty | | | Phone | | | Fax | | | Servic | | | e | | | Dates | | | KISTNE | | | R, | | | CARLOS | | | , | | | D.O. | | | Family | | | | | | Medici | | | ne | | | (094) | | | [phone] | | | 00 | | | (509) | | | [phone] | | | 86 | | | Curren | | | t | | | DANIEL, | | | HO | | | , M.D. | | | | | | Family | | | | | | Medici | | | ne | | | Curren | | | t | | | TROUPE | | | , | | | CONRADO | | | , [place] | | | Physic | | | marcelo | | | Assist | | | ant: | | | Medica | | | l | | | Curren | | | t | | | ELIZAB | | | ETH | | | TOMEO | | | Primar | | | y Care | | | (509) | | | | | | [phone] | | | 00 | | | (509) | | | [phone] | | | 86 | | | Curren | | | t | | | Pierre | | | | | | Health | | | care | | | of | | | Washin | | | gton | | | Primar | | | y Care | | | | | | Curren | | | t | | | WOMACK, | | | | | | ROB | | | M. | | | Primar | | | y Care | | | (253) | | | | | | [phone] | | | 03 | | | (253) | | | [phone] | | | 93 | | | Curren | | | t | | | Collec | | | tive | | | Portal | | | This | | | patien | | | t has | | | regist | | | ered | | | at the | | | | | | Provid | | | ence | | | Holy | | | Family | | | | | | Hospit | | | al | | | Emerge | | | ncy | | | Depart | | | ment | | | For | | | more | | | inform | | | ation | | | visit: | | | | | | https: | | | //prov | | | .colle | | | ctivem | | | edical | | | .com/n | | | otify/ | | | [email or web address] | | | [email or web address] | | | [email or web address] | | | -[email or web address]- | | | [email or web address] | | | [email or web address] | | | | | | PLEASE | | | NOTE: | | | 1. | | | Any | | | care | | | recomm | | | endati | | | ons | | | and | | | other | | | clinic | | | al | | | inform | | | ation | | | are | | | provid | | | ed as | | | guidel | | | abigail | | | or for | | | | | | histor | | | ical | | | purpos | | | es | | | only, | | | and | | | provid | | | ers | | | should | | | | | | exerci | | | se | | | their | | | own | | | clinic | | | al | | | judgme | | | nt | | | when | | | provid | | | ing | | | care. | | | 2. | | | You | | | may | | | only | | | use | | | this | | | inform | | | ation | | | for | | | purpos | | | es of | | | treatm | | | ent, | | | paymen | | | t or | | | health | | | care | | | operat | | | ions | | | activi | | | ties, | | | and | | | subjec | | | t to | | | the | | | limita | | | tions | | | of | | | applic | | | able | | | Collec | | | tive | | | Polici | | | es. | | | 3. | | | You | | | should | | | | | | consul | | | t | | | direct | | | ly | | | with | | | the | | | organi | | | zation | | | that | | | provid | | | ed a | | | care | | | guidel | | | ine or | | | other | | | | | | clinic | | | al | | | histor | | | y with | | | any | | | questi | | | ons | | | about | | | additi | | | onal | | | inform | | | ation | | | or | | | accura | | | cy or | | | comple | | | teness | | | of | | | inform | | | ation | | | provid | | | ed.? | | | 2019 | | | Collec | | | tive | | | Medica | | | l | | | Techno | | | logies | | | , Inc[employer] | | | - | | | [email or web address] | | | llecti | | | vemedi | | | [email or web address] | | | m | +---+--------+ documented in this encounter Results XR Foot Right 3 + Vw [...] Procedure Note | + + | Lance, Marshall Results In - 06/01/2019 1:00 AM PDT [...] + | Diagnosis | + + | Right foot pain - Primary Pain in limb | + + documented in this encounter Administered Medications + +--------+ +-------+------+------+ | Medication Order | MAR | Action | Dose | Rate | Site | | | Action | Date | | | | + +--------+ +-------+------+------+ | diphenhydrAMINE (BENADRYL) | Given | 06/01/20 | 50 mg | | | | injection 50 mg 50 mg, | | 19 12:36 | | | | | Intravenous, ONCE, 06/01/19 at | | AM PDT | | | | | 0030, For 1 dose | | | | | | + +--------+ +-------+------+------+ +---+---+ | | | +---+---+ + +-------+ +-------+---+---+ | orphenadrine (NORFLEX) | Given | 06/01/20 | 60 mg | | | | injection 60 mg 60 mg, | | 19 12:36 | | | | | Intravenous, ONCE, 06/01/19 at | | AM PDT | | | | | 0030, For 1 dose | | | | | | + +-------+ +-------+---+---+ + +---+ | | | + +---+ | promethazine (PHENERGAN) (IV | | | ONLY) injection 6.25 mg 6.25 mg, | | | Intravenous, EVERY 6 HOURS PRN, | | | Nausea, Vomiting, Starting Tue | | | 06/01/19 at 0024, Vesicant. When | | | ordered IV push: Dilute to | | | 10-20mL with NS. Give over 2-3 | | | minutes into large vein. Do not | | | give in hand/wrist or foot/ankle | | | vein. Max dose 12.5mg if giving | | | peripherally.Infuse in LARGE | | | Vein Only, | | + +---+ | | | + +---+ documented in this encounter
--- OUTSIDE RECORDS SUMMARY | ~2019-09-01 | XMS | Encounter Summary ---
Demographics + + + | Address | [address] | | | [place] [address] | + + + | Home Phone | | + + + | Preferred Language | Unknown | + + + | Marital Status | Legally | + + + | Presybeterian Affiliation | Unknown | + + + | Race | Unknown | + + + | Ethnic Group | Unknown | + + + Author + + + | Author | [facility] | | | and Anibal | + + + | Organization | [facility] | | | and [...] | | | | | [place] [address] | | + + + + + | Joelle Sharp | SHARYN | Sigrid | | | | | [place] | | + + + + + Care Team Providers + +------+ + | Care Supervisor Fleshing Name | Role | Phone | + [...] | +--------+ + + + + | 07/08/ | Emergency | [facility] | Ronnie, | Depression (Primary | | 2012 | | [facility] | [address] | Dx) | | | | PEDIATRIC EMERGENCY | [address] | | | | | [address] | [place] [address] | | | | | [place], [place] | [phone] | | | | | [address] | | | | | | [phone] | | | +--------+ + + + [...] + + + | Blood Pressure | 118/60 | 07/08/2013 5:36 PM | | | | | PST | | + + + + + | Pulse | 68 | 07/08/2013 5:36 PM | | | | | PST | | + + + + + | Temperature | 37.2 C (99 F) | 07/08/2013 5:36 PM | | | | | PST | | + + + + + | Respiratory Rate | 16 | 07/08/2013 5:36 PM | | | | | PST | | + + + + + | Oxygen Saturation | 99% | 07/08/2013 5:36 PM | | | | | PST | | + + + + + | Inhaled Oxygen | - | - | | | Concentration | | | | + + + + + | Weight | 81.6 kg (180 lb) | 07/08/2013 10:45 AM | | | | | PST | | + + + + + | Height | 177.8 cm (5' 10") | 07/08/2013 10:45 AM | | | | | PST | | + + + + + | Body Mass Index | 25.83 | 07/08/2013 10:45 AM | | | | | PST | | + + + + + documented in this encounter Discharge Instructions Instructions Eligio Trujillo MD - 07/08/2013You're being discharged at this time contra cting for safety. If you feel that you're unable to continue to maintain this contract you' re to return to the emergency department for evaluation. [facility] is evaluated you and plan to f niyah with you this weekend. Mother will help you get back into therapy with Dr. Lorene perez consider restarting medications. Should he have any other issues are what to return to [facility] emergency department at any time. documented in this encounter Medications at Time [...] | DRUGS OF ABUSE, | STAT | 07/08/2013 | | Results for this | | SCREEN, URINE | | 11:35 AM | | procedure are in the | | | | PST | | results section. | + +--------+ + + + documented in this encounter Results Drugs of Abuse, Screen, Urine (07/08/2013 11:35 AM PST) + + + + + + [...] + + | [facility] | [address] | [place] [address] | | | [facility] | | | | | LABORATORY | | | | + + + + + documented in this encounter Visit Diagnoses + + | Diagnosis | + + | Depression - Primary Depressive disorder, not elsewhere classified | + + documented in this encounter
--- OUTSIDE RECORDS SUMMARY | ~2019-09-01 | XMS | Encounter Summary ---
Demographics + + + | Address | [address] | | | [place] [address] | + + + | Home Phone | | + + + | Preferred Language | Unknown | + + + | Marital Status | Legally | + + + | Jewish Affiliation | Unknown | + + + | Race | Unknown | + + + | Ethnic Group | Unknown | + + + Author + + + | Author | [facility] | | | and Anibal | + + + | Organization | [facility] | [...] [address] | | | | | [place] [address] | | + + + + + | Joelle Sharp | ECON | Sigrid | | | | | GIOVANNY Langley | | + + + + + Care Team Providers + +------+ + | Care Compliance Engineer Products Name | Role | Phone | + +------+ + | Ho Yuan MD | PCP | | + +------+ + Reason for Visit + + + | Reason | Comments | + + + | Flank Pain | | + + + | Blood In Stool | | + + + Encounter Details +--------+ + + + + | Date | Type | Department | Care Team | Description | +--------+ + + + + | 09/18/ | Emergency | [facility] | Lucia Shepard MD | Rectal bleeding | | 2019 | | [facility] | [address] | (Primary Dx); Acute | | | | CENTER [address] [place], [place] | flank pain; | | | | [facility] | [id number] | Hydronephrosis, | | | | [place], [place] | | unspecified | | | | [address] | | hydronephrosis type | | | | [phone] | | | +--------+ + + + [...] + + + | Blood Pressure | 149/81 | 09/18/2018 1:05 AM | | | | | PST | | + + + + + | Pulse | 98 | 09/18/2018 1:05 AM | | | | | PST | | + + + + + | Temperature | 37.1 C (98.8 F) | 09/18/2018 1:05 AM | | | | | PST | | + + + + + | Respiratory Rate | 18 | 09/18/2018 1:05 AM | | | | | PST | | + + + + + | Oxygen Saturation | 100% | 09/18/2018 1:05 AM | | | | | PST | | + + + + + | Inhaled Oxygen | - | - | | | Concentration | | | | + + + + + | Weight | 83.5 kg (184 lb) | 09/18/2018 1:05 AM | | | | | PST | | + + + + + | Height | 185.4 cm (6' 1") | 09/18/2018 1:05 AM | | | | | PST | | + + + + + | Body Mass Index | 24.28 | 09/18/2018 1:05 AM | | | | | PST [...] as of this encounter Discharge Instructions Instructions Lucia Shepard MD - 09/18/2018CAT scan reveals that you have kidney is actually i mproved since 2018. No signs of any urinary tract infection or acute kidney problems are se en. Blood count is normal. No signs of anemia. .Your examination today does not show any dangerous level of bleeding. No clear source of the bleeding has been found today. Avoid constipation. Further follow up is necessary. Pl ease contact your doctor in 2-3 days or the edge grinder (GI) doctor for further roxy p. You may need a colonoscopy or stomach scope (EGD) to evaluate and locate the bleeding so urce. Return sooner for increased bleeding, fainting or worsening symptoms. documented in this encounter Medications at Time [...] +------+--------+ + + | ED INFORMATION | MACK | Routin | | 09/18/2018 1:06 AM | | EXCHANGE | | e | | PST | + +------+--------+ + + documented as of this encounter Procedures + +--------+ + + + | Procedure Name | Priori | Date/Time | Associated Diagnosis | Comments | | | ty | | | | + +--------+ + + + | CT ABDOMEN PELVIS W | STAT | 09/18/2018 | | Results for this | | CONTRAST | | 4:08 AM | | procedure are in the | | | | PST | | results section. | + +--------+ + + + | CBC WITH | STAT | 09/18/2018 | | Results for this | | DIFFERENTIAL | | 3:13 AM | | procedure are in the | | | | PST | | results section. | + +--------+ + + + | COMPREHENSIVE | STAT | 09/18/2018 | | Results for this | | METABOLIC PANEL | | 3:13 AM | | procedure are in the | | | | PST | | results section. | + +--------+ + + + | POCT URINALYSIS, | STAT | 09/18/2018 | | Results for this | | AUTO WITH CONF | | 1:39 AM | | procedure are in the | | | | PST | | results section. | + +--------+ + + + | ED INFORMATION | Routin | 09/18/2018 | | | | EXCHANGE | e | 1:06 AM | | | | | | PST | | | + +--------+ + + + +---+--------+ | | | | | Proced | | | ure | | | Note - | | | Lance, | | | Lab In | | | | | | Hlseve | | | n - | | | 09/18/ | | | 2018 | | | 1:07 | | | AM PST | | | | | | Format [...] | | | 9 | | | 01:03? | | | ROSALE | | | S, | | | BRAYSO | | | N | | | D?MRN: | | | | | | [id number] | | | [id number] | | | pcomin | | | g | | | Change | | | s to | | | the | | | Mack | | | Notifi | | | cation | | | On | | | Januar | | | y 31, | | | 2019 | | | the | | | layout | | | of | | | this | | | notifi | | | cation | | | will | | | be | | | update | | | d. For | | | an | | | overvi | | | ew of | | | upcomi | | | ng | | | change | | | s, | | | please | | | log | | | into | | | https: | | | //comm | | | unity. | | | collec | | | tiveme | | | dical. | | | com/t/ | | | [id number] | | | . For | | | questi | | | ons, | | | please | | | email | | | | | | suppor | | | [email or web address] | | | ective | | | medica | | | [email or web address] | | | or | | | call | | | [phone] | | | [phone] | | | [phone] | | | This | | | [...] | | | //prov | | | .ediec | | | arepla | | | [email or web address]/ | | | patien | | | [id number] | | | 0762-1 | | | [id number]-[phone] | | | [id number] | | | [phone] | | | [phone] | | | [phone] | | | Securi | | | ty | | | Events | | | No | | | [...] | | | system | | | .Recen | | | t | | | Emerge | | | ncy | | | Depart | | | ment | | | Visit | | | [facility] | | | yDate | | | Facili | | | ty | | | City | | | State | | | Type | | | Major | | | Type | | | Diagno | | | ses or | | | Chief | | | | | | Compla | | | int | | | [facility] | | | 25, | | | 2019 | | | Provid | | | ence | | | [facility] | [facility] | | | [place] | | | [place] | | | [place] | | | Emerge | | | ncy | | | Emerge | | | ncy | | | x3 | | | flank | | | pain | | | E.D. | | | Visit | | | Count | | | (12 | | | mo.)Fa | | | cility | | | | | | Visits | | | Low | | | Acuity | | | | | | Provid | | | ence | | | [facility] | | | | | | Medica | | | l | | | Center | | | 1 0 | | | Provid | | | ence | | | [facility] | | | [facility] | | | | | | Hospit | | | al 4 0 | | | Total | | | 5 0 | | | Note: | | [...] | | | . | | | Prescr | | | iption | | | Drug | | | Report | | | (12 | | | Mo.)Rx | | | | | | Detail | | | sFill | | | Date | | | Drug | | | Descri | | | ption | | | Qty. | | | Prescr | | | iber | | | CS MED | | | | | | 2018-0 | | | 6-09 | | | OXYCOD | | | ONE-AC | | | ETAMIN | | | OPHEN | | | 5-325 | | | 18 | | | ROXANNE | | | JOHN | | | 2 | | | 67.5 | | | 2018-0 | | | 6-09 | | | OXYCOD | | | ONE-AC | | | ETAMIN | | | OPHEN | | | 5-325 | | | 18 | | | ROXANNE | | | JOHN | | | 2 | | | 67.5 | | | 2018-0 | | | 3-24 | | | HYDROC | | | ODONE- | | | ACETAM | | | IN | | | 5-325 | | | MG 18 | | | ZO | | | ALEXIA | | | NU 2 | | | 45 | | | 2018-0 | | | 3-24 | | | HYDROC | | | ODONE- | | | ACETAM | | | IN | | | 5-325 | | | MG 18 | | | ZO | | | ALEXIA | | | NU 2 | | | 45 Rx | | | Summar | | | yMetri | | | c | | | Count | | | CS | | | II-V | | | Rx 4 | | | CS-II | | | Rx 4 | | | Quanti | | | ty | | | Dispen | | | sed 72 | | | | | | Unique | | | | | | Prescr | | | ibers | | | 2 | | | Unique | | | | | | Pharma | | | cies 1 | | | | | | Benzos | | | 0 | | | Opioid | | | s 4 | | | Long | | | Acting | | | | | | Opioid | | | s 0 | | | Care | | | Provid | | | ersPro | | | vider | | | PRC | | | Type | | | Phone | | | [...] | | | Physic | | | mareclo | | | Assist | | | [...] | | | t | | | Criter | | | ia Met | | | PDMP | | | | | | Medica | | | id 5 | | | in | | | 12Know | | | n | | | Aliase | | | sNo | | | known | | | aliase | | | s. The | | | above | | | | | | inform | | | ation | | | is | | | provid | | | ed for | | | the | | | sole | | | purpos | | | e of | | | patien | | | t | | | treatm | | | ent. | | | Use of | | | this | | | inform | | | ation | | | beyond | | | the | | | terms | | | of | | | Data | | | Sharin | | | g | | | Memora | | | ndum | | | of | | | Unders | | | tandin | | | g and | | | Licens | | | e | | | Agreem | | | ent is | | | | | | prohib | | | ited. | | | In | | | certai | | | n | | | cases | | | not | | | all | | | visits | | | may | | | be | | | repres | | | ented. | | | | | | Consul | | | t the | | | aforem | | | ention | | | ed | | | facili | | | ties | | | for | | | additi | | | onal | | | inform | | | ation. | | | ? | | | 2018 | | | Collec | | | tive | | | Medica | | | l | | | Techno | | | logies | | | , [employer] | | | - | | | [place] | | | [place] | | | [place], | | | [place] - | | | info@c | | | ollect | | | ivemed | | | icalte | | | [email or web address] | | | | +---+--------+ documented in this encounter Results CT Abdomen Pelvis w Contrast (09/18/2018 4:08 AM PST) + + | Specimen | + + | | + + + + + | Narrative | Performed At | + + + | CT ABDOMEN AND PELVIS WITH CONTRAST CLINICAL INFORMATION: | [facility] | | Right flank pain. COMPARISON: XR ABDOMEN 1 VW (01/15/2018); IR | | | PROCEDURE (12/17/2017); IR PROCEDURE (11/14/2017); CT ABDOMEN PELVIS W | | | CONTRAST (11/13/2017); US PELVIS LIMITED (11/13/2017); PROCEDURE: | | | Axial images through the abdomen and pelvis after the administration | | | of 100 ml Isovue 370 intravenous contrast. Multiplanar | | | reconstructions. At least one of the following CT dose | | | optimization techniques were used: Automated exposure control; | | | Adjustment of mA and/or kV according to patient size; Use of | | | iterative reconstruction technique. FINDINGS: LUNG BASES: No | | | significant pulmonary abnormality. No pleural effusion or | | | pneumothorax. ABDOMEN Liver and Biliary: No gallbladder or | | | biliary abnormality. No significant liver abnormality. Pancreas, | | | Spleen and Adrenals: No pancreatitis or pancreatic mass. No | | | splenomegaly, splenic mass or splenic hemorrhage. No significant | | | adrenal abnormality. Kidneys: Duplicated bilateral renal collecting | | | systems. No ureteral stents are present. Atrophy of the right | | | kidney superior moiety. Persistent moderate dilation of the right | | | kidney upper moiety ureter, however this is markedly decreased | | | compared to exam from 11/13/2017. As demonstrated on prior exams, the | | | upper pole moiety appears to insert ectopically into the region of | | | the prostatic urethra. No urothelial hyperenhancement. No | | | hydronephrosis. ABDOMEN AND PELVIS Bowel: No small bowel or | | | colonic dilation or adjacent inflammation. No appendiceal dilation or | | | inflammation. Vessels: No significant abnormality in the aorta or | | | its proximal branches. No significant abnormality in the portal | | | veins, mesenteric veins or systemic veins. Lymph Nodes: No | | | adenopathy. Peritoneum and Retroperitoneum: No ascites or free air. | | | No significant retroperitoneal abnormality. PELVIS | | | Genitourinary: Bladder unremarkable. No pelvic masses. BODY WALL | | | Soft Tissues: No bowel or inflamed fat containing hernia, mass or | | | hemorrhage. Bones: No acute fracture or vertebral end plate | | | destruction. No lytic or blastic lesion. IMPRESSION: Duplicated | | | bilateral renal collecting systems. No hydronephrosis. Atrophy of | | | the right kidney superior moiety with persistent moderate dilation of | | | the superior moiety ureter, however degree of ureteral dilation is | | | decreased since 11/13/2017. No CT evidence for pyelitis or | | | pyelonephritis at this time. No urinary system calculus. | | | Signed by: Singh Hernandez Date/Time: 09/18/2018 4:21 AM | | + + + + + | Procedure Note | + + | Lance, Rad Results In - 09/18/2018 4:25 AM PST | | CT ABDOMEN AND PELVIS WITH CONTRAST | | | | CLINICAL INFORMATION: | | Right flank pain. | | | | COMPARISON: | | XR ABDOMEN 1 VW (01/15/2018); IR PROCEDURE (12/17/2017); IR PROCEDURE | | (11/14/2017); CT ABDOMEN PELVIS W CONTRAST (11/13/2017); US PELVIS | | LIMITED (11/13/2017); | | | | PROCEDURE: | | Axial images through the abdomen and pelvis after the administration of | | 100 ml Isovue 370 intravenous contrast. Multiplanar reconstructions. | [...] | | adrenal abnormality. | | Kidneys: Duplicated bilateral renal collecting systems. No ureteral | | stents are present. Atrophy of the right kidney superior moiety. | | Persistent moderate dilation of the right kidney upper moiety ureter, | | however this is markedly decreased compared to exam from 11/13/2017. | | As demonstrated on prior exams, the upper pole moiety appears to insert | | ectopically into the region of the prostatic urethra. No urothelial | | hyperenhancement. No hydronephrosis. | | | | ABDOMEN AND PELVIS | | Bowel: No small bowel or colonic dilation or adjacent inflammation. No | | appendiceal dilation or inflammation. | | Vessels: No significant abnormality in the aorta or its proximal | | branches. No significant abnormality in the portal veins, mesenteric | | veins or systemic veins. | | Lymph Nodes: No adenopathy. | | Peritoneum and Retroperitoneum: No ascites or free air. No significant | | retroperitoneal abnormality. | | | | PELVIS | | Genitourinary: Bladder unremarkable. No pelvic masses. | | | | BODY WALL | | Soft Tissues: No bowel or inflamed fat containing hernia, mass or | | hemorrhage. | | Bones: No acute fracture or vertebral end plate destruction. No lytic | | or blastic lesion. | | | | IMPRESSION: | | Duplicated bilateral renal collecting systems. No hydronephrosis. | | Atrophy of the right kidney superior moiety with persistent moderate | | dilation of the superior moiety ureter, however degree of ureteral | | dilation is decreased since 11/13/2017. No CT evidence for pyelitis or | | pyelonephritis at this time. No urinary system calculus. | | | | | | | | Signed by: Singh Hernandez | | Sign Date/Time: 09/18/2018 4:21 AM | + + + +---------+ + + | Performing | Address | City/State/[facility] | Phone Number | | Organization | | | | + +---------+ + + | [facility] | | | | + +---------+ + + Comprehensive Metabolic Panel (09/18/2018 3:13 AM PST) + + + + + + | Component | Value | Ref Range | Performed | Pathologist | | | | | At | Signature | + + + + + + | Na | 141 | 135 - 146 | [facility] | | | | | mmol/L | [facility] | | | | | | [facility] | | | | | | [facility] | | + + + + + + | K | 4.6 | 3.6 - 5.2 | [facility] | | | | | mmol/L | [facility] | | | | | | [facility] | | | | | | [facility] | | + + + + + + | Cl | 107 | 98 - 109 mmol/L | [facility] [...] + + | Calcium | 8.7 | 8.5 - 10.2 | [facility] | [...] + + + + | Albumin | 3.7 | 3.5 - 5.0 g/dL | [facility] | | | | | | [facility] | | | | | [facility] | | | | | | [facility] | | + + + + + + | BUN | 15 | 7 - 23 mg/dL | [facility] | | | | | | [facility] | | | | | [facility] | | | | | | [facility] | | + + + + + + | Creatinine | 0.91 | 0.50 - 1.30 | [facility] | | | | | mg/dL | [facility] | | | | | [facility] | | | | | | [facility] | | + + + + + + | Glucose | 100 (H) | 65 - 99 mg/dL | [facility] | | | | | | [facility] | | | | | [facility] | | | | | | [facility] | | + + + + + + | Total | 7.0 | 6.3 - 8.0 g/dL | [facility] | | | Protein | | | [facility] | | | | | [facility] | | | | | | [facility] | | + + + + + + | Alkaline | 54 | 35 - 115 U/L | [facility] | | | Phosphatase | | | [facility] | | | | | [facility] | | | | | | [facility] | | + + + + + + | ALT | 26 | 10 - 65 U/L | [facility] | | | | | | [facility] | | | | | [facility] | | | | | | [facility] | | + + + + + + | AST | 16 | 5 - 40 U/L | [facility] | | | | | | [facility] | | | | | | [facility] | | | | | | [facility] | | + + + + + + | Bilirubin | 0.1 | 0.1 - 1.5 mg/dL | [facility] | | | Total | | | [facility] | | | | | | [facility] | | | | | | [facility] | | + + + + + + | Estimated | 122Comment: eGFR<60 | >=90 | [facility] | | | GFR | consistent with impaired | mL/min/1.73m2 | [facility] | | | | kidney | | LABORATORY | | | | function.Performed by | | [facility] | | | | [facility] [address] | | | | | | [place] [address] | | | | + + + + + + + + | Specimen | + + | Blood specimen | | (specimen) | + + + + + + + | Performing | Address | City/State/Zipcode | Phone Number | | Organization | | | | + + + + + | [facility] | [address] | [place] [address] | | | [facility] | | | | | [facility] | | | | + + + + + CBC with Differential (09/18/2018 3:13 AM PST) + + + + + + | Component | Value | Ref Range | Performed | Pathologist | | | | | At | Signature | + + + + + + | WBC | 7.4 | 3.8 - 11.0 K/uL | [facility] | | | | | | [facility] | | | | | | [facility] | | | | | | [facility] | | + + + + + + | RBC | 5.08 | 4.20 - 5.70 | [facility] | | | | | M/uL | [facility] | | | | | | [facility] | | | | | | [facility] | | + + + + + + | Hemoglobin | 15.6 | 13.2 - 17.0 | [facility] | | | | | g/dL | [facility] | | | | | | [facility] | | | | | | [facility] | | + + + + + + | Hct | 45.7 | 39.0 - 50.0 % | [facility] | | | | | | [facility] | | | | | | [facility] | | | | | | [facility] | | + + + + + + | MCV | 89.9 | 80.0 - 100.0 fL | [facility] [...] + + + + | RDW-CV | 12.8 | 11.0 - 15.5 % | [facility] | | | | | | [facility] | | | | | | [facility] | | | | | | [facility] | | + + + + + + | Platelet | 254 | 150 - 400 K/uL | [facility] | | | Count | | | [facility] | | | | | | [facility] | | | | | | [facility] | | + + + + + + | MPV | 7.8 | 7.5 - 11.2 fL | [facility] | | | | | | [facility] | | | | | | [facility] | | | | | | [facility] | | + + + + + + | % | 55.3 | 40.0 - 75.0 % | [facility] | | | Neutrophils | | | [facility] | | | | | | [facility] | | | | | | [facility] | | + + + + + + | % | 30.5 | 15.0 - 48.0 % | [facility] | | | Lymphocytes | | | [facility] | | | | | | [facility] | | | | | | [facility] | | + + + + + + | % Monocytes | 10.5 | 0.0 - 12.0 % | [facility] | | | | | | [facility] | | | | | | [facility] | | | | | | [facility] | | + + + + + + | % | 2.8 | 0.0 - 7.0 % | [facility] | | | Eosinophils | | | [facility] | | | | | | [facility] | | | | | | [facility] | | + + + + + + | % Basophils | 0.9 | 0.0 - 2.0 % | [facility] | | | | | | [facility] | | | | | | [facility] | | | | | | [facility] | | + + + + + + | Absolute | 4.10 | 1.90 - 7.40 | [facility] | | | Neutrophils | | K/uL | [facility] | | | | | | [facility] | | | | | | [facility] | | + + + + + + | Absolute | 2.26 | 1.00 - 3.90 | [facility] | | | Lymphocytes | | K/uL | [facility] | | | | | | [facility] | | | | | | [facility] | | + + + + + + | Absolute | 0.78 | 0.00 - 0.80 | [facility] | | | Monocytes | | K/uL | [facility] | | | | | | [facility] | | | | | | [facility] | | + + + + + + | Absolute | 0.21 | 0.00 - 0.50 | [facility] | [...] 0Comment: Performed by | /100 WBC | [facility] | | | | [place] [address] | | [facility] | | | | [place] [address] | | LABORATORY | | | |Performed by [facility] [address] [place] [address] | | [facility] | | | | [...] + + | [facility] | [address] | [place] [address] | | | [facility] | | | | | [facility] | | | | + + + + + POCT Urinalysis Dipstick Automated (09/18/2018 1:39 AM PST) + + + + + + | Component | Value | Ref Range | Performed | Pathologist | | | | | At | Signature | + + + + + + | Color, UA, | Yellow | Yellow, Light | [facility] | | | POC | | Yellow | [facility] | | | | | | [facility] | | + + + + + + | Clarity, | Clear | | [facility] | | | UA, POC | | | [facility] | | | | | | [facility] | | + + + + + + | Glucose, | Negative | Negative | [facility] | | | UA, POC | | | [facility] | [facility] | | | | | | [facility] | | + + + + + + | Bilirubin, | Negative | Negative | [facility] | | | UA, POC | | | [facility] | [facility] | | | | | | [facility] | | + + + + + + | Ketones, | Negative | Negative, 100 | [facility] | | | UA, POC | | mg/dL | [facility] | | | | | | [facility] | | + + + + + + | Specific | 1.020 | 1.001 - 1.030 | [facility] | | | [place] | | | [facility] | | | UA, POC | | | [facility] | | | | | | LAB[facility]ATORY | | + + + + + + | Blood, UA, | Negative | Negative | [facility] | | | POC | | | [facility] | | | [facility] | | | | | | [facility] | | + + + + + + | pH, UA, POC | 7.0 | 5.0, 6.0, 7.0, | [facility] | | | | | 8.0, 5.5, 6.5, | [facility] | | | | | 7.5 | [facility] | | | | | | [facility] | | + + + + + + | Protein, | Negative | Negative | [facility] | | | UA, POC | | | [facility] | | | | [facility] | | | | | | LAB[facility] | | + + + + + + | Urobilinoge | 0.2 | 0.2, Negative, | [facility] | | | n, UA, POC | | Normal, < 0.2 | [facility] | | | | | mg/dL, 1 mg/dL, | HOSPITAL | | | | | < 0.2 E.U./dl, | LABORATORY | | | | | 1.0 E.U./dL, | | | | | | 0.2 mg/dL | | | + + + + + + | Nitrite, | Negative | Negative | [facility] | | | UA, POC | | | [facility] | | | | | | [facility] | | | | | | [facility] | | + + + + + + | Leukocyte | Negative | Negative | [facility] | | | Esterase, | | | [facility] | | | UA, POC | | | [facility] | | | | | | LABORATORY | | + + + + + + | Reducing | | | [facility] | | | Substances, | | | [facility] | | | Urine | | | [facility]ITAL | | | | | | LABORATORY | | + + + + + + | Ictotest | | Negative | [facility] | | | | | | [facility] | | | [facility] | | | | | | [facility] | | + + + + + + | Remark | | | [facility] | | | | | | [facility] | | | | | | [facility] | | + + + + + + + + | Specimen | + + | Urine | + + + + + + + | Performing | Address | City/State/Zipcode | Phone Number | | Organization | | | | + + + + + | [facility] | [address] | [place] [address] | | | [facility] | | | | | LABORATORY | | | | + + + + + documented in this encounter Visit Diagnoses + + | Diagnosis | + + | Rectal bleeding - Primary Hemorrhage of rectum and anus | + + | Acute flank pain Abdominal pain, unspecified site | + + | Hydronephrosis, unspecified hydronephrosis type | + + documented in this encounter Administered Medications + +--------+ +---------+------+------+ | Medication Order | MAR | Action | Dose | Rate | Site | | | Action | Date | | | | + +--------+ +---------+------+------+ | iopamidol (ISOVUE-370) 370 | Given | 09/18/19 | 100 mLs | | | | mg/mL injection 100 mL 100 mL, | | 19 4:09 | | | | | Intravenous, ONCE PRN, Other, | | AM PST | | | | | Starting 09/18/18 at 0408, For | | | | | | | 1 dose, Cat Scanner | | | | | | + +--------+ +---------+------+------+ +---+---+ | | | +---+---+ + +-------+ +------+---+---+ | ondansetron (ZOFRAN) injection | Given | 09/18/19 | 4 mg | | | | 4 mg 4 mg, Intravenous, ONCE, | | 19 3:51 | | | | | 09/18/18 at 0345, For 1 dose | | AM PST | | | | + +-------+ +------+---+---+ +---+---+ | | | +---+---+ + +------+ +--------+-------+---+ | sodium chloride 0.9% (NS) bolus | Push | 09/18/19 | 40 mLs | 2400 | | | 40 mL 40 mL, Intravenous, | | 19 4:08 | | mL/hr | | | Administer over 1 Minutes, ONCE | | AM PST | | | | | PRN, for contrast study, Starting | | | | | | | 09/18/18 at 0408, For 1 dose, | | | | | | | May infuse at a different rate | | | | | | | per protocol., [facility] [employer] | | | | | | + +------+ +--------+-------+---+ +---+---+ | | | +---+---+ documented in this encounter
--- OUTSIDE RECORDS SUMMARY | ~2019-09-01 | XMS | Encounter Summary ---
Demographics + + + | Address | [address] | | | [place] [address] | + + + | Home Phone | | + + + | Preferred Language | Unknown | + + + | Marital Status | Legally | + + + | Yazdanism Affiliation | Unknown | + + + | Race | Unknown | + + + | Ethnic Group | Unknown | + + + Author + + + | Author | [facility] | | | and Anibal | + + + | Organization | [facility] | | | and [...] | | | | | [place] [address] | | + + + + + | Joelle Sharp | ECON | Sig[place] | | | | | [place] | | + + + + + Care Team Providers + +------+ + | Care Technologies Division Chair Name | Role | Phone | + [...] 2019 - | | [facility] | [address] | (Primary Dx) | | | | CENTER [address] | [facility] | | | 06/01/ | | [facility] | [place] [address] | | | 2018 | | [place], [place] | [phone] | | | | | [address] | | | | | | [phone] | | | +--------+ + + + [...] D?MRN: | | | | | | [id number] | | | [id number] | | | riteri | | | [...] | | | [id number] | | | [id number] | | | | | | PLEASE [...]
--- OUTSIDE RECORDS SUMMARY | ~2019-09-01 | XMS | Encounter Summary ---
Demographics + + + | Address | [address] | | | [place] [address] | + + + | Home Phone | | + + + | Preferred Language | Unknown | + + + | Marital Status | Legally | + + + | Uatsdin Affiliation | Unknown | + + + | Race | Unknown | + + + | Ethnic Group | Unknown | + + + Author + + + | Author | [facility] | | | and Anibal | + + + | Organization | [facility] | | | and [place] | + + + | Address | Unknown | + + + | Phone | Unavailable | + + + Support + + + + + | Name | Relationship | Address | Phone | + + + + + | Neno Winters | ECON | [address] | | | | | [place] [address] | | + + + + + | Joelle Sharp | SHARYN | [place] | | | | | [place] | | + + + + + Care Team Providers + +------+ + | Care Chip Bin Conveyor Tender Name | Role | Phone | + +------+ + | Corey Yuan MD | PCP | | + +------+ + Encounter Details +--------+ + + + + | Date | Type | Department | Care Team | Description | +--------+ + + + + | 08/06/ | Hospital | [facility] | Janeth Cristina | | | 2011 | Encounter | [facility] | Bernardo, ELECTRIC ENGINE MECHANIC [address] | | | | | EMERGENCY CENTER | [address] [place], | | | | | [address] | [place] [address] | | | | | [place] | [phone] | | | | | [address] | | | | | | [phone] | Janeth Greenberg | | | | | | WILMA Patel [address] | | | | | [address] [place], | | | | | | [place] [address] | | | | | | [phone] | | | | | | | [...] + +--------+ + + + | CULTURE, WOUND, | Routin | 08/06/2012 | | Results for this | | SUPERFICIAL | e | 7:03 PM | | procedure are in the | | | | PST | | results section. | + +--------+ + + + documented in this encounter Results Culture, Wound, Superficial (08/06/2012 7:03 PM PST) + + + + + + | Component | Value | Ref Range | Performed | Pathologist | | | | | At | Signature | + + + + + + | Specimen | Thumb | | [facility] | | | Source | | | [facility] | | | | | | HEART | | | | | | MEDICAL | | | | | | CENTER | | | | | | LABORATORY | | + + + + + + | Gram Stain | Abundant NeutrophilsNo | | [facility] | | | | Squamous Epithelial | | [facility] | | | | Cells SeenGram Positive | | HEART | | | | Cocci resembling | | MEDICAL | | | | StaphGram Positive Cocci | | CENTER | | | | resembling StrepGram | | LABORATORY | | | | Negative Rods resembling | | | | | | Bacteroides or | | | | | | HaemophilusGram Negative | | | | | | Rods resembling | | | | | | Fusobacterium=====CULTUR | | | | | | E RESULTS===== | | | | + + + + + + | RESULT | Mixed Hilda Including | | [facility] | | | | Staphylococcus aureus , | | [facility] | | | | Viridans Streptococcus , | | HEART | | | | Probable Bacteroides | | MEDICAL | | | | species and Probable | | CENTER | | | | Fusobacterium species | | LABORATORY | | | | (A) | | | | + + + + + + | RESULT | This is a mixed culture | | [facility] | | | | of potential pathogens. | | [facility] | | | | Correlation of culture | | HEART | | | | results with the gram | | MEDICAL | | | | stained direct smear | | CENTER | | | | does not identify any | | LABORATORY | | | | isolate as more | | | | | | significant than | | | | | | another. Bacteria may | | | | | | not relate to infection | | | | | | and may represent | | | | | | colonization or | | | | | | contamination. | | | | + + + + + + | Status | 08/08/2012 Final | | [facility] | | | [...] + + | [facility] | [address] | [place] [address] | | | [facility] | | | | | LABORATORY | | | | + + + + + | [facility] | | | | | [facility] | | | | | LABORATORY | | | | + + + + + documented in this encounter Visit Diagnoses Not on filedocumented in this encounter"
--- OUTSIDE RECORDS SUMMARY | ~2019-09-01 | XMS | Encounter Summary ---
Demographics + + + | Address | [address] | | | [place] [address] | + + + | Home Phone | | + + + | Preferred Language | Unknown | + + + | Marital Status | Legally | + + + | Jehovah'S Witness Affiliation | Unknown | + + + | Race | Unknown | + + + | Ethnic Group | Unknown | + + + Author + + + | Author | [facility] | | | and Anibal | + + + | Organization | [facility] [...] | | | | | [place] [address] | | + + + + + | Joelle Sharp | SHARYN | [place] | | | | | [place] | | + + + + + Care Team Providers + +------+ + | Care Veneer Matcher Name | Role | Phone | + [...] Provider Unknown | | | | | [address] | [phone] | | | | | [phone] | | | +--------+ + + + [...]
--- OUTSIDE RECORDS SUMMARY | ~2019-09-01 | XMS | Encounter Summary ---
Demographics + + + | Address | [address] | | | [place] [address] | + + + | Home Phone | | + + + | Preferred Language | Unknown | + + + | Marital Status | Legally | + + + | Lutheran Affiliation | Unknown | + + + | Race | Unknown | + + + | Ethnic Group | Unknown | + + + Author + + + | Author | [facility] | | | and Anibal | + + + | Organization | [facility] | | | and [place]ru[place] | + + + | Address | Unknown | + + + | Phone | Unavailable | + + + Support + + + + + | Name | Relationship | Address | Phone | + + + + + | Neno Winters | ECON | [address] | | | | | [place] [address] | | + + + + + | Joelle Sharp | ECON | [place] | | | | | [place] | | + + + + + Care Team Providers + +------+ + | Care Clinical Radiologist Name | Role | Phone | + +------+ + | Corye Yuan MD | PCP | | + [...] | Shannon, | | | | | History of | Corey Bazan, | MD Anthony | | | | | nephrectomy | [address] | | | | | hx nephr | [address] | [address] | | | | | Procedures | [address] | [place], [place] | | | | | [place] OFFICE | [place], [place] | [address] Phone: | | | | | OUTPATIENT | [address] | [phone] | | | | | VISIT 15 | Phone: | Fax: | | | | | [facility] | [phone] | [phone] | | | | | FOLLOW UP | Fax: | | | | | | | [phone] | | +--------+--------+ + + + + Encounter Details +--------+---------+ + + + | Date | Type | Department | Care Team | Description | +--------+---------+ + + + | 08/13/ | Office | [place] [facility] | Anthony Ortega MD | UPJ (ureteropelvic | | 2018 | Visit | [place] | [address] | junction) | | | | [address] | [address] [place] | obstruction (Primary | | | | [place] | [address] | Dx) | | | | [address] | | | | | | [phone] | | | +--------+---------+ + + + [...] + | Blood Pressure | 114/68 | 08/13/2018 3:24 PM | | | | | PST [...] + + + + | Weight | 84.4 kg (186 lb) | 08/13/2018 3:24 PM | | | | | PST | | + + + + + | Height | 185.4 cm (6' 1") | 08/13/2018 3:24 PM | | | | | PST | | + + + + + | Body Mass Index | 24.54 | 08/13/2018 3:24 PM | | | | | PST [...] documented as of this encounter Progress Notes Katie Pardo CC [facility] - 08/13/2018 3:20 PM [facility] Patient ID: August Winters is a 18 y.o. male with a chief complaint of No chief compl aint on file. . Review of Systems Constitutional: Negative. HENT: Negative. Eyes: Negative. Respiratory: Negative. Cardiovascular: Negative. Gastrointestinal: Positive for nausea. Endocrine: Negative. Genitourinary: Positive for dysuria and flank pain. Musculoskeletal: Positive for back pain. Skin: Negative. Allergic/Immunologic: Negative. Neurological: Positive for light-headedness and headaches. Hematological: Negative. Psychiatric/Behavioral: Negative. Anthony Hillman MD - 08/13/2018 3:20 PM PST [facility] OFFICE NOTE Primary Care Physician: Corey Yuan PATIENT NAME: August Winters : 2000 TODAY'S DATE: 08/13/2018 CC: History OF PRESENT ILLNESS: August Winters is a 18 y.o. male status post right partial nephrectomy [...] consistent with obstruction. Verified By: HARESH RUDOLPH He comes in today with repeat imaging showing the following: The patient tolerated this well ASSESSMENT: Hydroureter still seen posterior to right kidney with no hydronephrosis in the right kidney and normal left kidney. Could do CT urogram or retrograde pyelograms down the road if clinically indicated PAST MEDICAL HISTORY Past Medical History: Diagnosis [...] I/R Procedure; Surgeon: Uriel Yan MD; Location: [facility] CV LAB OTHER SURGICAL HISTORY Right 11/14/2017 Procedure: Right Percutaneous Nephrostomy Tube Placement; Surgeon: Uriel Yan MD; Location: [facility] CV LAB OTHER SURGICAL HISTORY Right 12/11/2017 Procedure: Ureteral stent placement; Surgeon: Uriel Yan MD; Location: [facility] CV LAB OTHER SURGICAL HISTORY Right 12/17/2017 Procedure: right neph tube removed; Surgeon: Ray Marquez MD; Location: [facility] CV LAB PARTIAL NEPHRECTOMY Right 01/28/2018 Procedure: ROBOTIC ASSISTED PARTIAL NEPHRECTOMY REMOVAL URTERAL STENT REMOVAL INTRAOPERAT CLEM LINCOLNOUND WITH IMMUNOSSAY IMAGING; Surgeon: Anthony Ortega MD; Location: [facility] MAIN OR MEDICATIONS Current Outpatient Prescriptions Medication Sig Dispense Refill ascorbic acid (VITAMIN C) 500 mg tablet Take 500 mg by mouth Daily. docusate sodium (COLACE) 100 mg capsule Take 1-2 capsules by mouth Daily. (Patient not taking: Reported on 02/19/2018) 30 capsule 0 ibuprofen (ADVIL,MOTRIN) 600 MG tablet Take 1 tablet by mouth every 6 hours as needed f or Pain. 30 tablet 2 oxyCODONE-acetaminophen (PERCOCET) 5-325 mg per tablet Take 1-2 tablets by mouth every 6 hours as needed for Pain. (Patient not taking: Reported on 02/19/2018) 30 tablet 0 No current facility-administered medications for this visit. Facility-Administered Medications Ordered in Other Visits Medication Dose Route Frequency Provider Last Rate Last Dose famotidine (PEPCID) injection Intravenous PRN Roxie Trytko, AUTOMOBILE BUMPER STRAIGHTENER 20 mg at 1209 ondansetron (ZOFRAN) injection Intravenous PRN Roxie Trytko, AUTOMOBILE BUMPER STRAIGHTENER 4 mg at 0936 ALLERGIES No Known Allergies PHYSICAL EXAM There were no vitals taken for this visit. Physical Exam Constitutional: He appears well-developed and well-nourished. No distress. Pulmonary/Chest: No respiratory distress. Abdominal: Soft. He exhibits no distension. Mild R flank tenderness, non acute Diagnostic Studies: Bladder Ultrasound U/A Lab Results Component Value Date RBCUR 3+ (A) 02/19/2018 LEUKOCYTESUR Negative 02/19/2018 NITRITEPOC Negative 02/19/2018 PROTEINPOC 3+ (A) 02/19/2018 Laboratory studies and imaging were personally reviewed by me. IMPRESSION: 1. 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 Residual hydroureter, likely will continue to atrophy PLAN / RECOMMENDATIONS: I would rec MRI to reassesses his resection site and rule out residual urinoma If normal, f/u 1 year with renal ultrasound Will call him about his MRI results Electronically Signed by: Anthony Ortega MD 08/13/2018 at 13:51 CC: Corey Yuan MD [address] [facility] [address] [place] [address] documented in this encou nter Plan of Treatment Not on filedocumented as of this encounter Procedures + +--------+ + + + | Procedure Name | Priori | Date/Time | Associated Diagnosis | Comments | | | ty | | | | + +--------+ + + + | POCT URINALYSIS | Routin | 08/13/2018 | UPJ (ureteropelvic | Results for this | | DIPSTICK | e | 3:29 PM | junction) | procedure are in the | | | | PST | obstruction | results section. | + +--------+ + + + documented in this encounter Results POCT Urinalysis Dipstick Non-Automated (08/13/2018 3:29 PM PST) + + + + + + | Component | Value | Ref Range | Performed | Pathologist | | | | | At | Signature | + + + + + + | Color, UA, | Light Yellow | Yellow, Light | | | | POC | | Yellow | | | + + + + + + | Clarity, | Clear | | | | | UA, POC [...] + + + + | Specific | 1.015 | 1.001 - 1.030 | | | | [place], | | | | | | UA, [...] + + + + | Urobilinoge | Negative | 0.2, Negative, | | | | [...] + | Diagnosis | + + | UPJ (ureteropelvic junction) obstruction - Primary Other ureteric obstruction | + + documented in this encounter
--- OUTSIDE RECORDS SUMMARY | ~2019-09-01 | XMS | Encounter Summary ---
Demographics + + + | Address | [address] | | | [place] [address] | + + + | Home Phone [...] + + + | Author | [facility] | | | and Anibal | + + + | Organization | [facility] | | | and [place] | + + + | Address | Unknown | + + + | Phone | Unavailable | + + + Support + + + + + | Name | Relationship | Address | Phone | + + + + + | Neno Winters | ECON | [address] | | | | | [place] [address] | | + + + + + | Joelle Sharp | ECON | [place] | | | | | [place] | | + + + + + Care Team Providers + +------+ + | Care Dredge Hand Name | Role | Phone | + [...] | | | | Accessory | | [place] | | | | | kidney | | [address] Phone: | | | | | Crossing | | [phone] | | | | | vessel and | | Fax: | | | | | stricture of | | [phone] | | | | | ureter | [...] | | | | | | | [place] PARTIAL | | | | | | | REMOVAL OF | | | | | | | KIDNEY [place] | | | | | | | LAP,PARTIAL | | | | | | | NEPHRECTOMY | | | | | | | [place] | | | | | | | CYSTOURETHRO | | | | | | | SCOPY [place] | | | | | | | [...] [address] | | | | | [address] [facility] | [place] [address] | | | | | [place], [place] | [phone] | | | | | [address] | | | | | | [phone] | Chapis Jackson, | | | | | | BUSINESS SOLUTION ANALYST [address] | | | | | | [facility]. | | | | | | [place] [address] | | | | | | [phone] | | | | | | | [...] +----+---+ + + | | 0 | [place] | | | | 8 | 43-degrees | | | | 1 | | | | | 7 | | | +----+---+ + + | | 0 | [place] off | | | | 9 | [...] 01/30/18 0014 by | | eral | fimc-btk-pyoykq catheter system; | Blanca Tucker, | Ree [...] 01/30/18 2130 by | | eral | pjed-xor-ktddeh catheter system; | Blanca Tucker, | Roxane [...] | elements; All elements; | RN | Senior Net Application Developer | | er | indwelling double lumen [...] provider: CHAPIS JACKSON Electronically Signed by: Chapis Rader | | CHRISTINA Jackson ESig date/time: | | | 01/28/2018 [...]
--- OUTSIDE RECORDS SUMMARY | ~2019-09-01 | XMS | Encounter Summary ---
Demographics + + + | Address | [address] | | | [place] [address] | + + + | Home Phone | | + + + | Preferred Language | Unknown | + + + | Marital Status | Legally | + + + | Denominational Affiliation | Unknown | + + + | Race | Unknown | + + + | Ethnic Group | Unknown | + + + Author + + + | Author | [facility] | | | and Anibal | + + + | Organization | [facility] | | | and [place] | + + + | Address | Unknown | + + + | Phone | Unavailable | + + + Support + + + + + | Name | Relationship | Address | Phone | + + + + + | Neno Witners | ECON | [address] | | | | | [place] [address] | | + + + + + | Joelle Sharp | ECON | [place] | | | | | [place] | | + + + + + Care Team Providers + +------+ + | Care Time Stamp Assembler Name | Role | Phone | + +------+ + | No, Physician | PCP | Unavailable | + +------+ + Reason for Visit + + + | Reason | Comments | + + + | Flank Pain | | + + + Encounter Details +--------+ + + + + | Date | Type | Department | Care Team | Description | +--------+ + + + + | 11/13/ | Emergency | [facility] | No, Physician | Patient left without | | 2017 | | [facility]ILY [facility]Y | | being seen (Primary | | | | CENTER [address] | | Dx) | | | | [address] | | | | | | [place] | | | | | | [address] | | | | | | [phone] | | | +--------+ + + + [...] + + + | Blood Pressure | 130/72 | 11/13/2017 4:25 PM | | | | | PDT | | + + + + + | Pulse | 110 | 11/13/2017 4:25 PM | | | | | PDT | | + + + + + | Temperature | 38.2 C (100.8 F) | 11/13/2017 4:25 PM | | | | | PDT | | + + + + + | Respiratory Rate | 18 | 11/13/2017 4:25 PM | | | | | PDT | | + + + + + | Oxygen Saturation | 96% | 11/13/2017 4:25 PM | | | | | PDT | | + + + + + | Inhaled Oxygen | - | - | | | Concentration | | | | + + + + + | Weight | 82.6 kg (182 lb) | 11/13/2017 4:25 PM | | | | | PDT | | + + + + + | Height | 182.9 cm (6') | 11/13/2017 4:25 PM | | | | | PDT | | + + + + + | Body Mass Index | 24.68 | 11/13/2017 4:25 PM | | | | | PDT | | + + + + + documented in this encounter Medications at Time [...] tablet by | 10 | 0 | 11/11/ | | | (ZOFRAN ODT) 4 mg [...] + | Diagnosis | + + | Patient left without being seen - Primary Surgical or other procedure not carried out | | because of patient's decision | + + documented in this encounter"
--- OUTSIDE RECORDS SUMMARY | ~2019-09-01 | XMS | Encounter Summary ---
Demographics + + + | Address | [address] | | | [place] [address] | + + + | Home Phone | | + + + | Preferred Language | Unknown | + + + | Marital Status | Legally | + + + | Rastafarian Affiliation | Unknown | + + + | Race | Unknown | + + + | Ethnic Group | Unknown | + + + Author + + + | Author | [facility] | | | and Anibal | + + + | Organization | [facility] | | | and [...] | | | | | [place] [address] | | + + + + + | Joelle Sharp | ECON | [place] | | | | | [place] | | + + + + + Care Team Providers + +------+ + | Care Drum Printer Name | Role | Phone | + +------+ + | Corey Yuan MD | PCP | | + +------+ + Encounter Details +--------+ + + + + | Date | Type | Department | Care Team | Description | +--------+ + + + + | 08/21/ | Orders Only | [facility] | Anthony Ortega MD | Atrophy, kidney | | 2018 | | [address] | [address] | (Primary Dx) | | | | [address] [place], [place] | [address] [place] | | | | | [address] | [address] | | | | | [phone] | | | +--------+ + + + [...]
--- OUTSIDE RECORDS SUMMARY | ~2019-09-01 | XMS | Encounter Summary ---
Demographics + + + | Address | [address] | | | [place] [address] | + + + | Home Phone [...] Author | [facility] | | | and Anibal | + + + | Organization | [facility] | | | and [place] | + + + | Address | Unknown | + + + | Phone | Unavailable | + + + Support + + + + + | Name | Relationship | Address | Phone | + + + + + | Neno Winters | ECON | [address] | | | | | [place] [address] | | + + + + + | Joelle Sharp | ECON | [place] | | | | | [place] | | + + + + + Care Team Providers + +------+ + | Care Boat Crew Deck Hand Name | Role | Phone | + +------+ + PCP | Unavailable | + +------+ + Encounter Details +--------+ + + + + | Date | Type | Department | Care Team | Description | +--------+ + + + + | 11/13/ | Hospital | [facility] | Carson Phillips | | | 2007 | Encounter | [facility] | MD Chiqui [address] | | | | | EMERGENCY CENTER | Ave - Pediatric ER | | | | | [address] | [place] [address] | | | | | [place] | [phone] | | | | | [address] | | | | | | [phone] | | | +--------+ + + + [...]
--- OUTSIDE RECORDS SUMMARY | ~2019-09-01 | XMS | Encounter Summary ---
Demographics + + + | Address | [address] | | | [place] [address] | + + + | Home Phone | | + + + | Preferred Language | Unknown | + + + | Marital Status | Legally | + + + | Islam Affiliation | Unknown | + + + | Race | Unknown | + + + | Ethnic Group | Unknown | + + + Author + + + | Author | [facility] | | | and Anibal | + + + | Organization | [facility] | | | and [...] | | | | | [place] [address] | | + + + + + | Joelle Sharp | ECON | [place] | | | | | [place] | | + + + + + Care Team Providers + +------+ + | Care Infantry Assaultman Name | Role | Phone | + [...] | +--------+ + + + + | 04/27/ | Telephone | [facility] | Yvonne Daniel, | ED Follow-up | | 2019 | | Cheryl Monterroso | JEFF | | | | | Medicine [address] | | | | | | [address] | | | | | | [place] | | | | | | [address] | | | | | | [phone] | | | +--------+ + + + [...]
--- OUTSIDE RECORDS SUMMARY | ~2019-09-01 | XMS | Encounter Summary ---
Demographics + + + | Address | [address] | | | [place] [address] | + + + | Home Phone | | + + + | Preferred Language | Unknown | + + + | Marital Status | Legally | + + + | Samaritan Affiliation | Unknown | + + + | Race | Unknown | + + + | Ethnic Group | Unknown | + + + Author + + + | Author | [facility] | | | and Anibal | + + + | Organization | [facility] | | | and Alexandruana | + + + | Address | Unknown | + + + | Phone | Unavailable | + + + Support + + + + + | Name | Relationship | Address | Phone | + + + + + | Neno Winters | ECON | [address] | | | | | [place] [address] | | + + + + + | Joelle Sharp | ECON | [place] | | | | | [place] | | + + + + + Care Team Providers + +------+ + | Care Helminthology Teacher Name | Role | Phone | + [...] + + | 11/13/ | Hospital | [facility] | Erikc Guillory DO | Sepsis, due to | | 2018 - | Encounter | MEDICAL ONCOLOGY | [address] [facility] | unspecified organism | | | | [address] | [place] [address] | (HCC) (Primary Dx); | | 11/15/ | | [place], [place] | [phone] | Pyelonephritis; | | 2017 | | [address] | | Acute unilateral | | | | [phone] | Anthony Ortega MD | obstructive | | | | | [address] | uropathy; Acute | | | | | [address] [place], [place] | pyonephrosis; | | | | | [address] | Pyoureter | | | | | [...] might be different fro m the original. [facility] DISCHARGE SUMMARY Patient Name: August Winters [...] 10 doses. aka: JOSEPH WILSON Follow-Up: 1. [facility] in 2 weeks. Please call during business hours to set up your urology follow up appointm ent. Electronically Signed by: Marcell Graves MD, 11/15/2017 8:17 [facility] docume nted in this encounter Discharge Instructions Instructions Georgette Romero, JEFF - 11/15/2017Nephrostomy tube AttachmentsThe following attachments cannot be sent through Care Everywhere.Pyelonephritis, Discharge Instructions for (Arabic)Nephrostomy, Percutaneous (Arabic)Nephrostomy, Percuta neous, Discharge Instructions (Arabic)documented in this encounter Medications at Time of [...] | | | Source | | | [facility] | | [...] + + | RESULT | Performed at [facility] | | [facility] | | | | [facility], | | [facility] | | | | [address], [place] | | HOSPITAL | | | | [address] | | LABORATORY | | + + + + + + | Status | 11/16/2017 Final | | GRAYSONE | | | | | | [facility] [...] + + + | [facility] | [address] [facility] | [place] [address] | | | [facility] | | [...] | | | IMPRESSION:Successful placement of 10.2 Welsh nephrostomy catheter | | | into massivelydilated [...] |IMPRESSION: | | |Successful placement of 10.2 Welsh nephrostomy catheter into massively | | |dilated [...] + + | Marshall Lucas Results In 11/14/2017 2:28 PM PDT | | RIGHT [...] collection. The tract was dilated. A 10.2 Welsh | | nephrostomy catheter was advanced into [...] IMPRESSION: | | Successful placement of 10.2 Welsh nephrostomy catheter into massively | | dilated [...] 284 | 150 - 400 K/uL | GRA[facility] | | | Count | | | [...] + + + | [facility] | [address] | [place] [address] | | | [facility] | | [...] Impaired | 65 - 99 mg/dL | [facility] | | | | fasting glucose: 100 to | | [facility] | | | | 125 mg/dL. [...] | | GFR | | ml/min/1.73m2 | [facility] | | | | [...] + | [facility] | [address] [facility] | [place] [address] | | | [facility] | | [...] + + | RESULT | Performed at [facility] | | [facility] | | | | [facility], | | [facility] | | | | [address], [place] | | HOSPITAL | | | | [address] | | LABORATORY | | + + [...] + + + | [facility] | [address] | [place] [address] | | | [facility] | | [...] - 1.030 | [facility] | | | [place] | | | [facility] | | [...] + + | [facility] | [address] [facility] | [place] [address] | | | [facility] | | [...] + + | RESULT | Performed at [facility] | | [facility] | | | | [facility], | | [facility] | | | | [address] [place] [address] | | HOSPITAL | | | | [address] | | LABORATORY | | + + + + + + | Status | 11/19/2017 Final | | [facility] | | | | | [...] + + + | [facility] | [address] [facility] | [place] [address] | | | [facility] | | [...] + + | RESULT | Performed at [facility] | | [facility] | | | | [facility], | | [facility] | | | | [address], [place], [place] | | HOSPITAL | | | | [address] | | LABORATORY | | + + [...] + | [facility] | [address] | [place] [address] | | | [facility] | | [...] | 1.2 | 0.4 - 2.0 | [facility] | | | Venous | | mmol/L | [facility] | [...] + + + | [facility] | [address] | [place] [address] | | | [facility] | | [...] Extra Tube | B Y | | [facility] | | | | | [...] + + | [facility] | [address] | [place] [address] | | | [facility] | | [...] | fasting glucose: 100 to | | [facility] | | | | 125 mg/dL. [...] + | [facility] | [address] | [place] [address] | | | FAM[facility] H[facility]ITAL | | [...] | 4.85 | 4.50 - 5.40 | [facility] | [...] | [facility] | [address] [facility] | [place] [address] | | | FAM[facility] | | | | | LABORATORY | | | | + + + + + documented in this encounter Visit Diagnoses + + | Diagnosis | + + | Sepsis, due to unspecified organism - Primary | + + | Pyelonephritis Pyelonephritis, unspecified | + + | Acute unilateral obstructive uropathy Other ureteric obstruction | + + | Acute pyonephrosis Acute pyelonephritis without lesion of renal medullary necrosis | + + | Pyoureter Other specified disorder of kidney and ureter | + + documented in this encounter Administered Medications + +--------+ +--------+------+------+ | Medication Order | MAR | Action | Dose | Rate | Site | | | Action | Date | | | | + +--------+ +--------+------+------+ | acetaminophen (TYLENOL) tablet | Given | 11/14/19 | 975 mg | | | | 975 mg 975 mg, Oral, ONCE, Inna | | 18 7:54 | | | | | 11/13/17 at 1940, For 1 dose | | PM PDT | | | | + +--------+ +--------+------+------+ +---+---+ | | | +---+---+ + +---------+ +-----+-------+---+ | cefTRIAXone (ROCEPHIN) 2 g in | New Bag | 11/14/19 | 2 g | 100 | | | sodium chloride 0.9% 50 mL IVPB | | 18 10:11 | | mL/hr | | | 2 g, Intravenous, Administer over | | PM PDT | | | | | 30 Minutes, ONCE, Inna 11/13/17 at | | | | | | | 2210, For 1 dose, Activate | | | | | | | system and mix before use., | | | | | | | Indications: Pyelonephritis | | | | | | + [...] | | | | + +---------+ +--------+-------+---+ +---------+ +--------+-------+---+ | New Bag | 11/15/19 [...] PDT | | | | | Starting Inna 11/13/17 at 2228, 1st | | | | | | | line agent for constipation | | | | | | | relief., | | | | | | + +-------+ +--------+---+---+ +---+---+ | | | +---+---+ + +-------+ +--------+---+---+ | fentaNYL (PF) injection | Given | 11/15/19 | 50 mcg | | | | Intravenous, PRN, Starting Fri | | 18 1:48 | | | | | 11/14/17 at 1342, Intra-op | | PM PDT | | | | + +-------+ +--------+---+---+ +-------+ +--------+---+---+ | Given | 11/15/19 | 50 mcg | | | | | 18 1:42 | | | | | | PM PDT | | | | +-------+ +--------+---+---+ +---+---+ | | | +---+---+ + +-------+ +---------+---+---+ | iopamidol (ISOVUE-370) 370 | Given | 11/14/19 | 100 mLs | | | | mg/mL injection 100 mL 100 mL, | | 18 9:24 | | | | | Intravenous, ONCE PRN, Other, | | PM PDT | | | | | Starting [facility] 11/13/17 at 2124, For | | | | | | | 1 dose, Cat Scanner | | | | | | + +-------+ +---------+---+---+ +---+---+ | | | +---+---+ + +---------+ +---+ +---+ | lactated ringers (LR) infusion | New Bag | 11/15/19 | | 20 mL/hr | | | at 10-100 mL/hr, Intravenous, | | 18 2:22 | | | | | CONTINUOUS, Starting Fri11/14/17 | | PM PDT | | | | | at 1145, TKO., Pre-op | | | | | | + +---------+ +---+ +---+ +---+---+ | | | +---+---+ + +-------+ +--------+---+---+ | lidocaine 1% injection PRN, | Given | 11/15/19 | 10 mLs | | | | Starting Fri11/14/17 at 1346 | | 18 1:46 | | | | | | | PM [...] midazolam (VERSED) 1 mg/mL | Given | 11/15/19 | 1 mg | | | | injection Intravenous, PRN, | | 18 1:48 | | | | | Starting 11/14/17 at 1342 | | PM PDT | | | | + +-------+ +------+---+---+ +-------+ +------+---+---+ | Given | 11/15/19 | 1 mg | | | | | 18 1:42 | | | | | | PM [...] +---+---+ + +-------+ +------+---+---+ | morphine injection 4 mg 4 mg, | Given | 11/14/19 | 4 mg | | | | Intravenous, PRN, Pain, Starting | | 18 8:42 | | | | | Inna 11/13/17 at 2032, For 3 doses, | | PM PDT | | | | | May use as needed for pain x 3 | | | | | | | doses, | | | | | | + [...] PDT | | | | | Starting [facility] 11/13/17 at 2228, | | | [...] | ondansetron (ZOFRAN) injection | Given | 11/14/19 | 8 mg | | | | 8 mg 8 mg, Intravenous, ONCE, | | 18 8:26 | | | | | Inna 11/13/17 at 2020, For 1 dose | | PM PDT | | | [...] | | | | | | | Inna 11/13/17 at 2228, If | | | | | | | ineffective use Oxycodone if | | | | | | | ordered. If not tolerated use | | | | | | | Hume 10/325 if ordered., | | | | | [...] 0.9% (NS) bolus | New Bag | 11/14/19 | 1,000 | 2000 | | | 1,000 mL 1,000 mL, Intravenous, | | 18 10:30 | mLs | mL/hr | | | Administer over 30 Minutes, | | PM PDT | | | | | ONCE, [facility] 11/13/17 at 2225, For 1 | | | | | | | dose | | | | | | + +---------+ +--------+-------+---+ +---+---+ | | | +---+---+ + +---------+ +--------+-------+---+ | sodium chloride 0.9% (NS) bolus | New Bag | 11/14/19 | 1,000 | 500 | | | 1,000 mL 1,000 mL, Intravenous, | | 18 8:39 | mLs | mL/hr | | | Administer over 2 Hours, ONCE, | | PM PDT | | | | | Inna 11/13/17 at 2020, For 1 dose | | | | | | + +---------+ +--------+-------+---+ +---+---+ | | | +---+---+ + +------+ +--------+-------+---+ | sodium chloride 0.9% (NS) bolus | Push | 11/14/19 | 30 mLs | 1800 | | | 30 mL 30 mL, Intravenous, | | 18 9:24 | | mL/hr | | | Administer over 1 Minutes, ONCE | | PM PDT | | | | | PRN, for contrast study, Starting | | | | | | | Inna 11/13/17 at 2124, For 1 dose, | | | | | | | May infuse at a different rate | | | | | | | per protocol., Cat Scanner | | | | | | + +------+ +--------+-------+---+ +---+---+ | | | +---+---+ + +---------+ [...]
--- OUTSIDE RECORDS SUMMARY | ~2019-09-01 | XMS | Encounter Summary ---
Demographics + + + | Address | [address] | | | [place] [address] | + + + | Home Phone | | + + + | Preferred Language | Unknown | + + + | Marital Status | Legally | + + + | Amish Affiliation | Unknown | + + + | Race | Unknown | + + + | Ethnic Group | Unknown | + + + Author + + + | Author | [facility] | | | and Anibal | + + + | Organization | [facility] | | | and [...] | | | | | [place] [address] | | + + + + + | Joelle Sharp | ECON | [place] | | | | | [place] | | + + + + + Care Team Providers + +------+ + | Care Organic Section Technical Lead Name | Role | Phone | [...] | +--------+ + + + + | 01/16/ | Telephone | Alesia Oconnell | Marisela | ED Follow-up | | 2018 | | Cheryl Monterroso | Tiffanie Murphy RN | | | | | Medicine [address] | | | | | | [facility] [address] | | | | | | [place], [place] | | | | | | [address] | | | | | | [phone] | | | +--------+ + + + [...]
--- OUTSIDE RECORDS SUMMARY | ~2019-09-01 | XMS | Encounter Summary ---
Demographics + + + | Address | [address] | | | [place] [address] | + + + | Home Phone | | + + + | Preferred Language | Unknown | + + + | Marital Status | Legally | + + + | Islam Affiliation | Unknown | + + + | Race | Unknown | + + + | Ethnic Group | Unknown | + + + Author + + + | Author | [facility] | | | and Anibal | + + + | Organization | [facility] | | | and Alexandruana | + + + | Address | Unknown | + + + | Phone | Unavailable | + + + Support + + + + + | Name | Relationship | Address | Phone | + + + + + | Neno Winters | ECON | [address] | | | | | [place] [address] | | + + + + + | Joelle Sharp | ECON | [place] | | | | | [place] | | + + + + + Care Team Providers + +------+ + | Care Hockey Scout Name | Role | Phone | + [...] | +--------+ + + + + | 09/21/ | Telephone | [place] | Yvonne Daniel, | ED Follow-up | | 2019 | | Cheryl Monterroso | JEFF | | | | | Medicine [address] | | | | | | [address] | | | | | | [place] | | | | | | [address] | | | | | | [phone] | | | +--------+ + + + [...]
--- OUTSIDE RECORDS SUMMARY | ~2019-09-01 | XMS | Encounter Summary ---
Demographics + + + | Address | [address] | | | [place] [address] | + + + | Home Phone [...] + | Author | [facility] | | | and Anibal | + + + | Organization | [facility] | | | and [...] | | | | | [place] [address] | | + + + + + | Joelle Sharp | ECON | [place] | | | | | [place] | | + + + + + Care Team Providers + +------+ + | Care Speech Professor Name | Role | Phone | + [...] [address] | | | | | | [facility] [address] | | | | | | [place], [place] | | | | | | [address] | | | | | | [phone] | | | +--------+ + + + [...]
--- OUTSIDE RECORDS SUMMARY | ~2019-09-01 | XMS | Encounter Summary ---
Demographics + + + | Address | [address] | | | [place] [address] | + + + | Home Phone | | + + + | Preferred Language | Unknown | + + + | Marital Status | Legally | + + + | Caodaism Affiliation | Unknown | + + + | Race | Unknown | + + + | Ethnic Group | Unknown | + + + Author + + + | Author | [facility] | | | and Anibal | + + + | Organization | [facility] | | | and Alexandruana | + + + | Address | Unknown | + + + | Phone | Unavailable | + + + Support + + + + + | Name | Relationship | Address | Phone | + + + + + | Neno Winters | ECON | [address] | | | | | [place] [address] | | + + + + + | Joelle Sharp | ECON | [place] | | | | | [place] | | + + + + + Care Team Providers + +------+ + | Care Doors Prefitter Name | Role | Phone | + [...] | +--------+ + + + + | 11/14/ | Anesthesia | [facility] | Agueda Garvin, | | | 2018 | Event | FAMILY INTRA OP | MD [address] | | | | | [address] [facility] | [place] [address] | | | | | [place] | [phone] | | | | | [address] | | | | | | [phone] | | | +--------+ + + + + Anesthesia Record + + + + + | Procedure Name | Responsible | Anesthesia Start | Anesthesia Stop Time | | | Anesthesiologist | Time | | + + + + + | PROCEDURE NOT | | | | | PERFORMED (N/A ) | | | | + + + + + +----+---+ + + | Da | T | Event | Comment | | te | i | | | | | m | | | | | e | | | +----+---+ + + | 03 | 1 | An Checkout | Pre-use anesthesia machine/equipment checkout. | | /2 | 2 | | | | 3/ | 1 | | | | 20 | 9 | | | | 18 | | | | +----+---+ + + | | 1 | | | | | 2 | | | | | 4 | | | | | 5 | | | +----+---+ + + +------+ | Meds | +------+ + +-------+ | Name | Total | + +-------+ | ondansetron | 4 mg | + +-------+ | famotidine | 20 mg | + +-------+ + + | No agents on file. | + + + + | No blood administrations on file. | + + +--------+ + +---------+ | Type | Details | Placement | Removal | +--------+ + +---------+ | Periph | 06/01/19; 4; Left; | 06/01/1934 by | | | eral | Antecubital; pressure injectable; | Roberto Pearl RN | | | IV | 20 gauge | | | +--------+ + +---------+ documented in this encounter Social History + [...] | | | + +--------+ +-------+------+------+ | famotidine (PEPCID) injection | Given | 11/15/19 | 20 mg | | | | Intravenous, PRN, Heartburn, | | 18 12:09 | | | | | Starting Fri11/14/17 at 1209, | | PM PDT | | | | | Anesthesia Intra-op | | | | | | + +--------+ +-------+------+------+ +---+---+ | | | +---+---+ + +-------+ +------+---+---+ | ondansetron (ZOFRAN) injection | Given | 01/29/20 | 4 mg | | | | Intravenous, PRN, Nausea, | | 18 9:36 | | | | | Vomiting, Starting Fri11/14/17 at | | AM PDT | | | | | 1218, Anesthesia Intra-op | | | | | | + +-------+ +------+---+---+ +-------+ +------+---+---+ | Given | 11/15/19 | 4 mg | | | | | 18 12:18 | | | | | | PM PDT | | | | +-------+ +------+---+---+ +---+---+ | | | +---+---+ documented in this encounter"
--- OUTSIDE RECORDS SUMMARY | ~2019-09-01 | XMS | Encounter Summary ---
Demographics + + + | Address | [email or web address] | | | [place] [address] | + + + | Home Phone [...] + + | Author | [facility] | | | and Anibal | + + + | Organization | [facility] | | | [...] | | | | | [place] [address] | | + + + + + | Joelle Sharp | SHARYN | [place] | | | | | [place] | | + + + + + Care Team Providers + +------+ + | Care Community Health Navigator Name | Role | Phone | + [...] | CLINIC [address] [place] | | | | | [address] | [address] | | | | | [place] | | | | | | [address] | | | | | | [phone] | | | +--------+ + + + [...] | | | | | 3.5Performed by [facility] [address] | | | | | [address] | | | | | | [place] [address] | | | | + + + + + + + + | Specimen | + + | Blood specimen | | (specimen) | + + + + + + + | Performing | Address | City/State/Zipcode | Phone Number | | Organization | | | | + + + + + | [facility] | [address] | [place] [address] | | | [facility] | | [...] | | [place] | | | | [facility] [address] | | | | | | [place] [address] | | | | + + + + + + + + | Specimen | + + | Blood specimen | | (specimen) | + + + + + + + | Performing | Address | City/State/Zipcode | Phone Number | | Organization | | | | + + + + + | [facility] | [address] | [place] [address] | | | [facility] LAB[facility]ORY | | [...] | [facility] | | | | by [facility] [address] | | [facility] | | | | [facility] | | LABORATORY | | | | [place] [address] | | [place] | | | | | | | | + + + + + + + + | Specimen | + + | Blood specimen | | (specimen) | + + + + + + + | Performing | Address | City/State/Zipcode | Phone Number | | Organization | | | | + + + + + | [facility] | [address] | [place] [address] | | | FAMILY LAB[facility]ORY | | | | | [place] | | | | + + + + + documented in this encounter Visit Diagnoses Not on filedocumented in this encounter"
--- OUTSIDE RECORDS SUMMARY | ~2019-09-01 | XMS | Encounter Summary ---
Demographics + + + | Address | [address] | | | [place] [address] | + + + | Home Phone | | + + + | Preferred Language | Unknown | + + + | Marital Status | Legally | + + + | Baptist Affiliation | Unknown | + + + | Race | Unknown | + + + | Ethnic Group | Unknown | + + + Author + + + | Author | [facility] | | | and Anibal | + + + | Organization | [facility] | | | and Alexandruana | + + + | Address | Unknown | + + + | Phone | Unavailable | + + + Support + + + + + | Name | Relationship | Address | Phone | + + + + + | Neno Winters | ECON | [address] | | | | | [place] [address] | | + + + + + | Joelle Sharp | SHARYN | [place] | | | | | [place] | | + + + + + Care Team Providers + +------+ + | Care Installation Tech Name | Role | Phone | [...] Provider Unknown | | | | | [address] | [phone] | | | | | [phone] | | | +--------+ + + + [...]
--- OUTSIDE RECORDS SUMMARY | ~2019-09-01 | XMS | Encounter Summary ---
Demographics + + + | Address | [address] | | | [place] [address] | + + + | Home Phone | | + + + | Preferred Language | Unknown | + + + | Marital Status | Legally | + + + | Jew Affiliation | Unknown | + + + | Race | Unknown | + + + | Ethnic Group | Unknown | + + + Author + + + | Author | [facility] | | | and Anibal | + + + | Organization | [facility] | | | and [...] | | | | | [place] [address] | | + + + + + | Joelle Sharp | ECON | [place] | | | | | [place] | | + + + + + Care Team Providers + +------+ + | Care Administrative Support Specialist Name | Role | Phone | [...] | | | | | kidney | [address] | | | | | (terminal) | [address] | [address] | | | | | Encounter | [address] | [place] | | | | | for surgical | [place] | [address] Phone: | | | | | aftercare | [address] | [phone] | | | | | following | Phone: | Fax: | | | | | surgery on | [phone] | [phone] | | | | | the | Fax: | | | | | | genitourinar | [phone] | | | | | | y system | | | | | | | neph, BMP | | | | | | | prior | | | | | | | Procedures | | | | | | | PA POST-OP | | | | | | | FOLLOW-UP | | | | | | | VISIT CC | | | | | | | POST-OP | | | +--------+--------+ + + + + Encounter Details +--------+---------+ + + + | Date | Type | Department | Care Team | Description | +--------+---------+ + + + | 02/19/ | Office | [facility] | Anthony Ortega MD | Hydronephrosis, | | 2018 | Visit | [address] | [address] | unspecified | | | | [address] | [address] [place] | hydronephrosis type | | | | [place] | [address] | (Primary Dx) | | | | [address] | | | | | | [phone] | | | +--------+---------+ + + + [...] might be different from t he original. [facility] OFFICE NOTE Primary Care Physician: Corey [...] I/R Procedure; Surgeon: Uriel Yan MD; Location: [facility] CV LAB OTHER SURGICAL HISTORY Right 11/14/2017 Procedure: Right Percutaneous Nephrostomy Tube Placement; Surgeon: Uriel Yan MD; Location: [facility] CV LAB OTHER SURGICAL HISTORY Right 12/11/2017 Procedure: Ureteral stent placement; Surgeon: Uriel Yan MD; Location: [facility] CV LAB OTHER SURGICAL HISTORY Right 12/17/2017 Procedure: right neph tube removed; Surgeon: Ray Marquez MD; Location: [facility] PARTIAL NEPHRECTOMY Right 01/28/2018 Procedure: ROBOTIC ASSISTED PARTIAL NEPHRECTOMY REMOVAL URTERAL STENT REMOVAL INTRAOPERAT CLEM ULSTRASOUND WITH IMMUNOSSAY IMAGING; Surgeon: Anthony Orteag MD; Location: [facility] MAIN OR MEDICATIONS Current Outpatient Prescriptions [...] famotidine (PEPCID) injection Intravenous PRN Roxie Damon, IT CONSULTANT 20 mg at 1209 ondansetron (ZOFRAN) injection Intravenous PRN Roxie Trytko, IT CONSULTANT 4 mg at 0936 ALLERGIES No Known [...] would recommend a renal ultrasound in 6 [facility] Electronically Signed by: Anthony Ortega MD 02/19/2018 at 12:53 CC: Corey Yuan MD [address] [address] documented in this encou nter Plan of [...] Performed At | + + + | [facility] RENAL ULTRASOUND NOTE DATE OF EXAM: | [facility] | | 07/30/2018 Indication: August Winters With history of a | [facility] - | | right partial nephrectomy of [...] + + + | [place] | [facility], [address] | [place] [address] | [phone] | | - IMAGING - [facility] | [place] | | | + + + + + documented in this encounter Visit Diagnoses + + | Diagnosis | + + | Hydronephrosis, unspecified hydronephrosis type - Primary | + + documented in this encounter
--- OUTSIDE RECORDS SUMMARY | ~2019-09-01 | XMS | Encounter Summary ---
Demographics + + + | Address | [address] | | | [place] [address] | + + + | Home Phone [...] Author | [facility] | | | and Anibal | + + + | Organization | [facility] | | | and Alexandruana | + + + | Address | Unknown | + + + | Phone | Unavailable | + + + Support + + + + + | Name | Relationship | Address | Phone | + + + + + | Neno Winters | ECON | [address] | | | | | [place] [address] | | + + + + + | Joelle Sharp | ECON | [place] | | | | | [place] | | + + + + + Care Team Providers + +------+ + | Care Maintenance Foreman Name | Role | Phone | + [...] | | | Tubes/Drains | | | | | | | I/R | | | | | | | Procedure | | | +--------+--------+ + + + + Encounter Details +--------+ + + + + | Date | Type | Department | Care Team | Description | +--------+ + + + + | 12/11/ | Hospital | [facility] | Jerry Farmer | 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 | Encounter | [facility] | MD Wilver [address] | kidney; Accessory | | | | [address] | [address] | kidney; Stricture or | | | | [place], [place] | [address] [place], [place] | kinking of ureter | | | | [address] | [id number] | | | | | [phone] | | | +--------+ + + + [...] + + + | Blood Pressure | 105/60 | 12/11/2017 11:56 AM | | | | | PDT | | + + + + + | Pulse | 76 | 12/11/2017 11:56 AM | | | | | PDT | | + + + + + | Temperature | 36.3 C (97.3 F) | 12/11/2017 11:33 AM | | | | | PDT | | + + + + + | Respiratory Rate | 16 | 12/11/2017 11:56 AM | | | | | PDT | | + + + + + | Oxygen Saturation | 97% | 12/11/2017 11:56 AM | | | | | PDT | | + + + + + | Inhaled Oxygen | - | - | | | Concentration | | | | + + + + + | Weight | 81.6 kg (180 lb) | 12/10/2017 3:11 PM | | | | | PDT | | + + + + + | Height | 185.4 cm (6' 1") | 12/10/2017 3:11 PM | | | | | PDT | | + + + + + | Body Mass Index | 23.75 | 12/10/2017 3:11 PM | | | | | PDT | | + + + + + documented in this encounter Discharge Instructions Instructions Livia Aguilar RN - 12/11/2017Formatting of this note might be different f rom the original. 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 Discharge Instructions: After Your Surgery You ve [...] you feel better. Take it as told, b efore pain becomes severe. Also, ask your [...] interact with your prescription medicines or other ghxx-lxx-pkzhhqb (OTC) medicines. Some prescription medicines have acetaminophen and other ingredients.Using both prescription a nd OTC acetaminophenfor paincan cause you to overdose. Readthe labels on your OTC medi [facility] care. This will help youto clearly know [...] of taking these medicines. Date Last Reviewed: 07/25/201619998543-8313 [employer]. [address] [place] [address], [place] [address]. All righ ts reserved. This information is not intended as a substitute for professional medical care. Always follow your healthcare professional's instructions. Change the bandage around the tube and tube attachments at least every 7 days. If your bandages or devices get dirty or wet, change them right away, and as often as sarah poole Schedule to come back next week to have the Nephrostomy tube checked and possibly remove at that time. If you develop a fever or flank pain attacher the bag provided to your Nephrostomy tube. documented in this encounter Medications at Time [...] + +--------+ + + + | IR | Routin | 12/11/2017 | Acquired atrophy | Results for this | | GASTRO/BILIARY/GENIT | e | 11:25 AM | of kidney Accessory | procedure are in the | | O URINARY NEPHRO | | PDT | kidney Stricture | results section. | | TUBES/DRAINS | | | or kinking of ureter | | + +--------+ + + + documented in this encounter Results IR [place]/Bilia/Lesli Urina Neph Tube/Drain (12/11/2017 11:25 AM PDT) + + | Specimen | + + | | + + + + + | Narrative | Performed At | + + + | 1. RIGHT | [facility] | | ANTEGRADE NEPHROSTOGRAM2. BALLOON DILATATION OF DISTAL URETERAL | | | STRICTURE3. PLACEMENT OF RIGHT URETERAL STENT4. 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 The upperpole moiety is obstructed. | | | The nephrostomy tube was placed on11/14/2017. Requesting ureteral | | | stent placement. COMPARISON: CT ABDOMEN PELVIS W CONTRAST dated | | | 11/13/2017; IR PROCEDURE date11/14/2017 FINDINGS:After explaining the | | | procedure, including the benefits and risks, bothverbal and written | | | consent were obtained. The patient was placed proneon the | | | angiography table. The right flank was prepped and draped in | | | asterile fashion. Fluoroscopy over the abdomen was | | | performeddemonstrating the existing right-sided nephrostomy catheter | | | in apparentgood position. Contrast was injected into the existing | | | nephrostomy catheter and interfor osteo g was performed. This | | | demonstrates that the upper collectingsystem is decompressed when | | | compared to the initial placement of thenephrostomy tube. There are | | | filling defects within the collectingsystem suggestive of clot. | | | There is no significant antegrade flow intothe ureter. The existing | | | nephrostomy catheter was removed over an Amplatz wire. A7 Cymraes | | | sheath was advanced into the upper collecting system.Contrast was | | | injected to confirm position within the upper collectingsystem. | | | Using a Chacon catheter and glidewire, the right ureter | | | wasselected. The wire was advanced into the ureter. The wire would | | | notadvance easily beyond the distal ureter where it appears to be | | | tortuousand stenotic. The Amplatz wire was used as a safety wire A | | | glide advantage wire wasadvanced through the Chacon catheter into | | | the distal ureter. Theshort 7 Cymraes sheath was exchanged for a 23 | | | cm 7 Cymraes sheath whichwas advanced into the right ureter. | | | Subsequently, utilizing theBernstein catheter and glidewire, the | | | catheter was manipulated into thebladder, although with some | | | difficulty. Contrast was injected andvisualized fluoroscopically to | | | confirm position within the bladder. The glide advantage wire was | | | advanced into the bladder. Attempts weremade at advancing an 8 | | | Cymraes, 28 cm ureteral stent into the bladder.However, the stent would | | | not advance beyond the distal ureter.Therefore, the distal ureteral | | | stricture was balloon dilated with a 4mm x 4 cm balloon. Following | | | balloon dilatation, the 8 Cymraes, 28 cmureteral stent was advanced | | | into the bladder and subsequently deployed. Due to the filling defects | | | within the renal pelvis on the initialnephrostogram and the | | | difficulty with deploying the stent due to thestricture distally, it | | | was decided to proceed with placement of anephrostomy tube. Over the | | | safety wire, a new 8.5 Cymraes nephrostomytube was placed into the | | | renal pelvis under fluoroscopic guidance.Contrast was injected and | | | fluoroscopic imaging was performed to confirmgood position of both the | | | nephrostomy catheter and the ureteral stent.The nephrostomy tube was | | | capped. No immediate complications. Fluoroscopy time: The total | | | number of images: 2 Contrast: 20ML OMNIPAQUE 300 Medications: The | | | patient received 400 mg of ciprofloxacin. The patientreceived 1 mg | | | of Versed and 100 mcg of fentanyl for conscious sedation.The patient | | | underwent routine physio monitoring during the entireprocedure. The | | | patient was monitored for 90 min. IMPRESSION:1. Abnormal appearance of | | | the visualized upper collecting system andureter. There are filling | | | defects within the visualized renal pelvisthat may represent clots. | | | The distal ureter is tortuous and stenotic.2. Balloon dilatation of | | | distal ureteral stricture.3. Successful placement of 8 Cymraes, 28 cm | | | right ureteral stent.4. A nephrostomy tube was placed and capped. | | | The patient willfollow-up in interventional radiology next week for | | | nephrostogram andpossible nephrostomy tube removal. Signed by: | | | MD Yan Cameron | | |Contrast was injected and fluoroscopic imaging was performed to confirm | | |good position of both the nephrostomy catheter and the ureteral stent. | | |The nephrostomy tube was capped. No immediate complications. | | | | | | | | |Fluoroscopy time: The total number of images: 2 | | | | | |Contrast: 20ML OMNIPAQUE 300 | | | | | |Medications: The patient received 400 mg of ciprofloxacin. The patient | | |received 1 mg of Versed and 100 mcg of fentanyl for conscious sedation. | | |The patient underwent routine physio monitoring during the entire | | |procedure. The patient was monitored for 90 min. | | | | | |IMPRESSION: | | |1. Abnormal appearance of the visualized upper collecting system and | | |ureter. There are filling defects within the visualized renal pelvis | | |that may represent clots. The distal ureter is tortuous and stenotic. | | |2. Balloon dilatation of distal ureteral stricture. | | |3. Successful placement of 8 Cymraes, 28 cm right ureteral stent. | | |4. A nephrostomy tube was placed and capped. The patient will | | |follow-up in interventional radiology next week for nephrostogram and | | |possible nephrostomy tube removal. | | | | | | | | | | | |Signed by: MD Yan Cameron | | | | | | | | + + + + + | Procedure Note | + + | Lance, Rad Results In - 12/11/2017 1:47 PM PDT | | 1. RIGHT ANTEGRADE NEPHROSTOGRAM | | 2. BALLOON DILATATION OF DISTAL URETERAL STRICTURE | | 3. PLACEMENT OF RIGHT URETERAL STENT | | 4. 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 The upper | | pole moiety is obstructed. The nephrostomy tube was placed on | | 11/14/2017. Requesting ureteral stent placement. | | | | COMPARISON: | | | | CT ABDOMEN PELVIS W CONTRAST dated 11/13/2017; IR PROCEDURE dated | | 11/14/2017 | | | | FINDINGS: | | After explaining the procedure, including the benefits and risks, both | | verbal and written consent were obtained. The patient was placed prone | | on the angiography table. The right flank was prepped and draped in a | | sterile fashion. Fluoroscopy over the abdomen was performed | | demonstrating the existing right-sided nephrostomy catheter in apparent | | good position. | | | | Contrast was injected into the existing nephrostomy catheter and inter | | for osteo g was performed. This demonstrates that the upper collecting | | system is decompressed when compared to the initial placement of the | | nephrostomy tube. There are filling defects within the collecting | | system suggestive of clot. There is no significant antegrade flow into | | the ureter. | | | | The existing nephrostomy catheter was removed over an Amplatz wire. A | | 7 Cymraes sheath was advanced into the upper collecting system. | | Contrast was injected to confirm position within the upper collecting | | system. Using a Chacon catheter and glidewire, the right ureter was | | selected. The wire was advanced into the ureter. The wire would not | | advance easily beyond the distal ureter where it appears to be tortuous | | and stenotic. | | | | The Amplatz wire was used as a safety wire A glide advantage wire was | | advanced through the Chacon catheter into the distal ureter. The | | short 7 Cymraes sheath was exchanged for a 23 cm 7 Cymraes sheath which | | was advanced into the right ureter. Subsequently, utilizing the | | Chacon catheter and glidewire, the catheter was manipulated into the | | bladder, although with some difficulty. Contrast was injected and | | visualized fluoroscopically to confirm position within the bladder. | | | | The glide advantage wire was advanced into the bladder. Attempts were | | made at advancing an 8 Cymraes, 28 cm ureteral stent into the bladder. | | However, the stent would not advance beyond the distal ureter. | | Therefore, the distal ureteral stricture was balloon dilated with a 4 | | mm x 4 cm balloon. Following balloon dilatation, the 8 Cymraes, 28 cm | | ureteral stent was advanced into the bladder and subsequently deployed. | | | | Due to the filling defects within the renal pelvis on the initial | | nephrostogram and the difficulty with deploying the stent due to the | | stricture distally, it was decided to proceed with placement of a | | nephrostomy tube. Over the safety wire, a new 8.5 Cymraes nephrostomy | | tube was placed into the renal pelvis under fluoroscopic guidance. | | Contrast was injected and fluoroscopic imaging was performed to confirm | | good position of both the nephrostomy catheter and the ureteral stent. | | The nephrostomy tube was capped. No immediate complications. | | | | | | Fluoroscopy time: The total number of images: 2 | | | | Contrast: 20ML OMNIPAQUE 300 | | | | Medications: The patient received 400 mg of ciprofloxacin. The patient | | received 1 mg of Versed and 100 mcg of fentanyl for conscious sedation. | | The patient underwent routine physio monitoring during the entire | | procedure. The patient was monitored for 90 min. | | | | IMPRESSION: | | 1. Abnormal appearance of the visualized upper collecting system and | | ureter. There are filling defects within the visualized renal pelvis | | that may represent clots. The distal ureter is tortuous and stenotic. | | 2. Balloon dilatation of distal ureteral stricture. | | 3. Successful placement of 8 Cymraes, 28 cm right ureteral stent. | | 4. A nephrostomy tube was placed and capped. The patient will | | follow-up in interventional radiology next week for nephrostogram and | | possible nephrostomy tube removal. | | | | | | | | Signed by: MD Yan Cameron | + + + +---------+ + + | Performing | Address | City[facility] | Phone Number | | Organization | [...] documented in this encounter Administered Medications + +---------+ +--------+-------+------+ | Medication Order | MAR | Action | Dose | Rate | Site | | | Action | Date | | | | + +---------+ +--------+-------+------+ | ciprofloxacin in dextrose | New Bag | 12/12/19 | 400 mg | 200 | | | (CIPRO) IVPB 400 mg 400 mg, | | 18 10:10 | | mL/hr | | | Intravenous, Administer over 1 | | AM PDT | | | | | Hours, COMMERCIAL DRIVER, Starting Inna | | | | | | | 12/11/17 at 0914, For 1 dose, If | | | | | | | severely allergic to ceftriaxone | | | | | | | or penicillin, give ciprofloxacin | | | | | | | 400 mg IV x 1 dose., | | | | | | | Indications: Surgical Prophylaxis | | | | | | + +---------+ +--------+-------+------+ +---+---+ | | | +---+---+ + +-------+ +--------+---+---+ | fentaNYL (PF) injection | Given | 12/12/19 | 50 mcg | | | | Intravenous, PRN, Starting Inna | | 18 10:21 | | | | | 12/11/17 at 1021, Intra-op | | AM PDT | | | | + +-------+ +--------+---+---+ +---+---+ | | | +---+---+ + +-------+ +--------+---+---+ | fentaNYL (PF) injection | Given | 12/12/19 | 50 mcg | | | | Intravenous, PRN, Starting Inna | | 18 10:29 | | | | | 12/11/17 at 1029, Intra-op | | AM PDT | | | | + +-------+ +--------+---+---+ +---+---+ | | | +---+---+ + +-------+ +--------+---+---+ | iohexol (OMNIPAQUE 300) 300 | Given | 12/12/19 | 10 mLs | | | | mg/mL injection PRN, Starting | | 18 10:26 | | | | | Inna 12/11/17 at 1026 | | AM PDT | | | | + +-------+ +--------+---+---+ +---+---+ | | | +---+---+ + +-------+ +--------+---+---+ | iohexol (OMNIPAQUE 300) 300 | Given | 12/12/19 | 10 mLs | | | | mg/mL injection PRN, Starting | | 18 10:51 | | | | | Inna 12/11/17 at 1051 | | AM PDT | | | | + +-------+ +--------+---+---+ +---+---+ | | | +---+---+ + +-------+ +--------+---+ + | lidocaine 1% injection PRN, | Given | 12/12/19 | 10 mLs | | Surgical | | Starting Inna 12/11/17 at 1023 | | 18 10:23 | | | Site | | | | AM PDT | | | | + +-------+ +--------+---+ + +---+---+ | | | +---+---+ + +-------+ +------+---+---+ | midazolam (VERSED) 1 mg/mL | Given | 12/12/19 | 1 mg | | | | injection Intravenous, PRN, | | 18 10:21 | | | | | Starting Inna 12/11/17 at 1021 | | AM PDT | | | | + +-------+ +------+---+---+ +---+---+ | | | +---+---+ + +-------+ +------+---+---+ | midazolam (VERSED) 1 mg/mL | Given | 12/12/19 | 1 mg | | | | injection Intravenous, PRN, | | 18 11:03 | | | | | Starting Inna 12/11/17 at 1103 | | AM PDT | | | | + +-------+ +------+---+---+ +---+---+ | | | +---+---+ + +---------+ +---------+ +---+ | sodium chloride 0.9% (NS) bolus | New Bag | 12/12/19 | 500 mLs | 50 mL/hr | | | Intravenous, Administer over 2 | | 18 10:10 | | | | | Hours, CONTINUOUS PRN, Starting | | AM PDT | | | | | Inna 12/11/17 at 1010 | | | | | | + +---------+ +---------+ +---+ + +---+ | | | + +---+ | sodium chloride 0.9% (NS) | | | infusion at 50 mL/hr, | | | Intravenous, CONTINUOUS, Starting | | | Inna 12/11/17 at 1200, OK to use | | | implantable port., Pre-op | | + +---+ | | | + +---+ documented in this encounter
--- OUTSIDE RECORDS SUMMARY | ~2019-09-01 | XMS | Encounter Summary ---
Demographics + + + | Address | [address] | | | [place] [address] | + + + | Home Phone [...] Author | [facility] | | | and Anibal | + + + | Organization | [facility] | | | and [...] | | | | | [place] [address] | | + + + + + | Joelle Sharp | SHARYN | Sigrid | | | | | [place] | | + + + + + Care Team Providers + +------+ + | Care Supervisor [place] Name | Role | Phone | + [...] appt to see | | | | [address] | [id number] | Shannon) | | | | [phone] | | | +--------+ + + + [...]
--- OUTSIDE RECORDS SUMMARY | ~2019-09-01 | XMS | Encounter Summary ---
Demographics + + + | Address | [address] | | | [place] [address] | + + + | Home Phone | | + + + | Preferred Language | Unknown | + + + | Marital Status | Legally | + + + | Congregational Affiliation | Unknown | + + + | Race | Unknown | + + + | Ethnic Group | Unknown | + + + Author + + + | Author | [facility] | | | and Anibal | + + + | Organization | [facility] | | | and Alexandruana | + + + | Address | Unknown | + + + | Phone | Unavailable | + + + Support + + + + + | Name | Relationship | Address | Phone | + + + + + | Neno Winters | ECON | [address] | | | | | [place] [address] | | + + + + + | Joelle Sharp | ECON | [place] | | | | | [place] | | + + + + + Care Team Providers + +------+ + | Care Nib Adjuster Name | Role | Phone | + [...] Tube | | | | [address] | [address] [facility] | Placement | | | | [place], [place] | [place] [address] | | | | | [address] | [phone] | | | | | [phone] | | | +--------+---------+ + + + [...] might be different fro m the original. [facility] DISCHARGE SUMMARY Patient Name: August Winters [...] 10 doses. aka: JOSEPH WILSON Follow-Up: 1. [facility] in 2 weeks. Please call [phone] during business hours to set up your urology follow up appointm ent. Electronically Signed by: Marcell Graves MD, 11/15/2017 8:17 [facility] docume nted in this encounter Discharge Instructions Instructions Georgette Romero RN - 11/15/2017Nephrostomy tube AttachmentsThe following attachments cannot be sent through Care Everywhere.Pyelonephritis, Discharge Instructions for ([place])Nephrostomy, Percutaneous ([place])Nephrostomy, Percuta neous, Discharge Instructions ([place])documented in this encounter Medications at Time of [...] + + | RESULT | Performed at [facility] | | [facility] | | | | [facility], | | [facility] | | | | [address] [place], [place] | | HOSPITAL | | | | [address] | | LABORATORY | | + + [...] + + + | [facility] | [address] | [place] [address] | | | [facility] | | | | | [...] | | | IMPRESSION:Successful placement of 10.2 Niuean nephrostomy catheter | | | into massivelydilated [...] |IMPRESSION: | | |Successful placement of 10.2 Niuean nephrostomy catheter into massively | | |dilated [...] collection. The tract was dilated. A 10.2 Niuean | | nephrostomy catheter was advanced into [...] IMPRESSION: | | Successful placement of 10.2 Niuean nephrostomy catheter into massively | | dilated [...] + | [facility] | [address] | [place] [address] | | | [facility] | | [...] | + + + + + | [facility] | [address] | [place] [address] | | | [facility] | | | | | [...] + + | RESULT | Performed at [facility] | | [facility] | | | | [facility], | | [facility] | | | | [address] [place] | | HOSPITAL | | | | [address] | | LABORATORY | | + + [...] + | [facility] | [address] | [place] [address] | | | [facility] | | | | | LABORATORY [...] - 1.030 | [facility] | | | [place] | | | [facility] | | [...] + | [facility] | [address] | [place] [address] | | | [facility] | | | | | [...] + + | RESULT | Performed at [facility] | | [facility] | | | | [facility], | | [facility] | | | | [address] [place], [place] | | HOSPITAL | | | | [address] | | LABORATORY | | + + [...] + + + | [facility] | [address] | [place] [address] | | | [facility] | | | | | [...] | | Findings were discussed with Dr. Gulilory upon the conclusion of the exam | [...] | | [facility] | | | | [facility], | | [facility] | | | | [address], [place], [place] | | HOSPITAL | | | | [address] | | LABORATORY | | + + [...] + + + + + | [facility] | [address] | [place] [address] | | | [facility] | | | | | [...] + | [facility] | [address] | [place] [address] | | | FAMILY H[facility]PITAL | | [...] + + + | [facility] | [address] [facility] | [place] [address] | | | [facility] | | [...] + + + | [facility] | [address] | [place] [address] | | | [facility]ITAL | | [...] + + | [facility] | [address] | [place] [address] | | | [facility] | | | | | LABORATORY [...] PDT | | | | | Starting [facility] 11/13/17 at 2228, 1st | | | [...] PDT | | | | | Starting [facility] 11/13/17 at 2228, | | | | [...] | | | | | | | [facility] 3/22/18 at 2228, If | | | | | | | ineffective use Oxycodone if | | | | | | | ordered. If not tolerated use | | | | | | | Lynn 10/ if ordered., | | | | [...]
--- OUTSIDE RECORDS SUMMARY | ~2019-09-01 | XMS | Encounter Summary ---
Demographics + + + | Address | [address] [facility] | | | [place] [address] | + + + | Home Phone [...] + + | Author | [facility] | | | and Anibal | + + + | Organization | [facility] | | | and Alexandruana | + + + | Address | Unknown | + + + | Phone | Unavailable | + + + Support + + + + + | Name | Relationship | Address | Phone | + + + + + | Neno Winters | ECON | [address] | | | | | [place] [address] | | + + + + + | Joelle Sharp | ECON | [place] | | | | | [place] | | + + + + + Care Team Providers + +------+ + | Care Vending Machine Refiller Name | Role | Phone | + [...] + + | 02/17/ | Telephone | [facility] | Yvonne Daniel, | ED Follow-up | | 2019 | | Cheryl Monterroso | JEFF | | | | | Medicine [address] | | | | | | [place] [address] | | | | | | [place] | | | | | | [address] | | | | | | [phone] | | | +--------+ + + + [...]
--- OUTSIDE RECORDS SUMMARY | ~2019-09-01 | XMS | Encounter Summary ---
Demographics + + + | Address | [address] [facility] | | | [place] [address] | + + + | Home Phone | | + + + | Preferred Language | Unknown | + + + | Marital Status | Legally | + + + | Shinto Affiliation | Unknown | + + + | Race | Unknown | + + + | Ethnic Group | Unknown | + + + Author + + + | Author | [facility] | | | and Anibal | + + + | Organization | [facility] | | | [...] [address] | | | | | [place] [address] | | + + + + + | Joelle Sharp | ECON | [place] | | | | | [place] | | + + + + + Care Team Providers + +------+ + | Care Developer Automatic Name | Role | Phone | + [...] Description | +--------+---------+ + + + | 12/11/ | Surgery | [facility] | Uriel Yan, | Ureteral stent | | 2018 | | FAMILY CV INTRA OP | MD [address] | placement | | | | [address] [facility] | [facility] [address] [facility] | | | | | [place], [place] | [place] [address] | | | | | [address] | [phone] | | | | | [phone] | | | +--------+---------+ + + + [...] the original. 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 Discharge Instructions: After Your Surgery You [...] interact with your prescription medicines or other ikmj-ugr-ujpqcgs (OTC) medicines. Some prescription medicines have acetaminophen and other ingredients.Using both prescription a nd OTC acetaminophenfor paincan cause you to overdose. Readthe labels on your OTC [facility] care. This will help youto clearly know [...] of taking these medicines. Date Last Reviewed: 07/25/201619994613-2380 [employer]. [address] [place] [address]. All righ ts reserved. This information is [...] you develop a fever or flank pain yeast culture operator the bag provided to your Nephrostomy tube. [...] | | | | | | | ([facility]) | | | | | [...] was removed over an Amplatz wire. A7 Luxembourger | | | sheath was advanced into [...] | | the distal ureter. Theshort 7 Luxembourger sheath was exchanged for a 23 | | | cm 7 Luxembourger sheath whichwas advanced into the right ureter. [...] at advancing an 8 | | | Luxembourger, 28 cm ureteral stent into the bladder.However, the stent would | | | not advance beyond the distal ureter.Therefore, the distal ureteral | | | stricture was balloon dilated with a 4mm x 4 cm balloon. Following | | | balloon dilatation, the 8 Luxembourger, 28 cmureteral stent was advanced | | [...] | | safety wire, a new 8.5 Luxembourger nephrostomytube was placed into the | | [...] distal ureteral stricture.3. Successful placement of 8 Luxembourger, 28 cm | | | right ureteral [...] | | |3. Successful placement of 8 Luxembourger, 28 cm right ureteral stent. | | [...] an Amplatz wire. A | | 7 Luxembourger sheath was advanced into the upper collecting [...] distal ureter. The | | short 7 Luxembourger sheath was exchanged for a 23 cm 7 Luxembourger sheath which | | was advanced into [...] | | made at advancing an 8 Luxembourger, 28 cm ureteral stent into the bladder. | | However, the stent would not advance beyond the distal ureter. | | Therefore, the distal ureteral stricture was balloon dilated with a 4 | | mm x 4 cm balloon. Following balloon dilatation, the 8 Luxembourger, 28 cm | | ureteral stent was [...] Over the safety wire, a new 8.5 Luxembourger nephrostomy | | tube was placed into [...] | | 3. Successful placement of 8 Luxembourger, 28 cm right ureteral stent. | | [...] PDT | | | | | Hours, DOG BARBER, Starting Inna | | | | | [...]
--- OUTSIDE RECORDS SUMMARY | ~2019-09-01 | XMS | Encounter Summary ---
Demographics + + + | Address | [address] [facility] | | | [place] [address] | + + + | Home Phone | | + + + | Preferred Language | Unknown | + + + | Marital Status | Legally | + + + | Judaism Affiliation | Unknown | + + + | Race | Unknown | + + + | Ethnic Group | Unknown | + + + Author + + + | Author | [facility] | | | and Anibal | + + + | Organization | [facility] | [...] [address] | | | | | [place] [address] | | + + + + + | Joelle Sharp | ECON | Sigrid | | | | | [place] | | + + + + + Care Team Providers + +------+ + | Care Veneer Press Operator Name | Role | Phone | [...] + + | 11/14/ | Surgery | [facility] | Marcell Graves, | Canceled | | 2017 | | FAMILY INTRA OP | MD [address] | PROCEDURE NOT | | | | [address] | [address] [place] | PERFORMED | | | | [place] | [address] | | | | | [address] | | | | | | [phone] | | | +--------+---------+ + + + [...] might be different fro m the original. [facility] DISCHARGE SUMMARY Patient Name: August Winters [...] 10 doses. aka: JOSEPH WILSON Follow-Up: 1. [facility] in 2 weeks. Please call during business hours to set up your urology follow up appointm ent. Electronically Signed by: Marcell Graves MD, 11/15/2017 8:17 [facility] docume nted in this encounter Discharge Instructions Instructions Georgette Romero RN - 11/15/2017Nephrostomy tube AttachmentsThe following attachments cannot be sent through Care Everywhere.Pyelonephritis, Discharge Instructions for (Jordanian)Nephrostomy, Percutaneous (Jordanian)Nephrostomy, Percuta neous, Discharge Instructions (Jordanian)documented in this encounter Medications at Time of [...] | RESULT | Performed at [facility] | | [facility] | | | | [facility], | | [facility] | | | | [address] [place] [address] | | HOSPITAL | | | | [address] | | LABORATORY | | + + [...] + + + | [facility] | [address] [facility] [facility] | [place] [address] | | | [facility] | | | | | [...] | | | IMPRESSION:Successful placement of 10.2 Russian nephrostomy catheter | | | into massivelydilated [...] |IMPRESSION: | | |Successful placement of 10.2 Russian nephrostomy catheter into massively | | |dilated [...] collection. The tract was dilated. A 10.2 Russian | | nephrostomy catheter was advanced into [...] IMPRESSION: | | Successful placement of 10.2 Russian nephrostomy catheter into massively | | dilated [...] + + | [facility] | [address] [facility] | [place] [address] | | | [facility] | | [...] + + + + + | GRAYSONAdrienne CONSUELOFina | [address] [facility] | [place] [address] | | | FAMILY [facility]ITAL | | [...] | RESULT | Performed at [facility] | | [facility] | | | | [facility], | | [facility] | | | | [address] | | HOSPITAL | | | | [address] | | LABORATORY | | + + [...] + | [facility] | [address] | [place] [address] | | | [facility] | | | | | [...] - 1.030 | [facility] | | | [place] | | | [facility] | | [...] + | [facility] | [address] | [place] [address] | | | FAMILY [facility] | | [...] | RESULT | Performed at [facility] | | [facility] | | | | [facility], | | [facility] | | | | [address], [place] | | HOSPITAL | | | | [address] | | LABORATORY | | + + [...] + + + | [facility] | [address] | [place] [address] | | | [facility] | | | | | [...] | | [facility] | | | | [facility], | | [facility] | | | | [address], [place], [place] | | HOSPITAL | | | | [address] | | LABORATORY | | + + [...] | [facility] CORDEROFina | [address] [facility] | [place] [address] | | | FAMILY [facility]ITAL | | [...] | 1.2 | 0.4 - 2.0 | BRIDGERNCE | | | Venous | | mmol/L [...] + | [facility] | [address] | [place] [address] | | | [facility] | | [...] + + + | [facility] | [address] [facility] [facility] | [place] [address] | | | FAM[facility] | | [...] Estimated | Cannot calculate. | >60 | [facility] | | | GFR | | ml/min/1.73m2 [...] [facility] | [address] | [place] [address] | | | [facility] | | [...] (H) | 4.5 - 13.5 K/uL | [facility] [...] + + + | [facility] | [address] [facility] | [place] [address] | | | [facility] | | | | | LABORATORY [...] | | | | PRN, Pain, Starting [facility] 11/13/17 | | AM PDT | | [...] PDT | | | | | Starting [facility] 11/13/17 at 2228, | | | [...] | | | | | | | [facility] 11/13/17 at 2228, If | | | | | | | ineffective use Oxycodone if | | | | | | | ordered. If not tolerated use | | | | | | | Hensel 10/ if ordered., | | | | [...]
--- OUTSIDE RECORDS SUMMARY | ~2019-09-01 | XMS | Encounter Summary ---
Demographics + + + | Address | [address] [facility] | | | [place] [address] | + + + | Home Phone | | + + + | Preferred Language | Unknown | + + + | Marital Status | Legally | + + + | Druze Affiliation | Unknown | + + + | Race | Unknown | + + + | Ethnic Group | Unknown | + + + Author + + + | Author | [facility] | | | and Anibal | + + + | Organization | [facility] | | | and Alexandruana | + + + | Address | Unknown | + + + | Phone | Unavailable | + + + Support + + + + + | Name | Relationship | Address | Phone | + + + + + | Neno Winters | ECON | [address] | | | | | [place] [address] | | + + + + + | Joelle Sharp | ECON | [place] | | | | | [place] | | + + + + + Care Team Providers + +------+ + | Care Property Staff Accountant Name | Role | Phone | + +------+ + PCP | Unavailable | + +------+ + Encounter Details +--------+ + + + + | Date | Type | Department | Care Team | Description | +--------+ + + + + | 10/28/ | Hospital | [facility] | Paras-Maria Eugenia, | | | 2008 | Encounter | [facility] | [address] | | | | | EMERGENCY CENTER | [address], | | | | | [address] | [place] [address] | | | | | [place] | [phone] | | | | | [address] | | | | | | [phone] | | | +--------+ + + + [...]
--- OUTSIDE RECORDS SUMMARY | ~2019-09-01 | XMS | Encounter Summary ---
Demographics + + + | Address | [address] [facility] | | | [place] [address] | + + + | Home Phone | | + + + | Preferred Language | Unknown | + + + | Marital Status | Legally | + + + | Holiness Affiliation | Unknown | + + + | Race | Unknown | + + + | Ethnic Group | Unknown | + + + Author + + + | Author | [facility] | | | and Anibal | + + + | Organization | [facility] | | | and Alexandruana | + + + | Address | Unknown | + + + | Phone | Unavailable | + + + Support + + + + + | Name | Relationship | Address | Phone | + + + + + | Neno Winters | ECON | [address] | | | | | [place] [address] | | + + + + + | Joelle Sharp | ECON | [place] | | | | | [place] | | + + + + + Care Team Providers + +------+ + | Care Cheese Production Supervisor Name | Role | Phone | + [...] + + | 02/03/ | Telephone | Wilbar[facility]ian | Yvonne Daniel, | Hospital Follow-up | | 2018 | | [facility] | RN | | | | | Medicine [address] | | | | | | [facility] [address] | | | | | | [place] | | | | | | [address] | | | | | | [phone] | | | +--------+ + + + [...]
--- OUTSIDE RECORDS SUMMARY | ~2019-09-01 | XMS | Encounter Summary ---
Demographics + + + | Address | [address] [facility] | | | [place] [address] | + + + | Home Phone [...] + + + | Author | [facility] | | | and nAibal | + + + | Organization | [facility] | | | and [...] | | | | | [place] [address] | | + + + + + | Joelle Sharp | SHARYN | [place] | | | | | [place] | | + + + + + Care Team Providers + +------+ + | Care Clinical Rehab Specialist Name | Role | Phone | [...] Provider Unknown | | | | | [address] | [phone] | | | | | [phone] | | | +--------+ + + + [...]
--- OUTSIDE RECORDS SUMMARY | ~2019-09-01 | XMS | Encounter Summary ---
Demographics + + + | Address | [address] [facility] | | | [place] [address] | + + + | Home Phone [...] + + | Author | [facility] | | | and Anibal | + + + | Organization | [facility] | | | and Alexandruana | + + + | Address | Unknown | + + + | Phone | Unavailable | + + + Support + + + + + | Name | Relationship | Address | Phone | + + + + + | Neno Winters | ECON | [address] | | | | | [place] [address] | | + + + + + | Joelle Sharp | ECON | [place] | | | | | [place] | | + + + + + Care Team Providers + +------+ + | Care Transfer And Pumphouse Operator Chief Name | Role | Phone | + +------+ + PCP | Unavailable | + +------+ + Encounter Details +--------+ + + + + | Date | Type | Department | Care Team | Description | +--------+ + + + + | 09/29/ | Hospital | [facility] | Magaly Carmona MD | | | 2008 | Encounter | [facility] | | | | | | EMERGENCY CENTER | | | | | | [address] | | | | | | [place] | | | | | | [address] | | | | | | [phone] | | | +--------+ + + + [...]
--- OUTSIDE RECORDS SUMMARY | ~2019-09-01 | XMS | Encounter Summary ---
Demographics + + + | Address | [address] [facility] | | | [place] [address] | + + + | Home Phone | | + + + | Preferred Language | Unknown | + + + | Marital Status | Legally | + + + | Christian Affiliation | Unknown | + + + | Race | Unknown | + + + | Ethnic Group | Unknown | + + + Author + + + | Author | [facility] | | | and Anibal | + + + | Organization | [facility] [...] | | | | | [place] [address] | | + + + + + | Joelle Sharp | ECON | [place] | | | | | [place] | | + + + + + Care Team Providers + +------+ + | Care Binder Stripper Hand Name | Role | Phone | [...] | History of | [address] [place] | | | | | nephrectomy | [address] | [facility] | | | | | hx renal | [address] | [address] | | | | | mass, & | [place] | [address] | | | | | Nephrectomy | [address] | [address] | | | | | lad pt | Phone: | [place] | | | | | Procedures | [phone] | [address] | | | | | DC OFFICE | Fax: | Phone: | | | | | OUTPATIENT | [phone] | [phone] | | | | | VISIT 15 | | Fax: | | | | | MINUTES CC | | [phone] | | | | | PROCEDURE | [...] | | | | [place] | [id number] | | | | | [address] | | | | | | [phone] | | | +--------+ + + + [...] 4.1 x 5.4 x 8.6 cm (86cc) E[place] neg Pelvis WNL Ureter prox 1.8 mid 2.6 dist 0.5 cm Left Kidney 5.2 x 5.8 x 12.7 cm (203cc) [place] neg Bladder 6.4 x 8.3 x 8.3 cm Bottoming Room Inspector Comments: Hydroureter still seen posterior to right kidney, unable to see where the ureter leaves the pelvis. Right kidney and bladder WNL. Tracie Andre RDPA P M Tracie Marc Track Equipment Operator - 07/30/2018 2:00 PM PST Office ultrasound Patient Name: August Winters : 2000 Indication: Post op Symptoms: right flank pain, dull Prior Treatment: Right partial nephrectomy Patient of DR: Shannon Right Kidney 4.1 x 5.4 x 8.6 cm (86cc) [place] neg Pelvis WNL Ureter prox 1.8 mid 2.6 dist 0.5 cm Left Kidney 5.2 x 5.8 x 12.7 cm (203cc) [place]pping neg Bladder 6.4 x 8.3 x 8.3 cm Bottoming Room Inspector Comments: Hydroureter still seen posterior to right kidney, unable to see where the ureter leaves the pelvis. Right kidney and bladder WNL. Tracie nAdre RDMS Electronically signed by Tracie Andre Track Equipment Operator at 2017 12:35 PM PSTdocumented in this encounter Plan of Treatment Not on filedocumented as of this encounter Visit Diagnoses + + | Diagnosis | + + | Other hydronephrosis - Primary | + + documented in this encounter"
--- OUTSIDE RECORDS SUMMARY | ~2019-09-01 | XMS | Encounter Summary ---
Demographics + + + | Address | [address] [facility] | | | [place] [address] | + + + | Home Phone | | + + + | Preferred Language | Unknown | + + + | Marital Status | Legally | + + + | Buddhism Affiliation | Unknown | + + + | Race | Unknown | + + + | Ethnic Group | Unknown | + + + Author + + + | Author | [facility] | | | and Anibal | + + + | Organization | [facility] | | | and Alexandruana | + + + | Address | Unknown | + + + | Phone | Unavailable | + + + Support + + + + + | Name | Relationship | Address | Phone | + + + + + | Neno Winters | ECON | [address] | | | | | [place] [address] | | + + + + + | Joelle Sharp | ECON | [place] | | | | | [place] | | + + + + + Care Team Providers + +------+ + | Care Food Photographer Name | Role | Phone | + +------+ + | Corey Yuan MD | PCP | | + +------+ + Reason for Visit + + + | Reason | Comments | + + + | Medication Refill | | + + + Encounter Details +--------+ + + + + | Date | Type | Department | Care Team | Description | +--------+ + + + + | 02/03/ | Telephone | [facility] | Anthony Ortega MD | Medication Refill | | 2018 | | [address] | [address] | | | | | [address] | [address] [place] | | | | | [place] | [id number] | | | | | [address] | | | | | | [phone] | | | +--------+ + + + [...]
--- OUTSIDE RECORDS SUMMARY | ~2019-09-01 | XMS | Encounter Summary ---
Demographics + + + | Address | [address] [facility] | | | [place] [address] | + + + | Home Phone | | + + + | Preferred Language | Unknown | + + + | Marital Status | Legally | + + + | Worship Affiliation | Unknown | + + + | Race | Unknown | + + + | Ethnic Group | Unknown | + + + Author + + + | Author | [facility] | | | and Anibal | + + + | Organization | [facility] | | | and Alexandruana | + + + | Address | Unknown | + + + | Phone | Unavailable | + + + Support + + + + + | Name | Relationship | Address | Phone | + + + + + | Neno Winters | ECON | [address] | | | | | [place] [address] | | + + + + + | Joelle Sharp | ECON | [place] | | | | | [place] | | + + + + + Care Team Providers + +------+ + | Care Adolescent Counselor Name | Role | Phone | + [...] | | | | | kidney | [address] | | | | | | Stricture or | Phone: | | | | | | kinking of | [phone] | | | | | | ureter | Fax: | | | | | | Procedures | [phone] | | | | | | IR [...] | kidney; Accessory | | | | [address] | | kidney; Stricture or | | | | [place] | | kinking of ureter | | | | [address] | | | | | | [phone] | | | +--------+ + + + [...] side Nausea and vomiting Date Last Reviewed: 09/25/201619998188-8506 [employer]. [address] [place] [address], [place] [address]. All righ ts reserved. This information is [...] interact with your prescription medicines or other vfmx-rat-ufgqlqy (OTC) medicines. Some prescription medicines have acetaminophen and other ingredients.Using both prescription a nd OTC acetaminophenfor paincan cause you to overdose. Readthe labels on your OTC [facility] care. This will help youto clearly [...] of taking these medicines. Date Last Reviewed: 07/25/201619999235-4586 [employer] [address] [place] [address], [place] [address]. All righ ts reserved. This information is not intended as a substitute for professional medical care. Always follow your healthcare professional's instructions. 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 documented in this encounter Medications [...] | | | | | | ([facility]) | | | | | | [...]
--- OUTSIDE RECORDS SUMMARY | ~2019-09-01 | XMS | Encounter Summary ---
Demographics + + + | Address | [address] [facility] | | | [place] [address] | + + + | Home Phone | | + + + | Preferred Language | Unknown | + + + | Marital Status | Legally | + + + | Zoroastrianism Affiliation | Unknown | + + + | Race | Unknown | + + + | Ethnic Group | Unknown | + + + Author + + + | Author | [facility] | | | and Anibal | + + + | Organization | [facility] | | | [...] | | | | | [place] [address] | | + + + + + | Joelle Sharp | ECON | [place] | | | | | [place] | | + + + + + Care Team Providers + +------+ + | Care Heavy Equipment Sales Manager Name | Role | Phone | + [...] CHILDHOOD | | 2012 | Visit | [facility] | MD [address] | WITH HYPERACTIVITY | | | | Medicine [address] | (Primary Dx) | | | | [address] | [place] [address] | | | | | [place], [place] | [phone] | | | | | [address] | | | | | | [phone] | | | +--------+---------+ + + + [...] against taking any medications is currently in [place] seventh -grade hopefully will be in the [...]
--- OUTSIDE RECORDS SUMMARY | ~2019-09-01 | XMS | Encounter Summary ---
Demographics + + + | Address | [address] [facility] | | | [place] [address] | + + + | Home Phone | | + + + | Preferred Language | Unknown | + + + | Marital Status | Legally | + + + | Buddhism Affiliation | Unknown | + + + | Race | Unknown | + + + | Ethnic Group | Unknown | + + + Author + + + | Author | [facility] | | | and Anibal | + + + | Organization | [facility] | | | and [...] | | | | | [place] [address] | | + + + + + | Joelle Sharp | ECON | [place] | | | | | [place] | | + + + + + Care Team Providers + +------+ + | Care Health Actuary Name | Role | Phone | + [...] + + | 01/05/ | Telephone | [facility] | Yvonne Daniel, | ED Follow-up | | 2019 | | Cheryl Monterroso | JEFF | | | | | Medicine [address] | | | | | | [place] [address] | | | | | | [place] | | | | | | [address] | | | | | | [phone] | | | +--------+ + + + [...]
--- OUTSIDE RECORDS SUMMARY | ~2019-09-01 | XMS | Encounter Summary ---
Demographics + + + | Address | [address] [facility] | | | [place] [address] | + + + | Home Phone [...] | Author | [facility] | | | and Anibal | + + + | Organization | [facility] [...] | | | | | [place] [address] | | + + + + + | Joelle Sharp | SHARYN | Sigrid | | | | | [place] | | + + + + + Care Team Providers + +------+ + | Care Sales Representative Trainee Name | Role | Phone | + +------+ + | Corey Yuan MD | PCP | | + +------+ + Encounter Details +--------+ + + + + | Date | Type | Department | Care Team | Description | +--------+ + + + + | 08/06/ | Hospital | [facility] | Janeth Cristina | | | 2011 | Encounter | [facility] | Bernardo, ADMITTING MANAGER [address] | | | | | EMERGENCY CENTER | [address] [place], | | | | | [address] | [place] [address] | | | | | [place] | [phone] | | | | | [address] | | | | | | [phone] | Janeth Greenberg | | | | | | WILMA Patel [address] | | | | | [address] [place], | | | | | | [place] [address] | | | | | | [phone] | | | | | | | [...] + + | [facility] | [address] | [place] [address] | | | [facility] | | | | | LABORATORY | | | | + + + + + | ADELA[facility] BECKMAN | | | | | [facility] | | | | | LABORATORY | | | | + + + + + documented in this encounter Visit Diagnoses Not on filedocumented in this encounter"
--- OUTSIDE RECORDS SUMMARY | ~2019-09-01 | XMS | Encounter Summary ---
Demographics + + + | Address | [address] [facility] | | | [place] [address] | + + + | Home Phone | | + + + | Preferred Language | Unknown | + + + | Marital Status | Legally | + + + | Jew Affiliation | Unknown | + + + | Race | Unknown | + + + | Ethnic Group | Unknown | + + + Author + + + | Author | [facility] | | | and Anibal | + + + | Organization | [facility] | | | and Alexandruana | + + + | Address | Unknown | + + + | Phone | Unavailable | + + + Support + + + + + | Name | Relationship | Address | Phone | + + + + + | Neno Winters | ECON | [address] | | | | | [place] [address] | | + + + + + | Joelle Sharp | ECON | Sgirid | | | | | [place] | | + + + + + Care Team Providers + +------+ + | Care Supervisor Electron Tube Processing Name | Role | Phone | + [...] + + + + | 12/11/ | Telephone | [facility] LUGO | Jackie Pa L, | Flank Pain | | 2017 | | FAMILY [facility] OP | Technologist | | | | | [address] | | | | | | [place] | | | | | | [address] | | | | | | [phone] | | | +--------+ + + + [...]
--- OUTSIDE RECORDS SUMMARY | ~2019-09-01 | XMS | Encounter Summary ---
Demographics + + + | Address | [address] [facility] | | | [place] [address] | + + + | Home Phone | | + + + | Preferred Language | Unknown | + + + | Marital Status | Legally | + + + | Temple Affiliation | Unknown | + + + | Race | Unknown | + + + | Ethnic Group | Unknown | + + + Author + + + | Author | [facility] | | | and Anibal | + + + | Organization | [facility] | | [...] | | | | | [place] [address] | | + + + + + | Joelle Sharp | ECON | Sigrid | | | | | [place] | | + + + + + Care Team Providers + +------+ + | Care Bracelet Form Coverer Name | Role | Phone | + [...] placement | | | | [address] [facility] | [facility] [address] [facility] | | | | | [place], [place] | [place] [address] | | | | | [address] | [phone] | | | | | [phone] | | | +--------+---------+ + + + [...] the original. Patient discharged with escort / inventory associate and driver. Discharge Instructions: After Your Surgery You [...] interact with your prescription medicines or other dbbp-izz-ipdpjrx (OTC) medicines. Some prescription medicines have acetaminophen and other ingredients.Using both prescription a nd OTC acetaminophenfor paincan cause you to overdose. Readthe labels on your OTC medi [facility] care. This will help youto clearly know [...] of taking these medicines. Date Last Reviewed: 07/25/201619992060-5690 [employer]. [address] [place] [address]. All righ ts reserved. This information is [...] you develop a fever or flank pain bench molder the bag provided to your Nephrostomy tube. [...] | | | | | | | ([facility]) | | | | | | + [...] was removed over an Amplatz wire. A7 Citizen [place] | | | sheath was advanced into [...] | | the distal ureter. Theshort 7 [place] sheath was exchanged for a 23 | | | cm 7 [place] sheath whichwas advanced into the right ureter. [...] at advancing an 8 | | | [place], 28 cm ureteral stent into the bladder.However, the stent would | | | not advance beyond the distal ureter.Therefore, the distal ureteral | | | stricture was balloon dilated with a 4mm x 4 cm balloon. Following | | | balloon dilatation, the 8 [place], 28 cmureteral stent was advanced | | [...] | | safety wire, a new 8.5 [place] nephrostomytube was placed into the | | [...] distal ureteral stricture.3. Successful placement of 8 [place], 28 cm | | | right ureteral [...] | | |3. Successful placement of 8 [place], 28 cm right ureteral stent. | | [...] an Amplatz wire. A | | 7 [place] sheath was advanced into the upper collecting [...] distal ureter. The | | short 7 [place] sheath was exchanged for a 23 cm 7 [place] sheath which | | was advanced into [...] | | made at advancing an 8 [place], 28 cm ureteral stent into the bladder. | | However, the stent would not advance beyond the distal ureter. | | Therefore, the distal ureteral stricture was balloon dilated with a 4 | | mm x 4 cm balloon. Following balloon dilatation, the 8 [place], 28 cm | | ureteral stent was [...] Over the safety wire, a new 8.5 [place] nephrostomy | | tube was placed into [...] | | 3. Successful placement of 8 [place], 28 cm right ureteral stent. | | [...] PDT | | | | | Hours, BOTTOM STEEP TENDER, Starting Inna | | | | | [...]
--- OUTSIDE RECORDS SUMMARY | ~2019-09-01 | XMS | Encounter Summary ---
Demographics + + + | Address | [address] [facility] | | | [place] [address] | + + + | Home Phone | | + + + | Preferred Language | Unknown | + + + | Marital Status | Legally | + + + | Gnosticist Affiliation | Unknown | + + + | Race | Unknown | + + + | Ethnic Group | Unknown | + + + Author + + + | Author | [facility] | | | and Anibal | + + + | Organization | [facility] | | | and [...] | | | | | [place] [address] | | + + + + + | Joelle Sharp | ECON | Sigrid | | | | | [place] | | + + + + + Care Team Providers + +------+ + | Care Hoisting Pile Driving Engineer Name | Role | Phone | + [...] + + | // | Telephone | [facility] | Corey Yuan, | Other | | 2012 | | [facility] | [address] | | | | | Medicine [address] | | | | | [address] | [place] [address] | | | | | [place], [place] | [phone] | | | | | [address] | | | | | | [phone] | | | +--------+ + + + [...]
--- OUTSIDE RECORDS SUMMARY | ~2019-09-01 | XMS | Encounter Summary ---
Demographics + + + | Address | [address] [facility] | | | [place] [address] | + + + | Home Phone | | + + + | Preferred Language | Unknown | + + + | Marital Status | Legally | + + + | Restorationist Affiliation | Unknown | + + + | Race | Unknown | + + + | Ethnic Group | Unknown | + + + Author + + + | Author | [facility] | | | and Anibal | + + + | Organization | [facility] | | | and [...] | | | | | [place] [address] | | + + + + + | Joelle Sharp | SHARYN | Sigrid | | | | | [place] | | + + + + + Care Team Providers + +------+ + | Care Clinical Research Director Name | Role | Phone | [...] | | [address] | [place] [address] | | | | | [place], [place] | [phone] | | | | | [address] | | | | | | [phone] | | | +--------+ + + + [...] return to the emergency department for evaluation. [facility] is evaluated you and plan to f niyah with you this weekend. Mother will help you get back into therapy with Dr. Lorene perez consider restarting medications. Should he have any other issues are what to return to [facility] emergency department at any time. documented in [...] + + | ADELA[facility]ECKMAN | [address] | [place] [address] | | | [facility] | | | | | LABORATORY | | | | + + + + + documented in this encounter Visit Diagnoses + + | Diagnosis | + + | Depression - Primary Depressive disorder, not elsewhere classified | + + documented in this encounter
--- OUTSIDE RECORDS SUMMARY | ~2019-09-01 | XMS | Encounter Summary ---
Demographics + + + | Address | [address] [facility] | | | [place] [address] | + + + | Home Phone [...] + | Author | [facility] | | | and Anibal | + + + | Organization | [facility] | | | and [...] | | | | | [place] [address] | | + + + + + | Joelle Sharp | ECON | Sigrid | | | | | [place] | | + + + + + Care Team Providers + +------+ + | Care Material Requirements Planning Manager Name | Role | Phone | [...] 11/14/ | Surgery | [facility] | Marcell Graves, | Canceled | | 2017 | | FAMILY INTRA OP | MD [address] | PROCEDURE NOT | | | | [address] | [address] [place] | PERFORMED | | | | [place] | [address] | | | | | [address] | | | | | | [phone] | | | +--------+---------+ + + + [...] might be different fro m the original. [place] [facility] DISCHARGE SUMMARY Patient Name: August Winters [...] 10 doses. aka: JOSEPH WILSON Follow-Up: 1. [facility] in 2 weeks. Please call during business hours to set up your urology follow up appointm ent. Electronically Signed by: Marcell Graves MD, 11/15/2017 8:17 [facility] docume nted in this encounter Discharge Instructions Instructions Georgette Romero RN - 11/15/2017Nephrostomy tube AttachmentsThe following attachments cannot be sent through Care Everywhere.Pyelonephritis, Discharge Instructions for (Hong Konger)Nephrostomy, Percutaneous (Hong Konger)Nephrostomy, Percuta neous, Discharge Instructions (Hong Konger)documented in this encounter Medications at Time of [...] + + | RESULT | Performed at [facility] | | [facility] | | | | [facility], | | [facility] | | | | [address] [place] [address] | | HOSPITAL | | | | [address] | | LABORATORY | | + + [...] + + + | [facility] LUGO | [address] [facility] | [place] [address] | | | [facility] | | | | | LABORATORY [...] | | | IMPRESSION:Successful placement of 10.2 [place] nephrostomy catheter | | | into massivelydilated [...] |IMPRESSION: | | |Successful placement of 10.2 [place] nephrostomy catheter into massively | | |dilated [...] collection. The tract was dilated. A 10.2 [place] | | nephrostomy catheter was advanced into [...] IMPRESSION: | | Successful placement of 10.2 [place] nephrostomy catheter into massively | | dilated [...] + + | [facility] | [address] [facility] | [place] [address] | | | FAMILY [facility]ITAL | | [...] + + | GRA[facility]Adrienne CON[facility] | [address] [facility] | [place] [address] | | | FAMILY H[facility]PITAL | | [...] + + | RESULT | Performed at [facility] | | [facility] | | | | [facility], | | [facility] | | | | [address] [place] | | HOSPITAL | | | | [address] | | LABORATORY | | + + [...] + | [facility]GO | [address] | [place] [address] | | | [facility] | | | | | LABORATORY [...] - 1.030 | [facility] | | | [place] | | | [facility] | | [...] + | [facility]GO | [address] [facility] | [place] [address] | | | FAMILY HOSPITAL | | [...] + + | RESULT | Performed at [facility] | | [facility] | | | | [facility], | | [facility] | | | | [address], [place] | | HOSPITAL | | | | [address] | | LABORATORY | | + + [...] + + + | [facility] LUGO | [address] [facility] | [place] [address] | | | [facility] | | | | | LABORATORY [...] | [facility] | | | | [facility], | | [facility] | | | | [address], [place], [place] | | HOSPITAL | | | | [address] | | LABORATORY | | + + [...] [facility] | [place] [address] | | | FAMILY HOSPITAL | | [...] + | [facility]GO | [address] [facility] | [place] [address] | | | FAMILY H[facility]PITAL | | [...] + + + | [facility]GO | [address] [facility] | [place] [address] | | | FAMILY HOSPITAL | | [...] + + | [facility]GO | [address] | [place] [address] | | | FAMILY HOSPITAL | | [...] + + + | [facility] | [address] [facility] | [place] [address] | | | [facility] | | | | | LABORATORY | [...] | | | | PRN, Pain, Starting [facility] 11/13/17 | | AM PDT | | [...] PDT | | | | | Starting [facility] 11/13/17 at 2228, | | | | [...] | | | | | | | [facility] 11/13/17 at 2228, If | | | | | | | ineffective use Oxycodone if | | | | | | | ordered. If not tolerated use | | | | | | | Palmetto 10/ if ordered., | | | | [...]
--- OUTSIDE RECORDS SUMMARY | ~2019-09-01 | XMS | Encounter Summary ---
Demographics + + + | Address | [address] [facility] | | | [place] [address] | + + + | Home Phone | | + + + | Preferred Language | Unknown | + + + | Marital Status | Legally | + + + | Caodaism Affiliation | Unknown | + + + | Race | Unknown | + + + | Ethnic Group | Unknown | + + + Author + + + | Author | [facility] | | | and Anibal | + + + | Organization | [facility] | | | and [...] | | | | | [place] [address] | | + + + + + | Joelle Sharp | SHARYN | Sigrid | | | | | [place] | | + + + + + Care Team Providers + +------+ + | Care Orthopedically Impaired Teacher Name | Role | Phone | [...] | SR | | | | | [phone] | | | +--------+ + + + [...]
--- OUTSIDE RECORDS SUMMARY | ~2019-09-01 | XMS | Encounter Summary ---
Demographics + + + | Address | [address] [facility] | | | [place] [address] | + + + | Home Phone | | + + + | Preferred Language | Unknown | + + + | Marital Status | Legally | + + + | Mu-Ism Affiliation | Unknown | + + + | Race | Unknown | + + + | Ethnic Group | Unknown | + + + Author + + + | Author | [facility] | | | and Anibal | + + + | Organization | [facility] | | [...] [address] | | | | | [place] [address] | | + + + + + | Jolele Sharp | ECON | Sigrid | | | | | [place] | | + + + + + Care Team Providers + +------+ + | Care Civil Drafter Name | Role | Phone | + [...] | | [address] | [address] | | | 2016 | | [place] | | | | | | [address] | | | | | | [phone] | | | +--------+ + + + [...] Care Everywhere.URINARY TRACT I NFECTIONS (UTIS), UNDERSTANDING (LUXEMBOURGISH)documented in this encounter Medications at Time of [...] - 1.030 | [facility] | | | [place] | | | [facility] | | | [...] + + | [facility] | [address] | [place] [address] | | | [facility] | | | | | [...] + + | [facility]ECKMAN | [address] | [place] [address] | | | [facility] | | | | | LABORATORY [...] | | | | mg), Oral, ONCE, [place] 11/10/16 at | | | | | | | 2335, For 1 dose, Indications: | | | | | | | UTI - UPPER | | | | | | + +-------+ + +---+---+ +---+---+ | | | +---+---+ documented in this encounter"
--- OUTSIDE RECORDS SUMMARY | ~2019-09-01 | XMS | Encounter Summary ---
Demographics + + + | Address | [address] [facility] | | | [place] [address] | + + + | Home Phone [...] + + + | Author | [facility] | | | and Anibal | + + + | Organization | [facility] | | | and Alexandruana | + + + | Address | Unknown | + + + | Phone | Unavailable | + + + Support + + + + + | Name | Relationship | Address | Phone | + + + + + | Neno Winters | ECON | [address] | | | | | [place] [address] | | + + + + + | Joelle Sharp | ECON | Sigrid | | | | | [place] | | + + + + + Care Team Providers + +------+ + | Care Director Clinical Applications Name | Role | Phone | + [...] + | 11/13/ | Hospital | [facility] | Erick Guillory DO | Sepsis, due to | | 2018 - | Encounter | [facility] ONCOLOGY | [address] [facility] | unspecified organism | | | | [address] | [place] [address] | (HCC) (Primary Dx); | | 11/15/ | | [place], [place] | [phone] | Pyelonephritis; | | 2017 | | [address] | | Acute unilateral | | | | [phone] | Anthony Ortega MD | obstructive | | | | | [address] | uropathy; Acute | | | | | [address] [place], [place] | pyonephrosis; | | | | | [address] | Pyoureter | | | | | [...] might be different fro m the original. [place] [facility] DISCHARGE SUMMARY Patient Name: August Winters [...] 10 doses. aka: JOSEPH WILSON Follow-Up: 1. [facility] in 2 weeks. Please call during business hours to set up your urology follow up appointm ent. Electronically Signed by: Marcell Graves MD, 11/15/2017 8:17 [facility] docume nted in this encounter Discharge Instructions Instructions Georgette Romero, JEFF - 11/15/2017Nephrostomy tube AttachmentsThe following attachments cannot be sent through Care Everywhere.Pyelonephritis, Discharge Instructions for (Ukrainian)Nephrostomy, Percutaneous (Ukrainian)Nephrostomy, Percuta neous, Discharge Instructions (Ukrainian)documented in this encounter Medications at Time of [...] | | [facility] | | | | [facility], | | [facility] | | | | [address] | | HOSPITAL | | | | [address] | | LABORATORY | | + + [...] + + + | A[facility]LA[facility] LUGO | [address] [facility] | [place] [address] | | | FAMILY H[facility]PITAL | | [...] | | | IMPRESSION:Successful placement of 10.2 Greenlandic nephrostomy catheter | | | into massivelydilated [...] |IMPRESSION: | | |Successful placement of 10.2 Greenlandic nephrostomy catheter into massively | | |dilated [...] collection. The tract was dilated. A 10.2 Greenlandic | | nephrostomy catheter was advanced into [...] IMPRESSION: | | Successful placement of 10.2 Greenlandic nephrostomy catheter into massively | | dilated [...] + + + | [facility] | [address] | [place] [address] | | | FAMILY HOSPITAL | | [...] + | [facility] LUGO | [address] [facility] | [place] [address] | | | FAMILY H[facility]PITAL | | [...] + + | RESULT | Performed at [facility] | | [facility] | | | | [facility], | | [facility] | | | | [address], [place] | | HOSPITAL | | | | [address] | | LABORATORY | | + + [...] + + | [facility] LUGO | [address] [facility] | [place] [address] | | | FAMILY H[facility]ITAL | | [...] - 1.030 | [facility] | | | [place] | | | [facility] | | [...] + + | ADELAIDE LUGO | [address] [facility] | [place] [address] | | | FAMILY H[facility]PITAL | | [...] | | [facility] | | | | [facility], | | [facility] | | | | [address] [place] [address] | | HOSPITAL | | | | [address] | | LABORATORY | | + + [...] + + + | ADELA[facility] LUGO | [address] [facility] | [place] [address] | | | FAMILY HOSPITAL | | [...] + + | RESULT | Performed at [facility] | | [facility] | | | | [facility], | | [facility] | | | | [address], [place], [place] | | HOSPITAL | | | | [address] | | LABORATORY | | + + [...] + | A[facility]LA[facility] LUGO | [address] [facility] | [place] [address] | | | FAMILY H[facility]ITAL | | [...] + + + | A[facility] LUGO | [address] | [place] [address] | | | FAMILY HOSPITAL | | [...] + + + | [facility] | [address] | [place] [address] | | | FAMILY HOSPITAL | | [...] + | [facility] | [address] | [place] [address] | | | FAMILY HOSPITAL | | [...] | [facility] | [address] [facility] | [place] [address] | | | FAMILY HOSPITAL | | [...] PDT | | | | | Starting [facility] 11/13/17 at 2124, For | | [...] PDT | | | | | Starting [facility] 11/13/17 at 2228, | | | [...] | | | | | | | [place] 10/325 if ordered., | | | | [...] PDT | | | | | ONCE, [facility] 11/13/17 at 2225, For 1 | [...]
--- OUTSIDE RECORDS SUMMARY | ~2019-09-01 | XMS | Encounter Summary ---
Demographics + + + | Address | [address] [facility] | | | [place] [address] | + + + | Home Phone [...] + | Author | [facility] | | | and Anibal | + + + | Organization | [facility] | | | and Alexandruana | + + + | Address | Unknown | + + + | Phone | Unavailable | + + + Support + + + + + | Name | Relationship | Address | Phone | + + + + + | Neno Winters | ECON | [address] | | | | | [place] [address] | | + + + + + | Joelle Sharp | ECON | [place] | | | | | [place] | | + + + + + Care Team Providers + +------+ + | Care Hydraulic Press Operator Name | Role | Phone [...] | | | | | [address] [facility] | [place] [address] | | | | | [place] | [phone] | | | | | [address] | | | | | | [phone] | | | +--------+ + + + [...]
--- OUTSIDE RECORDS SUMMARY | ~2019-09-01 | XMS | Encounter Summary ---
Demographics + + + | Address | [address] [facility] | | | [place] [address] | + + + | Home Phone | | + + + | Preferred Language | Unknown | + + + | Marital Status | Legally | + + + | Druze Affiliation | Unknown | + + + | Race | Unknown | + + + | Ethnic Group | Unknown | + + + Author + + + | Author | [facility] | | | and Anibal | + + + | Organization | [facility] [...] [address] | | | | | [place] [address] | | + + + + + | Joelle Sharp | ECON | [place] | | | | | [place] | | + + + + + Care Team Providers + +------+ + | Care Fluid Designer Name | Role | Phone | + [...] | | | | | [address] | | | | | | [place] | | | | | | [address] | | | | | | [phone] | | | +--------+ + + + [...]
--- OUTSIDE RECORDS SUMMARY | ~2019-09-01 | XMS | Encounter Summary ---
Demographics + + + | Address | [address] | | | [place] [address] | + + + | Home Phone | | + + + | Preferred Language | Unknown | + + + | Marital Status | Legally | + + + | Muslim Affiliation | Unknown | + + + | Race | Unknown | + + + | Ethnic Group | Unknown | + + + Author + + + | Author | [facility] | | | and Anibal | + + + | Organization | [facility] [...] | | | | | [place] [address] | | + + + + + | Joelle Sharp | ECON | Sig[place] | | | | | [place] | | + + + + + Care Team Providers + +------+ + | Care Transmission And Coordination Engineer Name | Role | Phone | [...] + + | 03/22/ | Telephone | [place] | Yvonne Daniel, | ED Follow-up | | 2019 | | Cheryl Monterroso | JEFF | | | | | Medicine [address] | | | | | [address] | | | | | | [place] | | | | | | [address] | | | | | | [phone] | | | +--------+ + + + [...]
--- OUTSIDE RECORDS SUMMARY | ~2019-09-01 | XMS | Encounter Summary ---
Demographics + + + | Address | [address] | | | [place] [address] | + + + | Home Phone | | + + + | Preferred Language | Unknown | + + + | Marital Status | Legally | + + + | Sikhism Affiliation | Unknown | + + + | Race | Unknown | + + + | Ethnic Group | Unknown | + + + Author + + + | Author | [facility] | | | and Anibal | + + + | Organization | [facility] | | | and Alexandruana | + + + | Address | Unknown | + + + | Phone | Unavailable | + + + Support + + + + + | Name | Relationship | Address | Phone | + + + + + | Neno Winters | ECON | [address] | | | | | [place] [address] | | + + + + + | Joelle Sharp | ECON | [place] | | | | | [place] | | + + + + + Care Team Providers + +------+ + | Care Aging Box Hand Name | Role | Phone | [...] | | [facility] | [address] | (Primary Dx); Acute | | | | CENTER [address] [place], [place] | flank pain; | | | | [facility] | [address] | Hydronephrosis, | | | | [place], [place] | | unspecified | | | | [address] | | hydronephrosis type | | | | [phone] | | | +--------+ + + + [...] your doctor in 2-3 days or the trading analyst (GI) doctor for further roxy p. You [...] D?MRN: | | | | | | [id number] | | | [id number] | | | pcomin | | | [...] | | | com/t/ | | | [id number] | | | . For | | [...] + + | Performing | Address | City/State/[facility] | Phone Number | | Organization | [...] | | ANA[facility]EL | | | | [facility] [address] | | | | | | [place] [address] | | | | + + + + + + + + | Specimen | + + | Blood specimen | | (specimen) | + + + + + + + | Performing | Address | City/State/Zipcode | Phone Number | | Organization | | | | + + + + + | [facility] | [address] | [place] [address] | | | [facility] | | [...] | | Eosinophils | | K/uL | [facility] | | | | [...] WBC | [facility] | | | | [place] [address] | | [facility] | | | | [place] [address] | | LABORATORY | | | |Performed by [facility] [address] [place] [address] | | CERNER | | | | [...] + + | [facility] | [address] | [place] [address] | | | FAMILY LAB[facility]ATORY | | [...] - 1.030 | [facility] | | | [place], | | | [facility] | | [...] + + + | [facility] | [address] | [place] [address] | | | [facility] | | | | | LABORATORY [...]
--- OUTSIDE RECORDS SUMMARY | ~2019-09-01 | XMS | Encounter Summary ---
Demographics + + + | Address | [address] | | | [place] [address] | + + + | Home Phone | | + + + | Preferred Language | Unknown | + + + | Marital Status | Legally | + + + | Religion Affiliation | Unknown | + + + | Race | Unknown | + + + | Ethnic Group | Unknown | + + + Author + + + | Author | [facility] | | | and Anibal | + + + | Organization | [facility] | | | and [place]ruana | + + + | Address | Unknown | + + + | Phone | Unavailable | + + + Support + + + + + | Name | Relationship | Address | Phone | + + + + + | Neno Winters | ECON | [address] | | | | | [place] [address] | | + + + + + | Joelle Sharp | ECON | [place] | | | | | [place] | | + + + + + Care Team Providers + +------+ + | Care Product Lead Name | Role | Phone | + +------+ + PCP | Unavailable | + +------+ + Encounter Details +--------+ + + + + | Date | Type | Department | Care Team | Description | +--------+ + + + + | 05/25/ | Hospital [facility] | Devi Rangel W, | | | 2005 | Encounter | [facility] | [address] | | | | | EMERGENCY CENTER | [place] [address] | | | | | [address] | [phone] | | | | | [place] | | | | | | [address] | | | | | | [phone] | | | +--------+ + + + [...]
--- OUTSIDE RECORDS SUMMARY | ~2019-09-01 | XMS | Encounter Summary ---
Demographics + + + | Address | [address] | | | [place] [address] | + + + | Home Phone | | + + + | Preferred Language | Unknown | + + + | Marital Status | Legally | + + + | Mosque Affiliation | Unknown | + + + | Race | Unknown | + + + | Ethnic Group | Unknown | + + + Author + + + | Author | [facility] | | | and Anibal | + + + | Organization | [facility] | [...] | | | | | [place] [address] | | + + + + + | Joelle Sharp | ECON | [place] | | | | | [place] | | + + + + + Care Team Providers + +------+ + | Care Short Order Fry Cook Name | Role | Phone | + [...] + + | 04/27/ | Telephone | [place] | Yvonne Daniel, | ED Follow-up | | 2019 | | Cheryl Monterroso | [facility] | | | | | Medicine [address] | | | | | | [place] [address] | | | | | | [place] | | | | | | [address] | | | | | | [phone] | | | +--------+ + + + [...]
--- OUTSIDE RECORDS SUMMARY | ~2019-09-01 | XMS | Encounter Summary ---
Demographics + + + | Address | [address] | | | [place] [address] | + + + | Home Phone | | + + + | Preferred Language | Unknown | + + + | Marital Status | Legally | + + + | Adventism Affiliation | Unknown | + + + | Race | Unknown | + + + | Ethnic Group | Unknown | + + + Author + + + | Author | [facility] | | | and Anibal | + + + | Organization | [facility] | [...] | | | | | [place] [address] | | + + + + + | Joelle Sharp | ECON | [place] | | | | | [place] | | + + + + + Care Team Providers + +------+ + | Care Storage Management Architect Name | Role | Phone | + [...] + + | 09/21/ | Telephone | [place] | Yvonne Daniel, | ED Follow-up | | 2019 | | Cheryl Monterroso | [facility] | | | | | Medicine [address] | | | | | | [address] | | | | | | [place] | | | | | | [address] | | | | | | [phone] | | | +--------+ + + + [...]
--- OUTSIDE RECORDS SUMMARY | ~2019-09-01 | XMS | Encounter Summary ---
Demographics + + + | Address | [address] | | | [place] [address] | + + + | Home Phone | | + + + | Preferred Language | Unknown | + + + | Marital Status | Legally | + + + | Quaker Affiliation | Unknown | + + + | Race | Unknown | + + + | Ethnic Group | Unknown | + + + Author + + + | Author | [facility] | | | and Anibal | + + + | Organization | [facility] | | | and [...] | | | | | [place] [address] | | + + + + + | Joelle Sharp | ECON | [place] | | | | | [place] | | + + + + + Care Team Providers + +------+ + | Care Traffic Signal Repairer Name | Role | Phone | + +------+ + | Corey Yuan MD | PCP | | + +------+ + Encounter Details +--------+ + + + + | Date | Type | Department | Care Team | Description | +--------+ + + + + | 07/06/ | Orders Only | [facility] | Anthony Ortega MD | Hydronephrosis, | | 2017 | | [address] | [address] | unspecified | | | | [address] | [address] [place] | hydronephrosis type | | | | [place], [place] | [address] | | | | | [address] | | | | | | [phone] | | | +--------+ + + + [...] Performed At | + + + | [facility] RENAL ULTRASOUND NOTE DATE OF EXAM: | [facility] | | 07/30/2018 Indication: August Winters With history of a | [place] - | | right partial nephrectomy of [...] Allen Azar, [address] | [place] [address] | [phone] | | - IMAGING - [facility] | [place] | | | + + + + + documented in this encounter Visit Diagnoses + + | Diagnosis | + + | Hydronephrosis, unspecified hydronephrosis type | + + documented in this encounter"
--- OUTSIDE RECORDS SUMMARY | ~2019-09-01 | XMS | Encounter Summary ---
Demographics + + + | Address | [address] | | | [place] [address] | + + + | Home Phone | | + + + | Preferred Language | Unknown | + + + | Marital Status | Legally | + + + | Buddhist Affiliation | Unknown | + + + | Race | Unknown | + + + | Ethnic Group | Unknown | + + + Author + + + | Author | [facility] | | | and Anibal | + + + | Organization | [facility] | [address] | | | | | [place] [address] | | + + + + + | Joelle Sharp | ECON | [place] | | | | | [place] | | + + + + + Care Team Providers + +------+ + | Care Dedicated Local Truck Driver Name | Role | Phone | + +------+ + | Callie Powell MD | PCP | | + +------+ + Reason for Visit + + + | Reason | Comments | + + + | Abdominal Pain | | + + + Encounter Details +--------+ + + + + | Date | Type | Department | Care Team | Description | +--------+ + + + + | 10/29/ | Emergency | [facility] | No, Physician | Patient left without | | 2018 - | | [facility] | | being seen (Primary | | | | EMERGENCY CENTER | | Dx) | | 10/30/ | | [address] | | | | 2017 | | [place] | | | | | | [address] | | | | | | [phone] | | | +--------+ + + + [...] + + + | Blood Pressure | 145/65 | 10/29/2017 10:55 PM | | | | | PST | | + + + + + | Pulse | 98 | 10/29/2017 10:55 PM | | | | | PST | | + + + + + | Temperature | 36.4 C (97.5 F) | 10/29/2017 10:55 PM | | | | | PST | | + + + + + | Respiratory Rate | 18 | 10/29/2017 10:55 PM | | | | | PST | | + + + + + | Oxygen Saturation | 100% | 10/29/2017 10:55 PM | | | | | PST | | + + + + + | Inhaled Oxygen | - | - | | | Concentration | | | | + + + + + | Weight | 81.6 kg (180 lb) | 10/29/2017 10:55 PM | | | | | PST | | + + + + + | Height | 185.4 cm (6' 1") | 10/29/2017 10:55 PM | | | | | PST | | + + + + + | Body Mass Index | 23.75 | 10/29/2017 10:55 PM | | | | | PST [...] decision | + + documented in this encounter
--- OUTSIDE RECORDS SUMMARY | ~2019-09-01 | XMS | Encounter Summary ---
Demographics + + + | Address | [address] | | | [place] [address] | + + + | Home Phone | | + + + | Preferred Language | Unknown | + + + | Marital Status | Legally | + + + | Mosque Affiliation | Unknown | + + + | Race | Unknown | + + + | Ethnic Group | Unknown | + + + Author + + + | Author | [facility] | | | and Anibal | + + + | Organization | [facility] | | | and Alexandruana | + + + | Address | Unknown | + + + | Phone | Unavailable | + + + Support + + + + + | Name | Relationship | Address | Phone | + + + + + | Neno Winters | ECON | [address] | | | | | [place] [address] | | + + + + + | Joelle Sharp | ECON | [place] | | | | | [place] | | + + + + + Care Team Providers + +------+ + | Care Refinery Operator Helper Name | Role | Phone [...] + + | 06/01/ | Telephone | [place] | Yvonne Daniel, | ED Follow-up | | 2019 | | Cheryl Monterroso | [facility] | | | | | Medicine [address] | | | | | | [address] | | | | | | [place] | | | | | | [address] | | | | | | [phone] | | | +--------+ + + + [...]
--- OUTSIDE RECORDS SUMMARY | ~2019-09-01 | XMS | Encounter Summary ---
Demographics + + + | Address | [address] | | | [place] [address] | + + + | Home Phone | | + + + | Preferred Language | Unknown | + + + | Marital Status | Legally | + + + | Baptist Affiliation | Unknown | + + + | Race | Unknown | + + + | Ethnic Group | Unknown | + + + Author + + + | Author | [facility] | | | and Anibal | + + + | Organization | [facility] | | | and Alexandruana | + + + | Address | Unknown | + + + | Phone | Unavailable | + + + Support + + + + + | Name | Relationship | Address | Phone | + + + + + | Neno Winters | ECON | [address] | | | | | [place] [address] | | + + + + + | Joelle Sharp | ECON | [place] | | | | | [place] | | + + + + + Care Team Providers + +------+ + | Care Coding Manager Name | Role | Phone | [...] | | Procedures | [address] | [place], [place] | | | | | [place] OFFICE | [place], [place] | [address] Phone: | | | | | OUTPATIENT | [address] | [phone] | | | | | VISIT 15 | Phone: | Fax: | | | | | [facility] | [phone] | [phone] | | | | | FOLLOW UP | Fax: | | | | | | | [phone] | | +--------+--------+ + + + + Encounter Details +--------+---------+ + + + | Date | Type | Department | Care Team | Description | +--------+---------+ + + + | 08/13/ | Office | [facility] | Anthony Ortega MD | UPJ (ureteropelvic | | 2018 | Visit | [address] | [address] | junction) | | | | [address] | [address] [place] | obstruction (Primary | | | | [place] | [address] | Dx) | | | | [address] | | | | | | [phone] | | | +--------+---------+ + + + [...] this encounter Progress Notes Katie Pardo CC [facility] - 08/13/2018 3:20 PM [facility] Patient ID: August Winters is a 18 [...] Hillman MD - 08/13/2018 3:20 PM PST [facility] OFFICE NOTE Primary Care Physician: Corey [...] I/R Procedure; Surgeon: Uriel Yan MD; Location: [facility] CV LAB OTHER SURGICAL HISTORY Right 11/14/2017 Procedure: Right Percutaneous Nephrostomy Tube Placement; Surgeon: Uriel Yan MD; Location: [facility] CV LAB OTHER SURGICAL HISTORY Right 12/11/2017 Procedure: Ureteral stent placement; Surgeon: Uriel Yan MD; Location: [facility] CV LAB OTHER SURGICAL HISTORY Right 12/17/2017 Procedure: right neph tube removed; Surgeon: Ray Mraquez MD; Location: [facility] CV LAB PARTIAL NEPHRECTOMY Right 01/28/2018 Procedure: ROBOTIC ASSISTED PARTIAL NEPHRECTOMY REMOVAL URTERAL STENT REMOVAL INTRAOPERAT CLEM LINCOLNOUND WITH IMMUNOSSAY IMAGING; Surgeon: Anthony Ortega MD; Location: [facility] MAIN OR MEDICATIONS Current Outpatient Prescriptions [...] famotidine (PEPCID) injection Intravenous PRN Roxie Trytko, CLINICAL IMMUNOLOGIST 20 mg at 1209 ondansetron (ZOFRAN) injection Intravenous PRN Roxie Trytko, CLINICAL IMMUNOLOGIST 4 mg at 0936 ALLERGIES No Known [...] 08/13/2018 at 13:51 CC: Corey Yuan MD [address] [facility] [address] [place] [address] documented in this encou nter Plan of [...] 1.001 - 1.030 | | | | [place], | | | | | | [facility], [...]
--- OUTSIDE RECORDS SUMMARY | ~2019-09-01 | XMS | Encounter Summary ---
Demographics + + + | Address | [address] | | | [place] [address] | + + + | Home Phone [...] + + + | Author | [facility] | | | and Anibal | + + + | Organization | [facility] | | | and Alexandruana | + + + | Address | Unknown | + + + | Phone | Unavailable | + + + Support + + + + + | Name | Relationship | Address | Phone | + + + + + | Neno Booth | ECON | [address] | | | | | [place] [address] | | + + + + + | Joelle Sharp | ECON | Sigrid | | | | | [place] | | + + + + + Care Team Providers + +------+ + | Care Seismographer Name | Role | Phone | + [...] | | | | Accessory | | [place] | | | | | kidney | | [address] Phone: | | | | | Crossing | | [phone] | | | | | vessel and | | Fax: | | | | | stricture of | | [phone] | | | | | ureter | [...] | | | | | | [place] PARTIAL | | | | | | | REMOVAL OF | | | | | | | KIDNEY [place] | | | | | | | LAP,PARTIAL | | | | | | | NEPHRECTOMY | | | | | | | [place] | | | | | | | CYSTOURETHRO | | | | | | | SCOPY [place] | | | | | | | [...] NEPHRECTOMY | | | | [address] [facility] | [address] [place], [place] | REMOVAL URTERAL | | | | [place], [place] | [id number] | STENT REMOVAL | | | | [address] | | INTRAOPERATIVE | | | | [phone] | | ULSTRASOUND WITH | | | [...] might be different from t he original. 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 [facility] in 1 week. Please call [...] Instructions Instructions Anthony Ortega MD - 01/28/2018 [place] [facility]Y DISCHARGE INSTRUCTIONS AFTER YOUR PROCEDURE: - [...] issues with gastric ulcers CONTACT INFORMATION: - [facility] Office Number: [facility] Office [place] Office FOLLOWUP INFORMATION: - will see you [...] mg at 01/29/18 0931 morphine 5 mg/mL PROCEDURE TECH syringe Intravenous Continuous Anthony Ortega MD 150 [...] ondansetron (ZOFRAN) injection Intravenous PRN Roxie Abrahamyuriytulio, NATURAL GAS SHOTHOLE DRILLER 4 mg at 0936 No Known Allergies [...] MD - 0 01/30/2018 8:53 AM PDT [facility] UROLOGY DAILY PROGRESS NOTE ID: Manuel [...] Signed by: Anthony Ortega MD, 01/30/2018 8:53 [facility] Jeronimo [facility] Resident - 01/29/2018 2:14 PM PDTPatient shared that 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 He mentioned that he was on admission because of problems he is having to that effect. Legal Department Manager supported him and patient shared no need. Zohaib Bond, Nursing Studen t - 01/29/2018 10:35 AM PDTWalked patient with stand by assist 200 [address]ard. With no w alker or cane oZhaib Bond, Print Journalist - 01/29/2018 8:50 AM PDTAmbulated patient with stand by assist, no walkers or canes needed. Had IV pole to walk with. Walked 100 feet. Anthony Edmond MD - 01/29/2018 7:50 AM PD T [facility] UROLOGY DAILY PROGRESS NOTE ID: Manuel [...] Signed by: Anthony Ortega MD, 01/29/2018 7:50 [facility] documented in this encou nter Plan [...] | [facility] | | | | by [facility] [address] | | [address] | | | | [facility], | | LABORATORY | | | | [place] [address] | | CERNER | | | | [...] + | [facility] | [address] [facility] | [place] [address] | | | FAMILY LABORATORY | | [...] [facility] | | | | Performed by [facility] [address] | | [address] | | | | [facility], | | LABORATORY | | | | [place] [address] | | CERNER | | | | [...] + | [facility] | [address] | [place] [address] | | | FAMILY LABORATORY | | [...] + + + + | Product | [id number] | | REFERENCE | | | Code | | | LAB [place] | | | | | | [facility] | | | | | | [facility] | | | | | | BLOOD | | | | | | CENTER | | + + + + + + | UNIT # | [id number] | | REFERENCE | | | | | | LAB [place] | | | | | | [facility] | | | | | | [facility] | | | | | | BLOOD | | | | | | CENTER | | + + + + + + | UNIT ABO | A | | REFERENCE | | | | | | LAB [place] | | | | | | [facility] | | | | | | [facility] | | | | | | BLOOD | | | | | | CENTER | | + + + + + + | UNIT RH | POS | | REFERENCE | | | | | | LAB [place] | | | | | | [facility] | | | | | | [facility] | | | | | | BLOOD | | | | | | CENTER | | + + + + + + | Unit Status | IS | | REFERENCE | | | | | | LAB [place] | | | | | | [facility] | | | | | | [facility] | | | | | | BLOOD | | | | | | CENTER | | + + + + + + | Blood | [id number] | | REFERENCE | | | Product | | | LAB [place] | | | Expiration | | | [facility] | | | Date and | | | [facility] | | | Time | | | BLOOD | | | | | | CENTER | | + + + + + + | Product | [id number] | | REFERENCE | | | Blood Type | | | LAB [place] | | | Barcode | | | [facility] | | | | | | [facility] | | | | | | BLOOD | | | | | | CENTER | | + + + + + + | Product | [id number] | | REFERENCE | | | Code | | | LAB [place] | | | | | | [facility] | | | | | | [facility] | | | | | | BLOOD | | | | | | CENTER | | + + + + + + | UNIT # | [id number] | | REFERENCE | | | | | | LAB [place] | | | | | | [facility] | | | | | | [facility] | | | | | | BLOOD | | | | | | CENTER | | + + + + + + | UNIT ABO | A | | REFERENCE | | | | | | LAB [place] | | | | | | [facility] | | | | | | [facility] | | | | | | BLOOD | | | | | | CENTER | | + + + + + + | UNIT RH | POS | | REFERENCE | | | | | | LAB [place] | | | | | | [facility] | | | | | | [facility] | | | | | | BLOOD | | | | | | CENTER | | + + + + + + | Unit Status | IS | | REFERENCE | | | | | | LAB [place] | | | | | | [facility] | | | | | | [facility] | | | | | | BLOOD | | | | | | CENTER | | + + + + + + | Blood | [id number] | | REFERENCE | | | Product | | | LAB [place] | | | Expiration | | | [facility] | | | Date and | | | [facility] | | | Time | | | BLOOD | | | | | | CENTER | | + + + + + + | Product | [id number] | | REFERENCE | | | Blood Type | | | LAB [place] | | | Barcode | | | [...] + + + | Specimen Expiration Date: [id number] | REFERENCE LAB | | | [place] [facility] | | | [facility] | | | BLOOD CENTER | + + + + + + + + | Performing | Address | City/State/Zipcode | Phone Number | | Organization | | | | + + + + + | REFERENCE LAB | [address] | [place] [address] | [phone] | | [place] [facility] | | | | | [facility] [...] | [facility] | | | | by [facility] [address] | | TIMOTHY FAMILY | | | | [facility], | | LABORATORY | | | | [place] [address] | | CERNER | | | | [...] + | [facility] | [address] [facility] | [place] [address] | | | FAMILY LABORATORY | | [...] | | ANABEL | | | | [facility] [address] | | | | | | [place] [address] | | | | + + + + + + + + | Specimen | + + | Blood specimen | | (specimen) | + + + + + + + | Performing | Address | City/State/Zipcode | Phone Number | | Organization | | | | + + + + + | [facility] | [address] [facility] [facility] | [place] [address] | | | FAMILY LABORATORY | | [...] by | | | | | | [facility] [address] | | | | | | [place] [address] | | | | + + + + + + + + | Specimen | + + | Body fluid sample | | (specimen) | + + + + + + + | Performing | Address | City/State/Zipcode | Phone Number | | Organization | | | | + + + + + | [facility] | [address] [facility] | [place] [address] | | | FAMILY LABORATORY | | [...] | [facility] | | | | by [facility] [address] | | CONSUELOFina FAMILY | | | | [facility], | | LABORATORY | | | | [place] [address] | | CERNER | | | | [...] + | [facility] | [address] | [place] [address] | | | FAMILY LABORATORY | | [...] Estimated | 119Comment: eGFR<60 | >=90 | PROVIDEINE | | | GFR | consistent with impaired | mL/min/1.73m2 | TIMOT[place] FAMILY | | | | kidney | | LABORATORY | | | | function.Performed by | | ANABEL | | | | [facility] [address] | | | | | | [place] [address] | | | | + + + + + + + + | Specimen | + + | Blood specimen | | (specimen) | + + + + + + + | Performing | Address | City/State/Zipcode | Phone Number | | Organization | | | | + + + + + | [facility] | [address] [facility] | [place] [address] | | | [facility] | | | | | ANABEL [...] | TRACEMASTER | | Duration:500 msP Horizontal Zeeland: degP Front Zeeland:51 degQ Onset:504 | | | msQRSD Interval:100 msQT Interval:280 msQTcB:435 msQTcF:376 msQRS | | | Horizontal Zeeland: degQRS Zeeland:-1 degI-40 Horizontal Zeeland:68 degI-40 | | | Front Zeeland:29 degT-40 Horizontal Zeeland: degT-40 Front Zeeland:-56 degT | | | Horizontal Zeeland:22 degT Wave Zeeland:45 degS-T Horizontal Zeeland:139 degS-T | | | Front Zeeland:150 degSeverity:- ABNORMAL ECG -INTERP:SINUS | | | TACHYCARDIAINTERP:MULTIFORM VENTRICULAR PREMATURE | | | COMPLEXESINTERP:PROBABLE LEFT VENTRICULAR HYPERTROPHYElectronically | | | signed by: Renny GARCIA 01-29-2018 05:45:39 | | |QTcF:376 ms | | |QRS Horizontal Zeeland: deg | | |QRS Zeeland:-1 deg | | |I-40 Horizontal Zeeland:68 deg | | |I-40 Front Zeeland:29 deg | | |T-40 Horizontal Zeeland: deg | | |T-40 Front Zeeland:-56 deg | | |T Horizontal Zeeland:22 deg | | |T Wave Zeeland:45 deg | | |S-T Horizontal Zeeland:139 deg | | |S-T Front Zeeland:150 deg | | |Severity:- ABNORMAL ECG - | | |INTERP:SINUS TACHYCARDIA | | |INTERP:MULTIFORM VENTRICULAR PREMATURE COMPLEXES | | |INTERP:PROBABLE LEFT VENTRICULAR HYPERTROPHY | | |Electronically signed by: Renny GARCIA 01-29-2018 05:45:39 | | + + + + + + + + | Performing | Address | City/State/[facility] | Phone Number | | Organization | | | | + + + + + | [facility]EM[facility] | [address] | [place] [address] | [phone] | + + + + + CBC [...] | [facility] | | | | by [facility] [address] | | [place] [facility]ILY | | | | [facility], | | LABORATORY | | | | [place] [address] | | CERNER | | | | [...] + | [facility] | [address] | [place] [address] | | | FAMILY LABORATORY | | [...] ADELAIDE | | | | Performed by [facility] [address] | | [place] [address] | | | | [facility], | | LABORATORY | | | | [place] [address] | | ANABEL | | | | [...] + | [facility] | [address] [facility] | [place] [address] | | | FAMILY LABORATORY | | [...] | ADELAIDE | | | | by [facility] [address] | | [address] | | | | [facility] [place], | | LABORATORY | | | | [place] [address] | | CERNER | | | | [...] + | [facility] | [address] [facility] | [place] [address] | | | FAMILY LABORATORY | | [...] [address] | | | | | | [place] [address] | | | | + + + + + + + + | Specimen | + + | Blood specimen | | (specimen) | + + + + + + + | Performing | Address | City/State/Zipcode | Phone Number | | Organization | | | | + + + + + | [facility] | [address] | [place] [address] | | | FAMILY LABORATORY | | [...] | | | ANABEL | | Acct: [id number] Location: | | | [facility]; 408; 408-01 Case #: | | | [id number] Ordering: ANTHONY ORTEGA MD | | | Client: [facility] Timothy Black | | | Copy To: [...] | | | 01/30/18 17:57 PDTPerforming Location: [facility] | | | [address] [place], [place] [address]TSALF DESCRIPTION:The specimen | | | labeled and [...] defined | | | cortical medullary junctions. Farmworker Animal sections are submitted | | | in [...] + | [facility] | [address] [facility] | [place] [address] | | | FAMILY LABORATORY | | [...] | | | POC | Performed by [facility] [address] | | [place] [address] | | | | [address] | | LABORATORY | | | | [place] [address] | | CERNER | | | | [...] + | [facility] | [address] [facility] [facility] | [place] [address] | | | FAMILY LABORATORY | | [...] | | | | | | LAB [place] | | | | | | [facility] | | | | | | [facility] | | | | | | BLOOD | | | | | | CENTER | | + + + + + + | Rh Type | Positive | | REFERENCE | | | | | | LAB [place] | | | | | | [facility] | | | | | | [facility] | | | | | | BLOOD | | | | | | CENTER | | + + + + + + + + | Specimen | + + | | + + + + + | Narrative | Performed At | + + + | Specimen Expiration Date: [id number] | REFERENCE LAB | | | [place] [facility] | | | [facility] | | | BLOOD CENTER | + + + + + + + + | Performing | Address | City/State/Zipcode | Phone Number | | Organization | | | | + + + + + | REFERENCE LAB | [address] | [place] [address] | [phone] | | [place] [facility] | | | | | [facility] [...] | | | | | | LAB [place] | | | | | | [facility] | | | | | | [facility] | | | | | | BLOOD | | | | | | CENTER | | + + + + + + | Rh Type | Positive | | REFERENCE | | | | | | LAB [place] | | | | | | [facility] | | | | | | [facility] | | | | | | BLOOD | | | | | | CENTER | | + + + + + + | Antibody | NegativeComment: Patient | | REFERENCE | | | Screen | is remote crossmatch | | LAB [place] | | | | eligible | | [...] + + + | Specimen Expiration Date: [id number] | REFERENCE LAB | | | [place] [facility] | | | [facility] | | | BLOOD CENTER | + + + + + + + + | Performing | Address | City/State/Zipcode | Phone Number | | Organization | | | | + + + + + | REFERENCE LAB | [address] | [place] [address] | [phone] | | [place] [facility] | | | | | [facility] [...] PDT | | | | | Starting [facility] 01/29/18 at 0602, | | | [...] PDT | | | | | Starting [facility] 01/28/18 at 1058, | | | | [...] + +---------+ +--------+---+---+ | morphine 5 mg/mL PROCEDURE TECH syringe | New Bag | 01/29/20 | [...] | | | Loading Dose(mg): 0, Starting PROCEDURE TECH | | | | | | | Dose(mg): 1, Incremental | | | | | | | Increase PROCEDURE TECH Dose(mg): 0.5, | | | | | | | Maximum PROCEDURE TECH Dose(mg): 2, Lockout | | | | [...] policy and contact | | | provider second shift supervisor, | | + +---+ | | | [...]
--- OUTSIDE RECORDS SUMMARY | ~2019-09-01 | XMS | Encounter Summary ---
Demographics + + + | Address | [address] | | | [place] [address] | + + + | Home Phone [...] + + + | Author | [facility] | | | and Anibal | + + + | Organization | [facility] | | | and Alexandruana | + + + | Address | Unknown | + + + | Phone | Unavailable | + + + Support + + + + + | Name | Relationship | Address | Phone | + + + + + | Neno Winters | ECON | [address] | | | | | [place] [address] | | + + + + + | Joelle Sharp | ECON | [place] | | | | | [place] | | + + + + + Care Team Providers + +------+ + | Care Deck Officer Name | Role | Phone | [...] | kidney | MD [address] | Shivam | | | | | (terminal) | [address] | [facility] | | | | | LAD - BMP | [address] | [address] | | | | | Procedures | [place] | [address] SER[address]ITY | | | | | MT OFFICE | [address] | [address] | | | | | OUTPATIENT | Phone: | [place] | | | | | VISIT 15 | [phone] | [address] | | | | | MINUTES CC | Fax: | Phone: | | | | | CLINICAL | [phone] | [phone] | | | | | SUPPORT | | Fax: | | | | | | | [phone] | +--------+--------+ + + + + Encounter Details +--------+ + + + + | Date | Type | Department | Care Team | Description | +--------+ + + + + | 02/18/ | Clinical | [place] [facility] | | Renal function | | 2018 | Support | [address] | | impairment (Primary | | | | [address] | | Dx); 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 | | [facility] | Everardo Rushing | [...]
--- OUTSIDE RECORDS SUMMARY | ~2019-09-01 | XMS | Encounter Summary ---
Demographics + + + | Address | [address] | | | [place] [address] | + + + | Home Phone | | + + + | Preferred Language | Unknown | + + + | Marital Status | Legally | + + + | Episcopalian Affiliation | Unknown | + + + | Race | Unknown | + + + | Ethnic Group | Unknown | + + + Author + + + | Author | [facility] | | | and Anibal | + + + | Organization | [facility] | | [...] | | | | | [place] [address] | | + + + + + | Joelle Sharp | ECON | Sigrid | | | | | [place] | | + + + + + Care Team Providers + +------+ + | Care Pool Nurse Name | Role | Phone | + [...] [place] | | | | | | [address] | | | | | | [phone] | | | +--------+ + + + [...]
--- OUTSIDE RECORDS SUMMARY | ~2019-09-01 | XMS | Encounter Summary ---
Demographics + + + | Address | [address] | | | [place] [address] | + + + | Home Phone [...] [facility] | | | and Anibal | + + + | Organization | [facility] | | | [...] | | | | | [place] [address] | | + + + + + | Joelle Sharp | ECON | Sigrid | | | | | [place] | | + + + + + Care Team Providers + +------+ + | Care Baggage Handler Name | Role | Phone | + [...] | | | | [place] | [id number] | | | | | [address] | | | | | | [phone] | | | +--------+ + + + [...]
--- OUTSIDE RECORDS SUMMARY | ~2019-09-01 | XMS | Clinical Summary ---
Demographics + + + | Address | [address] | | | [place] [address] | + + + | Home Phone | | + + + | Preferred Language | Unknown | + + + | Marital Status | Legally | + + + | Mandaeism Affiliation | Unknown | + + + | Race | Unknown | + + + | Ethnic Group | Unknown | + + + Author + + + | Author | [facility] | | | and Anibal | + + + | Organization | [facility] | [...] | | | | | [place] [address] | | + + + + + | Joelle Sharp | ECON | Sigrid | | | | | [place] | | + + + + + Care Team Providers + +------+ + | Care Race Steward Name | Role | Phone | + [...] + + + + | Overview: PLRU [id number] Decision | + + Resolved Problems + [...] Yuriy, | | | | | | [address] | | MD Uriel at [facility] | | | | | | / [...] +--------+-------+---------+--------+ | DEPARTMENT OF | [place] | 548229 | | | | Indemn | | CORRECTIONS | RE | | 017-Pr | | | ity | | | | | esent | | | | + +--------+ +--------+-------+---------+--------+ | [employer]MO | [place] | [id number] | 09/25/19 | | | Medica | | | APPLE | 5 | 14-Pre | | | id | | | | | sent | | | | | | [place]ALTH | | | | | | | | [place] | | | | | | + +--------+ +--------+-------+---------+--------+ | [employer] [employer] | [place] | [id number] | 08/25/19 | | | Medica | [...] | 1999 | [phone] | [place] [address] | | | mc | | | 6 (Home) | | + +--------+ +--------+ + + | August Winters | Person | Self | [birth year] | [address] | | | al/Fam | | 1999 | [phone] | [place] [address] | | | mc | | | 6 (Home) | | + +--------+ +--------+ + + | CATHERINE DEJESUS | 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
--- OUTSIDE RECORDS SUMMARY | ~2019-09-01 | XMS | Encounter Summary ---
Demographics + + + | Address | [address] | | | [place] [address] | + + + | Home Phone | | + + + | Preferred Language | Unknown | + + + | Marital Status | Legally | + + + | Gnosticism Affiliation | Unknown | + + + | Race | Unknown | + + + | Ethnic Group | Unknown | + + + Author + + + | Author | [facility] | | | and Anibal | + + + | Organization | [facility] | | | and [...] | | | | | [place] [address] | | + + + + + | Joelle Sharp | ECON | Sigrid | | | | | [place] | | + + + + + Care Team Providers + +------+ + | Care Washing Machine Loader Name | Role | Phone | + [...] | 2019 | | FAMILY EMERGENCY | [address] | of drug in tablet | | | | CENTER [address] | [place], [place] | form ([facility]) (Primary | | | | [address] | [address] | Dx); Other | | | | [place], [place] | | depression | | | | [address] | | | | | | [phone] | | | +--------+ + + + [...] yourself. Follow-up with Terry Garcia for Help [phone] documented in this encounter Medications at Time [...] FAMILY | | | Urine | taking zlsy-cdh-vrbqdmy | | LABORATORY | | | | [...] | | | | | battery.Performed by [facility] | | | | | | [address], | | | | | | [place] [address] | | | | + + + + + + + + | Specimen | + + | Urine specimen | | (specimen) | + + + + + + + | Performing | Address | City/State/Zipcode | Phone Number | | Organization | | | | + + + + + | [facility] | [address] [facility] | [place] [address] | | | FAMILY LABORATORY | | [...] | | | SERUM/PLASM | Performed by [facility] [address] | | [place] | | | A | [facility] | | LABORATORY | | | | [place] [address] | | ALEXSANDRANER | | | | [...] [facility] | [address] | [place] [address] | | | LABORATORY | | | [...] [facility] | | | Immature | by [facility] [address] | K/uL | CONSUELOFina FAMILY | | | Granulocyte | [facility], | | LABORATORY | | | s | [place] [address] | | [place] | | | | | | | | + + + + + + + + | Specimen | + + | Blood specimen | | (specimen) | + + + + + + + | Performing | Address | City/State/Zipcode | Phone Number | | Organization | | | | + + + + + | [facility] | [address] [facility] | [place] [address] | | | FAMILY LABORATORY | | [...] | | | | | | , [place] [address] | | | | + + + + + + + + | Specimen | + + | Blood specimen | | (specimen) | + + + + + + + | Performing | Address | City/State/Zipcode | Phone Number | | Organization | | | | + + + + + | [facility] | [address] | [place] [address] | | | FAMILY LABORATORY | | [...]
--- OUTSIDE RECORDS SUMMARY | ~2019-09-01 | XMS | Encounter Summary ---
Demographics + + + | Address | [address] | | | [place] [address] | + + + | Home Phone | | + + + | Preferred Language | Unknown | + + + | Marital Status | Legally | + + + | Mosque Affiliation | Unknown | + + + | Race | Unknown | + + + | Ethnic Group | Unknown | + + + Author + + + | Author | [facility] | | | and Anibal | + + + | Organization | [facility] | | | and [place] | + + + | Address | Unknown | + + + | Phone | Unavailable | + + + Support + + + + + | Name | Relationship | Address | Phone | + + + + + | Neno Winters | ECON | [address] | | | | | [place] [address] | | + + + + + | Joelle Sharp | ECON | [place] | | | | | [place] | | + + + + + Care Team Providers + +------+ + | Care Tip Stitcher Name | Role | Phone | + [...] Accessory | | | | [address] | [address] | kidney; Stricture or | | | | [place], [place] | [address] [place], [place] | kinking of ureter | | | | [address] | [id number] | | | | | [phone] | | | +--------+ + + + [...] the original. Patient discharged with escort / flatbed driver. Discharge Instructions: After Your Surgery You [...] interact with your prescription medicines or other eeaq-bmc-nyltyfs (OTC) medicines. Some prescription medicines have acetaminophen and other ingredients.Using both prescription a nd OTC acetaminophenfor paincan cause you to overdose. Readthe labels on your OTC [facility]. This will help youto clearly know [...] of taking these medicines. Date Last Reviewed: 07/25/201619995516-6652 [employer] [address] [place] [address], [place] [address]. All righ ts reserved. This information is [...] you develop a fever or flank pain community aide the bag provided to your Nephrostomy tube. [...] was removed over an Amplatz wire. A7 Jordanian | | | sheath was advanced into the upper collecting system.Contrast was | | | injected to confirm position within the upper collectingsystem. | | | Using a Chacno catheter and glidewire, the right ureter | [...] | | the distal ureter. Theshort 7 Jordanian sheath was exchanged for a 23 | | | cm 7 Jordanian sheath whichwas advanced into the right ureter. [...] at advancing an 8 | | | Jordanian, 28 cm ureteral stent into the bladder.However, the stent would | | | not advance beyond the distal ureter.Therefore, the distal ureteral | | | stricture was balloon dilated with a 4mm x 4 cm balloon. Following | | | balloon dilatation, the 8 Jordanian, 28 cmureteral stent was advanced | | [...] | | safety wire, a new 8.5 Jordanian nephrostomytube was placed into the | | [...] distal ureteral stricture.3. Successful placement of 8 Jordanian, 28 cm | | | right ureteral [...] | | |3. Successful placement of 8 Jordanian, 28 cm right ureteral stent. | | [...] an Amplatz wire. A | | 7 Jordanian sheath was advanced into the upper collecting [...] distal ureter. The | | short 7 Jordanian sheath was exchanged for a 23 cm 7 Jordanian sheath which | | was advanced into [...] | | made at advancing an 8 Jordanian, 28 cm ureteral stent into the bladder. | | However, the stent would not advance beyond the distal ureter. | | Therefore, the distal ureteral stricture was balloon dilated with a 4 | | mm x 4 cm balloon. Following balloon dilatation, the 8 Jordanian, 28 cm | | ureteral stent was [...] Over the safety wire, a new 8.5 Jordanian nephrostomy | | tube was placed into [...] | | 3. Successful placement of 8 Jordanian, 28 cm right ureteral stent. | | 4. A nephrostomy tube was placed and capped. The patient will | | follow-up in interventional radiology next week for nephrostogram and | | possible nephrostomy tube removal. 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
--- OUTSIDE RECORDS SUMMARY | ~2019-09-01 | XMS | Encounter Summary ---
Demographics + + + | Address | [address] | | | [place] [address] | + + + | Home Phone [...] | Author | [facility] | | | and Anibal | + + + | Organization | [facility] | | | and [place] | + + + | Address | Unknown | + + + | Phone | Unavailable | + + + Support + + + + + | Name | Relationship | Address | Phone | + + + + + | Neno Winters | ECON | [address] | | | | | [place] [address] | | + + + + + | Joelle Sharp | ECON | [place] | | | | | [place] | | + + + + + Care Team Providers + +------+ + | Care Assistant Librarian Name | Role | Phone | [...] [place] | | | | | | [address] | | | | | | [phone] | | | +--------+ + + + [...]
--- OUTSIDE RECORDS SUMMARY | ~2019-09-01 | XMS | Encounter Summary ---
Demographics + + + | Address | [address] | | | [place] [address] | + + + | Home Phone [...] + + + | Author | [facility] | | | and Anibal | + + + | Organization | [facility] | | | and [...] | | | | | [place] [address] | | + + + + + | Joelle Sharp | SHARYN | [place] | | | | | [place] | | + + + + + Care Team Providers + +------+ + | Care Strategic Debriefing Specialist Name | Role | Phone | + +------+ + PCP | Unavailable | + +------+ + Encounter Details +--------+ + + + + | Date | Type | Department | Care Team | Description | +--------+ + + + + | 08/22/ | Hospital | [facility] | Kie, Rodrigo Ochoa | | | 2003 - | Encounter | [facility] | | | | | | PHYSICAL THERAPY | | | | 09/06/ | | [address] | | | | 2004 | | [place] | | | | | | [address] | | | | | | [phone] | | | +--------+ + + + [...]
[~2019-09-01 09:55] MED LIST: PERCOCET 5-3251 EACH PO
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
[2019-09-01] MEDS ORDERED: ONDANSETRON ODT8 MG PO (13:47)
== END 2019-09-01 13:56 | disposition home or self-care (01) ==
LOC: ED 09:55
DX: R10.9 Unspecified abdominal pain (principal); F43.10 Post-traumatic stress disorder, unspecified; F90.9 Attention-deficit hyperactivity disorder, unspecified type; F17.200 Nicotine dependence, unspecified, uncomplicated; Z79.891 Long term (current) use of opiate analgesic
CPT/HCPCS: 80053; 81001; 85025; 96361; 96374; 96375; 96376; 99284-25; J1170; J1885; J2405; J7030